=== PATIENT | female | born 1960 | race American Indian/Alaskan Native ===

== ENCOUNTER 2016-05-20 11:55 | Inpatient (IN) | payer MEDICAID ==
--- NOTE | 2016-05-20 12:26 | Emergency Department Report ---
ED Shortness of Breath HPI - General Chief Complaint: Dyspnea/Respdistress Stated Complaint: MALCOM Time Seen by Provider: 05/20/16 12:00 Source: patient, RN notes reviewed, old records reviewed Mode of arrival: Stretcher Limitations: Physical Limitation - History of Present Illness Initial Comments: 55-year-old female presents to the emergency department via [facility] complaining of shortness of breath. Patient reports symptoms began this morning around 5 AM. She reports dry cough. She denies fever, chills, chest pain, nausea, or vomiting. EMS reports jail staff stated the patient had a room air saturation in the low 60s. Patient was placed on nasal cannula at 8 L by jail staff. On EMS arrival, the patient had a oxygen saturation of approximately 93%. Patient was administered 5 mg of albuterol en route to emergency department. At this point, the patient reports feeling a little better. There are no other complaints. MD Complaint: shortness of breath, cough -: Sudden, This morning Time: 05:00 Pain Scale: 0 Consistency: constant Improves With: oxygen, bronchodilators Known History Of: COPD, congestive heart failure, diabetes Associated Symptoms: denies other symptoms Treatments Prior to Arrival: oxygen, bronchodilator - Related Data Home Oxygen Therapy: Yes Home Oxygen Amount: other (2-4 liters with CPAP at night) Home Medications Medication Instructions Recorded Confirmed Last Taken Atorvastatin [Lipitor] 40 mg PO QHS 09/23/13 05/20/16 05/20/16 Ferrous Sulfate [Ferrous Sulfate 325 mg PO QAM 09/23/13 05/20/16 05/20/16 Oral Liq 220 Mg/5 Ml] Fluticasone/Salmeterol [Advair 1 puff IH BID 09/23/13 05/20/16 05/19/16 Diskus 250-50 mcg] Insulin Aspart [NovoLOG 100 0 units SUB-Q ACHS 09/23/13 05/20/16 05/20/16 UNITS/ML VIAL] Ipratropium/Albuterol Sulfate 1 ampul IH Q6HRT 09/23/13 05/20/16 1 Day Ago [Duoneb 0.5 mg-3 mg/3 ml Soln] Magnesium Oxide 400 mg PO DAILY 09/23/13 05/20/16 05/20/16 Selenium Sulfide 180 ml TP DAILY 1005/20/16 05/20/16 Arformoterol Nebu [Brovana Nebu] 15 mcg INHALATION Q12HR PRN 04/13/16 05/20/16 1 Day Ago Hydroxyzine HCl 25 mg PO Q8H 04/13/16 05/20/16 05/20/16 Omeprazole Magnesium [PriLOSEC Otc] 20 mg PO DAILY 04/13/16 05/20/16 05/20/16 diphenhydrAMINE [Benadryl CAP] 25 mg PO Q8HR PRN 04/13/16 05/20/16 1 Day Ago Potassium Chloride 20 meq PO BID 05/20/16 05/20/16 05/20/16 Warfarin [Coumadin] 10 mg PO DAILY@1700 05/20/16 05/20/16 05/19/16 hydrALAZINE [Apresoline TAB] 100 mg PO TID 05/20/16 05/20/16 05/20/16 Previous Rx's Medication Instructions Recorded Last Taken Type Levothyroxine [Synthroid] 50 mcg PO DAILY@0600 #30 tablet 03/23/16 05/20/16 Rx Bumetanide [Bumex] 2 mg PO BID #60 tablet 04/21/16 05/20/16 Rx Metoprolol [Lopressor TAB] 100 mg PO BID #60 tablet 04/21/16 05/20/16 Rx oxyCODONE /ACETAMINOPHEN [Percocet 2 tab PO Q6H PRN #10 tablet 04/21/16 1 Day Ago Rx 5/325 mg] Acetaminophen [Acetaminophen TAB] 650 mg PO Q6HR PRN #30 05/05/16 1 Day Ago Rx amLODIPine [Norvasc] 10 mg PO DAILY #30 tab 05/05/16 05/20/16 Rx Allergies Allergy/AdvReac Type Severity Reaction Status Date / Time No Known Allergies Allergy Verified 10/02/13 09:59 ED Review of Systems ROS: Stated complaint: MALCOM Other details as noted in HPI Comment: All other systems reviewed and negative Respiratory: cough, shortness of breath ED Past Medical Hx - Past Medical History Previous Medical History?: Yes Hx Hypertension: Yes Hx Heart Attack/AMI: No Hx Congestive Heart Failure: Yes Hx Diabetes: Yes (Type II) Hx Deep Vein Thrombosis: No Hx Pulmonary Embolism: No Hx GERD: Yes Hx Liver Disease: No Hx Renal Disease: No Hx Arthritis: Yes Hx Kidney Stones: No Hx Psychiatric Treatment: Yes (anxiety) Hx Asthma: Yes Hx COPD: Yes Hx Tuberculosis: No Hx HIV: No Additional medical history: morbid obesity. atrial fibrillation. hypothyroidism. Edema. Obstructive Sleep Apnea with BiPAP used at night. chronic pain. chronic kidney disease. hyperlipidemia. anemia - Surgical History Past Surgical History?: No Hx Coronary Stent: No Hx Open Heart Surgery: No Hx Pacemaker: No Hx Internal Defibrillator: No Hx Cholecystectomy: No Hx Appendectomy: No Hx Breast Surgery: No - Family History Family history: no significant - Social History Smoking Status: Unknown if ever smoked Substance Use Type: None - Medications Home Medications: Home Medications Medication Instructions Recorded Confirmed Last Taken Type Atorvastatin [Lipitor] 40 mg PO QHS 09/23/13 05/20/16 05/20/16 History Ferrous Sulfate [Ferrous Sulfate 325 mg PO QAM 09/23/13 05/20/16 05/20/16 History Oral Liq 220 Mg/5 Ml] Fluticasone/Salmeterol [Advair 1 puff IH BID 09/23/13 05/20/16 05/19/16 History Diskus 250-50 mcg] Insulin Aspart [NovoLOG 100 0 units SUB-Q ACHS 09/23/13 05/20/16 05/20/16 History UNITS/ML VIAL] Ipratropium/Albuterol Sulfate 1 ampul IH Q6HRT 09/23/13 05/20/16 1 Day Ago History [Duoneb 0.5 mg-3 mg/3 ml Soln] Magnesium Oxide 400 mg PO DAILY 09/23/13 05/20/16 05/20/16 History Selenium Sulfide 180 ml TP DAILY 03/16/16 05/20/16 05/20/16 History Levothyroxine [Synthroid] 50 mcg PO DAILY@0600 #30 tablet 03/23/16 05/20/1606/05 Rx Arformoterol Nebu [Brovana Nebu] 15 mcg INHALATION Q12HR PRN 04/13/16 05/20/16 1 Day Ago History Hydroxyzine HCl 25 mg PO Q8H 04/13/16 05/20/16 05/20/16 History Omeprazole Magnesium [PriLOSEC Otc] 20 mg PO DAILY 04/13/16 05/20/1605/20/17 History diphenhydrAMINE [Benadryl CAP] 25 mg PO Q8HR PRN 04/13/16 05/20/16 1 Day Ago History Bumetanide [Bumex] 2 mg PO BID #60 tablet 04/21/16 05/20/16 05/20/16 Rx Metoprolol [Lopressor TAB] 100 mg PO BID #60 tablet 04/21/16 05/20/16 05/20/16 Rx oxyCODONE /ACETAMINOPHEN [Percocet 2 tab PO Q6H PRN #10 tablet 04/21/16 1 Day Ago Rx 5/325 mg] Acetaminophen [Acetaminophen TAB] 650 mg PO Q6HR PRN #30 05/05/16 05/20/16 1 Day Ago Rx amLODIPine [Norvasc] 10 mg PO DAILY #30 tab 05/05/16 05/20/16 05/20/16 Rx Potassium Chloride 20 meq PO BID 05/20/16 05/20/16 05/20/16 History Warfarin [Coumadin] 10 mg PO DAILY@1700 05/20/16 05/20/16 05/19/16 History hydrALAZINE [Apresoline TAB] 100 mg PO TID 05/20/16 05/20/16 05/20/16 History ED Physical Exam - General Limitations: Physical Limitation General appearance: alert, in distress (mild respiratory distress), obese - Head Head exam: Present: atraumatic, normocephalic - Eye Eye exam: Present: normal appearance, PERRL. Absent: EOMI - ENT ENT exam: Present: normal exam, normal orophraynx, mucous membranes moist - Neck Neck exam: Present: normal inspection, full ROM. Absent: tenderness - Respiratory Respiratory exam: Present: respiratory distress (mild tachypnea), wheezes ( faint end expiratory wheezes noted bilaterally) - Cardiovascular Cardiovascular Exam: Present: regular rate, normal rhythm, normal heart sounds - GI/Abdominal GI/Abdominal exam: Present: soft, normal bowel sounds. Absent: distended, tenderness - Extremities Exam Extremities exam: Present: normal inspection, full ROM. Absent: tenderness - Back Exam Back exam: Present: normal inspection, full ROM. Absent: tenderness - Neurological Exam Neurological exam: Present: alert, oriented X3. Absent: motor sensory deficit - Skin Skin exam: Present: warm, dry, intact ED Course Vital Signs 05/20/16 05/20/16 11:55 12:46 Temperature 98.2 F Pulse Rate 94 H 78 Respiratory 28 H 20 Rate Blood Pressure 140/76 O2 Sat by Pulse 99 92 Oximetry ED Medical Decision Making - Lab Data Result diagrams: 05/20/16 12:08 05/20/16 12:08 - EKG Data -: EKG Interpreted by Me EKG shows normal: sinus rhythm, axis, intervals, QRS complexes, ST-T waves Rate: normal - EKG Data When compared to previous EKG there are: no significant change Interpretation: normal EKG, unchanged when compared t (05/01/2016) - Radiology Data Radiology results: report reviewed, image reviewed Chest x-ray shows worsening pulmonary edema compared to previous exam on . - Medical Decision Making Lab and imaging results reviewed and discussed with the patient and daughter. Patient is currently on nasal cannula at 4 L/m with oxygen saturation fluctuated between 90% and 92%. Giving an IV dose of Lasix. I have spoken with the hospitalist, who will admit. - Differential Diagnosis COPD exacerbation, pneumonia, CHF Critical care attestation.: If time is entered above; I have spent that time in minutes in the direct care of this critically ill patient, excluding procedure time. ED Disposition Clinical Impression: Acute on chronic congestive heart failure Qualifiers: Congestive heart failure type: combined Qualified Code(s): I50.43 - Acute on chronic combined systolic (congestive) and diastolic (congestive) heart failure Disposition: OP ADMITTED IP TO THIS HOSP Is pt being admited?: Yes Condition: Stable Time of Disposition: 14:05
[2016-05-20 12:47] LABS: Albumin 3.5 g/dL (3.9-5); BUN/Creatinine Ratio 8.7; Bilirubin,Total 0.7 mg/dL (0.1-1.2); Calcium 8.6 mg/dL (8.4-10.2); Chloride 102.3 mmol/L (98-107); Magnesium 2.1 mg/dL (1.7-2.3); Total Protein 6.9 g/dL (6.3-8.2)
[2016-05-20 13:02] LABS: Basophils % (Auto) 0.4 % (0.0-1.8); Eosinophils % (Auto) 4.5 % (0.0-4.3); Hematocrit 29.6 % (30.3-42.9); Hemoglobin 9.1 gm/dl (10.1-14.3); Mean Corpuscular HGB Conc 31 % (30-34); Mean Corpuscular Hemoglobin 27 pg (28-32); Mean Corpuscular Volume 89 fl (79-97); Platelet Count 167 K/mm3 (140-440); Red Blood Count 3.32 M/mm3 (3.65-5.03); Red Cell Distribution Width 18.2 % (13.2-15.2); White Blood Count 7.3 K/mm3 (4.5-11.0)
--- NOTE | 2016-05-20 13:22 | XRay Report ---
AP CHEST :05/20/16 11:55:00 CLINICAL: Dyspnea. COMPARISON:05/01/16 FINDINGS: Stable cardiomegaly and central vascular congestion. Stable mild fluid in the right minor fissure. Bilateral hazy lung prakash with no pulmonary consolidation. No tubes or lines. IMPRESSION: Congestive heart failure with mild pulmonary edema and slight worsening since the last exam.
[2016-05-20] MEDS ORDERED: LASIX IV ONE (14:00)
[2016-05-20] MEDS ORDERED: LASIX ONE (16:04)
[2016-05-20] MEDS ORDERED: TYLENOL PO PRN ×2 (17:40→19:15)
[2016-05-20] MEDS ORDERED: DULCOLAX PR PRN (17:40)
[2016-05-20] MEDS ORDERED: MILK OF MAGNESIA PO PRN (17:40)
[2016-05-20] MEDS ORDERED: ZOFRAN IV PRN (17:40)
[2016-05-20] MEDS ORDERED: K-DUR PO ONE (18:06)
[2016-05-20] MEDS ORDERED: DUONEB 0.5 MG-3 MG/3 ML SOLN IH PRN (18:19)
[2016-05-20] MEDS ORDERED: PROVENTIL IH PRN (18:23)
[2016-05-20] MEDS ORDERED: DUONEB 0.5 MG-3 MG/3 ML SOLN IH SCH ×2 (18:24→20:00)
[2016-05-20] MEDS: PULMICORT IH SCH ×2 (18:31→21:08)
[2016-05-20] MEDS ORDERED: MAGNESIUM OXIDE 400 MG PO SCH (19:15)
[2016-05-20] MEDS ORDERED: BENADRYL PO PRN (19:15)
[2016-05-20] MEDS ORDERED: PERCOCET 5/325 PO PRN (19:15)
[2016-05-20] MEDS ORDERED: SELENIUM SULFIDE TP SCH (19:15)
--- NOTE | 2016-05-20 19:15 | Event Note ---
Date: 05/20/16 Acute resp failure Hypoventilation-Pickwickian syndrome CHF exacerbation Morbid obesity IDDM HTN GERD Anticoagulation
[2016-05-20] MEDS ORDERED: SELSUN TP PRN (19:35)
[2016-05-20] MEDS: LASIX IV SCH (20:43)
[2016-05-20] MEDS: LEVAQUIN 750MG/150ML 150 ML IV SCH (20:43)
[2016-05-20] MEDS: ATARAX PO SCH (20:44)
[2016-05-20] MEDS: APRESOLINE PO SCH (20:44)
[2016-05-20] MEDS: NORVASC PO SCH (20:45)
[2016-05-20] MEDS: DUONEB 0.5 MG-3 MG/3 ML SOLN IH SCH (21:08)
[2016-05-20 21:45] LABS: INR 8.53 (0.87-1.13)
[2016-05-20] MEDS ORDERED: NON-FORMULARY (Fluticasone/Salmeterol [Advair Diskus 250-50 Mcg] 1 PUFF) IH SCH (22:00)
[2016-05-20] MEDS ORDERED: K-DUR PO SCH (22:00)
[2016-05-20] MEDS ORDERED: NON-FORMULARY (Potassium Chloride [Potassium Chloride] 20 MEQ) PO SCH (22:00)
[2016-05-20] MEDS: LOPRESSOR PO SCH (22:10)
[2016-05-20] MEDS: ZOCOR PO SCH (22:10)
[2016-05-20] MEDS: BUMEX PO SCH (22:13)
[2016-05-20 23:07] LABS: ISTAT Base Excess 5; ISTAT DEVICE 0; ISTAT HCO3 30.9; ISTAT PCO2 55.6 (35-45); ISTAT PH 7.353 (7.35-7.45); ISTAT PO2 21 (80-105); ISTAT SO2 30; ISTAT TCO2 33
[2016-05-21] MEDS: DUONEB 0.5 MG-3 MG/3 ML SOLN IH SCH ×4 (02:17→20:29)
--- NOTE | 2016-05-21 02:59 | History and Physical Report ---
CHIEF COMPLAINT: Increasing shortness of breath for a couple of days, more so since morning 5:00 a.m. HISTORY OF PRESENT ILLNESS: A 55-year-old female, morbidly obese and bedridden, and [facility] patient sent in for increasing shortness of breath for the last 2 days, more so since 5 a.m. She reports slight cough. Denies fevers or chills. The patient has room air oxygenation around in the low 60s in the fpc. The patient was put on nasal cannula oxygen has improved to 93%. The patient was also administered albuterol in route. Dry cough. No cough productive of sputum. PAST MEDICAL HISTORY: Significant for hyperlipidemia, asthma/COPD, insulin-dependent diabetes, gastroesophageal reflux disease, anticoagulation. CURRENT MEDICATIONS: Lipitor 40 mg p.o. daily, ferrous sulfate 325 mg p.o. daily, Advair 1 puff b.i.d., NovoLog 8 units at bedtime, albuterol/ipratropium 1 ampule q. 8 hours p.r.n., selenium sulfide 180 mL once a day, Brovana nebulizer 50 mcg q. 12h., hydroxyzine 25 mg p.o. q. 8, Prilosec 20 mg p.o. daily, potassium 20 mEq p.o. b.i.d., Coumadin 10 mg p.o. daily, hydralazine 100 mg p.o. q. 8. She was on levothyroxine 50 mcg daily. PAST SURGICAL HISTORY: Significant for none. FAMILY HISTORY: Significant for hypertension. SOCIAL HISTORY: Does not smoke. REVIEW OF SYSTEMS: Middle-aged female, morbidly obese, weighing around 450 pounds, slight respiratory distress and cough presenting of mucoid sputum. Otherwise, review of systems is essentially negative. PHYSICAL EXAMINATION: GENERAL: Middle-aged female. VITAL SIGNS: Blood pressure is 132/79, temperature is 97.7, pulse is 81, respirations are 22. HEENT: Unremarkable. Pupils are equal and reactive. LUNGS AND CHEST: Hyperactive with increased work of breathing. Cough and rhonchi present. CARDIOVASCULAR: S1, S2 heard. No gallop, no murmur, no rub. Apical impulse in left fifth intercostal space in midclavicular line. ABDOMEN: Soft and benign. No hepatosplenomegaly. No guarding, no rigidity. Hernial orifices are normal. EXTREMITIES: Good pedal pulses. No pedal edema. CENTRAL NERVOUS SYSTEM: Alert and oriented x4, nonfocal exam. LABORATORY DATA: White count is 7300, H and H is 9.1 and 29.6, platelet count is 167,000. INR is 8.53. ABG is significant for pH of 7.353, pCO2 of 55, and a pO2 of 21. Sats are FiO2. Electrolytes are significant for bicarbonate of 31, BUN and creatinine of 27 and 3.1, glucose of 101. DIAGNOSTIC DATA: Chest x-ray shows congestive heart failure, mild pulmonary edema slight worsening than the last exam. ASSESSMENT AND PLAN: 1. Acute respiratory failure with hypoxia and hypercapnia. Continue DuoNeb, IV Solu-Medrol, and IV Levaquin. 2. Congestive heart failure. Check echocardiogram and BNP. 3. Hypothyroidism. Continue Synthroid 50 mcg daily. 4. Chronic obstructive pulmonary disease exacerbation. Continue DuoNeb, levofloxacin, and Solu-Medrol. 5. Hypertension. Continue antihypertensives. 6. Insulin-dependent diabetes. Continue insulin coverage. 7. Anticoagulation. Protime is supratherapeutic. We will hold the Coumadin and resume when the protime level comes to 2. 8. Deep vein thrombosis prophylaxis, no necessity for DVT prophylaxis, the patient's Coumadin level is high. INR is in 8. Prognosis is fair. JOB# [id number] LOREN/NTS
[2016-05-21] MEDS: ATARAX PO SCH ×3 (03:59→20:48)
[2016-05-21] MEDS: SYNTHROID PO SCH (05:18)
[2016-05-21 06:18] LABS: Basophils % (Auto) 0.1 % (0.0-1.8); Eosinophils % (Auto) 0.2 % (0.0-4.3); Hematocrit 29.4 % (30.3-42.9); Hemoglobin 9.1 gm/dl (10.1-14.3); Mean Corpuscular HGB Conc 31 % (30-34); Mean Corpuscular Hemoglobin 27 pg (28-32); Mean Corpuscular Volume 88 fl (79-97); Platelet Count 143 K/mm3 (140-440); Red Blood Count 3.33 M/mm3 (3.65-5.03); Red Cell Distribution Width 17.8 % (13.2-15.2); White Blood Count 5.1 K/mm3 (4.5-11.0)
[2016-05-21 06:46] LABS: Albumin 3.1 g/dL (3.9-5); Albumin/Globulin Ratio 0.8 %; BUN/Creatinine Ratio 10.58; Bilirubin,Total 0.6 mg/dL (0.1-1.2); Calcium 8.7 mg/dL (8.4-10.2); Chloride 103.2 mmol/L (98-107); Potassium 5.8 mmol/L (3.6-5.0); Total Protein 6.9 g/dL (6.3-8.2)
[2016-05-21 07:01] LABS: INR 8.81 (0.87-1.13)
[2016-05-21] MEDS: PULMICORT IH SCH ×2 (08:21→20:29)
--- NOTE | 2016-05-21 08:23 | Consultation ---
History of Present Illness - Reason for Consult Consult date: 05/21/16 acute renal failure, chronic renal failure, hyperkalemia - History of Present Illness Patient is a 55 yo AAF with pmh significant for Morbid Obesity, hypertension, CKD stage 4, CHF, A.fib and Severe Pulmonary HTN who [place] bound [place] was brought into the emergency department via EMS with complains of shortness of breath. Patient is a poor historian. She developed symptoms yesterday morning around 5 AM. History is also positive for dry cough. Per detention staff the patient had a room air saturation in the low 60s. Patient was placed on nasal cannula at 8 L by detention staff. On EMS arrival, the patient had a oxygen saturation of approximately 93%. Her symptoms are better overall. She denies any fever, chills, chest pain, N, V, D, skin rash, dizziness, syncope , dysuria, hematuria, kidney stone or NSAID intake. Her baseline creatinine is around 3 and she is not followed by any [facility]. Her potassium level is high this morning. Past History Past Medical History: atrial fib, diabetes, GERD, heart failure, hypertension Social history: single. denies: smoking, alcohol abuse, IV drug use Medications and Allergies Allergies Allergy/AdvReac Type Severity Reaction Status Date / Time No Known Allergies Allergy Verified 10/02/13 09:59 Home Medications Medication Instructions Recorded Confirmed Last Taken Type Atorvastatin [Lipitor] 40 mg PO QHS 09/23/13 05/20/16 05/20/16 History Ferrous Sulfate [Ferrous Sulfate 325 mg PO QAM 09/23/13 05/20/16 05/20/16 History Oral Liq 220 Mg/5 Ml] Fluticasone/Salmeterol [Advair 1 puff IH BID 09/23/13 05/20/16 05/19/16 History Diskus 250-50 mcg] Insulin Aspart [NovoLOG 100 0 units SUB-Q ACHS 09/23/13 05/20/16 05/20/16 History UNITS/ML VIAL] Ipratropium/Albuterol Sulfate 1 ampul IH Q6HRT 09/23/13 05/20/16 1 Day Ago History [Duoneb 0.5 mg-3 mg/3 ml Soln] Magnesium Oxide 400 mg PO DAILY 09/23/13 05/20/16 05/20/16 History Selenium Sulfide 180 ml TP DAILY 03/16/16 05/20/16 05/20/16 History Levothyroxine [Synthroid] 50 mcg PO DAILY@0600 #30 tablet 03/23/16 05/20/1606/05 Rx Arformoterol Nebu [Brovana Nebu] 15 mcg INHALATION Q12HR PRN 04/13/16 05/20/16 1 Day Ago History Hydroxyzine HCl 25 mg PO Q8H 04/13/16 05/20/16 05/20/16 History Omeprazole Magnesium [PriLOSEC Otc] 20 mg PO DAILY 04/13/16 05/20/16 05/20/16 History diphenhydrAMINE [Benadryl CAP] 25 mg PO Q8HR PRN 04/13/16 05/20/16 1 Day Ago History Bumetanide [Bumex] 2 mg PO BID #60 tablet 04/21/16 05/20/16 05/20/16 Rx Metoprolol [Lopressor TAB] 100 mg PO BID #60 tablet 04/21/16 05/20/16 05/20/16 Rx oxyCODONE /ACETAMINOPHEN [Percocet 2 tab PO Q6H PRN #10 tablet 04/21/16 1 Day Ago Rx 5/325 mg] Acetaminophen [Acetaminophen TAB] 650 mg PO Q6HR PRN #30 05/05/16 05/20/16 1 Day Ago Rx amLODIPine [Norvasc] 10 mg PO DAILY #30 tab 05/05/16 05/20/16 05/20/16 Rx Potassium Chloride 20 meq PO BID 05/20/16 05/20/16 05/20/16 History Warfarin [Coumadin] 10 mg PO DAILY@1700 05/20/16 05/20/16 05/19/16 History hydrALAZINE [Apresoline TAB] 100 mg PO TID 05/20/16 05/20/16 05/20/16 History Active Meds: Active Medications Acetaminophen (Tylenol) 650 mg PO Q4H PRN PRN Reason: Pain MILD(1-3)/Fever >100.5/HO Acetaminophen (Tylenol) 650 mg PO Q6HR PRN PRN Reason: Pain Albuterol (Proventil) 2.5 mg IH Q4HRT PRN PRN Reason: Shortness Of Breath Albuterol/Ipratropium (Duoneb 0.5 Mg-3 Mg/3 Ml Soln) 1 ampul IH Q6HRT [facility] Last Admin: 05/21/16 08:21 Dose: 1 ampul Amlodipine Besylate (Norvasc) 10 mg PO DAILY [facility] Last Admin: 05/20/16 20:45 Dose: 10 mg Atorvastatin Calcium (Lipitor) 40 mg PO QHS [facility] Last Admin: 05/20/16 22:10 Dose: 40 mg Bisacodyl (Dulcolax) 10 mg LA QDAY PRN PRN Reason: Constipation unrelieved by MOM Budesonide (Pulmicort) 0.5 mg IH Q12HRT [facility] Last Admin: 05/21/16 08:21 Dose: 0.5 mg Bumetanide (Bumex) 2 mg PO BID [facility] Last Admin: 05/20/16 22:13 Dose: 2 mg Diphenhydramine HCl (Benadryl) 25 mg PO Q8HR PRN PRN Reason: Itching Ferrous Sulfate (Feosol) 325 mg PO QAM [facility] Furosemide (Lasix) 40 mg IV QDAY [facility] Last Admin: 05/20/16 20:43 Dose: 40 mg Hydralazine HCl (Apresoline) 100 mg PO TID [facility] Last Admin: 05/20/16 20:44 Dose: 100 mg Hydroxyzine HCl (Atarax) 25 mg PO Q8H [facility] Last Admin: 05/21/16 03:59 Dose: 25 mg Levofloxacin/Dextrose (Levaquin 750mg/150ml) 150 mls @ 100 mls/hr IV Q24HR [facility] PRN Reason: Protocol Last Admin: 05/20/16 20:43 Dose: 100 mls/hr Levothyroxine Sodium (Synthroid) 50 mcg PO DAILY@0600 [facility] Last Admin: 05/21/16 05:18 Dose: 50 mcg Magnesium Hydroxide (Milk Of Magnesia) 30 ml PO Q4H PRN PRN Reason: Constipation Magnesium Oxide (Mag-Ox) 400 mg PO QDAY [facility] Methylprednisolone Sodium Succinate (Solu-Medrol) 60 mg IV Q8HR [facility] Last Admin: 05/21/16 05:18 Dose: 60 mg Metoprolol Tartrate (Lopressor) 100 mg PO BID [facility] Last Admin: 05/20/16 22:10 Dose: 100 mg Ondansetron HCl (Zofran) 4 mg IV Q8H PRN PRN Reason: N/V unrelieved by Reglan Oxycodone/Acetaminophen (Percocet 5/325) 1 tab PO Q6H PRN PRN Reason: Pain, Moderate (4-6) Oxycodone/Acetaminophen (Percocet 5/325) 2 tab PO Q6H PRN PRN Reason: Pain, Moderate (4-6) Pantoprazole Sodium (Protonix) 20 mg PO QDAY [facility] Selenium Sulfide (Selsun) 1 applic TP QDAY PRN PRN Reason: Seborrhea Simvastatin (Zocor) 20 mg PO QHS [facility] Last Admin: 05/20/16 22:10 Dose: 20 mg Warfarin Sodium (Coumadin) 10 mg PO DAILY@1700 [facility] PRN Reason: Protocol Review of Systems Constitutional: fatigue, no weight loss, no fever, no chills Ears, nose, mouth and throat: no sinus pressure, no sinus pain, no epistaxis Breasts: deferred Cardiovascular: edema, shortness of breath, no chest pain, no syncope, no lightheadedness Respiratory: cough, shortness of breath, no hemoptysis Gastrointestinal: no abdominal pain, no nausea, no vomiting, no diarrhea, no melena Genitourinary Female: no kidney stones Rectal: no bleeding Musculoskeletal: no neck stiffness, no neck pain Integumentary: no rash, no jaundice Neurological: no paralysis, no seizures, no syncope Hematologic/Lymphatic: lymphedema Allergic/Immunologic: no urticaria Exam - Vital Signs Vital signs: Vital Signs Temp Pulse Resp BP Pulse Ox 98.2 F 94 H 28 H 140/76 99 05/20/16 11:55 05/20/16 11:55 05/20/16 11:55 05/20/16 11:55 05/20/16 11:55 - General Appearance General appearance: well-developed, well-nourished, obese, other (no distress) EENT: PERRL, mucous membranes moist, hearing intact, vision intact Neck: Present: neck supple Respiratory: Clear to Ascultation Heart: regular, S1S2, no murmurs Gastrointestinal: Present: normoactive bowel sounds, obese. Absent: tenderness , distended, guarding Integumentary: warm and dry Neurologic: no focal deficit, no asterixis, CN 3-12 intact Musculoskeletal: Present: other (bilateral LE edema noted) Psychiatric: mood/affect appropriate, cooperative Results - Lab Results 05/21/16 05:24 05/21/16 05:24 Most recent lab results Calcium 8.7 mg/dL (8.4-10.2) 05/21/16 05:24 Magnesium 2.1 mg/dL (1.7-2.3) 05/20/16 12:08 Assessment and Plan - Patient Problems (1) Acute hyperkalemia Current Visit: Yes Status: Acute Plan to address problem: Hyperkalemia in the setting of CKD stage 4. Kayexalate ordered. K supplements were stopped. Monitor potassium level. (2) LOPEZ (acute kidney injury) Current Visit: No Status: Acute Plan to address problem: Mild Acute kidney Injury. Monitor renal function. (3) CKD (chronic kidney disease) stage 4, GFR 15-29 ml/min Current Visit: Yes Status: Acute Plan to address problem: CKD likely secondary to Diabetic Nephropathy. (4) HTN (hypertension) Current Visit: No Status: Chronic Plan to address problem: BP well controlled. (5) Anemia due to chronic kidney disease Current Visit: Yes Status: Acute Plan to address problem: Will check Iron studies.
[2016-05-21] MEDS ORDERED: NON-FORMULARY (Omeprazole Magnesium [Prilosec Otc] 20 MG) PO SCH (10:00)
[2016-05-21] MEDS ORDERED: FERROUS SULFATE 325 MG PO SCH (10:00)
--- NOTE | 2016-05-21 11:36 | Consultation ---
History of Present Illness Consult date: 05/21/16 Requesting physician: KARMEN MEHTA Consult reason: congestive heart failure History of present illness: This is a 55-year-old female who has morbid obesity obstructive sleep apnea with severe pulmonary hypertension who has history of also congestive heart failure hypertension proximal atrial fibrillation renal insufficiency who is bedbound patient is transferred via wheelchair patient's been correction for last several weeks was in the hospital 05/05/2016 for shortness of breath. Patient was brought back because of worsening shortness of breath but on exam here patient states or shortness breath but the same which shortness breath with movement minimal exertion patient is able lie down flat has some trace edema patient's BNP is relatively stable. Patient denies any chest pain syncope palpitations Past History Past Medical History: atrial fib (proximal), anemia, COPD (NURIS), heart failure, hypertension, hyperlipidemia Past Surgical History: No surgical history Social history: other (lives in a correction). denies: smoking Family history: diabetes, hypertension Medications and Allergies Allergies Allergy/AdvReac Type Severity Reaction Status Date / Time No Known Allergies Allergy Verified 10/02/13 09:59 Home Medications Medication Instructions Recorded Confirmed Last Taken Type Atorvastatin [Lipitor] 40 mg PO QHS 09/23/13 05/20/16 05/20/16 History Ferrous Sulfate [Ferrous Sulfate 325 mg PO QAM 09/23/13 05/20/16 05/20/16 History Oral Liq 220 Mg/5 Ml] Fluticasone/Salmeterol [Advair 1 puff IH BID 09/23/13 05/20/16 05/19/16 History Diskus 250-50 mcg] Insulin Aspart [NovoLOG 100 0 units SUB-Q ACHS 09/23/13 05/20/16 05/20/16 History UNITS/ML VIAL] Ipratropium/Albuterol Sulfate 1 ampul IH Q6HRT 09/23/13 05/20/16 1 Day Ago History [Duoneb 0.5 mg-3 mg/3 ml Soln] Magnesium Oxide 400 mg PO DAILY 09/23/13 05/20/16 05/20/16 History Selenium Sulfide 180 ml TP DAILY 03/16/16 05/20/16 05/20/16 History Levothyroxine [Synthroid] 50 mcg PO DAILY@0600 #30 tablet 11/09/0205/20/1606/05 Rx Arformoterol Nebu [Brovana Nebu] 15 mcg INHALATION Q12HR PRN 04/13/16 05/20/16 1 Day Ago History Hydroxyzine HCl 25 mg PO Q8H 04/13/16 05/20/16 05/20/16 History Omeprazole Magnesium [PriLOSEC Otc] 20 mg PO DAILY 04/13/16 05/20/16 05/20/16 History diphenhydrAMINE [Benadryl CAP] 25 mg PO Q8HR PRN 04/13/16 05/20/16 1 Day Ago History Bumetanide [Bumex] 2 mg PO BID #60 tablet 04/21/16 05/20/16 05/20/16 Rx Metoprolol [Lopressor TAB] 100 mg PO BID #60 tablet 04/21/16 05/20/16 05/20/16 Rx oxyCODONE /ACETAMINOPHEN [Percocet 2 tab PO Q6H PRN #10 tablet 04/21/16 1 Day Ago Rx 5/325 mg] Acetaminophen [Acetaminophen TAB] 650 mg PO Q6HR PRN #30 05/05/16 05/20/16 1 Day Ago Rx amLODIPine [Norvasc] 10 mg PO DAILY #30 tab 05/05/16 05/20/16 05/20/16 Rx Potassium Chloride 20 meq PO BID 05/20/16 05/20/16 05/20/16 History Warfarin [Coumadin] 10 mg PO DAILY@1700 05/20/16 05/20/16 05/19/16 History hydrALAZINE [Apresoline TAB] 100 mg PO TID 05/20/16 05/20/16 05/20/16 History Active Meds: Active Medications Acetaminophen (Tylenol) 650 mg PO Q4H PRN PRN Reason: Pain MILD(1-3)/Fever >100.5/HO Acetaminophen (Tylenol) 650 mg PO Q6HR PRN PRN Reason: Pain Albuterol (Proventil) 2.5 mg IH Q4HRT PRN PRN Reason: Shortness Of Breath Albuterol/Ipratropium (Duoneb 0.5 Mg-3 Mg/3 Ml Soln) 1 ampul IH Q6HRT PRATIK Last Admin: 05/21/16 08:21 Dose: 1 ampul Amlodipine Besylate (Norvasc) 10 mg PO DAILY [facility] Last Admin: 05/20/16 20:45 Dose: 10 mg Atorvastatin Calcium (Lipitor) 40 mg PO QHS [facility] Last Admin: 05/20/16 22:10 Dose: 40 mg Bisacodyl (Dulcolax) 10 mg TX QDAY PRN PRN Reason: Constipation unrelieved by MOM Budesonide (Pulmicort) 0.5 mg IH Q12HRT [facility] Last Admin: 05/21/16 08:21 Dose: 0.5 mg Bumetanide (Bumex) 2 mg PO BID [facility] Last Admin: 05/20/16 22:13 Dose: 2 mg Diphenhydramine HCl (Benadryl) 25 mg PO Q8HR PRN PRN Reason: Itching Ferrous Sulfate (Feosol) 325 mg PO QAM [facility] Furosemide (Lasix) 40 mg IV QDAY [facility] Last Admin: 05/20/16 20:43 Dose: 40 mg Hydralazine HCl (Apresoline) 100 mg PO TID [facility] Last Admin: 05/20/16 20:44 Dose: 100 mg Hydroxyzine HCl (Atarax) 25 mg PO Q8H [facility] Last Admin: 05/21/16 03:59 Dose: 25 mg Levofloxacin/Dextrose (Levaquin 750mg/150ml) 150 mls @ 100 mls/hr IV Q24HR [facility] PRN Reason: Protocol Last Admin: 05/20/16 20:43 Dose: 100 mls/hr Levothyroxine Sodium (Synthroid) 50 mcg PO DAILY@0600 [facility] Last Admin: 05/21/16 05:18 Dose: 50 mcg Magnesium Hydroxide (Milk Of Magnesia) 30 ml PO Q4H PRN PRN Reason: Constipation Magnesium Oxide (Mag-Ox) 400 mg PO QDAY [facility] Methylprednisolone Sodium Succinate (Solu-Medrol) 60 mg IV Q8HR [facility] Last Admin: 05/21/16 05:18 Dose: 60 mg Metoprolol Tartrate (Lopressor) 100 mg PO BID [facility] Last Admin: 05/20/16 22:10 Dose: 100 mg Ondansetron HCl (Zofran) 4 mg IV Q8H PRN PRN Reason: N/V unrelieved by Reglan Oxycodone/Acetaminophen (Percocet 5/325) 1 tab PO Q6H PRN PRN Reason: Pain, Moderate (4-6) Pantoprazole Sodium (Protonix) 20 mg PO QDAY [facility] Selenium Sulfide (Selsun) 1 applic TP QDAY PRN PRN Reason: Seborrhea Simvastatin (Zocor) 20 mg PO QHS [facility] Last Admin: 05/20/16 22:10 Dose: 20 mg Sodium Polystyrene Sulfonate (Kayexalate) 30 gm PO Q6HR [facility] Stop: 05/21/16 12:01 Review of Systems All systems: negative (hpi) Physical Examination Vital Signs Temp Pulse Resp BP Pulse Ox 98.2 F 94 H 28 H 140/76 99 05/20/16 11:55 05/20/16 11:55 05/20/16 11:55 05/20/16 11:55 05/20/16 11:55 General appearance: no acute distress, well-nourished, obese HEENT: Positive: PERRL, Mucus Membranes Moist Neck: Positive: neck supple, trachea midline Cardiac: Positive: Reg Rate and Rhythm, S1/S2. Negative: Audible Murmur Lungs: Positive: clear to auscultation, Normal Breath Sounds Neuro: Positive: Grossly Intact Abdomen: Positive: Soft, Active Bowel Sounds. Negative: Tender, Distended Female genitourinary: deferred Skin: Positive: Clear Incision: Cardiac Cath Site Musculoskeletal: No Pain, Normal Range of Motion Extremities: Present: normal, edema (trace) Results 05/21/16 05:24 05/21/16 05:24 Cardiac Enzymes 05/20/16 05/20/16 05/20/16 Range/Units 18:00 20:43 20:55 WBC (4.5-11.0) K/mm3 RBC (3.65-5.03) M/mm3 Hgb (10.1-14.3) gm/dl Hct (30.3-42.9) % MCV (79-97) fl MCH (28-32) pg MCHC (30-34) % RDW (13.2-15.2) % Plt Count (140-440) K/mm3 Lymph % (Auto) (13.4-35.0) % [place] % (Auto) (0.0-7.3) % Eos % (Auto) (0.0-4.3) % Baso % (Auto) (0.0-1.8) % Lymph # (1.2-5.4) K/mm3 [place] # (0.0-0.8) K/mm3 Eos # (0.0-0.4) K/mm3 Baso # (0.0-0.1) K/mm3 Seg Neutrophils % (40.0-70.0) % Seg Neutrophils # (1.8-7.7) K/mm3 PT 71.8 H (12.2-14.9) Sec. INR 8.53 H* (0.87-1.13) POC ABG pH 7.353 (7.35-7.45) POC ABG pCO2 55.6 H (35-45) POC ABG pO2 21 L (80-105) POC ABG HCO3 30.9 POC ABG Total CO2 33 POC ABG O2 Sat 30 POC ABG Base Excess 5 FiO2 21 % Sodium (137-145) mmol/L Potassium (3.6-5.0) mmol/L Chloride (98-107) mmol/L Carbon Dioxide (22-30) mmol/L Anion Gap mmol/L BUN (7-17) mg/dL Creatinine (0.7-1.2) mg/dL Estimated GFR ml/min BUN/Creatinine Ratio % Glucose (65-100) mg/dL Hemoglobin A1c 5.1 (4-6) % Calcium (8.4-10.2) mg/dL Total Bilirubin (0.1-1.2) mg/dL AST (5-40) units/L ALT (7-56) units/L Alkaline Phosphatase (35-129) units/L Total Protein (6.3-8.2) g/dL Albumin (3.9-5) g/dL Albumin/Globulin Ratio % 05/21/16 05/21/16 05/21/16 Range/Units 05:24 05:24 05:24 WBC 5.1 (4.5-11.0) K/mm3 RBC 3.33 L (3.65-5.03) M/mm3 Hgb 9.1 L (10.1-14.3) gm/dl Hct 29.4 L (30.3-42.9) % MCV 88 (79-97) fl MCH 27 L (28-32) pg MCHC 31 (30-34) % RDW 17.8 H (13.2-15.2) % Plt Count 143 (140-440) K/mm3 Lymph % (Auto) 8.8 L (13.4-35.0) % [place] % (Auto) 1.0 (0.0-7.3) % Eos % (Auto) 0.2 (0.0-4.3) % Baso % (Auto) 0.1 (0.0-1.8) % Lymph # 0.4 L (1.2-5.4) K/mm3 [place] # 0.0 (0.0-0.8) K/mm3 Eos # 0.0 (0.0-0.4) K/mm3 Baso # 0.0 (0.0-0.1) K/mm3 Seg Neutrophils % 89.9 H (40.0-70.0) % Seg Neutrophils # 4.5 (1.8-7.7) K/mm3 PT 69.6 H (12.2-14.9) Sec. INR 8.81 H* (0.87-1.13) POC ABG pH (7.35-7.45) POC ABG pCO2 (35-45) POC ABG pO2 (80-105) POC ABG HCO3 POC ABG Total CO2 POC ABG O2 Sat POC ABG Base Excess FiO2 % Sodium 143 (137-145) mmol/L Potassium 5.8 H (3.6-5.0) mmol/L Chloride 103.2 (98-107) mmol/L Carbon Dioxide 28 (22-30) mmol/L Anion Gap 18 mmol/L BUN 36 H (7-17) mg/dL Creatinine 3.4 H (0.7-1.2) mg/dL Estimated GFR 17 ml/min BUN/Creatinine Ratio 10.58 % Glucose 119 H (65-100) mg/dL Hemoglobin A1c (4-6) % Calcium 8.7 (8.4-10.2) mg/dL Total Bilirubin 0.6 (0.1-1.2) mg/dL AST 13 (5-40) units/L ALT 8 (7-56) units/L Alkaline Phosphatase 99 (35-129) units/L Total Protein 6.9 (6.3-8.2) g/dL Albumin 3.1 L (3.9-5) g/dL Albumin/Globulin Ratio 0.8 % Coagulation 05/20/16 05/21/16 Range/Units 20:55 05:24 PT 71.8 H 69.6 H (12.2-14.9) Sec. INR 8.53 H* 8.81 H* (0.87-1.13) CBC 05/21/16 Range/Units 05:24 WBC 5.1 (4.5-11.0) K/mm3 RBC 3.33 L (3.65-5.03) M/mm3 Hgb 9.1 L (10.1-14.3) gm/dl Hct 29.4 L (30.3-42.9) % Plt Count 143 (140-440) K/mm3 Lymph # 0.4 L (1.2-5.4) K/mm3 [place] # 0.0 (0.0-0.8) K/mm3 Eos # 0.0 (0.0-0.4) K/mm3 Baso # 0.0 (0.0-0.1) K/mm3 Comprehensive Metabolic Panel 05/21/16 Range/Units 05:24 Sodium 143 (137-145) mmol/L Potassium 5.8 H (3.6-5.0) mmol/L Chloride 103.2 (98-107) mmol/L Carbon Dioxide 28 (22-30) mmol/L BUN 36 H (7-17) mg/dL Creatinine 3.4 H (0.7-1.2) mg/dL Glucose 119 H (65-100) mg/dL Calcium 8.7 (8.4-10.2) mg/dL AST 13 (5-40) units/L ALT 8 (7-56) units/L Alkaline Phosphatase 99 (35-129) units/L Total Protein 6.9 (6.3-8.2) g/dL Albumin 3.1 L (3.9-5) g/dL - Imaging and Cardiology Echo: report reviewed (03/2016 normal LV function no aortic regurgitation or mitral regurgitation moderate tricuspid regurgitation RVSP of 50-55 mmHg) EKG interpretations - Telemetry EKG Rhythm: Sinus Rhythm (normal sinus rhythm nonspecific is ST-T's) Assessment and Plan Acute on chronic diastolic heart failure Non-STEMI type II Hypertension Acute on chronic renal sufficiency Anemia Elevated Coumadin level Proximal atrial fibrillation Morbid obesity Sleep apnea Recommend continuing BP control with hydralazine and calcium channel blockers and beta blockers and continue diarrhetic's as per renal and hold Coumadin in view of elevated INR no overt signs of bleeding at this time
[2016-05-21] MEDS: KAYEXALATE PO SCH (13:39)
[2016-05-21] MEDS: BUMEX PO SCH ×2 (13:41→21:08)
[2016-05-21] MEDS: LOPRESSOR PO SCH ×2 (13:41→21:07)
[2016-05-21] MEDS: LASIX IV SCH (13:41)
[2016-05-21] MEDS: APRESOLINE PO SCH ×3 (13:42→20:48)
[2016-05-21] MEDS: PROTONIX PO SCH (13:42)
[2016-05-21] MEDS: FEOSOL PO SCH (13:42)
[2016-05-21] MEDS: NORVASC PO SCH (13:43)
[2016-05-21] MEDS: MAG-OX PO SCH (13:43)
[2016-05-21] MEDS: LEVAQUIN 750MG/150ML 150 ML IV SCH (14:01)
[2016-05-21] MEDS: PERCOCET 5/325 PO PRN ×2 (14:02→21:07)
[2016-05-21] MEDS ORDERED: VITAMIN K *ORAL LIQUID PO ONE (15:55)
[2016-05-21] MEDS ORDERED: COUMADIN PO SCH (17:00)
--- NOTE | 2016-05-21 17:27 | Progress Note ---
Assessment and Plan Assessment and plan: Acute resp failure due to COPD exac and CHF exacerbation. Suoplemental Oxygen. Cardiology following. Acute on diastolic CHF. Lasix iv, Beta blockers Acute on CKD. Nephrology following COPD exacerbation. Cont solumedrol, Duoneb Coagulopathy due to Coumadin. INR 8.8. Discussed with Dr. Easton. Will gve Vit K 5mg po x 1 dose. Diabetes mellitus type 2 Hypothyroidism Morbid obesity. Full code status Hospitalist Physical - Physical exam Narrative exam: Gen: Not in acute distress,morbid obesity HEENT: Normocephalic, atraumatic Neck :supple, no JVD Lungs: Clear to auscultation, no wheeze Heart S1 and S2 regular, no murmurs no gallop Abdomen:soft, nontender, nondistended, normal bowel sounds Ext: No edema, no clubbing or cyanosis Neuro: Awake alert oriented x 3, No focal signs - Constitutional Vitals: Temp Pulse Resp BP Pulse Ox 98.2 F 73 22 133/64 96 05/21/16 16:49 05/21/16 17:20 05/21/16 16:49 05/21/16 16:49 05/21/16 16:49 General appearance: Present: no acute distress Results - Labs CBC & Chem 7: 05/22/16 06:14 05/22/16 06:14 Labs: Laboratory Last Values WBC 5.1 K/mm3 (4.5-11.0) 05/21/16 05:24 RBC 3.33 M/mm3 (3.65-5.03) L 05/21/16 05:24 Hgb 9.1 gm/dl (10.1-14.3) L 05/21/16 05:24 Hct 29.4 % (30.3-42.9) L 05/21/16 05:24 MCV 88 fl (79-97) 05/21/16 05:24 MCH 27 pg (28-32) L 05/21/16 05:24 MCHC 31 % (30-34) 05/21/16 05:24 RDW 17.8 % (13.2-15.2) H 05/21/16 05:24 Plt Count 143 K/mm3 (140-440) 05/21/16 05:24 Lymph % (Auto) 8.8 % (13.4-35.0) L 05/21/16 05:24 [place] % (Auto) 1.0 % (0.0-7.3) 05/21/16 05:24 Eos % (Auto) 0.2 % (0.0-4.3) 05/21/16 05:24 Baso % (Auto) 0.1 % (0.0-1.8) 05/21/16 05:24 Lymph # 0.4 K/mm3 (1.2-5.4) L 05/21/16 05:24 [place] # 0.0 K/mm3 (0.0-0.8) 05/21/16 05:24 Eos # 0.0 K/mm3 (0.0-0.4) 05/21/16 05:24 Baso # 0.0 K/mm3 (0.0-0.1) 05/21/16 05:24 Seg Neutrophils % 89.9 % (40.0-70.0) H 05/21/16 05:24 Seg Neutrophils # 4.5 K/mm3 (1.8-7.7) 05/21/16 05:24 PT 69.6 Sec. (12.2-14.9) H 05/21/16 05:24 INR 8.81 (0.87-1.13) H* 05/21/16 05:24 POC ABG pH 7.353 (7.35-7.45) 05/20/16 20:43 POC ABG pCO2 55.6 (35-45) H 05/20/16 20:43 POC ABG pO2 21 (80-105) L 05/20/16 20:43 POC ABG HCO3 30.9 05/20/16 20:43 POC ABG Total CO2 33 05/20/16 20:43 POC ABG O2 Sat 30 05/20/16 20:43 POC ABG Base Excess 5 05/20/16 20:43 FiO2 21 % 05/20/16 20:43 Sodium 143 mmol/L (137-145) 05/21/16 05:24 Potassium 5.8 mmol/L (3.6-5.0) H 05/21/16 05:24 Chloride 103.2 mmol/L (98-107) 05/21/16 05:24 Carbon Dioxide 28 mmol/L (22-30) 05/21/16 05:24 Anion Gap 18 mmol/L 05/21/16 05:24 BUN 36 mg/dL (7-17) H 05/21/16 05:24 Creatinine 3.4 mg/dL (0.7-1.2) H 05/21/16 05:24 Estimated GFR 17 ml/min 05/21/16 05:24 BUN/Creatinine Ratio 10.58 % 05/21/16 05:24 Glucose 119 mg/dL (65-100) H 05/21/16 05:24 POC Glucose 101 (70-105) 05/20/16 12:40 Hemoglobin A1c 5.1 % (4-6) 05/20/16 18:00 Calcium 8.7 mg/dL (8.4-10.2) 05/21/16 05:24 Magnesium 2.1 mg/dL (1.7-2.3) 05/20/16 12:08 Total Bilirubin 0.6 mg/dL (0.1-1.2) 05/21/16 05:24 AST 13 units/L (5-40) 05/21/16 05:24 ALT 8 units/L (7-56) 05/21/16 05:24 Alkaline Phosphatase 99 units/L (35-129) 05/21/16 05:24 Troponin T 0.024 ng/mL (0.00-0.029) 05/20/16 12:08 NT-Pro-B Natriuret Pep 1330 pg/mL (0-900) H 05/20/16 12:08 Total Protein 6.9 g/dL (6.3-8.2) 05/21/16 05:24 Albumin 3.1 g/dL (3.9-5) L 05/21/16 05:24 Albumin/Globulin Ratio 0.8 % 05/21/16 05:24
[2016-05-21] MEDS: ZOCOR PO SCH (21:07)
--- NOTE | 2016-05-21 23:23 | Admit Criteria Form ---
Admission Criteria Documentation: HEART FAILURE: COMMON COMPLICATIONS Clinical Indications for Inpatient Care (Place 'X' for any and all applicable criteria): Ongoing inpatient care may be indicated for heart failure with ANY ONE of the following (1)(2)(3)(4)(5): [ ]I. Ongoing need for care for primary condition requiring frequent therapy adjustments because of changes in cardiac function (eg, drug dosage changes for drugs that are renally metabolized) [ ]II. New-onset heart failure [ ]III. Heart failure with decreased urine output not responsive to attempts to optimize volume status [ ]IV. Acute cardiac ischemia causing or associated with failure [X ]V. Complications of heart failure, including ANY ONE of the following: [ ]a) Pericardial effusion [ ]b) Symptomatic pleural effusion [ ]c) O2 saturation <90% or PO2 < 60 mm Hg (8.0 kPa) on room air or require baseline supplemental O2 [ ]d) Tachypnea [X ]e) Dyspnea [ ]f) Syncope [ ]g) Change in mental status [ ]h) Acute renal insufficiency that is severe (reduction of more than 50% in estimated glomerular filtration rate from baseline) or progressive reduction of more than 25% in estimated glomerular filtration rate from baseline, with creatinine continuing to rise) [ ]i) Hemodynamic instability [ ]j) Anasarca [ ]k) Clinically significant metabolic abnormalities due to heart failure (eg, new-onset metabolic acidosis) Extended stay beyond goal length of stay for primary condition may be needed until ALL of the following are present(1)(3): [ ]a) Stable and effective diuretic regimen established (or patient on stable dialysis regimen if in chronic renal failure) [ ]b) Breathing comfortably at rest [ ]c) Saturation of arterial oxygen greater than 90% or at acceptable baseline [ ]d) Pulmonary edema absent or improved [ ]e) Hemodynamic stability [ ]f) Volume status acceptable on oral medication [ ]g) Peripheral or sacral edema absent or improved [ ]h) Renal function stable and manageable at a lower level of care [ ]i) Complications (eg, pleural effusion) resolved or manageable at a lower level of care [ ]j) Patient or caregiver has received written discharge instructions or educational material addressing activity level, diet, discharge medications, follow-up appointment, weight monitoring, and what to do if symptoms worsen The original [employer] content created by [employer] has been revised. The portions of the content which have been revised are identified through the use of italic text or in bold, and [facility] has neither reviewed nor approved the modified material.All other unmodified content is copyright [facility]. Please see references footnoted in the original [facility] edition 2016 Admission Criteria Met: Yes
[2016-05-22] MEDS: DUONEB 0.5 MG-3 MG/3 ML SOLN IH SCH ×4 (01:02→19:39)
[2016-05-22] MEDS: ATARAX PO SCH ×2 (05:04→11:50)
[2016-05-22] MEDS: SYNTHROID PO SCH (05:05)
[2016-05-22 06:47] LABS: Hematocrit 29.7 % (30.3-42.9); Hemoglobin 9.3 gm/dl (10.1-14.3); Mean Corpuscular HGB Conc 31 % (30-34); Mean Corpuscular Hemoglobin 28 pg (28-32); Mean Corpuscular Volume 88 fl (79-97); Platelet Count 172 K/mm3 (140-440); Red Blood Count 3.36 M/mm3 (3.65-5.03); White Blood Count 6.7 K/mm3 (4.5-11.0)
[2016-05-22 06:59] LABS: INR 4.02 (0.87-1.13)
[2016-05-22 07:06] LABS: BUN/Creatinine Ratio 14.68; Calcium 8.8 mg/dL (8.4-10.2); Chloride 100.7 mmol/L (98-107); Potassium 4.9 mmol/L (3.6-5.0)
[2016-05-22 07:51] LABS: Anisocytosis 1+; Basophils % (Manual) 0 % (0.0-1.8); Blastocytes % (Manual) 0 %; Diff Status Complete; Eosinophils % (Manual) 0 % (0.0-4.3); Helmet Cells Few; Hypochromasia 1+; Microcytosis 1+; Ovalocytes Few; Poikilocytosis 1+; Polychromasia 1+; Stomatocytes Rare; Tear Drop Cells Few; Total Cells Counted Percent 0
[2016-05-22] MEDS: PULMICORT IH SCH ×2 (07:58→19:39)
--- NOTE | 2016-05-22 08:35 | Progress Note ---
Assessment and Plan - Patient Problems (1) Acute hyperkalemia Current Visit: Yes Status: Acute Plan to address problem: Today K is 4.8. Low potassium diet. (2) LOPEZ (acute kidney injury) Current Visit: No Status: Acute Plan to address problem: Renal function is close to her baseline. (3) CKD (chronic kidney disease) stage 4, GFR 15-29 ml/min Current Visit: Yes Status: Acute Plan to address problem: Renal function is fairly stable. (4) HTN (hypertension) Current Visit: Yes Status: Chronic Plan to address problem: BP well controlled. (5) Anemia due to chronic kidney disease Current Visit: Yes Status: Acute Plan to address problem: Epogen as needed. (6) Hyperparathyroidism, secondary renal Current Visit: Yes Status: Acute Plan to address problem: Start on Calcitriol. Subjective Date of service: 05/22/16 Interval history: Patient is feeling better. Objective - Vital Signs Vital signs: Vital Signs - 12hr 05/21/16 05/21/16 05/22/16 20:39 20:51 01:03 Temperature 97.5 F L Pulse Rate Pulse Rate [ 78 67 Anterior Bilateral Throughout] Pulse Rate [ 77 Left Radial] Respiratory 22 Rate Respiratory 20 22 Rate [Anterior Bilateral Throughout] Blood Pressure 139/67 [Left Arm] O2 Sat by Pulse 97 Oximetry 05/22/16 05/22/16 05/22/16 01:11 01:16 01:25 Temperature 97.5 F L Pulse Rate Pulse Rate [ 66 65 Anterior Bilateral Throughout] Pulse Rate [ 70 Left Radial] Respiratory 24 Rate Respiratory 21 21 Rate [Anterior Bilateral Throughout] Blood Pressure 129/71 [Left Arm] O2 Sat by Pulse 95 Oximetry 05/22/16 05/22/16 05/22/16 04:40 05:00 07:55 Temperature 97.8 F Pulse Rate 71 Pulse Rate [ 75 Anterior Bilateral Throughout] Pulse Rate [ 66 Left Radial] Respiratory 24 Rate Respiratory 20 Rate [Anterior Bilateral Throughout] Blood Pressure 141/79 [Left Arm] O2 Sat by Pulse 93 90 Oximetry 05/22/16 05/22/16 08:16 08:19 Temperature 97.8 F Pulse Rate Pulse Rate [ 80 Anterior Bilateral Throughout] Pulse Rate [ 72 Left Radial] Respiratory 20 Rate Respiratory 20 Rate [Anterior Bilateral Throughout] Blood Pressure 138/80 [Left Arm] O2 Sat by Pulse 94 Oximetry - General Appearance General appearance: well-developed, well-nourished, obese, other (no distress) EENT: PERRL, mucous membranes moist, hearing intact, vision intact Neck: supple Respiratory: Present: Clear to Ascultation Cardiology: regular, S1S2, no murmurs Gastrointestinal: normoactive bowel sounds, no tenderness, no distended, no masses, obese Integumentary: no rash, warm and dry Neurologic: CN 3-12 intact, other (able to move all 4 extremities) Musculoskeletal: other (bilateral LE edema noted) Psychiatric: mood/affect appropriate, cooperative - Lab 05/22/16 06:14 05/22/16 06:14 Most recent lab results Calcium 8.8 mg/dL (8.4-10.2) 05/22/16 06:14 Magnesium 2.1 mg/dL (1.7-2.3) 05/20/16 12:08
--- NOTE | 2016-05-22 08:52 | Echocardiography Report ---
Transthoracic Echocardiogram Indication: CHF BP: 128/73 Conclusions *Global left ventricular systolic function is normal. *The estimated ejection fraction is 55-60%. *Mild concentric left ventricular hypertrophy is observed. *Abnormal left ventricular diastolic filling is observed, consistent with impaired relaxation. *The right ventricle is mildly dilated. *The right ventricular global systolic function is normal. *There is trace of aortic regurgitation. *There is mild mitral regurgitation. *There is mild to moderate tricuspid regurgitation. *The right ventricular systolic pressure is calculated at 76 mmHg. *There is evidence of severe pulmonary hypertension. *There is no evidence of pulmonic regurgitation. *Definity was used to optimize study. Findings Left Ventricle: The left ventricular chamber size is normal. Mild concentric left ventricular hypertrophy is observed. Global left ventricular wall motion and contractility are within normal limits. Global left ventricular systolic function is normal. The estimated ejection fraction is 55-60%. Abnormal left ventricular diastolic filling is observed, consistent with impaired relaxation. Left Atrium: The left atrium is mild to moderately dilated. Right Ventricle: The right ventricle is mildly dilated. The right ventricular global systolic function is normal. Right Atrium: The right atrium is moderately dilated. The interatrial septum appears normal. Aortic Valve: The aortic valve leaflets are mildly thickened. Mild aortic leaflet calcification is visualized. There is trace of aortic regurgitation. There is no evidence of aortic stenosis. The mean gradient of the aortic valve is 13 mmHg. Mitral Valve: The mitral valve leaflets are mildly thickened. There is mild mitral regurgitation. There is no evidence of mitral stenosis. Tricuspid Valve: The tricuspid valve leaflets are normal. There is mild to moderate tricuspid regurgitation. The right ventricular systolic pressure is calculated at 76 mmHg. There is evidence of severe pulmonary hypertension. There is no tricuspid stenosis. Pulmonic Valve: The pulmonic valve appears normal. There is no evidence of pulmonic regurgitation. There is no pulmonic stenosis. Pericardium: There is no pericardial effusion. Aorta: There is no dilatation of the ascending aorta. Venous: The inferior vena cava is dilated. There is no change in the dimension of the inferior vena cava with respiration consistent with markedly increased right atrial pressure. Contrast: Definity was used to optimize study. Intravenous agitated saline contrast was used to assess intracardiac shunting. Measurements Chambers MM Name Value Normal Range Ao root diameter (MM) 3.1 cm (2 - 3.7) LA dimension (AP) MM 4.2 cm (1.9 - 4) LA:Ao ratio (MM) 1.35 ratio - AV cusp separation (MM) 1.5 cm (1.5 - 2.6) Chambers 2D Name Value Normal Range IVSd (2D) 1.35 cm (0.6 - 1.1) LVPWd (2D) 1.31 cm (0.6 - 1.1) IVS:LVPW ratio (2D) 1.03 ratio - LVIDd (2D) 4.51 cm (3.7 - 5.6) LVIDs (2D) 3.49 cm (2 - 3.8) LV FS (Teichholz) (2D) 22.6 % - LV FS (cube) (2D) 22.6 % - EF Teichholz (2D) 45.6 % - LA dimension (AP) 2D 4.2 cm (1.9 - 4) Volumes/Mass Name Value Normal Range LA ESV SP 4CH (MOD) 124 ml - LA ESV SP 2CH (MOD) 158 ml - LA ESV BP (MOD) 141 ml - LA ESV BP (MOD) index 55.3 ml/m2 - Diastolic/Systolic Function Name Value Normal Range MV E-wave Vmax 0.88 m/sec - MV deceleration time 215 msec - MV A-wave Vmax 1.16 m/sec - MV E:A ratio 0.8 ratio - LV septal e' Vmax 0.08 m/sec - LV lateral e' Vmax 0.08 m/sec - LV E:e' septal ratio 11.5 ratio - LV E:e' lateral ratio 11.3 ratio - Aortic Valve Name Value Normal Range AV VTI 45.1 cm - AV mean gradient 13 mmHg - LVOT diameter 2.2 cm - LVOT VTI 31.4 cm - LVOT mean gradient 7 mmHg - SV LVOT 119 ml - RUTH (continuity VTI) 2.65 cm2 - Mitral Valve Name Value Normal Range MV PHT 52 msec - MR Vmax 5.24 m/sec - MVA (PHT) 4.23 cm2 - Tricuspid Valve Name Value Normal Range TR Vmax 3.89 m/sec - TR peak gradient 61 mmHg - RAP 15 mmHg - RVSP 76 mmHg - Pulmonic Valve/Qp:Qs Name Value Normal Range PV Vmax 1.3 m/sec - PV peak gradient 7 mmHg - PV acceleration time 120 msec -
--- NOTE | 2016-05-22 11:44 | Progress Note ---
Addendum entered and electronically signed by JOSE PEREA MD 05/22/16 12:10: I have seen and examined the patient and agree with the documentation below. Original Note: Assessment and Plan Will d/c IV lasix. Repeat CXR in am. - Patient Problems (1) Acute on chronic diastolic heart failure Current Visit: Yes Status: Acute (2) Moderate to severe pulmonary hypertension Current Visit: Yes Status: Acute (3) Paroxysmal atrial fibrillation Current Visit: Yes Status: Chronic (4) Acute kidney injury superimposed on chronic kidney disease Current Visit: Yes Status: Acute (5) Supratherapeutic international normalized ratio (INR) Current Visit: Yes Status: Acute (6) HTN (hypertension) Current Visit: Yes Status: Chronic (7) NURIS (obstructive sleep apnea) Current Visit: No Status: Chronic (8) Anemia Current Visit: No Status: Chronic (9) Morbid obesity Current Visit: No Status: Chronic Qualifiers: Obesity type: unspecified obesity type Qualified Code(s): E66.01 - Morbid ( severe) obesity due to excess calories Subjective Date of service: 05/22/16 Principal diagnosis: acute on chronic diastolic heart failure Interval history: The patient is resting in bed. She is less short of breath today. Sinus rhythm on the monitor. Objective Last Vital Signs Temp 97.8 F 05/22/16 08:19 Pulse 72 05/22/16 08:19 Resp 20 05/22/16 08:19 BP 138/80 05/22/16 08:19 Pulse Ox 94 05/22/16 08:19 - Physical Examination General: No Apparent Distress HEENT: Positive: PERRL, Mucus Membranes Moist Neck: Positive: neck supple Cardiac: Positive: Reg Rate and Rhythm, S1/S2 Lungs: Positive: clear to auscultation Neuro: Positive: Grossly Intact Abdomen: Positive: Soft, Active Bowel Sounds. Negative: Tender, Distended Skin: Positive: Clear Incision: Cardiac Cath Site Musculoskeletal: No Pain, Normal Range of Motion Extremities: Present: normal, +2 Edema (bilateral lower legs) - Labs and Meds Coagulation 05/22/16 Range/Units 06:14 PT 39.5 H (12.2-14.9) Sec. INR 4.02 H (0.87-1.13) CBC 05/22/16 Range/Units 06:14 WBC 6.7 (4.5-11.0) K/mm3 RBC 3.36 L (3.65-5.03) M/mm3 Hgb 9.3 L (10.1-14.3) gm/dl Hct 29.7 L (30.3-42.9) % Plt Count 172 (140-440) K/mm3 Comprehensive Metabolic Panel 05/22/16 Range/Units 06:14 Carbon Dioxide 28 (22-30) mmol/L BUN 47 H (7-17) mg/dL Creatinine 3.2 H (0.7-1.2) mg/dL Glucose 137 H (65-100) mg/dL Calcium 8.8 (8.4-10.2) mg/dL - Imaging and Cardiology Echo: report reviewed (03/2016 normal LV function no aortic regurgitation or mitral regurgitation moderate tricuspid regurgitation RVSP of 50-55 mmHg) - Telemetry EKG Rhythm: Sinus Rhythm
[2016-05-22] MEDS: PROTONIX PO SCH (11:47)
[2016-05-22] MEDS: LOPRESSOR PO SCH (11:47)
[2016-05-22] MEDS: MAG-OX PO SCH (11:47)
[2016-05-22] MEDS: FEOSOL PO SCH (11:47)
[2016-05-22] MEDS: APRESOLINE PO SCH ×2 (11:47→16:45)
[2016-05-22] MEDS: BUMEX PO SCH (11:48)
[2016-05-22] MEDS: LASIX IV SCH (11:48)
[2016-05-22] MEDS: NORVASC PO SCH (11:48)
[2016-05-22] MEDS: PERCOCET 5/325 PO PRN (11:50)
[2016-05-22] MEDS: KAYEXALATE PO SCH (13:18)
--- NOTE | 2016-05-22 16:49 | Discharge Summary ---
Providers - Providers Date of Admission: 05/20/16 14:06 Date of discharge: 05/22/16 Attending physician: PRECIOUS AYALA 05/20/16 17:40 Consult to Physician [CONS] Routine Consulting Provider: FRANCO CLIFTON Reason For Exam: CHF Place consult to:: Dr. Clifton Notified:: Aviva CONTRERAS Phone number called:: Was contact made?: Yes If yes, spoke with:: [facility] Time called:: 18:02 05/20/16 17:46 Consult to Physician [CONS] Routine Consulting Provider: DAVID PLUNKETT Reason For Exam: CKD Place consult to:: Dr. Plunkett Notified:: Aviva CONTRERAS Phone number called:: Was contact made?: Yes If yes, spoke with:: Dr. Plunkett Time called:: 18:07 Primary care physician: KIRSTEN ERVIN Hospitalization Condition: Fair Disposition: DISCHARGED TO HOME OR SELFCARE - Discharge Diagnoses (1) Acute kidney injury superimposed on chronic kidney disease Status: Acute (2) Supratherapeutic international normalized ratio (INR) Status: Acute (3) HTN (hypertension) Status: Chronic (4) Paroxysmal atrial fibrillation Status: Chronic (5) LOPEZ (acute kidney injury) Status: Acute (6) Sleep apnea in adult Status: Acute (7) Morbid obesity with BMI of 60.0-69.9, adult Status: Acute (8) Acute renal failure superimposed on stage 4 chronic kidney disease Status: Acute Core Measure Documentation - Palliative Care Palliative Care/ Comfort Measures: Not Applicable - Core Measures Any of the following diagnoses?: heart failure - Heart Failure Discharge Requirements YUDI/ARB for LVSD if EF <40%: Not Applicable Beta fidel at discharge: Yes Exam - Constitutional Vitals: Temp Pulse Resp BP Pulse Ox 97.6 F 74 20 138/69 93 05/22/16 12:48 05/22/16 14:22 05/22/16 14:22 05/22/16 12:48 05/22/16 14:13 Plan Activity: advance as tolerated Diet: low fat, low cholesterol, low salt Additional Instructions: 1.Follow up with Physician at [facility] in 3-5 days. 2.Follow up with [employer], Dr. Plunkett in 1 week. 3.Follow up with Cardiology in 1-2 weeks. 4.Check INR daily and resume Coumadin at lower dose when INR<3 Follow up with: KIRSTEN ERVIN MD [Primary Care Provider] - 3-5 Days Forms: Warfarin Discharge Instruction Prescriptions: Famotidine [Pepcid] 20 mg PO BID #60 tablet Prednisone [predniSONE 5 mg (6-Day Pack, 21 Tabs)] 5 mg PO .TAPER #1 tab.ds.pk
[2016-05-22 21:14] LABS: ISTAT Base Excess 6; ISTAT HCO3 31.8; ISTAT PCO2 59.5 (35-45); ISTAT PH 7.336 (7.35-7.45); ISTAT PO2 64 (80-105); ISTAT SO2 90; ISTAT TCO2 34
[2016-05-22 21:22] VITALS: BP 135/69
--- NOTE | 2016-05-22 22:47 | Progress Note ---
Assessment and Plan - Patient Problems (1) Acute kidney injury superimposed on chronic kidney disease Current Visit: Yes Status: Acute (2) Supratherapeutic international normalized ratio (INR) Current Visit: Yes Status: Acute (3) HTN (hypertension) Current Visit: Yes Status: Chronic (4) Paroxysmal atrial fibrillation Current Visit: Yes Status: Chronic (5) LOPEZ (acute kidney injury) Current Visit: No Status: Acute (6) Sleep apnea in adult Current Visit: Yes Status: Acute (7) Morbid obesity with BMI of 60.0-69.9, adult Current Visit: Yes Status: Acute (8) Acute renal failure superimposed on stage 4 chronic kidney disease Current Visit: Yes Status: Acute Hospitalist Physical - Constitutional Vitals: Temp Pulse Resp BP Pulse Ox 97.3 F L 77 22 135/69 90 05/22/16 21:21 05/22/16 21:21 05/22/16 21:21 05/22/16 21:21 05/22/16 21:21 General appearance: Present: no acute distress, well-nourished, obese Results - Labs CBC & Chem 7: 05/22/16 06:14 05/22/16 06:14 Labs: Laboratory Last Values WBC 6.7 K/mm3 (4.5-11.0) 05/22/16 06:14 RBC 3.36 M/mm3 (3.65-5.03) L 05/22/16 06:14 Hgb 9.3 gm/dl (10.1-14.3) L 05/22/16 06:14 Hct 29.7 % (30.3-42.9) L 05/22/16 06:14 MCV 88 fl (79-97) 05/22/16 06:14 MCH 28 pg (28-32) 05/22/16 06:14 MCHC 31 % (30-34) 05/22/16 06:14 RDW 18.0 % (13.2-15.2) H 05/22/16 06:14 Plt Count 172 K/mm3 (140-440) 05/22/16 06:14 Lymph % (Auto) 8.8 % (13.4-35.0) L 05/21/16 05:24 [place] % (Auto) 1.0 % (0.0-7.3) 05/21/16 05:24 Eos % (Auto) 0.2 % (0.0-4.3) 05/21/16 05:24 Baso % (Auto) 0.1 % (0.0-1.8) 05/21/16 05:24 Lymph # 0.4 K/mm3 (1.2-5.4) L 05/21/16 05:24 [place] # 0.0 K/mm3 (0.0-0.8) 05/21/16 05:24 Eos # 0.0 K/mm3 (0.0-0.4) 05/21/16 05:24 Baso # 0.0 K/mm3 (0.0-0.1) 05/21/16 05:24 Add Manual Diff Complete 05/22/16 06:14 Total Counted 100 05/22/16 06:14 Seg Neutrophils % Mincemeat Maker 05/22/16 06:14 Seg Neuts % (Manual) 92.0 % (40.0-70.0) H 05/22/16 06:14 Band Neutrophils % 4.0 % 05/22/16 06:14 Lymphocytes % (Manual) 4.0 % (13.4-35.0) L 05/22/16 06:14 Reactive Lymphs % (Man) 0 % 05/22/16 06:14 Monocytes % (Manual) 0 % (0.0-7.3) 05/22/16 06:14 Eosinophils % (Manual) 0 % (0.0-4.3) 05/22/16 06:14 Basophils % (Manual) 0 % (0.0-1.8) 05/22/16 06:14 Metamyelocytes % 0 % 05/22/16 06:14 Myelocytes % 0 % 05/22/16 06:14 Promyelocytes % 0 % 05/22/16 06:14 Blast Cells % 0 % 05/22/16 06:14 Nucleated RBC % 2.0 % (0.0-0.9) H 05/22/16 06:14 Seg Neutrophils # 4.5 K/mm3 (1.8-7.7) 05/21/16 05:24 Seg Neutrophils # Man 6.2 K/mm3 (1.8-7.7) 05/22/16 06:14 Band Neutrophils # 0.3 K/mm3 05/22/16 06:14 Lymphocytes # (Manual) 0.3 K/mm3 (1.2-5.4) L 05/22/16 06:14 Abs React Lymphs (Man) 0.0 K/mm3 05/22/16 06:14 Monocytes # (Manual) 0.0 K/mm3 (0.0-0.8) 05/22/16 06:14 Eosinophils # (Manual) 0.0 K/mm3 (0.0-0.4) 05/22/16 06:14 Basophils # (Manual) 0.0 K/mm3 (0.0-0.1) 05/22/16 06:14 Metamyelocytes # 0.0 K/mm3 05/22/16 06:14 Myelocytes # 0.0 K/mm3 05/22/16 06:14 Promyelocytes # 0.0 K/mm3 05/22/16 06:14 Blast Cells # 0.0 K/mm3 05/22/16 06:14 WBC Morphology Not Reportable 05/22/16 06:14 Hypersegmented Neuts Not Reportable 05/22/16 06:14 Hyposegmented Neuts Not Reportable 05/22/16 06:14 Hypogranular Neuts Not Reportable 05/22/16 06:14 Smudge Cells Not Reportable 05/22/16 06:14 Toxic Granulation Not Reportable 05/22/16 06:14 Toxic Vacuolation Not Reportable 05/22/16 06:14 Dohle Bodies Not Reportable 05/22/16 06:14 Pelger-Huet Anomaly Not Reportable 05/22/16 06:14 Hugh Rods Not Reportable 05/22/16 06:14 Platelet Estimate Appears normal 05/22/16 06:14 Clumped Platelets Not Reportable 05/22/16 06:14 Plt Clumps, EDTA Not Reportable 05/22/16 06:14 Large Platelets Not Reportable 05/22/16 06:14 Giant Platelets Not Reportable 05/22/16 06:14 Platelet Satelliting Not Reportable 05/22/16 06:14 Plt Morphology Comment Not Reportable 05/22/16 06:14 RBC Morphology Not Reportable 05/22/16 06:14 Dimorphic RBCs Not Reportable 05/22/16 06:14 Polychromasia 1+ 05/22/16 06:14 Hypochromasia 1+ 05/22/16 06:14 Poikilocytosis 1+ 05/22/16 06:14 Anisocytosis 1+ 05/22/16 06:14 Microcytosis 1+ 05/22/16 06:14 Macrocytosis Not Reportable 05/22/16 06:14 Spherocytes Not Reportable 05/22/16 06:14 Pappenheimer Bodies Not Reportable 05/22/16 06:14 Sickle Cells Not Reportable 05/22/16 06:14 Target Cells Not Reportable 05/22/16 06:14 Tear Drop Cells Few 05/22/16 06:14 Ovalocytes Few 05/22/16 06:14 Stomatocytes Rare 05/22/16 06:14 Helmet Cells Few 05/22/16 06:14 [place] Bodies Not Reportable 05/22/16 06:14 [place] Rings Not Reportable 05/22/16 06:14 [place] Cells Not Reportable 05/22/16 06:14 Bite Cells Not Reportable 05/22/16 06:14 Crenated Cell Not Reportable 05/22/16 06:14 Elliptocytes Not Reportable 05/22/16 06:14 Acanthocytes (Spur) Not Reportable 05/22/16 06:14 Rouleaux Not Reportable 05/22/16 06:14 Hemoglobin C Crystals Not Reportable 05/22/16 06:14 Schistocytes Not Reportable 05/22/16 06:14 Malaria parasites Not Reportable 05/22/16 06:14 [place] Bodies Not Reportable 05/22/16 06:14 Hem Pathologist Commnt No 05/22/16 06:14 PT 39.5 Sec. (12.2-14.9) H 05/22/16 06:14 INR 4.02 (0.87-1.13) H 05/22/16 06:14 POC ABG pH 7.336 (7.35-7.45) L 05/22/16 21:07 POC ABG pCO2 59.5 (35-45) H 05/22/16 21:07 POC ABG pO2 64 (80-105) L 05/22/16 21:07 POC ABG HCO3 31.8 05/22/16 21:07 POC ABG Total CO2 34 05/22/16 21:07 POC ABG O2 Sat 90 05/22/16 21:07 POC ABG Base Excess 6 05/22/16 21:07 FiO2 4 % 05/22/16 21:07 Sodium 143 mmol/L (137-145) 05/21/16 05:24 Potassium 5.8 mmol/L (3.6-5.0) H 05/21/16 05:24 Chloride 103.2 mmol/L (98-107) 05/21/16 05:24 Carbon Dioxide 28 mmol/L (22-30) 05/22/16 06:14 Anion Gap 18 mmol/L 05/21/16 05:24 BUN 47 mg/dL (7-17) H 05/22/16 06:14 Creatinine 3.2 mg/dL (0.7-1.2) H 05/22/16 06:14 Estimated GFR 18 ml/min 05/22/16 06:14 BUN/Creatinine Ratio 14.68 % 05/22/16 06:14 Glucose 137 mg/dL (65-100) H 05/22/16 06:14 POC Glucose 101 (70-105) 05/20/16 12:40 Hemoglobin A1c 5.1 % (4-6) 05/20/16 18:00 Calcium 8.8 mg/dL (8.4-10.2) 05/22/16 06:14 Magnesium 2.1 mg/dL (1.7-2.3) 05/20/16 12:08 Iron 66 ug/dL (37-170) 05/22/16 06:14 TIBC 192 mcg/dL (250-450) L 05/22/16 06:14 Ferritin 170.7 ng/mL (13.0-400.0) 05/22/16 06:14 Total Bilirubin 0.6 mg/dL (0.1-1.2) 05/21/16 05:24 AST 13 units/L (5-40) 05/21/16 05:24 ALT 8 units/L (7-56) 05/21/16 05:24 Alkaline Phosphatase 99 units/L (35-129) 05/21/16 05:24 Troponin T 0.024 ng/mL (0.00-0.029) 05/20/16 12:08 NT-Pro-B Natriuret Pep 1330 pg/mL (0-900) H 05/20/16 12:08 Total Protein 6.9 g/dL (6.3-8.2) 05/21/16 05:24 Albumin 3.1 g/dL (3.9-5) L 05/21/16 05:24 Albumin/Globulin Ratio 0.8 % 05/21/16 05:24 PTH Intact 489.7 pg/mL (15-65) H 05/22/16 06:14
[2016-05-23] MEDS ORDERED: ROCALTROL PO SCH (10:00)
[2016-05-24 18:30] LABS: Albumin 3.1 g/dL (3.8-4.8); Gamma Globulin 1.1 g/dL (0.8-1.7)
== END 2016-05-22 22:00 | disposition home or self-care (01) | DRG 291 ==
LOC: ED 11:55 → 4A 14:06
PROVIDERS: ADMIT Internal Medicine; ATTEND Internal Medicine
PROC: 4A033R1 Measurement of Arterial Saturation, Peripheral, Percutaneous Approach (ICD-10-PCS; principal; 2016-05-20)
PROC: 5A09457 Assistance with Respiratory Ventilation, 24-96 Consecutive Hours, Continuous Positive Airway Pressure (ICD-10-PCS; principal; 2016-05-20)
DX: I13.0 Hypertensive heart and chronic kidney disease with heart failure and stage 1 through stage 4 chronic kidney disease, or unspecified chronic kidney disease (principal); I50.33 Acute on chronic diastolic (congestive) heart failure; J96.01 Acute respiratory failure with hypoxia; J96.02 Acute respiratory failure with hypercapnia; J44.1 Chronic obstructive pulmonary disease with (acute) exacerbation; E03.9 Hypothyroidism, unspecified; E11.22 Type 2 diabetes mellitus with diabetic chronic kidney disease; N17.9 Acute kidney failure, unspecified; K21.9 Gastro-esophageal reflux disease without esophagitis; M19.90 Unspecified osteoarthritis, unspecified site; F41.9 Anxiety disorder, unspecified; J45.909 Unspecified asthma, uncomplicated; G89.29 Other chronic pain; E66.2 Morbid (severe) obesity with alveolar hypoventilation; N18.4 Chronic kidney disease, stage 4 (severe); I27.2 Other secondary pulmonary hypertension; D63.1 Anemia in chronic kidney disease; I48.0 Paroxysmal atrial fibrillation; D68.32 Hemorrhagic disorder due to extrinsic circulating anticoagulants; T45.515A Adverse effect of anticoagulants, initial encounter; N25.81 Secondary hyperparathyroidism of renal origin; I07.1 Rheumatic tricuspid insufficiency; Z79.4 Long term (current) use of insulin; Z79.899 Other long term (current) drug therapy; Z79.01 Long term (current) use of anticoagulants; Z68.44 Body mass index [BMI] 60.0-69.9, adult; Z74.01 Bed confinement status; Z82.49 Family history of ischemic heart disease and other diseases of the circulatory system; Z83.3 Family history of diabetes mellitus
CPT/HCPCS: 36415; 36600; 71010; 80048; 80053; 82728; 82803; 82962; 83036; 83550; 83735; 83880; 83970; 84165; 84484; 85007; 85025; 85610; 93005; 93010; 93306; 94640; 94660; 94760; 96374; 96375; A9270-GY; J1940; J1956; J2930; J3430

== ENCOUNTER 2016-07-13 06:41 | Day surgery (SDC) | payer MEDICAID ==
[~2016-07-13 06:41] MED LIST: ANCEF/STERILE WATER 2 GM/20 ML 2 GM/20 ML SYRINGE IV NR; NACL 0.9% 1000 ML 1,000 ML IV SCH
[2016-07-13] MEDS ORDERED: NACL 0.9% 500 ML 500 ML IV SCH (07:00)
[2016-07-13 07:26] LABS: INR 2.42 (0.87-1.13)
[2016-07-13 07:27] LABS: Partial Thromboplastin Time 45.8 Sec. (24.2-36.6)
[2016-07-13 07:36] LABS: Calcium 9.6 mg/dL (8.4-10.2); Chloride 83.6 mmol/L (98-107); Potassium 3.1 mmol/L (3.6-5.0)
[2016-07-13 07:44] LABS: BUN/Creatinine Ratio 12.54
[2016-07-13] MEDS ORDERED: ANCEF/STERILE WATER 2 GM/20 ML 2 GM/20 ML SYRINGE IV ONE (08:11)
[2016-07-13] MEDS ORDERED: TRIPLE ANTIBIOTIC TP ONE (08:11)
[2016-07-13] MEDS ORDERED: HEPARIN/NS 5000 UNIT/500ML(CATH LAB) 500 ML IR ONE (08:12)
[2016-07-13] MEDS ORDERED: VERSED ONE (08:12)
[2016-07-13] MEDS ORDERED: NACL 0.9% 250ML 250 ML ONE (08:14)
[2016-07-13] MEDS: SUBLIMAZE ONE ×2 (08:33→08:44)
[2016-07-13] MEDS: XYLOCAINE 1%/ EPI 1:100,000 INFILTRATI ONE ×2 (08:34→08:40)
[2016-07-13] MEDS: HEPARIN 10,000 UNITS/10 ML ONE ×3 (08:41→08:46)
--- NOTE | 2016-07-13 08:55 | Short Stay Summary ---
Short Stay Documentation Date of service: 07/13/16 - History Principal diagnosis: ESRD H&P: obtained from office Past Medical History: dialysis, ESRD Past Surgical History: Other (prior tunneled HD catheters) Social history: no significant social history - Allergies and Medications Current Medications: Allergies No Known Allergies Allergy (Verified 10/02/13 09:59) Home Medications Medication Instructions Recorded Confirmed Last Taken Type Atorvastatin [Lipitor] 40 mg PO QHS 09/23/13 07/13/16 07/12/16 History Ferrous Sulfate [Ferrous Sulfate 325 mg PO QAM 09/23/13 07/13/16 07/12/16 History Oral Liq 220 Mg/5 Ml] Fluticasone/Salmeterol [Advair 1 puff IH BID 09/23/13 07/13/16 07/12/16 History Diskus 250-50 mcg] Insulin Aspart [NovoLOG 100 0 units SUB-Q ACHS PRN 09/23/13 07/13/16 1 Week Ago History UNITS/ML VIAL] Ipratropium/Albuterol Sulfate 1 ampul IH Q6HRT PRN 09/23/13 07/13/16 2 Days Ago History [Duoneb 0.5 mg-3 mg/3 ml Soln] Magnesium Oxide 400 mg PO DAILY 09/23/13 07/13/16 07/12/16 History Levothyroxine [Synthroid] 50 mcg PO DAILY@0600 #30 tablet 03/23/16 07/13/16 Rx Arformoterol Nebu [Brovana Nebu] 15 mcg INHALATION Q12HR PRN 04/13/16 07/13/16 2 Days Ago History Hydroxyzine HCl 25 mg PO Q8H 04/13/16 07/13/16 07/12/16 History Omeprazole Magnesium [PriLOSEC Otc] 20 mg PO DAILY 04/13/16 07/13/16 07/12/16 History diphenhydrAMINE [Benadryl CAP] 25 mg PO Q8HR PRN 04/13/16 07/13/16 07/12/16 History Bumetanide [Bumex] 2 mg PO BID #60 tablet 04/21/16 07/13/16 07/12/16 Rx Metoprolol [Lopressor TAB] 100 mg PO BID #60 tablet 1207/13/16 07/13/16 05:00 Rx oxyCODONE /ACETAMINOPHEN [Percocet 2 tab PO Q6H PRN #10 tablet 04/21/1607/13/16 05:00 Rx 5/325 mg] amLODIPine [Norvasc] 10 mg PO DAILY #30 tab 05/05/16 07/13/16 07/13/16 05:00 Rx hydrALAZINE [Apresoline TAB] 100 mg PO TID 05/20/16 07/13/16 07/13/16 05:00 History Famotidine [Pepcid] 20 mg PO BID #60 tablet 05/22/16 07/13/16 07/12/16 Rx Prednisone [predniSONE 5 mg (6-Day 5 mg PO .TAPER #1 tab.ds.pk 05/22/1607/12/16 Rx Pack, 21 Tabs)] Active Medications Cefazolin Sodium (Ancef/Sterile Water 2 Gm/20 Ml) 2 gm in 20 mls @ 80 mls/hr IV PREOP NR PRN Reason: Protocol Stop: 07/13/16 23:59 Last Admin: 07/13/16 08:30 Dose: 20 mls Sodium Chloride (Nacl 0.9% 500 Ml) 500 mls @ 50 mls/hr IV DIRECT PRATIK - Physical exam General appearance: no acute distress, obese Integumentary: no rash HEENT: Atraumatic Lungs: Normal air movement Breasts: deferred Heart: Regular rate Gastrointestinal: normal Female Genitourinary: deferred Rectal Exam: deferred Extremities: no ischemia Neurological: Normal speech - Brief post op/procedure progress note Date of procedure: 07/13/16 Pre-op diagnosis: ESRD Post-op diagnosis: same Procedure: left IJV permcath placement Anesthesia: local Surgeon: BLAYNE MENDEZ Estimated blood loss: none Pathology: none Condition: stable - Disposition Condition at discharge: Good Disposition: DISCHARGED TO HOME OR SELFCARE Short Stay Discharge Plan Activity: advance as tolerated Weight Bearing Status: Weight Bear as Tolerated Diet: regular Wound: keep clean and dry, per your surgeon's advice Additional Instructions: F/U with Nephroligist as indicated Follow up with: PRIMARY CARE, [Primary Care Provider] - 7 Days
--- NOTE | 2016-07-13 08:58 | Operative Report ---
Operative Report Operative Report: EXAM: ULTRASOUND AND FLUOROSCOPIC GUIDED PLACEMENT OF TUNNELED HEMODIALYSIS CATHETER CLINICAL INDICATION: END-STAGE RENAL DISEASE REQUIRING DIALYSIS ACCESS DATE: 07/13/2016 PROCEDURE: Following an expiration of the risks, benefits and alternatives; written informed consent was obtained. The patient was brought to the angiographic suite and placed in supine position on the examination table. Initial ultrasound evaluation of her neck demonstrated a stenosed right internal jugular vein. Her left internal jugular vein is widely patent. The patient's left neck and chest wall were prepped and draped in the usual sterile fashion. 1% lidocaine was used for anesthesia. Under ultrasound guidance, the left internal jugular vein was cannulated with a 7 cm 18-gauge needle. A 0.035 guidewire was advanced centrally under fluoroscopy. With the aid of a 4 Vincentian vertebral catheter, the guidewire was advanced into the IVC to document intravenous positioning. An appropriate catheter exit site was chosen along the lateral left chest wall. 1% lidocaine was used for anesthesia at the catheter exit site and along the tunnel tract. A Bard 27 cm tunneled hemodialysis catheter was then tunneled antegrade from the catheter exit site to the venotomy site. Following serial dilation over the guidewire under fluoroscopy, a 16 Vincentian peel -away sheath was placed over the guidewire under fluoroscopy and advanced centrally. The guidewire and trocar were removed. The hemodialysis catheter was placed through the peel-away sheath and the peel-away sheath removed. The tip of the catheter was positioned in the proximal right atrium. Both ports flushed and aspirated easily and were then locked with appropriate volumes of heparin. The venotomy was closed using 4-0 Vicryl suture and Dermabond. Dermabond was also applied to the catheter exit site. Sterile dressings were then applied. The patient tolerated the procedure well. There were no immediate post procedure complications. Conscious sedation was performed under the guidance of radiologic nursing. Continuous cardiopulmonary monitoring was utilized. IMPRESSION: 1) Ultrasound and fluoroscopic guided placement of tunneled hemodialysis catheter via the left internal jugular vein.
[2016-07-13 10:10] VITALS: BP 109/52
--- NOTE | 2016-07-16 07:30 | Vascular Lab Report ---
Upper extremity vein mapping Reason for exam: Preoperative evaluation for hemodialysis access Comments: On the right, the cephalic vein is usable from antecubital fossa to shoulder. The basilic vein is not usable from wrist to shoulder due to small size. The brachial and radial arteries are patent. The radial artery is of normal caliber. On the left, the cephalic vein is usable from antecubital fossa to shoulder. In the forearm it is marginal.. The basilic vein is not usable from wrist to shoulder. The brachial and radial arteries are patent. The radial artery is of normal caliber. Impression: Both cephalic veins are suitable for use as AV access sites. Both basilic veins are not suitable for use as AV access sites. No arterial issues were identified.
--- NOTE | 2016-07-16 07:34 | Vascular Lab Report ---
MISCELLANEOUS VESSEL IDENTIFICATION: COMMENTS ON THE SCAN: The left internal jugular vein was identified and under real-time ultrasound guidance was cannulated. IMPRESSION: Successful ultrasound guided vein cannulation.
== END 2016-07-13 11:50 | disposition home or self-care (01) ==
LOC: OPU 06:41 → EDSTATUS 08:30 → OPU 11:50
PROVIDERS: ATTEND Radiology Diagnostic Radiology
DX: I13.2 Hypertensive heart and chronic kidney disease with heart failure and with stage 5 chronic kidney disease, or end stage renal disease (principal); N18.6 End stage renal disease; I50.9 Heart failure, unspecified; J45.909 Unspecified asthma, uncomplicated; E78.5 Hyperlipidemia, unspecified; E03.9 Hypothyroidism, unspecified; D63.1 Anemia in chronic kidney disease; K21.9 Gastro-esophageal reflux disease without esophagitis; F41.9 Anxiety disorder, unspecified; Z99.2 Dependence on renal dialysis; Z90.710 Acquired absence of both cervix and uterus; Z79.4 Long term (current) use of insulin; Z79.899 Other long term (current) drug therapy
CPT/HCPCS: 36415; 36558; 76937; 77001; 80048; 85610; 85730; C1750; C1751; J0690; J1644; J2250; J3010; J7050; A6250

== ENCOUNTER 2016-08-07 08:26 | Day surgery (SDC) | payer MEDICAID ==
[~2016-08-07 08:26] MED LIST changes: -ANCEF/STERILE WATER 2 GM/20 ML 2 GM/20 ML SYRINGE IV NR
[2016-08-07] MEDS ORDERED: ANCEF/STERILE WATER 2 GM/20 ML 2 GM/20 ML SYRINGE IV NR (09:00)
--- NOTE | 2016-08-07 09:17 | Anesthesia Consultation ---
Anesthesia Consult and Med Hx Date of service: 08/07/16 (Scheduled for Creation of AV fistula w/ Dr. Millard) - Airway Anesthetic Teeth Evaluation: Chipped ROM Head & Neck: Adequate Mental/Hyoid Distance: Adequate Mallampati Class: Class III Intubation Access Assessment: Possibly Difficult - Pulmonary Exam CTA: Yes - Cardiac Exam Cardiac Exam: RRR - Pre-Operative Health Status ASA Pre-Surgery Classification: ASA4 Proposed Anesthetic Plan: General - Pre-Anesthesia Comment Pre-Anesthesia Comments: no previous anesthesia complications. NPO since midnight. See additional hx below. - Pulmonary Hx Smoking: No Hx Asthma: Yes Hx Respiratory Symptoms: Yes (Chronic respiratory failure 2/2 COPD, Obesity hypoventilation syndrome, NURIS) SOB: No (Wears home O2 2L- no new SOB) COPD: Yes Home Oxygen Therapy: Yes Hx Pneumonia: No Hx Sleep Apnea: Yes - Cardiovascular System Hx Hypertension: Yes Hx Coronary Artery Disease: No Hx Heart Attack/AMI: No Hx Cardia Arrhythmia: Yes (pA. Fib - on Coumadin, last dose 4 days ago) Hx Peripheral Vascular Disease: No - Central Nervous System Hx Seizures: No CVA: No - Endocrine Hx Renal Disease: Yes Hx End Stage Renal Disease: Yes Hx Insulin Dependent Diabetes: Yes Hx Hypothyroidism: Yes - Hematic Hx Anemia: Yes Hx Sickle Cell Disease: No - Other Systems Hx Cancer: No Hx Obesity: Yes (Morbid obesity class III- BMI 66) - Additional Comments Anesthesia Medical History Comments: Cardiac: Pt with history of Diastolic CHF , parox A. Fib/A. Flutter (on coumadin) and HTN. No known CAD/NM. Last dose of Coumadin 4 days ago. Last EKG 07/17/16 revealed SR with prolonged QT. TTE 05/20/16 revealed EF 55-60% and severe pulmonary HTN. She denies chest pain and no signs of overt heart failure. No Coreg x 2 days secondary to low BP. Pulmonary : Chronic Respiratory failure secondary to NURIS, Pulm HTN, COPD and obesity hypoventilation syndrome. Pt has h/o trach in past. On 2L home O2 via [place].
[2016-08-07] MEDS ORDERED: SUBLIMAZE ONE ×2 (09:50→10:53)
[2016-08-07] MEDS ORDERED: XYLOCAINE MPF 2% ONE (09:50)
[2016-08-07] MEDS ORDERED: DIPRIVAN 10 MG/ML IV ONE ×5 (09:50→11:14)
[2016-08-07] MEDS ORDERED: NACL 0.9% 500 ML ONE (10:00)
[2016-08-07] MEDS ORDERED: PEPCID PO NR (10:00)
[2016-08-07] MEDS ORDERED: VERSED IV NR (10:00)
[2016-08-07] MEDS ORDERED: VERSED ONE (10:36)
[2016-08-07] MEDS ORDERED: NACL 0.9% IR ONE (11:00)
[2016-08-07] MEDS ORDERED: MARCAINE 0.5% INFILTRATI ONE (11:00)
[2016-08-07] MEDS ORDERED: XYLOCAINE 1%/ EPI 1:100,000 INFILTRATI ONE ×2 (11:01)
[2016-08-07] MEDS ORDERED: HEPARIN 10,000 UNITS/10 ML 2,000 UNIT in NACL 0.9% 500 ML 500 ML IR ONE (11:01)
[2016-08-07] MEDS ORDERED: BREVIBLOC IV ONE (11:01)
[2016-08-07] MEDS ORDERED: DILAUDID IV PRN (11:47)
--- NOTE | 2016-08-07 11:47 | Anesthesia Day of Surgery ---
Anesthesia Day of Surgery - Day of Surgery Patient Examined: Yes Patient H&P Reviewed: Yes Patient is NPO: Yes
--- NOTE | 2016-08-07 11:57 | Short Stay Summary ---
Short Stay Documentation Date of service: 08/07/16 Narrative H&P: See H&P - History H&P: obtained from office - Allergies and Medications Current Medications: Allergies No Known Allergies Allergy (Verified 10/02/13 09:59) Home Medications Medication Instructions Recorded Confirmed Last Taken Type Atorvastatin [Lipitor] 40 mg PO QHS 09/23/13 08/07/16 08/06/16 21:00 History Fluticasone/Salmeterol [Advair 1 puff IH BID 09/23/13 08/07/16 08/06/16 21:00 History Diskus 250-50 mcg] Magnesium Oxide 400 mg PO DAILY 09/23/13 08/07/16 08/06/16 09:00 History Levothyroxine [Synthroid] 50 mcg PO DAILY@0600 #30 tablet 03/23/16 08/07/16 09:00 Rx Arformoterol Nebu [Brovana Nebu] 15 mcg INHALATION Q12HR PRN 04/13/16 08/07/16 08/06/16 09:00 History Hydroxyzine HCl 25 mg PO Q8H 04/13/16 08/07/16 08/06/16 21:00 History Omeprazole Magnesium [PriLOSEC Otc] 20 mg PO DAILY 04/13/16 08/07/16 08/06/16 09 :00 History diphenhydrAMINE [Benadryl CAP] 25 mg PO Q8HR PRN 04/13/16 08/07/16 07/12/16 History Bumetanide [Bumex] 2 mg PO BID #60 tablet 04/21/16 08/07/16 08/06/16 21:00 Rx Metoprolol [Lopressor TAB] 100 mg PO BID #60 tablet 04/21/16 08/07/16 08/05/16 21:00 Rx oxyCODONE /ACETAMINOPHEN [Percocet 2 tab PO Q6H PRN #10 tablet 04/21/1607/13/16 05:00 Rx 5/325 mg] Ferrous Sulfate [Feosol 325 MG tab] 325 mg PO QDAY 07/18/16 08/07/16 08/06/16 09 :00 History Insulin Lispro [HumaLOG VIAL] 0 units SQ AC 07/18/16 08/07/16 08/06/16 21:00 History Budesonide [Pulmicort Respules] 0.5 mg IH Q12HRT nebu 07/20/16 08/07/16 21:00 Rx Active Medications Famotidine (Pepcid) 20 mg PO PREOP NR Stop: 08/07/16 23:59 Last Admin: 08/07/16 09:10 Dose: 20 mg Hydromorphone HCl (Dilaudid) 0.5 mg IV Q10MIN PRN PRN Reason: Pain , Severe (7-10) Stop: 08/07/16 23:59 Sodium Chloride (Nacl 0.9% 1000 Ml) 1,000 mls @ 42 mls/hr IV DIRECT PRATIK Last Admin: 08/07/16 10:16 Dose: 42 mls/hr Cefazolin Sodium (Ancef/Sterile Water 2 Gm/20 Ml) 2 gm in 20 mls @ 80 mls/hr IV PREOP NR PRN Reason: Protocol Stop: 08/07/16 23:52 Midazolam HCl (Versed) 1 mg IV PREOP NR Stop: 08/07/16 23:59 - Brief post op/procedure progress note Date of procedure: 08/07/16 Pre-op diagnosis: End-Stage Renal Disease Post-op diagnosis: same Procedure: Creation of Left Brachiocephalic Arteriovenous Fistula Anesthesia: MAC, local Surgeon: KIRSTEN CHAVES Estimated blood loss: minimal Pathology: none Condition: stable - Disposition Condition at discharge: Good Disposition: DISCHARGED TO HOME OR SELFCARE Short Stay Discharge Plan Activity: other (no heavy lifting with left arm) Wound: open to air, keep clean and dry, other (okay to wash the wound with soap and water but do not soak in water) Follow up with: KIRSTEN CHAVES MD [Staff Physician] - 14 Days Prescriptions: HYDROcodone/APAP 7.5-325 [[place] 7.5/325] 1 each PO Q6HR PRN #60 tablet PRN Reason: Pain
--- NOTE | 2016-08-07 12:00 | Operative Report ---
Operative Report Operative Report: Date of procedure: 08/07/2016 Pre-operative diagnosis: End-Stage Renal Disease Post-operative diagnosis: End-Stage Renal Disease Procedure(s): Creation of Left Brachial Artery to Cephalic Vein Arteriovenous Fistula Surgeon: Janes Millard MD Proposal Manager Writer: None Anesthesia: Local/MAC EBL: Normal Counts: Correct Complications: None Condition: Stable Findings: Successful creation of left brachiocephalic arteriovenous fistula with excellent thrill and palpable radial pulse at the completion of the case. Specimen: None Indications: The patient is a 55-year-old female with a history of end-stage renal disease currently on hemodialysis through a permacath. She is in need of long-term access and vein mapping demonstrated she was an adequate patient for creation of an AV fistula. She was given the risks, benefits, and alternative procedures and consented to procedure. Description of Procedure: The patient was brought to the operating room and laid in supine position after general endotracheal anesthesia was administered the patient was prepped and draped in normal sterile fashion. After anesthetizing the skin a transverse incision was created just below the antecubital crease. Dissection was carried down to the the cephalic vein using sharp dissection. The vein was dissected out both proximally and distally and suture ligated and divided distally. I then ran a 3 Carolyn proximally in the vein, to ensure patency of the vein. Then flushed the vein with heparinized saline and flow was controlled with a bulldog clamp. I then dissected out the brachial artery through this incision circumferentially both proximal and distal and controlled the artery with vessel loops. I then placed the vessel loops on tension controlling the flow through the artery and created an arteriotomy using an 11 blade and Kiser scissors. I created an end to side anastomosis between the cephalic vein and brachial artery using a 6-0 Prolene in running fashion. Prior to completing the anastomosis I flushed the artery both proximally and distally and then advanced a 3 Carolyn proximally to break the spasm in the artery. I then completed the anastomosis and removed all vessel loops allowing flow into the fistula which had an excellent thrill. I achieved hemostasis with a combination of direct pressure and electrocautery. Once hemostasis was achieved I anesthetized the wound with Marcaine. I then closed the wound in 2 layers and 3-0 Vicryl in a running fashion to close the deep dermal layer and 4- 0 Monocryl in a running fashion in the subcuticular layer. I dressed the wound with Surgicel. The patient tolerated the procedure well, all sponge needle and instrument counts were correct. The patient was taken to recovery in stable condition.
[2016-08-07 14:58] VITALS: BP 142/72
--- NOTE | 2016-08-08 01:17 | Admit Criteria Form ---
Admission Criteria Documentation: AMBULATORY SURGERY EXCEPTION CRITERIA Ambulatory Surgery Exception Criteria ( Place 'X' for any and all applicable criteria): Surgery or procedure performed on ambulatory basis may require inpatient stay for[A] ANY ONE of the following(1)(2)(3)(4)(5)(6)(7)(8)(9): [X] I. A preoperative situation, condition, or finding that warrants inpatient stay as indicated by ANY ONE of the following: [] a) Inpatient care needed because of severity of a disease or condition rather than the surgery (eg, severe cardiac or respiratory disease, severe infection) (15) (16 ) (17) (18) [] b) Emergent procedure (eg, angioplasty for acute ischemia)(19) [] c) Complex surgical approach or situation as indicated by ANY ONE of the following(3): [] i) Open approach needed instead of usual endoscopic, transcatheter, or other less invasive procedure [] ii) Difficult approach because of previous operation [] iii) Airway monitoring required after open neck procedures(20)(21) [] iv) Large mass requiring unusually extensive dissection [] v) Additional complicating feature requiring inpatient care (eg, drain management)(22(23): [X] d) Major surgery in a pt with high anesthetic risk as indicated by ANY ONE of the following (2)(3)(5)(7)(8): [X] i) ASA risk class III or higher (severe systemic disease impairing function) [D] [] ii) Advanced age (eg, older than 85 years)(14)(24) [] iii) Symptomatic heart failure(25) [] iv) Symptomatic asthma or COPD(8)(21) [] v) Morbid obesity with hemodynamic or respiratory problems(20)( 21)(26)(27) [] vi) Obstructive sleep apnea(20)(21) [] vii) Former premature infants who are younger than 60 weeks [] viii) High risk for severe postoperative abnormalities (eg, severe postoperative hypocalcemia after parathyroidectomy for severe hyperparathyroidism)(27)( 28) [] ix) Unstable angina(25) [] e) Drug-related risk requiring inpatient stay as indicated by ANY ONE of the following(5)(10)(14)(32)(33) [] i) Procedure requires discontinuing drugs or other therapy (eg , antiarrhythmic medication, antiseizure medication), which necessitates inpatient observation or treatment.(18)(31) [] ii) Major surgery and high risk drug use as indicated by ANY ONE of the following: [] 1) Active abuse of cocaine or similar drug [] 2) Monoamine oxidase inhibitor use [] 3) Other drug identified as posing risk [] f) Inadequate outpatient care situation as indicated by ANY ONE of the following(5)(10)(14)(32)(33) [] i) Patient lives remote from medical facility and procedure has urgent complication potential, and temporary nearby residence cannot be arranged [] ii) Patient will have postprocedure incapacitation and inadequate assistance at home, or alternative level of care cannot be arranged. [] iii) Patient will have long general anesthesia or procedure side effect resolution time, and competent person to stay with patient on first postoperative night at home or alternative level of care cannot be arranged. []iv) Other inadequate outpatient situation that cannot be handled by other means [] II. A perioperative event, condition, or finding that warrants inpatient stay as indicated by ANY ONE of the following (1)(2)(3): [] a) Inadequate physiologic recovery: cardiovascular, respiratory, or hemodynamic status not normal or near preoperative baseline(18) [] b) Hemodynamic instability [] c) Patient not alert with near normal or baseline mental status [] d) Temperature not normal or as expected and not appropriate for outpatient treatment of condition [] e) Ambulatory or appropriate activity level status not yet achieved post procedure [E](34)(35)(36) [] f) Operative site not appropriate (eg, unexpected or excessive drainage or bleeding) [] g) Postoperative effects not resolved or adequately managed (eg, significant pain or vomiting not appropriate for outpatient or next level of care)(10)(12) [] h) Complicating features requiring inpatient care as indicated by ANY ONE of the following(37): [] i) Severe complications of procedure (eg, bowel injury, airway compromise, vascular injury,severe hemorrhage) [] ii) Extensive (eg, dissection far beyond usual scope of procedure ) or prolonged (eg, 120 minutes beyond usual) surgery needed requiring inpatient postoperative care [] iii) Conversion to an open or complex procedure that requires inpatient care (eg, open vs laparoscopic cholecystectomy, abdominal vs vaginal hysterectomy)(38) [] iv) Comorbid condition or test result identified during or post procedure that requires inpatient care (7) [] v) Malignant hyperthermia(30) [] vi) Other complicating feature requiring inpatient care(22)(23) Inpatient stay may be needed until ALL of the following are present (1)(2)(3)(4) (5)(6)(10)(14)(33)(40): []a) Physiologic recovery: cardiovascular, respiratory, and hemodynamic status normal or near preoperative baseline []b) Hemodynamic stability []c) Patient alert, with near normal or baseline mental status []d) Temperature appropriate: patient afebrile or temperature appropriate for outpt treatment of condition []e) Activity level appropriate: ambulatory or appropriate activity level post procedure []f) Operative site appropriate as indicated by ALL of the following: []i) Site dry or with expected drainage []ii) Any blood noted is as expected for procedure. []g) Postoperative effects resolved or managed as indicated by ALL of the following: []i) Pain management appropriate for outpatient (or next level of) care(10) []ii) Minimal nausea and vomiting: if present, successfully treated with oral medication(12) []iii) Headache, dizziness, or drowsiness (if present) are mild. []h) Voiding status acceptable as indicated by ANY ONE of the following: []i) Voiding spontaneously []ii) No voiding but instructions given for follow-up in 6 to 8 hours []iii) Urinary catheter in place, and instructions given for follow-up []i) Complicating features requiring inpatient care manageable at a lower level of care(37) []j) Comorbid conditions manageable at a lower level of care(37) The original [employer] content created by [employer] has been revised. The portions of the content which have been revised are identified through the use of italic text or in bold, and [facility] [employer] has neither reviewed nor approved the modified material. All other unmodified content is copyright [employer]. Please see references footnoted in the original [employer] edition 2016 Admission Criteria Met: Yes
== END 2016-08-07 14:55 | disposition home or self-care (01) ==
LOC: OR 08:26
PROVIDERS: ATTEND Surgery Vascular Surgery
DX: E11.22 Type 2 diabetes mellitus with diabetic chronic kidney disease (principal); I13.2 Hypertensive heart and chronic kidney disease with heart failure and with stage 5 chronic kidney disease, or end stage renal disease; N18.6 End stage renal disease; I50.9 Heart failure, unspecified; J45.909 Unspecified asthma, uncomplicated; E78.5 Hyperlipidemia, unspecified; E03.9 Hypothyroidism, unspecified; K21.9 Gastro-esophageal reflux disease without esophagitis; F41.9 Anxiety disorder, unspecified; G47.33 Obstructive sleep apnea (adult) (pediatric); J44.9 Chronic obstructive pulmonary disease, unspecified; D63.1 Anemia in chronic kidney disease; I48.91 Unspecified atrial fibrillation; E66.01 Morbid (severe) obesity due to excess calories; Z68.44 Body mass index [BMI] 60.0-69.9, adult; Z99.2 Dependence on renal dialysis; Z90.710 Acquired absence of both cervix and uterus; Z83.3 Family history of diabetes mellitus; Z79.899 Other long term (current) drug therapy; Z79.01 Long term (current) use of anticoagulants
CPT/HCPCS: 36415; 36818; 82962; 84132; J0690; J1170; J1644; J2250; J2704; J3010; J7030; J7040

== ENCOUNTER 2016-09-26 12:11 | Inpatient (IN) | payer MEDICAID ==
--- NOTE | 2016-09-26 15:35 | Cat Scan Report ---
Brain CT without contrast. History: Altered mental status. Findings: There is no evidence of acute hemorrhage or infarct. The posterior fossa is normal. Chronic lacunar infarcts are seen in the basal ganglia bilaterally. There are symmetrical periventricular hypodensities consistent with chronic microangiopathic ischemic changes. There are no masses or extra-axial collections. The calvarium is intact. Impression: No acute findings. Multiple areas of chronic ischemic change are described.
[2016-09-26 16:17] LABS: Basophils % (Auto) 0.3 % (0.0-1.8); Eosinophils % (Auto) 4.5 % (0.0-4.3); Hematocrit 30.4 % (30.3-42.9); Hemoglobin 9.8 gm/dl (10.1-14.3); Mean Corpuscular HGB Conc 32 % (30-34); Mean Corpuscular Hemoglobin 30 pg (28-32); Mean Corpuscular Volume 92 fl (79-97); Platelet Count 185 K/mm3 (140-440); Red Blood Count 3.32 M/mm3 (3.65-5.03); Red Cell Distribution Width 18.4 % (13.2-15.2); White Blood Count 4.8 K/mm3 (4.5-11.0)
[2016-09-26 16:24] LABS: Albumin 3.7 g/dL (3.9-5); Albumin/Globulin Ratio 1.4 %; BUN/Creatinine Ratio 2.78; Bilirubin,Total 0.5 mg/dL (0.1-1.2); Chloride 100.1 mmol/L (98-107); Magnesium 2.2 mg/dL (1.7-2.3); Potassium 5.4 mmol/L (3.6-5.0); Total Protein 6.4 g/dL (6.3-8.2)
--- NOTE | 2016-09-26 16:41 | Emergency Department Report ---
HPI - General Chief Complaint: Altered Mental Status Time Seen by Provider: 09/26/16 16:22 - HPI HPI: Room 3 The patient is a 55-year-old male presenting with a chief complaint of altered mental status. Patient is a resident at [facility] and was reportedly sent to the hospital for episodes of altered mental status. Per the daughter the patient slow to respond and sometimes cannot find her words. During my interview the patient appears slow to respond. When asked where she was sent from the patient eventually acknowledges she was [facility] Patient gets the current year correct 2016. Patient gets her name correctly. When asked to identify where she is currently the patient is unable to answer. When asked why she was sent to the emergency department the patient states "she said... I was ummmm......" but never completes her statement. Patient denies complaints of any type specifically denying pain, nausea vomiting or shortness of breath. Location: Mental State Duration: [see above] Quality: Altered, slow to respond Severity: Moderate Modifying factors: Unknown Context: [see above] Mode of transportation: [not driving] ED Past Medical Hx - Past Medical History Previous Medical History?: Yes Hx Hypertension: Yes Hx Congestive Heart Failure: Yes Hx Diabetes: Yes (type II) Hx GERD: Yes Hx Renal Disease: Yes Hx Arthritis: Yes Hx Psychiatric Treatment: Yes (anxiety) Hx Asthma: Yes Hx COPD: Yes Additional medical history: morbid obesity. atrial fibrillation. hypothyroidism. Edema. Obstructive Sleep Apnea with BiPAP used at night. chronic pain. chronic kidney disease. hyperlipidemia. anemia - Surgical History Past Surgical History?: Yes Additional Surgical History: graft to left arm, peg tube when intubated, partial hysterectomy, C-sections - Family History Family history: no significant - Social History Smoking Status: Never Smoker Substance Use Type: None - Medications Home Medications: Home Medications Medication Instructions Recorded Confirmed Last Taken Type Atorvastatin [Lipitor] 40 mg PO QHS 09/23/13 08/07/16 08/06/16 21:00 History Fluticasone/Salmeterol [Advair 1 puff IH BID 09/23/13 08/07/16 08/06/16 21:00 History Diskus 250-50 mcg] Magnesium Oxide 400 mg PO DAILY 09/23/13 08/07/16 08/06/16 09:00 History Levothyroxine [Synthroid] 50 mcg PO DAILY@0600 #30 tablet 03/23/16 08/07/16 09:00 Rx Arformoterol Nebu [Brovana Nebu] 15 mcg INHALATION Q12HR PRN 04/13/16 08/07/16 08/06/16 09:00 History Hydroxyzine HCl 25 mg PO Q8H 04/13/16 08/07/16 08/06/16 21:00 History Omeprazole Magnesium [PriLOSEC Otc] 20 mg PO DAILY 04/13/16 08/07/16 08/06/16 09 :00 History diphenhydrAMINE [Benadryl CAP] 25 mg PO Q8HR PRN 04/13/16 08/07/16 07/12/16 History Bumetanide [Bumex 1 mg tab] 2 mg PO BID #60 tablet 04/21/16 08/07/16 08/06/16 21 :00 Rx Metoprolol [Lopressor TAB] 100 mg PO BID #60 tablet 04/21/16 08/07/16 08/05/16 21:00 Rx oxyCODONE /ACETAMINOPHEN [Percocet 2 tab PO Q6H PRN #10 tablet 04/21/1607/13/16 05:00 Rx 5/325 mg] Ferrous Sulfate [Feosol 325 MG tab] 325 mg PO QDAY 07/18/16 08/07/16 08/06/16 09 :00 History Insulin Lispro [HumaLOG VIAL] 0 units SQ AC 07/18/16 08/07/16 08/06/16 21:00 History Budesonide [Pulmicort Respules] 0.5 mg IH Q12HRT nebu 07/20/16 08/07/16 21:00 Rx HYDROcodone/APAP 7.5-325 [Eolia 1 each PO Q6HR PRN #60 tablet 08/07/16 Unknown Rx 7.5/325] ED Review of Systems ROS: Stated complaint: AMS Other details as noted in HPI Comment: All other systems reviewed and negative Constitutional: denies: chills, fever Eyes: denies: eye pain, eye discharge, vision change ENT: denies: ear pain, throat pain Respiratory: denies: cough, shortness of breath, wheezing Cardiovascular: denies: chest pain, palpitations Endocrine: no symptoms reported Gastrointestinal: denies: abdominal pain, nausea, diarrhea Genitourinary: denies: urgency, dysuria, discharge Musculoskeletal: denies: back pain, joint swelling, arthralgia Skin: denies: rash, lesions Neurological: confusion. denies: headache Psychiatric: denies: anxiety, depression Hematological/Lymphatic: denies: easy bleeding, easy bruising Physical Exam - Physical Exam Vital Signs: Vital Signs 09/26/16 09/26/16 09/26/16 14:02 14:11 14:17 Temperature 98 F Pulse Rate 65 66 Respiratory 12 16 Rate Blood Pressure 105/48 105/48 O2 Sat by Pulse 98 100 99 Oximetry 09/26/16 09/26/16 09/26/16 14:21 14:31 14:41 Temperature Pulse Rate 65 69 69 Respiratory 12 13 15 Rate Blood Pressure 92/47 108/45 108/45 O2 Sat by Pulse 100 100 91 Oximetry 09/26/16 09/26/16 15:01 15:06 Temperature Pulse Rate 69 Respiratory 18 Rate Blood Pressure O2 Sat by Pulse 99 Oximetry Physical Exam: GENERAL: The patient is well-developed well-nourished female lying on stretcher sleeping not appearing to be in acute distress. Awake and verbal stimuli HEENT: Normocephalic. Atraumatic. Extraocular motions are intact. Patient has moist mucous membranes. NECK: Supple. Trachea midline CHEST/LUNGS: Clear to auscultation. There is no respiratory distress noted. HEART/CARDIOVASCULAR: Regular. There is no tachycardia. There is no gallop rub or murmur. ABDOMEN: Abdomen is soft, nontender. Patient has normal bowel sounds. There is no abdominal distention. SKIN: There is no rash. There is no diaphoresis. NEURO: The patient is awake, and oriented 2 (name and year). The patient is cooperative. Cranial nerves II through XII grossly intact. Unable to assess for pronator drift in the left upper extremity is a patient states she has had difficulty moving this arm since she's had a previous surgery. The patient has normal speech. Patient able to move bilateral feet equally MUSCULOSKELETAL: There is no evidence of acute injury. ED Course Vital Signs 09/26/16 09/26/16 09/26/16 14:02 14:11 14:17 Temperature 98 F Pulse Rate 65 66 Respiratory 12 16 Rate Blood Pressure 105/48 105/48 O2 Sat by Pulse 98 100 99 Oximetry 09/26/16 09/26/16 09/26/16 14:21 14:31 14:41 Temperature Pulse Rate 65 69 69 Respiratory 12 13 15 Rate Blood Pressure 92/47 108/45 108/45 O2 Sat by Pulse 100 100 91 Oximetry 09/26/16 09/26/16 15:01 15:06 Temperature Pulse Rate 69 Respiratory 18 Rate Blood Pressure O2 Sat by Pulse 99 Oximetry - Consultations Consultation #1: 09/26/16 16:51 Nephrology paged 09/26/16 17:[address] Cedeno ED Medical Decision Making - Lab Data Result diagrams: 09/26/16 15:40 09/26/16 15:40 Laboratory Tests 09/26/16 09/26/16 09/26/16 15:40 15:40 15:40 WBC 4.8 RBC 3.32 L Hgb 9.8 L Hct 30.4 MCV 92 MCH 30 MCHC 32 RDW 18.4 H Plt Count 185 Lymph % (Auto) 24.2 Towner % (Auto) 9.6 H Eos % (Auto) 4.5 H Baso % (Auto) 0.3 Lymph # 1.2 Towner # 0.5 Eos # 0.2 Baso # 0.0 Seg Neutrophils % 61.4 Seg Neutrophils # 2.9 Sodium 142 Potassium 5.4 H Chloride 100.1 Carbon Dioxide 30 Anion Gap 17 BUN 27 H Creatinine 9.7 H Estimated GFR 5 BUN/Creatinine Ratio 2.78 Glucose 91 Lactic Acid 1.20 Calcium 9.0 Magnesium 2.20 Total Bilirubin 0.50 AST 15 ALT 8 Alkaline Phosphatase 97 Total Protein 6.4 Albumin 3.7 L Albumin/Globulin Ratio 1.4 TSH Salicylates Acetaminophen Plasma/Serum Alcohol 09/26/16 09/26/16 09/26/16 15:40 15:40 15:40 WBC RBC Hgb Hct MCV MCH MCHC RDW Plt Count Lymph % (Auto) Towner % (Auto) Eos % (Auto) Baso % (Auto) Lymph # Towner # Eos # Baso # Seg Neutrophils % Seg Neutrophils # Sodium Potassium Chloride Carbon Dioxide Anion Gap BUN Creatinine Estimated GFR BUN/Creatinine Ratio Glucose Lactic Acid Calcium Magnesium Total Bilirubin AST ALT Alkaline Phosphatase Total Protein Albumin Albumin/Globulin Ratio TSH 0.754 Salicylates < 0.3 L Acetaminophen < 15.0 Plasma/Serum Alcohol 09/26/16 15:40 WBC RBC Hgb Hct MCV MCH MCHC RDW Plt Count Lymph % (Auto) Towner % (Auto) Eos % (Auto) Baso % (Auto) Lymph # Towner # Eos # Baso # Seg Neutrophils % Seg Neutrophils # Sodium Potassium Chloride Carbon Dioxide Anion Gap BUN Creatinine Estimated GFR BUN/Creatinine Ratio Glucose Lactic Acid Calcium Magnesium Total Bilirubin AST ALT Alkaline Phosphatase Total Protein Albumin Albumin/Globulin Ratio TSH Salicylates Acetaminophen Plasma/Serum Alcohol < 0.01 - EKG Data -: EKG Interpreted by Me EKG shows normal: sinus rhythm Rate: normal - EKG Data When compared to previous EKG there are: previous EKG unavailable Interpretation: other (no ischemic changes seen) - Radiology Data Radiology results: report reviewed (CT head), image reviewed (CT head) CT head (read by radiologist)-no acute findings - Differential Diagnosis ICH, uremia, hyperkalemia Critical care attestation.: If time is entered above; I have spent that time in minutes in the direct care of this critically ill patient, excluding procedure time. ED Disposition Clinical Impression: End stage renal disease on dialysis, Acute hyperkalemia, Altered mental status Disposition: OP ADMITTED IP TO THIS HOSP Is pt being admited?: Yes Does the pt Need Aspirin: Yes Condition: Fair Referrals: PRIMARY CARE, [Primary Care Provider] - 3-5 Days Time of Disposition: 16:48 (hospitalist notified)
[2016-09-26] MEDS ORDERED: ASPIRIN PO ONE (16:49)
--- NOTE | 2016-09-26 17:04 | Admit Criteria Form ---
Admission Criteria Documentation: MENTAL STATUS CHANGE Clinical Indications for Inpatient Care (Place 'X' for any and all applicable criteria): Ongoing inpatient care may be needed for 1 or more of the following(1)(2)(3)(5)( 6): [X ]I. Suspected serious etiology (eg, medical disorder, PAPER BAG MACHINE OPERATOR event) of altered mental status [ ]II. Danger to self or others not manageable at lower level of care [ ]III. Grave disability (eg, inability to perform self care necessary at lower level of care) [ ]IV. Agitation or inappropriate behavior interfering with care for primary condition (eg, attempting to discontinue lines or drains prematurely, unable to cooperate with respiratory care) [ ]V. Delirium [A] [D][E] as described by 1 or more of the following(26): [ ]a) Delirium due to alcohol or sedative [F] withdrawal [ ]b) Delirium of uncertain etiology that has not responded to appropriate empiric treatment [ ]c) Delirium that prevents performance of a life-sustaining function (eg, feeding or hydrating oneself) [ ]. General contraindications and/or Inappropriate clinical situations for Observational Care in patients with Mental Status Change, when ANY ONE of the following is required: [ ]a) Prediction of prolongation of LOS based on ANY ONE of the following may be considered as a contraindication for observational care 2, 3, 4, 5, 6, 7, 8, 9, 10, 11 [ ]i) Age > 65 yrs. [ ]ii) Patient arriving by ambulance [ ]iii) Patient with high acuity [ ]iv) Patient requiring vital sign monitoring [ ]v) Patient on IV medication [ ]b) Systolic blood pressures greater than or equal to 180mmHg 3, 12 [ ]c) Patient with altered mental status including delirium and other alteration of consciousness, (3) [ ]d) Patient whose discharge disposition will be to a retirement home or rehabilitation home should not be managed in Emergency Department Observation Unit. CMS rule requires 3 days hospital stay before such placement.3,13 [ ]e) Patient with failure to thrive due to broad array of etiologies 3,16,17 [ ]f) Inability to ambulate 3,14 Extended stay beyond goal length of stay for the primary condition may be needed until ALL of the following are present(3)(5): [ ]a) Underlying medical etiology of mental status change is absent, or has been established and adequately treated [ ]b) Danger to self or others is absent or manageable at lower level of care. [ ]c) Behavior crisis management, including physical or chemical restraints, is not required or available at lower level of car [ ]d) Substance or alcohol withdrawal is absent or manageable at lower level of care. [ ]e) Behavioral symptoms (eg, agitation, somnolence, inappropriate behavior) are absent, or are manageable at lower level of care. The original [facility] [employer] content created by [facility] [employer] has been revised. The portions of the content which have been revised are identified through the use of italic text or in bold, and [facility] has neither reviewed nor approved the modified material. All other unmodified content is copyright [facility] [employer]. Please see references footnoted in the original [facility] edition 2016 Admission Criteria Met: Yes
[2016-09-27] MEDS ORDERED: DULCOLAX PR PRN (03:00)
[2016-09-27] MEDS ORDERED: MILK OF MAGNESIA PO PRN (03:00)
[2016-09-27] MEDS ORDERED: DILAUDID IV PRN (03:00)
[2016-09-27] MEDS ORDERED: TYLENOL PO PRN (03:00)
[2016-09-27] MEDS ORDERED: ZOFRAN IV PRN (03:00)
[2016-09-27] MEDS ORDERED: PERCOCET 5/325 PO PRN (03:00)
[2016-09-27] MEDS ORDERED: BENADRYL PO PRN (03:01)
[2016-09-27] MEDS: LOPRESSOR PO SCH ×3 (04:46→22:51)
--- NOTE | 2016-09-27 04:50 | History and Physical Report ---
CHIEF COMPLAINT: Altered mental status. HISTORY OF PRESENT ILLNESS: A 55-year-old female sent from snf for altered sensorium. As per the daughter, the patient is slow to respond. In the ER, the patient was more alert than she was in the snf, answering questions to some extent. No fever, no chills. No nausea, no vomiting. No exacerbating factors. No relieving factors. PAST MEDICAL HISTORY: Significant for hypertension, congestive heart failure, type 2 diabetes, gastroesophageal reflux disease, end-stage renal disease, anxiety, COPD, asthma, morbid obesity, atrial fibrillation, hypothyroidism, obstructive sleep apnea with BiPAP at night, chronic pain, hyperlipidemia, anemia. PAST SURGICAL HISTORY: AV graft to left arm, PEG tube and when she was intubated. Partial hysterectomy, C-sections. FAMILY HISTORY: Hypertension. SOCIAL HISTORY: Does not smoke. She lives in snf. CURRENT MEDICATIONS: On the chart: Atorvastatin 40 mg p.o. daily, Advair 250/50 one puff b.i.d., magnesium oxide 400 mg daily, levothyroxine 50 mcg p.o. daily, Brovana nebulizer 50 mcg q. 12 hours, hydroxyzine 25 mg q. 8 p.r.n., Benadryl 25 q. 8 hours p.r.n., Bumex 2 mg tablets twice a day, Percocet 5/325 two tablets q. 6 hours p.r.n., ferrous sulfate 325 mg p.o. daily, insulin coverage, hydrocodone 7.5/325. REVIEW OF SYSTEMS: Significant for altered mental status. No fever, no chills. All systems reviewed. PHYSICAL EXAMINATION: GENERAL: Middle-aged female, cooperative during examination. VITAL SIGNS: Temperature 98, pulse is 65, respirations 12, blood pressure 105/48. HEENT: Unremarkable. Pupils equal and reactive. NECK: Supple, no lymphadenopathy, no thyromegaly. LUNGS: Clear to auscultation and percussion. Good air entry. CARDIOVASCULAR: S1, S2 heard. No gallop, no murmur, no rub. Apical impulse in left fifth intercostal space and midclavicular line. ABDOMEN: Soft and benign. No hepatosplenomegaly. No guarding, no rigidity. Hernial orifices are normal. EXTREMITIES: Good pedal pulses. No pedal edema. CENTRAL NERVOUS SYSTEM: Confused. Occasionally alert and oriented. LABORATORY DATA: Significant for hemoglobin of 9.8, hematocrit of 30.4, potassium of 5.4, sodium of 142, BUN and creatinine of 27 and 9.6. Salicylates are negative. LFTs are negative. EKG shows normal sinus rhythm, no ischemic changes. CT of the head, no acute findings. ASSESSMENT AND PLAN: 1. Encephalopathy secondary to uremia. The patient missed dialysis for a few days. Resume dialysis and continue dialysis more often than necessary. 2. Acute hyperkalemia with potassium 5.4. Potassium can be corrected with dialysis and low potassium diet. 3. Chronic obstructive pulmonary disease. Continue inhalers as needed and Brovana. 4. Insulin-dependent diabetes. Continue insulin coverage. 5. Hyperlipidemia. Continue atorvastatin 40 mg daily. 6. Congestive heart failure. Continue Bumex. 7. Deep venous thrombosis prophylaxis, heparin 5000 q. 12 hours. JOB# [id number] LOREN/ALEK DALEY
[2016-09-27] MEDS: HEPARIN SUB-Q SCH ×2 (05:32→18:00)
[2016-09-27] MEDS: SYNTHROID PO SCH (05:33)
[2016-09-27] MEDS: NOVOLOG SUB-Q SCH ×4 (07:30→22:52)
[2016-09-27] MEDS: PULMICORT IH SCH ×2 (08:44→19:59)
--- NOTE | 2016-09-27 09:36 | Consultation ---
History of Present Illness - Reason for Consult Consult date: 09/27/16 end stage renal disease - History of Present Illness patient with h/o ESRD on HD, she was not able to tell me when was her last treatment, she was sent to the ED yesterday for altered mental status, when seen this AM she was awake oriented only to self, not able to answer my questions. history obtained from chart. renal consult requested for ESRD and HD management Past History Past Medical History: diabetes, dialysis, ESRD, hypertension Medications and Allergies Allergies Allergy/AdvReac Type Severity Reaction Status Date / Time No Known Allergies Allergy Verified 10/02/13 09:59 Home Medications Medication Instructions Recorded Confirmed Last Taken Type Atorvastatin [Lipitor] 40 mg PO QHS 09/23/13 08/07/16 08/06/16 21:00 History Fluticasone/Salmeterol [Advair 1 puff IH BID 09/23/13 08/07/16 08/06/16 21:00 History Diskus 250-50 mcg] Magnesium Oxide 400 mg PO DAILY 09/23/13 08/07/16 08/06/16 09:00 History Levothyroxine [Synthroid] 50 mcg PO DAILY@0600 #30 tablet 03/23/16 08/07/16 09:00 Rx Arformoterol Nebu [Brovana Nebu] 15 mcg INHALATION Q12HR PRN 04/13/16 08/07/16 08/06/16 09:00 History Hydroxyzine HCl 25 mg PO Q8H 04/13/16 08/07/16 08/06/16 21:00 History Omeprazole Magnesium [PriLOSEC Otc] 20 mg PO DAILY 04/13/16 08/07/16 08/06/16 09 :00 History diphenhydrAMINE [Benadryl CAP] 25 mg PO Q8HR PRN 04/13/16 08/07/16 07/12/16 History Bumetanide [Bumex 1 mg tab] 2 mg PO BID #60 tablet 04/21/16 08/07/16 08/06/16 21 :00 Rx Metoprolol [Lopressor TAB] 100 mg PO BID #60 tablet 04/21/16 08/07/16 08/05/16 21:00 Rx oxyCODONE /ACETAMINOPHEN [Percocet 2 tab PO Q6H PRN #10 tablet 04/21/1607/13/16 05:00 Rx 5/325 mg] Ferrous Sulfate [Feosol 325 MG tab] 325 mg PO QDAY 07/18/16 08/07/16 08/06/16 09 :00 History Insulin Lispro [HumaLOG VIAL] 0 units SQ AC 07/18/16 08/07/16 08/06/16 21:00 History Budesonide [Pulmicort Respules] 0.5 mg IH Q12HRT nebu 07/20/16 08/07/16 21:00 Rx HYDROcodone/APAP 7.5-325 [[place] 1 each PO Q6HR PRN #60 tablet 08/07/16 Unknown Rx 7.5/325] Active Meds: Active Medications Acetaminophen (Tylenol) 650 mg PO Q4H PRN PRN Reason: Pain MILD(1-3)/Fever >100.5/HO Atorvastatin Calcium (Lipitor) 40 mg PO QHS [facility] Bisacodyl (Dulcolax) 10 mg [place] QDAY PRN PRN Reason: Constipation unrelieved by MOM Budesonide (Pulmicort) 0.5 mg IH Q12HRT [facility] Last Admin: 09/27/16 08:44 Dose: 0.5 mg Bumetanide (Bumex) 2 mg PO BID [facility] Diphenhydramine HCl (Benadryl) 25 mg PO Q8H PRN PRN Reason: Itching Ferrous Sulfate (Feosol) 325 mg PO QDAY [facility] Heparin Sodium (Porcine) (Heparin) 5,000 unit SUB-Q Q12H [facility] Last Admin: 09/27/16 05:32 Dose: 5,000 unit Hydromorphone HCl (Dilaudid) 0.5 mg IV Q3H PRN PRN Reason: Pain , Severe (7-10) Insulin Aspart (Novolog) 0 units SUB-Q ACHS [facility] PRN Reason: Protocol Last Admin: 09/27/16 07:30 Dose: Not Given Levothyroxine Sodium (Synthroid) 50 mcg PO DAILY@0600 [facility] Last Admin: 09/27/16 05:33 Dose: 50 mcg Magnesium Hydroxide (Milk Of Magnesia) 30 ml PO Q4H PRN PRN Reason: Constipation Magnesium Oxide (Mag-Ox) 400 mg PO DAILY [facility] Metoprolol Tartrate (Lopressor) 100 mg PO BID [facility] Last Admin: 09/27/16 04:46 Dose: Not Given Ondansetron HCl (Zofran) 4 mg IV Q8H PRN PRN Reason: N/V unrelieved by Reglan Oxycodone/Acetaminophen (Percocet 5/325) 1 tab PO Q6H PRN PRN Reason: Pain, Moderate (4-6) Pantoprazole Sodium (Protonix) 20 mg PO DAILY [facility] Review of Systems All systems: negative (confusion, weakness) Exam - Vital Signs Vital signs: Vital Signs Pulse Ox 98 09/26/16 14:02 - General Appearance General appearance: well-nourished, obese EENT: ATNC, PERRL, mucous membranes moist Neck: Present: neck supple Respiratory: Clear to Ascultation, Normal Exam Heart: regular, S1S2 Gastrointestinal: Present: normoactive bowel sounds, obese. Absent: absent bowel sounds, tenderness, distended Integumentary: no rash, warm and dry Neurologic: asterixis, other (oriented only to self) Musculoskeletal: Present: other (no edema in BLE) Psychiatric: cooperative Results - Lab Results 09/26/16 15:40 09/26/16 15:40 Most recent lab results Calcium 9.0 mg/dL (8.4-10.2) 09/26/16 15:40 Magnesium 2.20 mg/dL (1.7-2.3) 09/26/16 15:40 Assessment and Plan - Patient Problems (1) Metabolic encephalopathy Current Visit: Yes Status: Acute Plan to address problem: CT head negative for acute intracranial change will dialyze daily for the next 3 days to r/o uremic encephalopathy blood and urine cultures ordered (2) End-stage renal disease on hemodialysis Current Visit: Yes Status: Acute Plan to address problem: HD today for clearance and volume removal will assess dialysis needs daily renally dose meds strict I&O daily weight renal diet (3) Anemia in chronic kidney disease Current Visit: Yes Status: Acute Plan to address problem: iron studies in AM Epogen with HD as needed (4) Hypertensive chronic kidney disease with stage 5 chronic kidney disease or end stage renal disease Current Visit: Yes Status: Acute Plan to address problem: hold BP meds for now, low BP (5) Type 2 diabetes mellitus with stage 5 chronic kidney disease Current Visit: No Status: Acute Plan to address problem: insulin regimen per primary team
[2016-09-27 10:08] LABS: Calcium 9.4 mg/dL (8.4-10.2); Chloride 97.1 mmol/L (98-107)
[2016-09-27 10:29] LABS: Potassium 6.2 mmol/L (3.6-5.0)
[2016-09-27] MEDS: FEOSOL PO SCH (10:36)
[2016-09-27] MEDS: BUMEX PO SCH ×2 (10:37→22:49)
[2016-09-27] MEDS ORDERED: D50W (25GM) IV STA (10:37)
[2016-09-27] MEDS: PROTONIX PO SCH (10:37)
[2016-09-27] MEDS: MAG-OX PO SCH (10:37)
[2016-09-27] MEDS ORDERED: CALCIUM GLUCONATE 1,000 MG in NACL 0.9% 100 ML IV STA (10:37)
[2016-09-27] MEDS ORDERED: KIONEX PO ONE (10:39)
--- NOTE | 2016-09-27 10:42 | Progress Note ---
Assessment and Plan Assessment and plan: Toxic metabolic encephalopathy secondary to uremia from ESRD End stage renal disease on hemodialysis. She missed dialysisyesterday. For hemodialysis today. Hyperkalemia. Ordered Insulin 50% dextrose, Kayexalate and calcium gluconate iv. For dialysis today Chronic diastolic CHF Paroxysmal Atrial Fibrillation Full code status Discussed with family at bedside. History Interval history: Presented with altered mental status No chest pain Hospitalist Physical - Physical exam Narrative exam: Gen appearance: Not in acute distress,morbidly obese HEENT: Normocephalic, atraumatic Lungs : Clear to auscultation bilaterally,no crackles or wheeze Heart :S1-S2 regular, no murmurs, rubs or gallop Abdomen: soft, non- tender, non-distended,normal bowel sounds Extremities:no edema no clubbing or cyanosis, Neuro: Awake alert oriented 3, no focal neurologic signs Psych: Normal mood - Constitutional Vitals: Temp Pulse Resp BP Pulse Ox 97.6 F 73 22 136/76 98 09/27/16 07:30 09/27/16 07:30 09/27/16 08:46 09/27/16 07:30 09/27/16 07:30 Results - Labs CBC & Chem 7: 09/28/16 05:36 09/28/16 05:36 Labs: Laboratory Last Values WBC 4.8 K/mm3 (4.5-11.0) 09/26/16 15:40 RBC 3.32 M/mm3 (3.65-5.03) L 09/26/16 15:40 Hgb 9.8 gm/dl (10.1-14.3) L 09/26/16 15:40 Hct 30.4 % (30.3-42.9) 09/26/16 15:40 MCV 92 fl (79-97) 09/26/16 15:40 MCH 30 pg (28-32) 09/26/16 15:40 MCHC 32 % (30-34) 09/26/16 15:40 RDW 18.4 % (13.2-15.2) H 09/26/16 15:40 Plt Count 185 K/mm3 (140-440) 09/26/16 15:40 Lymph % (Auto) 24.2 % (13.4-35.0) 09/26/16 15:40 [place] % (Auto) 9.6 % (0.0-7.3) H 09/26/16 15:40 Eos % (Auto) 4.5 % (0.0-4.3) H 09/26/16 15:40 Baso % (Auto) 0.3 % (0.0-1.8) 09/26/16 15:40 Lymph # 1.2 K/mm3 (1.2-5.4) 09/26/16 15:40 [place] # 0.5 K/mm3 (0.0-0.8) 09/26/16 15:40 Eos # 0.2 K/mm3 (0.0-0.4) 09/26/16 15:40 Baso # 0.0 K/mm3 (0.0-0.1) 09/26/16 15:40 Seg Neutrophils % 61.4 % (40.0-70.0) 09/26/16 15:40 Seg Neutrophils # 2.9 K/mm3 (1.8-7.7) 09/26/16 15:40 Sodium 140 mmol/L (137-145) 09/27/16 08:44 Potassium 6.2 mmol/L (3.6-5.0) H* 09/27/16 08:44 Chloride 97.1 mmol/L (98-107) L 09/27/16 08:44 Carbon Dioxide 26 mmol/L (22-30) 09/27/16 08:44 Anion Gap 23 mmol/L 09/27/16 08:44 BUN 33 mg/dL (7-17) H 09/27/16 08:44 Creatinine 11.0 mg/dL (0.7-1.2) H 09/27/16 08:44 Estimated GFR 4 ml/min 09/27/16 08:44 BUN/Creatinine Ratio 3.00 % 09/27/16 08:44 Glucose 93 mg/dL (65-100) 09/27/16 08:44 POC Glucose 86 (70-105) 09/27/16 06:53 Hemoglobin A1c 4.7 % (4-6) 09/27/16 07:08 Lactic Acid 1.00 mmol/L (0.7-2.0) 09/26/16 21:53 Calcium 9.4 mg/dL (8.4-10.2) 09/27/16 08:44 Magnesium 2.20 mg/dL (1.7-2.3) 09/26/16 15:40 Total Bilirubin 0.50 mg/dL (0.1-1.2) 09/26/16 15:40 AST 15 units/L (5-40) 09/26/16 15:40 ALT 8 units/L (7-56) 09/26/16 15:40 Alkaline Phosphatase 97 units/L (35-129) 09/26/16 15:40 Total Protein 6.4 g/dL (6.3-8.2) 09/26/16 15:40 Albumin 3.7 g/dL (3.9-5) L 09/26/16 15:40 Albumin/Globulin Ratio 1.4 % 09/26/16 15:40 TSH 0.754 mlU/mL (0.270-4.200) 09/26/16 15:40 Salicylates < 0.3 mg/dL (2.8-20.0) L 09/26/16 15:40 Acetaminophen < 15.0 ug/mL (10.0-30.0) 09/26/16 15:40 Plasma/Serum Alcohol < 0.01 gm% (0-0.07) 09/26/16 15:40
[2016-09-27] MEDS ORDERED: HEPARIN IV PRN (16:07)
[2016-09-27] MEDS ORDERED: NACL 0.9 (PRIMING MACHINE ONLY DIALYSIS) MC ONE (16:42)
[2016-09-28 06:32] LABS: Basophils % (Auto) 0.6 % (0.0-1.8); Hematocrit 30.2 % (30.3-42.9); Hemoglobin 9.6 gm/dl (10.1-14.3); Mean Corpuscular HGB Conc 32 % (30-34); Mean Corpuscular Hemoglobin 29 pg (28-32); Mean Corpuscular Volume 92 fl (79-97); Platelet Count 176 K/mm3 (140-440); Red Blood Count 3.28 M/mm3 (3.65-5.03); Red Cell Distribution Width 18.5 % (13.2-15.2); White Blood Count 4.5 K/mm3 (4.5-11.0)
[2016-09-28] MEDS: SYNTHROID PO SCH (06:34)
[2016-09-28] MEDS: HEPARIN SUB-Q SCH (06:35)
[2016-09-28 07:30] LABS: BUN/Creatinine Ratio 2.22; Calcium 9.3 mg/dL (8.4-10.2); Chloride 101.4 mmol/L (98-107); Phosphorous 4.1 mg/dL (2.5-4.5)
[2016-09-28] MEDS: NOVOLOG SUB-Q SCH ×2 (07:30→11:30)
[2016-09-28] MEDS: PULMICORT IH SCH (07:33)
[2016-09-28 07:39] LABS: Albumin 3.7 g/dL (3.9-5); Albumin/Globulin Ratio 1.4 %; BUN/Creatinine Ratio 2.39; Bilirubin,Total 0.6 mg/dL (0.1-1.2); Calcium 9.3 mg/dL (8.4-10.2); Chloride 101.2 mmol/L (98-107); Total Protein 6.3 g/dL (6.3-8.2)
[2016-09-28] MEDS: FEOSOL PO SCH (10:00)
[2016-09-28] MEDS: LOPRESSOR PO SCH (10:00)
[2016-09-28] MEDS: PROTONIX PO SCH (10:00)
[2016-09-28] MEDS: MAG-OX PO SCH (10:00)
[2016-09-28] MEDS: BUMEX PO SCH (10:00)
--- NOTE | 2016-09-28 10:22 | Discharge Summary ---
Providers - Providers Date of Admission: 09/26/16 16:55 Date of discharge: 09/28/16 Attending physician: PRECIOUS AYALA 09/26/16 17:06 Consult to Physician [CONS] Urgent Consulting Provider: ANALI GAUTHIER Reason For Exam: end-stage renal disease Place consult to:: phone Notified:: y Primary care physician: ONUR MORALES MD Hospitalization Condition: Good Disposition: DC/[place] SNF [facility] - Discharge Diagnoses (1) Toxic metabolic encephalopathy Status: Acute (2) Acute hyperkalemia Status: Acute (3) End stage renal disease on dialysis Status: Chronic Exam - Constitutional Vitals: Temp Pulse Resp BP Pulse Ox 98.8 F 69 22 106/70 95 09/28/16 08:00 09/28/16 08:00 09/28/16 08:37 09/28/16 08:00 09/28/16 08:00 Plan Activity: advance as tolerated Diet: low fat, low cholesterol, low salt, renal Additional Instructions: 1.To be seen at Physician at SNF in 3-5 days. 2.Routine hemodialysis as scheduled. 3.Continue previous meds at SNF. Could not verify current meds. Follow up with: ONUR MORALES MD [Primary Care Provider] - 3-5 Days
[2016-09-28] MEDS ORDERED: NACL 0.9 (PRIMING MACHINE ONLY DIALYSIS) MC ONE (10:52)
--- NOTE | 2016-09-28 13:30 | Progress Note ---
Assessment and Plan - Patient Problems (1) Metabolic encephalopathy Current Visit: Yes Status: Acute Plan to address problem: resolved with HD (2) End-stage renal disease on hemodialysis Current Visit: Yes Status: Acute Plan to address problem: HD today for clearance and volume removal renally dose meds strict I&O daily weight renal diet (3) Anemia in chronic kidney disease Current Visit: Yes Status: Acute Plan to address problem: Epogen with HD as needed (4) Hypertensive chronic kidney disease with stage 5 chronic kidney disease or end stage renal disease Current Visit: Yes Status: Acute Plan to address problem: stable (5) Type 2 diabetes mellitus with stage 5 chronic kidney disease Current Visit: No Status: Acute Plan to address problem: insulin regimen per primary team Subjective Date of service: 09/28/16 Principal diagnosis: ESRD Interval history: improved mental status post HD, currently alert and oriented, tolerated dialysis well Objective - Vital Signs Vital signs: Vital Signs - 12hr 09/28/16 09/28/16 09/28/16 04:01 07:33 07:43 Temperature 97.5 F L Pulse Rate Pulse Rate [ 75 73 Anterior Bilateral Throughout] Pulse Rate [ 78 Right] Respiratory 18 Rate Respiratory 18 20 Rate [Anterior Bilateral Throughout] Blood Pressure Blood Pressure 91/55 [Right Arm] O2 Sat by Pulse 100 99 Oximetry O2 Sat by Pulse Oximetry [ Anterior Bilateral Throughout] 09/28/16 09/28/16 09/28/16 08:00 08:37 08:40 Temperature 98.8 F 98.2 F Pulse Rate 100 H Pulse Rate [ Anterior Bilateral Throughout] Pulse Rate [ 69 Right] Respiratory 22 22 20 Rate Respiratory Rate [Anterior Bilateral Throughout] Blood Pressure 135/58 Blood Pressure 106/70 [Right Arm] O2 Sat by Pulse 95 Oximetry O2 Sat by Pulse 100 Oximetry [ Anterior Bilateral Throughout] 09/28/16 09/28/16 09/28/16 08:55 09:00 09:15 Temperature Pulse Rate 69 72 72 Pulse Rate [ Anterior Bilateral Throughout] Pulse Rate [ Right] Respiratory Rate Respiratory Rate [Anterior Bilateral Throughout] Blood Pressure 104/57 107/64 105/62 Blood Pressure [Right Arm] O2 Sat by Pulse Oximetry O2 Sat by Pulse Oximetry [ Anterior Bilateral Throughout] 09/28/16 09/28/16 09/28/16 09:30 09:45 10:00 Temperature Pulse Rate 74 75 76 Pulse Rate [ Anterior Bilateral Throughout] Pulse Rate [ Right] Respiratory Rate Respiratory Rate [Anterior Bilateral Throughout] Blood Pressure 111/63 111/57 100/56 Blood Pressure [Right Arm] O2 Sat by Pulse Oximetry O2 Sat by Pulse Oximetry [ Anterior Bilateral Throughout] 09/28/16 09/28/16 09/28/16 10:15 10:30 10:45 Temperature Pulse Rate 74 75 77 Pulse Rate [ Anterior Bilateral Throughout] Pulse Rate [ Right] Respiratory Rate Respiratory Rate [Anterior Bilateral Throughout] Blood Pressure 112/57 102/56 114/64 Blood Pressure [Right Arm] O2 Sat by Pulse Oximetry O2 Sat by Pulse Oximetry [ Anterior Bilateral Throughout] 09/28/16 09/28/16 09/28/16 11:00 11:15 11:30 Temperature Pulse Rate 76 84 80 Pulse Rate [ Anterior Bilateral Throughout] Pulse Rate [ Right] Respiratory Rate Respiratory Rate [Anterior Bilateral Throughout] Blood Pressure 105/59 122/65 107/42 Blood Pressure [Right Arm] O2 Sat by Pulse Oximetry O2 Sat by Pulse Oximetry [ Anterior Bilateral Throughout] 09/28/16 11:45 Temperature Pulse Rate 84 Pulse Rate [ Anterior Bilateral Throughout] Pulse Rate [ Right] Respiratory Rate Respiratory Rate [Anterior Bilateral Throughout] Blood Pressure 107/58 Blood Pressure [Right Arm] O2 Sat by Pulse Oximetry O2 Sat by Pulse Oximetry [ Anterior Bilateral Throughout] - General Appearance General appearance: well-developed, well-nourished, appears stated age EENT: ATNC, PERRL, mucous membranes moist Neck: no JVD, no carotid bruit Respiratory: Present: Clear to Ascultation. Absent: Rales, Ronchi Cardiology: regular, S1S2 Gastrointestinal: normoactive bowel sounds, no tenderness, no distended, no masses, obese Integumentary: no rash, warm and dry Neurologic: no focal deficit, no asterixis, alert and oriented x3 Musculoskeletal: other (no edema in BLE) Psychiatric: mood/affect appropriate, cooperative - Lab 09/28/16 05:36 09/28/16 05:36 Most recent lab results Calcium 9.3 mg/dL (8.4-10.2) 09/28/16 05:36 Phosphorus 4.10 mg/dL (2.5-4.5) 09/28/16 05:36 Magnesium 2.20 mg/dL (1.7-2.3) 09/26/16 15:40
[2016-09-28 16:10] VITALS: BP 105/56
== END 2016-09-28 16:00 | DRG 91 ==
LOC: ED 12:11 → 3A 16:55
PROVIDERS: ADMIT Internal Medicine; ATTEND Internal Medicine
PROC: 5A1D60Z (ICD-10-PCS; principal; 2016-09-28)
DX: G92 Toxic encephalopathy (principal); N18.6 End stage renal disease; Z91.15 Patient's noncompliance with renal dialysis; E87.5 Hyperkalemia; E11.22 Type 2 diabetes mellitus with diabetic chronic kidney disease; I13.2 Hypertensive heart and chronic kidney disease with heart failure and with stage 5 chronic kidney disease, or end stage renal disease; I50.32 Chronic diastolic (congestive) heart failure; K21.9 Gastro-esophageal reflux disease without esophagitis; J44.9 Chronic obstructive pulmonary disease, unspecified; E66.01 Morbid (severe) obesity due to excess calories; Z68.41 Body mass index [BMI] 40.0-44.9, adult; I48.91 Unspecified atrial fibrillation; E03.9 Hypothyroidism, unspecified; E78.5 Hyperlipidemia, unspecified; Z79.4 Long term (current) use of insulin; I48.0 Paroxysmal atrial fibrillation; Z99.2 Dependence on renal dialysis
CPT/HCPCS: 36415; 70450; 80048; 80053; 80320; 82140; 82728; 82962; 83036; 83550; 83735; 84100; 84443; 85025; 87040; 93005; 93010; 94640; 94660; 94760; A9270-GY; G0480; J0610; J1170; J1644; J1815; J7030

== ENCOUNTER 2016-12-04 08:28 | Day surgery (SDC) | payer MEDICAID ==
[~2016-12-04 08:28] MED LIST changes: +ANCEF/STERILE WATER 2 GM/20 ML 2 GM/20 ML SYRINGE IV NR
[2016-12-04] MEDS ORDERED: NACL 0.9% 500 ML 0 ML ONE (08:46)
[2016-12-04] MEDS ORDERED: HEPARIN 10,000 UNITS/10 ML ONE (08:46)
[2016-12-04] MEDS ORDERED: NACL P/F VIAL (10 ML) 0 ML ONE (08:46)
[2016-12-04] MEDS ORDERED: RIFADIN ONE (08:46)
[2016-12-04] MEDS ORDERED: MARCAINE 0.5% 30 ML INFILTRATI ONE (08:46)
[2016-12-04] MEDS ORDERED: PROTAMINE SULFATE ONE (08:46)
--- NOTE | 2016-12-04 09:04 | Anesthesia Consultation ---
Anesthesia Consult and Med Hx Date of service: 12/04/16 - Airway Anesthetic Teeth Evaluation: Good, Chipped (top front tooth, denies losoe teeth) ROM Head & Neck: Adequate Mental/Hyoid Distance: Adequate Mallampati Class: Class II Intubation Access Assessment: Probably Good - Pulmonary Exam CTA: Yes - Cardiac Exam Cardiac Exam: RRR - Pre-Operative Health Status ASA Pre-Surgery Classification: ASA4 Proposed Anesthetic Plan: General, MAC - Pulmonary Hx Smoking: No Hx Respiratory Symptoms: Yes (Chronic respiratory failure 2/2 COPD, Obesity hypoventilation syndrome, NURIS) COPD: Yes Hx Pneumonia: No Hx Sleep Apnea: Yes - Cardiovascular System Hx Hypertension: Yes Hx Cardia Arrhythmia: Yes (pA. Garcia - on Coumadin, last dose 4 days ago) - Gastrointestinal Hx Gastroesophageal Reflux Disease: Yes - Endocrine Hx Renal Disease: Yes Hx End Stage Renal Disease: Yes Hx Insulin Dependent Diabetes: Yes ("only needs insulin sometimes per daughter") Hx Thyroid Disease: Yes Hx Hypothyroidism: Yes - Hematic Hx Anemia: Yes - Other Systems Hx Cancer: No Hx Obesity: Yes (BMI 62.9) - Additional Comments Anesthesia Medical History Comments: Underwent creation of AV fistula 07/2016 with no complications. Under Local/MAC
[2016-12-04] MEDS ORDERED: PEPCID IV NR (09:05)
[2016-12-04] MEDS ORDERED: SUBLIMAZE ONE (09:08)
[2016-12-04] MEDS ORDERED: VERSED ONE (09:09)
--- NOTE | 2016-12-04 09:13 | Anesthesia Day of Surgery ---
Anesthesia Day of Surgery - Day of Surgery Patient Examined: Yes Patient H&P Reviewed: Yes Patient is NPO: Yes Beta Blockers: Yes (took last night, within 24 hours)
[2016-12-04] MEDS ORDERED: PROVENTIL IH NR (09:15)
[2016-12-04 09:35] LABS: Basophils % (Auto) 0.5 % (0.0-1.8); Hematocrit 28.3 % (30.3-42.9); Hemoglobin 9.2 gm/dl (10.1-14.3); Mean Corpuscular HGB Conc 33 % (30-34); Mean Corpuscular Hemoglobin 30 pg (28-32); Mean Corpuscular Volume 91 fl (79-97); Platelet Count 180 K/mm3 (140-440); Red Cell Distribution Width 17.7 % (13.2-15.2); White Blood Count 4.3 K/mm3 (4.5-11.0)
[2016-12-04 09:59] LABS: BUN/Creatinine Ratio 3.37; Calcium 8.8 mg/dL (8.4-10.2); Chloride 94.4 mmol/L (98-107); Potassium 4.6 mmol/L (3.6-5.0)
[2016-12-04] MEDS ORDERED: SODIUM BICARBONATE ONE (10:25)
[2016-12-04] MEDS ORDERED: XYLOCAINE 1%/ EPI 1:100,000 INFILTRATI ONE ×2 (10:25→11:21)
[2016-12-04] MEDS ORDERED: DIPRIVAN 10 MG/ML IV ONE ×5 (10:59→11:44)
[2016-12-04] MEDS ORDERED: NACL 0.9% IR ONE (11:20)
[2016-12-04] MEDS ORDERED: GELFOAM TP ONE (11:21)
[2016-12-04] MEDS ORDERED: SODIUM BICARBONATE IV ONE (11:21)
[2016-12-04] MEDS ORDERED: MARCAINE 0.5% INFILTRATI ONE ×2 (11:21)
[2016-12-04] MEDS ORDERED: HEPARIN 10,000 UNITS/10 ML 4,000 UNIT in NACL 0.9% 1000 ML 1,000 ML IR ONE (11:22)
[2016-12-04] MEDS ORDERED: THROMBIN SPRAYKIT (BOVINE) TP ONE (11:22)
--- NOTE | 2016-12-04 12:05 | Short Stay Summary ---
Short Stay Documentation Date of service: 12/04/16 Narrative H&P: See H&P - History H&P: obtained from office - Allergies and Medications Current Medications: Allergies No Known Allergies Allergy (Verified 10/02/13 09:59) Home Medications Medication Instructions Recorded Confirmed Last Taken Type Atorvastatin [Lipitor] 40 mg PO QHS 09/23/13 11/29/16 08/06/16 21:00 History Fluticasone/Salmeterol [Advair 2 puff IH BID 09/23/13 11/29/16 08/06/16 21:00 History Diskus 250-50 mcg] Magnesium Oxide 400 mg PO DAILY 09/23/13 11/29/16 08/06/16 09:00 History Levothyroxine [Synthroid] 50 mcg PO DAILY@0600 #30 tablet 03/23/16 12/04/16 Rx Arformoterol Nebu [Brovana Nebu] 15 mcg INHALATION Q12HR 04/13/16 11/29/1608/06 09:00 History Hydroxyzine HCl 25 mg PO Q8H 04/13/16 11/29/16 08/06/16 21:00 History Omeprazole Magnesium [PriLOSEC Otc] 20 mg PO DAILY 04/13/16 11/29/16 08/06/16 09 :00 History diphenhydrAMINE [Benadryl CAP] 25 mg PO Q8HR PRN 04/13/16 11/29/16 07/12/16 History Bumetanide [Bumex 1 mg tab] 2 mg PO BID #60 tablet 04/21/16 11/29/16 08/06/16 21 :00 Rx Metoprolol [Lopressor TAB] 100 mg PO BID #60 tablet 04/21/16 12/04/16 12/04/16 Rx oxyCODONE /ACETAMINOPHEN [Percocet 2 tab PO Q6H PRN #10 tablet 04/21/1607/13/16 05:00 Rx 5/325 mg] Ferrous Sulfate [Feosol 325 MG tab] 325 mg PO QDAY 07/18/16 11/29/16 08/06/16 09 :00 History Insulin Lispro [HumaLOG VIAL] 0 units SQ AC 07/18/16 11/29/16 08/06/16 21:00 History Budesonide [Pulmicort Respules] 0.5 mg IH Q12HRT nebu 07/20/16 11/29/16 21:00 Rx HYDROcodone/APAP 7.5-325 [[place] 1 each PO Q6HR PRN #60 tablet 08/07/16 11/29/16 Unknown Rx 7.5/325] Cinacalcet [Sensipar] 30 mg PO QDAY 11/29/16 11/29/16 Unknown History Vit B Cplx #11/FA/C/Biot/Zn Ox 1 each PO QDAY 11/29/16 11/29/16 Unknown History [Dialyvite with Zinc Tablet] Active Medications Albuterol (Proventil) 2.5 mg IH PREOP NR Stop: 12/04/16 23:00 Last Admin: 12/04/16 09:52 Dose: 2.5 mg Famotidine (Pepcid) 20 mg IV PREOP NR Stop: 12/04/16 23:00 Last Admin: 12/04/16 09:52 Dose: 20 mg Cefazolin Sodium (Ancef/Sterile Water 2 Gm/20 Ml) 2 gm in 20 mls @ 80 mls/hr IV PREOP NR PRN Reason: Protocol Stop: 12/04/16 23:59 Sodium Chloride (Nacl 0.9% 1000 Ml) 1,000 mls @ 42 mls/hr IV DIRECT PRATIK Last Admin: 12/04/16 09:25 Dose: 42 mls/hr - Brief post op/procedure progress note Date of procedure: 12/04/16 Pre-op diagnosis: Complications of Dialysis Access Post-op diagnosis: same Procedure: Revision with Elevation of Left Brachiocephalic Arteriovenous Fistula Anesthesia: MAC, local Surgeon: KIRSTEN CHAVES Estimated blood loss: 50-100ml Pathology: none Condition: stable - Disposition Condition at discharge: Good Disposition: DC/[place]-03 SNF [facility] Short Stay Discharge Plan Activity: other (No heavy lifting with left arm) Wound: open to air, keep clean and dry, other (okay to wash the wound with soap and water but do not soak in water) Follow up with: KIRSTEN CHAVES MD [Staff Physician] - 14 Days Prescriptions: HYDROcodone/APAP 7.5-325 [[place] 7.5-325 mg TAB] 1 each PO Q6HR PRN #60 tablet PRN Reason: Pain
--- NOTE | 2016-12-04 12:11 | Operative Report ---
Operative Report Operative Report: Date of Procedure: 12/04/2016 Pre-operative Diagnosis: Complications of Dialysis Access Post-operative Diagnosis: Same Procedure(s): 1. Revision with Elevation of Left Brachiocephalic Arteriovenous Fistula Surgeon: Jnaes Millard M.D. Mcat Instructor: Rg Anesthesia: Local/MAC EBL: Minimal Counts: Correct Complications: None Condition: Stable Findings: Successful revision with elevation of left brachiocephalic fistula with excellent thrill at the completion of the case. Specimen: None Indication: The patient is a 56-year-old female with a history of end-stage renal disease currently on hemodialysis through a [facility]. She had creation of a left brachiocephalic arteriovenous fistula however this is too deep to access so it requires revision with elevation. She was given the risk, benefits, and alternative procedures and consented to procedure. Description of Procedure: The patient was brought to the operating room and laid in supine position. After she was sedated her skin was anesthetized with lidocaine and a longitudinal incision was created centered over the fistula in the upper arm. Sharp dissection was used to dissect down to the fistula and diagnostic data fistula circumferentially. All side branches were suture ligated and divided. Once all the branches had been divided a subcutaneous pocket was created on the lateral aspect of the incision ensuring that it was shallow enough that the fistula could be easily identified however not so solid to damage the dermis. After this was created the fistula was placed in the pocket and secured in place with 3-0 Vicryl. Hemostasis within the wound was then achieved with a combination of thrombin-soaked Gelfoam. Once hemostasis was achieved the wound was anesthetized with Marcaine and the wound was closed in 2 layers using a 3-0 Vicryl in running fashion in the deep dermal layer and a 4-0 Monocryl in running fashion in the subcuticular layer. The wound was then dressed with Dermabond. The patient tolerated the procedure well. All sponge, needle, and instrument counts were correct. The patient was taken to the recovery area in stable condition.
[2016-12-04] MEDS ORDERED: DILAUDID ONE (12:39)
[2016-12-04] MEDS ORDERED: DILAUDID IV PRN (12:44)
[2016-12-04] MEDS ORDERED: HEPARIN 10,000 UNITS/10 ML IV ONE (13:54)
[2016-12-04] MEDS ORDERED: HEPARIN IV ONE (14:11)
[2016-12-04] MEDS ORDERED: NORCO 7.5/325 PO ONE (14:21)
--- NOTE | 2016-12-04 15:31 | Post Anesthesia Evaluation ---
- Post Anesthesia Evaluation Patient Participated: Yes Airway Patent: Yes Stable Respiratory Function: Yes Nausea/Vomiting: No Temp > 96.8F: Yes Pain Manageable: Yes Adequeate Hydration: Yes Anesthesia Complications: No Block Receding Appropriately: Not Applicable Patient on Ventilator: No
[2016-12-04 15:48] VITALS: BP 96/56
== END 2016-12-04 08:29 | disposition home or self-care (01) ==
LOC: OR 08:28
PROVIDERS: ATTEND Surgery Vascular Surgery
DX: T82.898A Other specified complication of vascular prosthetic devices, implants and grafts, initial encounter (principal); E11.22 Type 2 diabetes mellitus with diabetic chronic kidney disease; I13.2 Hypertensive heart and chronic kidney disease with heart failure and with stage 5 chronic kidney disease, or end stage renal disease; I50.9 Heart failure, unspecified; N18.6 End stage renal disease; E83.42 Hypomagnesemia; E03.9 Hypothyroidism, unspecified; E78.5 Hyperlipidemia, unspecified; J44.9 Chronic obstructive pulmonary disease, unspecified; G47.33 Obstructive sleep apnea (adult) (pediatric); K21.9 Gastro-esophageal reflux disease without esophagitis; D63.1 Anemia in chronic kidney disease; F41.9 Anxiety disorder, unspecified; I48.91 Unspecified atrial fibrillation; E66.9 Obesity, unspecified; Z68.44 Body mass index [BMI] 60.0-69.9, adult; Z99.2 Dependence on renal dialysis; Z79.01 Long term (current) use of anticoagulants; Z79.4 Long term (current) use of insulin; Z90.710 Acquired absence of both cervix and uterus; Z98.890 Other specified postprocedural states; Z79.899 Other long term (current) drug therapy; Z83.3 Family history of diabetes mellitus; Y83.2 Surgical operation with anastomosis, bypass or graft as the cause of abnormal reaction of the patient, or of later complication, without mention of misadventure at the time of the procedure
CPT/HCPCS: 36415; 36832; 80048; 82962; 85025; A4649; J0690; J1170; J1644; J2250; J2704; J3010; J7030; J2720; J3490; J7040

== ENCOUNTER 2017-05-14 14:56 | Inpatient (IN) | payer MEDICAID ==
[2017-05-14] MEDS ORDERED: NACL 0.9% 1000 ML 1,000 ML IV ONE (16:12)
[2017-05-14 16:48] LABS: Basophils % (Auto) 0.4 % (0.0-1.8); Eosinophils # (Auto) 0.2 K/mm3 (0.0-0.4); Eosinophils % (Auto) 3.6 % (0.0-4.3); Hematocrit 35.6 % (30.3-42.9); Hemoglobin 11.4 gm/dl (10.1-14.3); Lymphocytes # (Auto) 1.4 K/mm3 (1.2-5.4); Mean Corpuscular HGB Conc 32 % (30-34); Mean Corpuscular Hemoglobin 31 pg (28-32); Mean Corpuscular Volume 97 fl (79-97); Monocytes # (Auto) 0.5 K/mm3 (0.0-0.8); Monocytes % (Auto) 7.8 % (0.0-7.3); Platelet Count 185 K/mm3 (140-440); Red Blood Count 3.66 M/mm3 (3.65-5.03); Red Cell Distribution Width 18.1 % (13.2-15.2)
[2017-05-14 16:58] LABS: Calcium 8.6 mg/dL (8.4-10.2)
--- NOTE | 2017-05-14 18:47 | Emergency Department Report ---
ED General Adult HPI - General Chief complaint: Extremity Injury, Lower Stated complaint: GENERAL WEAKNESS Time Seen by Provider: 05/14/17 16:06 Source: EMS Mode of arrival: Stretcher Limitations: No Limitations - History of Present Illness Initial comments: Symptom [facility] for chronic left leg swelling and pain patient says it hurts to move on arrival blood pressure is noted to be 78 over palp patient here for evaluation of left leg pain I was interested in [facility]entiary for further information patient was not able to give a complete history apparently there was a possible x-ray obtained at the [facility]itentiary that may show something wrong on the left lower extremity at the hip or knee she is here with persistent knee pain she is a hemodialysis patient had dialysis Saturday chronic leg pain on the left with history of swelling with history of possible abnormal x-ray. She did rpresent blood pressure this did respond to fluids -: days(s), week(s) Location: left, lower extremity Severity scale (0 -10): 3 Quality: burning Consistency: intermittent Associated Symptoms: denies: fever/chills, loss of appetite, malaise, nausea/ vomiting, rash, seizure, shortness of breath, syncope, weakness - Related Data Home Medications Medication Instructions Recorded Confirmed Last Taken Atorvastatin [Lipitor] 40 mg PO QHS 09/23/13 11/29/16 08/06/16 21:00 Fluticasone/Salmeterol [Advair 2 puff IH BID 09/23/13 11/29/16 08/06/16 21:00 Diskus 250-50 mcg] Magnesium Oxide 400 mg PO DAILY 09/23/13 11/29/16 08/06/16 09:00 Arformoterol Nebu [Brovana Nebu] 15 mcg INHALATION Q12HR 04/13/16 11/29/1608/06 09:00 Hydroxyzine HCl 25 mg PO Q8H 04/13/16 11/29/16 08/06/16 21:00 Omeprazole Magnesium [PriLOSEC Otc] 20 mg PO DAILY 04/13/16 11/29/16 08/06/16 09 :00 diphenhydrAMINE [Benadryl CAP] 25 mg PO Q8HR PRN 04/13/16 11/29/16 07/12/16 Ferrous Sulfate [Feosol 325 MG tab] 325 mg PO QDAY 07/18/16 11/29/16 08/06/16 09 :00 Insulin Lispro [HumaLOG VIAL] 0 units SQ AC 07/18/16 11/29/16 08/06/16 21:00 B Complex 11/Folic/C/Biot/Zinc 1 each PO QDAY 11/29/16 11/29/16 Unknown [Dialyvite with Zinc Tablet] Cinacalcet [Sensipar] 30 mg PO QDAY 11/29/16 11/29/16 Unknown Previous Rx's Medication Instructions Recorded Last Taken Type Levothyroxine [Synthroid] 50 mcg PO DAILY@0600 #30 tablet 03/23/16 12/04/16 Rx Bumetanide [Bumex 1 mg tab] 2 mg PO BID #60 tablet 04/21/16 08/06/16 21:00 Rx Metoprolol [Lopressor TAB] 100 mg PO BID #60 tablet 04/21/16 12/04/16 Rx oxyCODONE /ACETAMINOPHEN [Percocet 2 tab PO Q6H PRN #10 tablet 04/21/16 05:00 Rx 5/325 mg] Budesonide [Pulmicort Respules] 0.5 mg IH Q12HRT nebu 07/20/16 08/06/16 21:00 Rx HYDROcodone/APAP 7.5-325 [[place] 1 each PO Q6HR PRN #60 tablet 12/04/16 Unknown Rx 7.5-325 mg TAB] Allergies Allergy/AdvReac Type Severity Reaction Status Date / Time No Known Allergies Allergy Verified 10/02/13 09:59 ED Review of Systems ROS: Stated complaint: GENERAL WEAKNESS Other details as noted in HPI Comment: All other systems reviewed and negative Eyes: denies: eye discharge, vision change ENT: denies: dental pain, hearing loss, epistaxis Respiratory: denies: cough, orthopnea, shortness of breath, SOB with exertion, SOB at rest, stridor, wheezing Cardiovascular: denies: chest pain, palpitations, dyspnea on exertion, orthopnea , edema, syncope, paroxysmal nocturnal dyspnea Endocrine: denies: excessive sweating Musculoskeletal: arthralgia, myalgia, other (chronic edema) Neurological: denies: headache, weakness, confusion, vertigo Hematological/Lymphatic: denies: easy bruising ED Past Medical Hx - Past Medical History Previous Medical History?: Yes Hx Hypertension: Yes Hx Congestive Heart Failure: Yes Hx Diabetes: Yes (type II) Hx GERD: Yes Hx Renal Disease: Yes Hx Arthritis: Yes Hx Psychiatric Treatment: Yes (anxiety) Hx Asthma: Yes Hx COPD: Yes Additional medical history: morbid obesity. atrial fibrillation. hypothyroidism. Edema. Obstructive Sleep Apnea with BiPAP used at night. chronic pain. chronic kidney disease. hyperlipidemia. anemia - Surgical History Past Surgical History?: Yes Additional Surgical History: graft to left arm, peg tube when intubated, partial hysterectomy, C-sections - Social History Smoking Status: Never Smoker - Medications Home Medications: Home Medications Medication Instructions Recorded Confirmed Last Taken Type Atorvastatin [Lipitor] 40 mg PO QHS 09/23/13 11/29/16 08/06/16 21:00 History Fluticasone/Salmeterol [Advair 2 puff IH BID 09/23/13 11/29/16 08/06/16 21:00 History Diskus 250-50 mcg] Magnesium Oxide 400 mg PO DAILY 09/23/13 11/29/16 08/06/16 09:00 History Levothyroxine [Synthroid] 50 mcg PO DAILY@0600 #30 tablet 03/23/16 12/04/16 Rx Arformoterol Nebu [Brovana Nebu] 15 mcg INHALATION Q12HR 04/13/16 11/29/1608/06 09:00 History Hydroxyzine HCl 25 mg PO Q8H 04/13/16 11/29/16 08/06/16 21:00 History Omeprazole Magnesium [PriLOSEC Otc] 20 mg PO DAILY 04/13/16 11/29/16 08/06/16 09 :00 History diphenhydrAMINE [Benadryl CAP] 25 mg PO Q8HR PRN 04/13/16 11/29/16 07/12/16 History Bumetanide [Bumex 1 mg tab] 2 mg PO BID #60 tablet 04/21/16 11/29/16 08/06/16 21 :00 Rx Metoprolol [Lopressor TAB] 100 mg PO BID #60 tablet 04/21/16 12/04/16 12/04/16 Rx oxyCODONE /ACETAMINOPHEN [Percocet 2 tab PO Q6H PRN #10 tablet 04/21/1607/13/16 05:00 Rx 5/325 mg] Ferrous Sulfate [Feosol 325 MG tab] 325 mg PO QDAY 07/18/16 11/29/16 08/06/16 09 :00 History Insulin Lispro [HumaLOG VIAL] 0 units SQ AC 07/18/16 11/29/16 08/06/16 21:00 History Budesonide [Pulmicort Respules] 0.5 mg IH Q12HRT nebu 07/20/16 11/29/16 21:00 Rx B Complex 11/Folic/C/Biot/Zinc 1 each PO QDAY 11/29/16 11/29/16 Unknown History [Dialyvite with Zinc Tablet] Cinacalcet [Sensipar] 30 mg PO QDAY 11/29/16 11/29/16 Unknown History HYDROcodone/APAP 7.5-325 [[place] 1 each PO Q6HR PRN #60 tablet 12/04/16 Unknown Rx 7.5-325 mg TAB] ED Physical Exam - General Limitations: No Limitations General appearance: alert, in no apparent distress - Head Head exam: Present: atraumatic, normocephalic - Eye Eye exam: Present: normal appearance, PERRL, EOMI - ENT ENT exam: Present: normal exam, normal orophraynx - Neck Neck exam: Present: normal inspection, full ROM. Absent: tenderness, meningismus - Respiratory Respiratory exam: Present: normal lung sounds bilaterally. Absent: respiratory distress, wheezes, rales, rhonchi, stridor, chest wall tenderness, accessory muscle use, decreased breath sounds, prolonged expiratory - Cardiovascular Cardiovascular Exam: Present: regular rate, normal rhythm, normal heart sounds - GI/Abdominal GI/Abdominal exam: Present: soft. Absent: distended, tenderness, guarding, rebound, mass - Extremities Exam Extremities exam: Present: pedal edema, other (tenderness bilateral lower extremity no cellulitis chronic peripheral neuropathy). Absent: joint swelling - Back Exam Back exam: Present: normal inspection. Absent: CVA tenderness (L) - Neurological Exam Neurological exam: Present: alert, oriented X3, CN II-XII intact. Absent: motor sensory deficit - Skin Skin exam: Absent: cyanosis, erythema, urticaria, vesicles, petechiae, ecchymosis ED Course Vital Signs 05/14/17 05/14/17 05/14/17 16:32 16:38 18:20 Temperature 98.0 F Pulse Rate 58 L 60 Respiratory 16 18 18 Rate Blood Pressure 78/38 102/61 [Left] O2 Sat by Pulse 100 100 100 Oximetry 05/14/17 05/14/17 19:45 19:46 Temperature 98.8 F Pulse Rate 64 61 Respiratory Rate Blood Pressure 69/40 78/42 [Left] O2 Sat by Pulse Oximetry - Reevaluation(s) Reevaluation #1: 05/14/17 19:18 This is given. Repeat blood pressure improved systolic greater than 100 patient was given 1 Percocet at her request for pain she has probably of chronic peripheral neuropathy with pain to bilateral legs. No evidence of cellulitis. d-dimer was elevated patient will get a Lovenox shot and consents to same and informed of risk including bleeding,, she will need to return for u/ s doppler x-ray studies are obtained she denies chest pain shortness of breath or lip complaints ED Medical Decision Making - Lab Data Result diagrams: 05/14/17 16:22 05/14/17 16:22 - Radiology Data Radiology results: report reviewed - Medical Decision Making Patient presented to the ED without any paperwork from the [facility] I was able to discuss with the [facility] problem list does include diabetes end- stage renal disease she currently is on Lipitor Synthroid omeprazole beta fidel metoprolol she does get renal medicines as well she is on dialysis hemodialysis Saturday D completed hemodialysis Saturday. Mild to 70 systolic and a liter on my shift that did improve with fluids the blood pressure was now returned to 100 systolic over she became hypotensive again to 68 at this point, did discuss the case with Dr. Montano going to admit the patient for hypotension. Her d-dimer was elevated have ordered ultrasounds of the morning. She will did have a Lovenox shot ordered. Her degenerative change of the knee and the hip however CTs ordered to further delineate this hypotension to rule out possible complication and advised were given patient will be admitted for further evaluation of hypotension and lower extremity pain. Is a end-stage renal disease patient with labile blood pressure Critical care attestation.: If time is entered above; I have spent that time in minutes in the direct care of this critically ill patient, excluding procedure time. ED Disposition Clinical Impression: Chronic kidney disease (CKD), Leg pain, bilateral, Pain in left leg Disposition: OP ADMIT IP TO THIS HOSP Is pt being admited?: Yes Condition: Stable Referrals: PRECIOUS ARAIZA MD [Primary Care Provider] - 3-5 Days Time of Disposition: 20:02
--- NOTE | 2017-05-14 19:01 | XRay Report ---
FINAL REPORT EXAM: XR CHEST 1V AP HISTORY: poss infection TECHNIQUE: AP chest x-ray Comparison: 04/14/2016 FINDINGS: Normal heart size. Mildly prominent pulmonary interstitium markings with incompletely penetrated lung bases. Calcified granuloma right upper lobe. Calcified right hilar lymph nodes. Advanced degenerative glenohumeral joint space change on the left. Apparently disrupted bilateral acromioclavicular spaces with resorption of the distal left clavicle incompletely characterized. IMPRESSION: Hypoventilatory changes with incompletely penetrated lung bases. Recommend two view chest follow-up. No definite acute infiltrate. Mild prominence of the pulmonary vasculature. Old calcific granulomatous disease. Apparent erosive changes of the left shoulder girdle with glenohumeral degenerative disease, erosion of the glenoid and probable resorption of the distal left clavicle incompletely assessed. The right AC joint is also widened. If clinically indicated recommend further workup.
[2017-05-14] MEDS ORDERED: PERCOCET 5/325 PO ONE (19:05)
[2017-05-14] MEDS ORDERED: LOVENOX SUB-Q ONE (19:38)
[2017-05-14] MEDS ORDERED: ceFAZolin 2 GM in NACL 0.9% 100 ML IV ONE (19:52)
[2017-05-14] MEDS ORDERED: NACL 0.9% 500 ML 500 ML IV ONE (20:11)
[2017-05-14] MEDS ORDERED: ceFAZolin 2 GM in NACL 0.9% 20 ML IV ONE (21:00)
--- NOTE | 2017-05-14 21:04 | XRay Report ---
FINAL REPORT EXAM: XR FEMUR 2+V LT HISTORY: left femur pain TECHNIQUE: Left femur five views PRIORS: None. FINDINGS: There is degenerative change noted at the knee with marked joint space narrowing. No acute fracture is identified. No dislocation seen. No additional acute bony abnormality identified IMPRESSION: DJD at the knee No additional abnormality identified
--- NOTE | 2017-05-14 21:08 | XRay Report ---
FINAL REPORT EXAM: XR KNEE 1-2V LT HISTORY: left knee pain TECHNIQUE: Left knee three views PRIORS: None. FINDINGS: There is advanced joint space narrowing primarily at the medial tibiofemoral joint space. There is been bony remottling with medial subluxation and hypertrophic bony changes along with areas cortical lucency and irregularity. There narrowing at the patellofemoral joint space. No evidence for joint effusion. No acute fracture identified. IMPRESSION: Advanced degenerative changes at the knee joint. 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
[2017-05-14] MEDS ORDERED: NACL 0.9% 1000 ML 2,000 ML IV ONE (21:48)
[2017-05-14] MEDS ORDERED: NACL 0.9% 1000 ML 2,000 ML ONE (21:59)
--- NOTE | 2017-05-14 22:42 | Cat Scan Report ---
FINAL REPORT EXAM: CT LOWER EXTREMITY LT WO CON HISTORY: pain TECHNIQUE: Axial noncontrast CT images of the left lower extremity were performed. Multiplanar reformats are performed on the acquisition scanner. Total exam DLP 702.33 mGy-cm Comparison: Plain film earlier same day FINDINGS: There are advanced tricompartmental degenerative changes with subluxation at the knee joint. There is medial femoral condylar erosion and sclerosis. There is significant soft tissue density about medial joint margin. Trabecular disruption cannot be excluded. There is ill-defined sclerosis of the lateral tibial trabecula. Tibial articular surface is slanted. The arteries are calcified. IMPRESSION: Advanced erosive appearing arthritis of the knee suggestive of Charcot joint/arthropathy. Soft tissue density with erosive change medially and increased density of the medial and lateral tibial trabecula. Underlying trabecular impaction/incomplete fracture cannot be excluded. Recommend MRI for further characterization.
[2017-05-14] MEDS ORDERED: D50W (25GM) Syringe IV PRN (22:48)
--- NOTE | 2017-05-14 22:49 | Cat Scan Report ---
FINAL REPORT EXAM: CT ABDOMEN PELVIS WO CON HISTORY: pain TECHNIQUE: Axial noncontrast CT images were performed from the lung bases to the pubic symphysis. Multiplanar reformats are performed on the acquisition scanner. Total exam DLP 1689.44 mGy-cm Comparison: 07/17/2016 FINDINGS: The patient is morbidly obese which limits the sensitivity of the exam. There is mild cardiomegaly. Unremarkable unenhanced liver, spleen, pancreas, distended gallbladder, bilateral adrenal glands. Both kidneys are very small. There is a right lower pole nonobstructive 5 millimeter stone unchanged from previous. There is streak artifact through the left kidney lower pole with a possible cortical stone not seen previously measuring approximately 3 millimeters. Aorta is atherosclerotic, non aneurysmal. There is a suprapubic hernia containing fat unchanged from previous. The uterus is not identified. This structure that previously was thought to represent the uterus is not definitely present. There air in the vaginal cuff. There is mild fecal retention. There is mild thickening of the right broad ligament. There is no compression fracture. There is lower lumbar degenerative disc disease. IMPRESSION: 5 millimeter right lower pole nonobstructive renal stone unchanged. Streak artifact left posterior renal cortex may represent 3 millimeter nonobstructive cortical calcification. No hydronephrosis. Both kidneys are small measuring about 7 centimeters. Morbidly obese patient. Surgically absent uterus. Air in the vaginal cuff. Stable supraumbilical hernia contains fat. Apparent old left inferior pubic ramus fracture or buckle. No bowel obstruction. Lower lumbar significant facet arthritis.
--- NOTE | 2017-05-14 22:54 | History and Physical Report ---
History of Present Illness Date of admission: 05/14/17 20:03 Chief complaint: Left knee pain History of present illness: Polly is a 56-year-old woman who is morbidly obese, wheelchair dependence. Lives in a fdc [place]. Her medical issues including ESRD, diastolic CHF, COPD on oxygen dependence. Paroxysmal atrial fibrillation. She claims that she has been having pain in her left knee for over a year, she states that it was giving her pain medications in the fdc. But if she complained that the pain medications are not working anymore and asked for more pain meds after with a dense sensitivity emergency room. She denies fevers, denies chills, denies dizziness, denies cough, denies sputum production, denies shortness of breath. She does state that she has multiple joint issues including both knees left shoulder. She is able to transfer with assistance from bed to her wheelchair. But she needs 2 person assist to make the transfer. Asked by her nurse, she has been hypotensive in the ER despite multiple boluses of normal saline. Patient has been asymptomatic with regards to this. Past History Past Medical History: atrial fib (diastolic paroxysmal), COPD (oxygen dependence ), diabetes (type II, insulin-dependent), dialysis, ESRD, heart failure ( diastolic), hypertension, hypothyroidism (on Synthroid), other (morbid obesity, debility,) Past Surgical History: hysterectomy, Other (AV graft, abdominal surgery for growth removal) Social history: other (lives in fdc). denies: smoking, alcohol abuse Family history: diabetes Medications and Allergies Allergies Allergy/AdvReac Type Severity Reaction Status Date / Time No Known Allergies Allergy Verified 10/02/13 09:59 Home Medications Medication Instructions Recorded Confirmed Last Taken Type Atorvastatin [Lipitor] 40 mg PO QHS 09/23/13 11/29/16 08/06/16 21:00 History Fluticasone/Salmeterol [Advair 2 puff IH BID 09/23/13 11/29/16 08/06/16 21:00 History Diskus 250-50 mcg] Magnesium Oxide 400 mg PO DAILY 09/23/13 11/29/16 08/06/16 09:00 History Levothyroxine [Synthroid] 50 mcg PO DAILY@0600 #30 tablet 03/23/16 12/04/16 Rx Arformoterol Nebu [Brovana Nebu] 15 mcg INHALATION Q12HR 04/13/16 11/29/1608/06 09:00 History Hydroxyzine HCl 25 mg PO Q8H 04/13/16 11/29/16 08/06/16 21:00 History Omeprazole Magnesium [PriLOSEC Otc] 20 mg PO DAILY 04/13/16 11/29/16 08/06/16 09 :00 History diphenhydrAMINE [Benadryl CAP] 25 mg PO Q8HR PRN 04/13/16 11/29/16 07/12/16 History Bumetanide [Bumex 1 mg tab] 2 mg PO BID #60 tablet 04/21/16 11/29/16 08/06/16 21 :00 Rx Metoprolol [Lopressor TAB] 100 mg PO BID #60 tablet 04/21/16 12/04/16 12/04/16 Rx oxyCODONE /ACETAMINOPHEN [Percocet 2 tab PO Q6H PRN #10 tablet 04/21/1607/13/16 05:00 Rx 5/325 mg] Ferrous Sulfate [Feosol 325 MG tab] 325 mg PO QDAY 07/18/16 11/29/16 08/06/16 09 :00 History Insulin Lispro [HumaLOG VIAL] 0 units SQ AC 07/18/16 11/29/16 08/06/16 21:00 History Budesonide [Pulmicort Respules] 0.5 mg IH Q12HRT nebu 07/20/16 11/29/16 21:00 Rx B Complex 11/Folic/C/Biot/Zinc 1 each PO QDAY 11/29/16 11/29/16 Unknown History [Dialyvite with Zinc Tablet] Cinacalcet [Sensipar] 30 mg PO QDAY 11/29/16 11/29/16 Unknown History HYDROcodone/APAP 7.5-325 [[place] 1 each PO Q6HR PRN #60 tablet 12/04/16 Unknown Rx 7.5-325 mg TAB] Active Meds: Active Medications Acetaminophen (Tylenol) 650 mg PO Q6H PRN PRN Reason: Pain, Mild (1-3) Arformoterol Tartrate (Brovana Nebu) 15 mcg IH Q12HR PRATIK Atorvastatin Calcium (Lipitor) 40 mg PO QHS PRATIK Budesonide (Pulmicort) 0.5 mg IH Q12HRT PRATIK Dextrose (D50w (25gm) Syringe) 50 ml IV PRN PRN PRN Reason: Hypoglycemia Ferrous Sulfate (Feosol) 325 mg PO QDAY PRATIK Heparin Sodium (Porcine) (Heparin) 5,000 unit SUB-Q Q8HR PRATIK Hydroxyzine HCl (Atarax) 25 mg PO Q8H PRATIK Norepinephrine (Levophed Drip 4 Mg/Ns 250 Ml) 4 mg in 250 mls @ 7.5 mls/hr IV TITR PRATIK; 2 MCG/MIN PRN Reason: Protocol Vancomycin HCl 2,000 mg/ (Sodium Chloride) 520 mls @ 250 mls/hr IV ONCE ONE Stop: 05/15/17 01:04 Piperacillin Sod/Tazobactam Sod (Zosyn/Ns 2.25 Gm/50ml) 2.25 gm in 50 mls @ 100 mls/hr IV Q8H PRATIK Insulin Aspart (Novolog) 0 units SUB-Q ACHS PRATIK PRN Reason: Protocol Levothyroxine Sodium (Synthroid) 50 mcg PO DAILY@0600 [facility] Miscellaneous Medication (B Complex 11/Folic/C/Biot/Zinc [Dialyvite With Zinc Tablet]) 1 each PO QDAY PRATIK Miscellaneous Medication (Omeprazole Magnesium [Prilosec Otc]) 20 mg PO DAILY PRATIK Vancomycin HCl (Vancomycin Pharmacy To Dose) 1 each IV PKCONSULT PRATIK PRN Reason: Protocol Review of Systems All systems: negative (14 point review of systems otherwise negative except as stated in HPI) Exam - Constitutional Vitals: Temp Pulse Resp BP Pulse Ox 98.8 F 61 18 83/33 100 05/14/17 19:45 05/14/17 19:46 05/14/17 18:20 05/14/17 21:30 05/14/17 21:30 General appearance: Present: no acute distress, well-nourished, other (morbidly obese) - EENT Eyes: Present: PERRL ENT: hearing intact, clear oral mucosa - Neck Neck: Present: supple, normal ROM - Respiratory Respiratory effort: normal Respiratory: bilateral: CTA - Cardiovascular Heart Sounds: Present: S1 & S2. Absent: rub, click - Extremities Extremities: pulses symmetrical, No edema, abnormal (left knee has chronic melanosis surrounding it, it is tender.Slightly warm.) Peripheral Pulses: within normal limits - Abdominal General gastrointestinal: Present: soft, non-tender, non-distended, normal bowel sounds Female genitourinary: Present: deferred - Rectal Rectal Exam: deferred - Integumentary Integumentary: Present: clear, warm, dry - Musculoskeletal Musculoskeletal: gait normal, strength equal bilaterally - Psychiatric Psychiatric: appropriate mood/affect, intact judgment & insight - Neurologic Neurologic: CNII-XII intact, moves all extremities Results - Labs CBC & Chem 7: 05/14/17 16:22 05/14/17 16:22 Labs: Laboratory Last Values WBC 6.8 K/mm3 (4.5-11.0) 05/14/17 16:22 RBC 3.66 M/mm3 (3.65-5.03) 05/14/17 16:22 Hgb 11.4 gm/dl (10.1-14.3) 05/14/17 16:22 Hct 35.6 % (30.3-42.9) 05/14/17 16:22 MCV 97 fl (79-97) 05/14/17 16:22 MCH 31 pg (28-32) 05/14/17 16:22 MCHC 32 % (30-34) 05/14/17 16:22 RDW 18.1 % (13.2-15.2) H 05/14/17 16:22 Plt Count 185 K/mm3 (140-440) 05/14/17 16:22 Lymph % (Auto) 21.0 % (13.4-35.0) 05/14/17 16:22 George % (Auto) 7.8 % (0.0-7.3) H 05/14/17 16:22 Eos % (Auto) 3.6 % (0.0-4.3) 05/14/17 16:22 Baso % (Auto) 0.4 % (0.0-1.8) 05/14/17 16:22 Lymph # 1.4 K/mm3 (1.2-5.4) 05/14/17 16:22 George # 0.5 K/mm3 (0.0-0.8) 05/14/17 16:22 Eos # 0.2 K/mm3 (0.0-0.4) 05/14/17 16:22 Baso # 0.0 K/mm3 (0.0-0.1) 05/14/17 16:22 Seg Neutrophils % 67.2 % (40.0-70.0) 05/14/17 16:22 Seg Neutrophils # 4.6 K/mm3 (1.8-7.7) 05/14/17 16:22 D-Dimer 447.72 ng/mlDDU (0-234) H 05/14/17 17:02 Sodium 138 mmol/L (137-145) 05/14/17 16:22 Potassium 4.3 mmol/L (3.6-5.0) 05/14/17 16:22 Chloride 90.7 mmol/L (98-107) L 05/14/17 16:22 Carbon Dioxide 27 mmol/L (22-30) 05/14/17 16:22 Anion Gap 25 mmol/L 05/14/17 16:22 BUN 38 mg/dL (7-17) H 05/14/17 16:22 Creatinine 11.8 mg/dL (0.7-1.2) H 05/14/17 16:22 Estimated GFR 4 ml/min 05/14/17 16:22 BUN/Creatinine Ratio 3 % 05/14/17 16:22 Glucose 123 mg/dL (65-100) H 05/14/17 16:22 Calcium 8.6 mg/dL (8.4-10.2) 05/14/17 16:22 Total Bilirubin 0.50 mg/dL (0.1-1.2) 05/14/17 16:22 AST 19 units/L (5-40) 05/14/17 16:22 ALT 15 units/L (7-56) 05/14/17 16:22 Alkaline Phosphatase 176 units/L (35-129) H 05/14/17 16:22 Total Protein 7.3 g/dL (6.3-8.2) 05/14/17 16:22 Albumin 4.0 g/dL (3.9-5) 05/14/17 16:22 Albumin/Globulin Ratio 1.2 % 05/14/17 16:22 - Imaging and Cardiology Chest x-ray: image reviewed (no infiltrates) Assessment and Plan Assessment and plan: 56-year-old woman with CHF, end-stage renal disease on hemodialysis who presents with worsening left knee pain and hypotension Hypotension ?septic shock another fluid bolus then start levophed check TFTs Left knee pain -differentials include septic arthritis vs DJD -Ortho consulted for possible tap SIRS continue broad spectrum abx fup Blood and urine cx, likely will need arthrocentesis of left knee ID consulted ESRD Nephrology consulted for HD Elevated D-Dimer -obtain CTA and Doppler LE to r/o VTE DM, type 2 SSI PAF with hypercoaguable state hold metoprolol, given hypotension Morbid obesity -will need weight loss program when improved COPD stable, NTD chronic hypoxic respiratory failure continue supplemental oxygen DVT ppx heparin sq The high probability of a clinically significant, sudden or life threatening deterioration of the [CV, Renal] system(s) required my full and direct attention , intervention and personal management. The aggregate critical care time was [33 ] minutes. This time is in addition to time spent performing reported procedures but includes the following: [] Data Review and interpretation [] Patient assessment and monitoring of vital signs [] Documentation [] Medication orders and management VTE prophylaxis?: Chemical Plan of care discussed with patient/family: Yes
[2017-05-14] MEDS ORDERED: ZOSYN/NS 4.5GM/100ML 4.5 GM/100 ML VIAL IV SCH (23:00)
[2017-05-14] MEDS ORDERED: VANCOMYCIN 2,000 MG in NACL 0.9% 500 ML 500 ML IV ONE (23:00)
[2017-05-14] MEDS ORDERED: VANCOMYCIN PHARMACY TO DOSE IV SCH (23:00)
[2017-05-14] MEDS ORDERED: LEVOPHED DRIP 4 MG/NS 250 ML 4 MG/250 ML BAG IV SCH (23:00)
[2017-05-15] MEDS: ATARAX PO SCH ×4 (01:09→22:16)
[2017-05-15] MEDS: ZOSYN/NS 2.25 GM/50ML 2.25 GM/50 ML BAG IV SCH ×2 (01:09→06:33)
--- NOTE | 2017-05-15 01:47 | Procedure Note ---
Date of procedure: 05/15/17 Pre-op diagnosis: hypotension Post-op diagnosis: same Procedure: Triple-lumen right groin central line was placed via ultrasound patient was sterilely draped and prepped timeout was performed. Local anesthetic was used triple-lumen was threaded using Seldlinger technique. Line sutured with 2-0 silk all lines are able to be flushed and draw blood. Patient tolerated procedure well. Anesthesia: local Surgeon: PRECIOUS ALSTON Estimated blood loss: minimal Pathology: none Condition: stable
[2017-05-15] MEDS ORDERED: DILAUDID IV PRN (02:04)
[2017-05-15] MEDS: HEPARIN SUB-Q SCH ×3 (06:14→22:16)
[2017-05-15] MEDS: SYNTHROID PO SCH (06:33)
[2017-05-15] MEDS ORDERED: NACL ONE (07:50)
--- NOTE | 2017-05-15 08:44 | Cat Scan Report ---
CTA CHEST: HISTORY: Hypoxia. COMPARISON: none. TECHNIQUE: Helical CT in 1.25mm intervals following IV contrast. Pulmonary embolus protocol. Sagittal and coronal reformatted images. Rotational MIP images. FINDINGS: Contrast bolus is satisfactory. No large, central pulmonary embolus is identified. Resolution of the distal, small pulmonary arteries is limited secondary to body habitus. Thyroid gland: Normal. Tracheobronchial tree: Normal. Esophagus: Normal. Heart: Borderline to mild cardiomegaly. Pericardium: Normal. Mediastinum: Within normal limits. Calcified right paratracheal lymph nodes are noted. Lung Buenrostro: Relatively clear. No parenchymal disease, infiltrate or mass. 5 mm calcified granuloma in the right upper lobe is noted. Pleural Spaces: Normal. Musculoskeletal: Mild thoracic spondylosis. No fracture or suspicious bony lesion identified. IMPRESSION: No evidence for pulmonary embolus. Borderline to mild cardiomegaly. Evidence of chronic granulomatous disease.
[2017-05-15] MEDS: NOVOLOG SUB-Q SCH ×3 (09:28→22:22)
[2017-05-15] MEDS ORDERED: NON-FORMULARY (B Complex 11/Folic/C/Biot/Zinc [Dialyvite With Zinc Tablet] 1 EACH) PO SCH (10:00)
[2017-05-15] MEDS ORDERED: NON-FORMULARY (Omeprazole Magnesium [Prilosec Otc] 20 MG) PO SCH (10:00)
--- NOTE | 2017-05-15 11:04 | Consultation ---
History of Present Illness Consult date: 05/15/17 Requesting physician: MANUEL GOEL History of present illness: Polly is a 56-year-old woman who is morbidly obese, wheelchair dependence. Lives in a custodial [place]. Her medical issues including ESRD, diastolic CHF, COPD on oxygen dependence. Paroxysmal atrial fibrillation. She claims that she has been having pain in her left knee for over a year, she states that it was giving her pain medications in the custodial. But if she complained that the pain medications are not working anymore and asked for more pain meds after with a dense sensitivity emergency room. She denies fevers, denies chills, denies dizziness, denies cough, denies sputum production, denies shortness of breath. She does state that she has multiple joint issues including both knees left shoulder. She is able to transfer with assistance from bed to her wheelchair. But she needs 2 person assist to make the transfer. Asked by her nurse, she has been hypotensive in the ER despite multiple boluses of normal saline. Patient has been asymptomatic with regards to this. She is being treated as sepsis and admission is planned for the ICU. I have been consulted for critical care management Past History Past Medical History: atrial fib (diastolic paroxysmal), COPD (oxygen dependence ), diabetes (type II, insulin-dependent), dialysis, ESRD, heart failure ( diastolic), hypertension, hypothyroidism (on Synthroid), other (morbid obesity, debility,) Past Surgical History: hysterectomy, Other (AV graft, abdominal surgery for growth removal) Social history: other (lives in custodial). denies: smoking, alcohol abuse Family history: diabetes Medications and Allergies Allergies Allergy/AdvReac Type Severity Reaction Status Date / Time No Known Allergies Allergy Verified 10/02/13 09:59 Home Medications Medication Instructions Recorded Confirmed Last Taken Type Atorvastatin [Lipitor] 40 mg PO QHS 09/23/13 05/15/17 08/06/16 21:00 History Fluticasone/Salmeterol [Advair 2 puff IH BID 09/23/13 05/15/17 08/06/16 21:00 History Diskus 250-50 mcg] Magnesium Oxide 400 mg PO DAILY 09/23/13 05/15/17 08/06/16 09:00 History Levothyroxine [Synthroid] 50 mcg PO DAILY@0600 #30 tablet 03/23/16 05/15/17 Rx Arformoterol Nebu [Brovana Nebu] 15 mcg INHALATION Q12HR 04/13/16 05/15/1708/06 09:00 History Hydroxyzine HCl 25 mg PO Q8H 04/13/16 05/15/17 08/06/16 21:00 History Omeprazole Magnesium [PriLOSEC Otc] 20 mg PO DAILY 04/13/16 05/15/17 08/06/16 09 :00 History Insulin Lispro [HumaLOG VIAL] See Protocol SQ AC 07/18/16 05/15/17 08/06/16 21: 00 History B Complex 11/Folic/C/Biot/Zinc 1 each PO QDAY 11/29/16 05/15/17 Unknown History [Dialyvite with Zinc Tablet] Cinacalcet [Sensipar] 30 mg PO HS 11/29/16 05/15/17 Unknown History Budesonide [Pulmicort] 0.25 mg IH Q12HR 05/15/17 05/15/17 Unknown History Bumetanide [Bumetanide 2 mg tab] 2 mg PO BID 05/15/17 05/15/17 Unknown History Metoprolol [Lopressor TAB] 75 mg PO BID PRN 05/15/17 05/15/17 Unknown History Sevelamer Carbonate [Renvela] 800 mg PO TID 05/15/17 05/15/17 Unknown History oxyCODONE /ACETAMINOPHEN [Percocet 2 tab PO TID 05/15/17 05/15/17 Unknown History 5/325] traMADol [Ultram] 50 mg PO QID PRN 05/15/17 05/15/17 Unknown History Active Meds: Active Medications Acetaminophen (Tylenol) 650 mg PO Q6H PRN PRN Reason: Pain, Mild (1-3) Arformoterol Tartrate (Brovana Nebu) 15 mcg IH Q12HRT [facility] Atorvastatin Calcium (Lipitor) 40 mg PO QHS [facility] Budesonide (Pulmicort) 0.5 mg IH Q12HRT [facility] Dextrose (D50w (25gm) Syringe) 50 ml IV PRN PRN PRN Reason: Hypoglycemia Ferrous Sulfate (Feosol) 325 mg PO QDAY [facility] Heparin Sodium (Porcine) (Heparin) 5,000 unit SUB-Q Q8HR [facility] Last Admin: 05/15/17 06:14 Dose: 5,000 unit Hydromorphone HCl (Dilaudid) 0.5 mg IV Q4H PRN PRN Reason: Severe Pain Last Admin: 05/15/17 02:52 Dose: 0.5 mg Hydroxyzine HCl (Atarax) 25 mg PO Q8HR [facility] Last Admin: 05/15/17 06:33 Dose: 25 mg Norepinephrine (Levophed Drip 4 Mg/Ns 250 Ml) 4 mg in 250 mls @ 7.5 mls/hr IV TITR [facility]; 2 MCG/MIN PRN Reason: Protocol Piperacillin Sod/Tazobactam Sod (Zosyn/Ns 2.25 Gm/50ml) 2.25 gm in 50 mls @ 100 mls/hr IV Q8H [facility] Last Admin: 05/15/17 06:33 Dose: 100 mls/hr Insulin Aspart (Novolog) 0 units SUB-Q ACHS [facility] PRN Reason: Protocol Last Admin: 05/15/17 09:28 Dose: Not Given Levothyroxine Sodium (Synthroid) 50 mcg PO DAILY@0600 [facility] Last Admin: 05/15/17 06:33 Dose: 50 mcg Multivit/Ca Carb/B Cmplx/FA/Prenat (Renal Caps) 1 cap PO QDAY [facility] Pantoprazole Sodium (Protonix) 20 mg PO QDAY [facility] Vancomycin HCl (Vancomycin Pharmacy To Dose) 1 each IV PKCONSULT [facility] PRN Reason: Protocol Physical Examination Vital signs: Vital Signs Pulse Ox 96 05/14/17 15:53 General appearance: no acute distress, other (morbidly obese, awake, alert, oriented x3, ) Eyes: non-icteric ENT: oropharynx moist Neck: supple, no lymphadenopathy, no JVD Effort: normal Ascultation: Bilateral: clear, diminished breath sounds Cardiovascular: regular rate and rhythm, other (S1,S2, no murmurs, gallops or rubs) Integumentary: normal Extremities: no cyanosis, no edema, pulses normal, no ischemia or petechiae normal mental status, non-focal exam mood appropriate, affect normal Results - Laboratory Findings CBC and BMP: 05/14/17 16:22 05/14/17 16:22 PT/INR, D-dimer D-Dimer 447.72 ng/mlDDU (0-234) H 05/14/17 17:02 Abnormal lab findings: Abnormal Labs 05/14/17 05/14/17 05/14/17 16:22 16:22 17:02 RDW 18.1 H Ma[place]ick % (Auto) 7.8 H D-Dimer 447.72 H Chloride 90.7 L BUN 38 H Creatinine 11.8 H Glucose 123 H POC Glucose Alkaline Phosphatase 176 H 05/15/17 06:30 RDW Maverick % (Auto) D-Dimer Chloride BUN Creatinine Glucose POC Glucose 112 H Alkaline Phosphatase - Diagnostic Findings Chest x-ray: image reviewed (hypoventilatory low lung volumes) Assessment and Plan 56-year-old woman with CHF, end-stage renal disease on hemodialysis who presents with worsening left knee pain and hypotension DIAGNOSIS Sepsis-Hypotension/SIRS Chronic hypoxic respiratory failure on home oxygen h/o COPD Morbid obesity Obstructive sleep apnea on PAP at home Elevated D-Dimer ESRD PAF with hypercoaguable state RECOMMENDATIONS/DISCUSSIONS -Unclear etiology of hypotension, responded to volume resuscitation. Did not require any vasopressor support. Patient was asymptomatic during the episode. Will continue empiric antibiotics. Sepsis bundle per protocol Await ortho plans re joint aspiration Follow up all cultures VTE prophylaxis Continue supplemental oxygen BIPAP qhs and prn Continue bronchodilators Analgesia, avoid use of narcotics Supportive HD Follow up results of CTA and lower extremity dopplers- low probability that this is PE Thank you for consult. Will admit telemetry Continue to monitor hemodynamics closely The high probability of a clinically significant, sudden or life threatening deterioration of the [CV, Renal] system(s) required my full and direct attention , intervention and personal management. The aggregate critical care time was [65 ] minutes. This time is in addition to time spent performing reported procedures but includes the following: [X] Data Review and interpretation [X] Patient assessment and monitoring of vital signs [X] Documentation [X] Medication orders and management
[2017-05-15] MEDS: BROVANA NEBU IH SCH ×2 (12:34→21:13)
[2017-05-15] MEDS: PULMICORT IH SCH ×2 (12:34→21:13)
[2017-05-15] MEDS: Renal Caps PO SCH (13:04)
[2017-05-15] MEDS: PROTONIX PO SCH (13:04)
[2017-05-15] MEDS: FEOSOL PO SCH (13:04)
--- NOTE | 2017-05-15 13:23 | Consultation ---
History of Present Illness - Reason for Consult Consult date: 05/15/17 end stage renal disease - History of Present Illness Ms Matias is a 56 y/o old lady with a PMH of ESRD on HD MWF via LUE AVF, Morbid obesity, CHF, COPD, Afib who has been admitted to the [facility] with suspected Sepsis as well as left knee pain. Pt was also found to be hypotensive in the ER and has received IVFs in the ER. Her BP is better now. She denies any fever, chills, SHOB, CP, Nausea, vomiting, belly pain, diarrhea. She says her last HD was on saturday. ROS: As in HPI otherwise 12 point review of systems -ve Past History Past Medical History: atrial fib (diastolic paroxysmal), COPD (oxygen dependence ), diabetes (type II, insulin-dependent), dialysis, ESRD, heart failure ( diastolic), hypertension, hypothyroidism (on Synthroid), other (morbid obesity, debility,) Past Surgical History: hysterectomy, Other (AV graft, abdominal surgery for growth removal) Social history: other (lives in [facility]). denies: smoking, alcohol abuse Family history: diabetes Medications and Allergies Allergies Allergy/AdvReac Type Severity Reaction Status Date / Time No Known Allergies Allergy Verified 10/02/13 09:59 Home Medications Medication Instructions Recorded Confirmed Last Taken Type Atorvastatin [Lipitor] 40 mg PO QHS 09/23/13 05/15/17 08/06/16 21:00 History Fluticasone/Salmeterol [Advair 2 puff IH BID 09/23/13 05/15/17 08/06/16 21:00 History Diskus 250-50 mcg] Magnesium Oxide 400 mg PO DAILY 09/23/13 05/15/17 08/06/16 09:00 History Levothyroxine [Synthroid] 50 mcg PO DAILY@0600 #30 tablet 03/23/16 05/15/17 Rx Arformoterol Nebu [Brovana Nebu] 15 mcg INHALATION Q12HR 04/13/16 05/15/1708/06 09:00 History Hydroxyzine HCl 25 mg PO Q8H 04/13/16 05/15/17 08/06/16 21:00 History Omeprazole Magnesium [PriLOSEC Otc] 20 mg PO DAILY 04/13/16 05/15/17 08/06/16 09 :00 History Insulin Lispro [HumaLOG VIAL] See Protocol SQ AC 07/18/16 05/15/17 08/06/16 21: 00 History B Complex 11/Folic/C/Biot/Zinc 1 each PO QDAY 11/29/16 05/15/17 Unknown History [Dialyvite with Zinc Tablet] Cinacalcet [Sensipar] 30 mg PO HS 11/29/16 05/15/17 Unknown History Budesonide [Pulmicort] 0.25 mg IH Q12HR 05/15/17 05/15/17 Unknown History Bumetanide [Bumetanide 2 mg tab] 2 mg PO BID 05/15/17 05/15/17 Unknown History Metoprolol [Lopressor TAB] 75 mg PO BID PRN 05/15/17 05/15/17 Unknown History Sevelamer Carbonate [Renvela] 800 mg PO TID 05/15/17 05/15/17 Unknown History oxyCODONE /ACETAMINOPHEN [Percocet 2 tab PO TID 05/15/17 05/15/17 Unknown History 5/325] traMADol [Ultram] 50 mg PO QID PRN 05/15/17 05/15/17 Unknown History Active Meds: Active Medications Acetaminophen (Tylenol) 650 mg PO Q6H PRN PRN Reason: Pain, Mild (1-3) Arformoterol Tartrate (Brovana Nebu) 15 mcg IH Q12HRT [facility] Last Admin: 05/15/17 12:34 Dose: 15 mcg Atorvastatin Calcium (Lipitor) 40 mg PO QHS [facility] Budesonide (Pulmicort) 0.5 mg IH Q12HRT [facility] Last Admin: 05/15/17 12:34 Dose: 0.5 mg Dextrose (D50w (25gm) Syringe) 50 ml IV PRN PRN PRN Reason: Hypoglycemia Ferrous Sulfate (Feosol) 325 mg PO QDAY [facility] Last Admin: 05/15/17 13:04 Dose: 325 mg Heparin Sodium (Porcine) (Heparin) 5,000 unit SUB-Q Q8HR [facility] Last Admin: 05/15/17 06:14 Dose: 5,000 unit Hydromorphone HCl (Dilaudid) 0.5 mg IV Q4H PRN PRN Reason: Severe Pain Last Admin: 12/27/17 02:52 Dose: 0.5 mg Hydroxyzine HCl (Atarax) 25 mg PO Q8HR [facility] Last Admin: 05/15/17 06:33 Dose: 25 mg Norepinephrine (Levophed Drip 4 Mg/Ns 250 Ml) 4 mg in 250 mls @ 7.5 mls/hr IV TITR [facility]; 2 MCG/MIN PRN Reason: Protocol Piperacillin Sod/Tazobactam Sod (Zosyn/Ns 2.25 Gm/50ml) 2.25 gm in 50 mls @ 100 mls/hr IV Q8H [facility] Last Admin: 05/15/17 06:33 Dose: 100 mls/hr Insulin Aspart (Novolog) 0 units SUB-Q ACHS [facility] PRN Reason: Protocol Last Admin: 05/15/17 11:41 Dose: Not Given Levothyroxine Sodium (Synthroid) 50 mcg PO DAILY@0600 [facility] Last Admin: 05/15/17 06:33 Dose: 50 mcg Multivit/Ca Carb/B Cmplx/FA/Prenat (Renal Caps) 1 cap PO QDAY [facility] Last Admin: 05/15/17 13:04 Dose: 1 cap Pantoprazole Sodium (Protonix) 20 mg PO QDAY [facility] Last Admin: 05/15/17 13:04 Dose: 20 mg Vancomycin HCl (Vancomycin Pharmacy To Dose) 1 each IV PKCONSULT [facility] PRN Reason: Protocol Exam - Vital Signs Vital signs: Vital Signs Pulse Ox 96 05/14/17 15:53 - Physical Exam Narrative exam: GE: AAOX2, Mobridly obese HEENT: PERRLA Neck: No JVD CVS: RRR Chest: Dec BS due to body habitus Abd: Soft/NT, obese, BS+ Ext: 1+ BLE edema, LUE AVF with good thrill Neuro: AAOX2 Results - Lab Results 05/14/17 16:22 05/14/17 16:22 Most recent lab results Calcium 8.6 mg/dL (8.4-10.2) 05/14/17 16:22 Assessment and Plan ESRD on hemodialysis: -Via LUE AVF MWF outpatient. -Plan for HD today. HD MWF while inpatient -BP better now, no more IVFs as CXR somewhat congested. UF with HD. -Check BMP/Mg/Phos daily -Renally dose all meds Sepsis due to unknown cause: Hypotension: BP better now, no more IVFs as CXR somewhat congested. If BP remains low, then will need levophed as she is at risk of getting volume overloaded with IVFs -Start midodrine for hypotension. -Follow Cx, UA ordered. -On empiric ABx -Per primary Left Knee Pain: -Ortho consulted. Per them Anemia of chronic disease due to ESRD: -Hg stable, monitor for now Diabetes mellitus type 2 on insulin: -On ISS -Per primary Chronic atrial fibrillation: -MTP on hold due to low BP -Per primary COPD: -On nebs -Per primary Morbid Obesity: -Counselled to loose wt -Likely has underlying NURIS and should get CPAP at night Plan d/w ER bedside RN. With this note, I want to thank Dr Dan for allowing me to participate in the care of Ms Borja, I will continue to follow her closely with you, thank you for the consult. Johnny Franco MD Nephrology, Hypertension, Dialysis, Transplantation Phone no: [phone]
[2017-05-15] MEDS ORDERED: NACL 0.9% 100 ML IV PRN (13:30)
--- NOTE | 2017-05-15 13:54 | XRay Report ---
AP chest x-ray treated The heart and pulmonary vessels appear normal. The lungs are clear. No pleural fluid is seen. Impression: No acute findings.
[2017-05-15] MEDS ORDERED: PROAMATINE PO ONE (14:00)
--- NOTE | 2017-05-15 17:23 | Progress Note ---
Assessment and Plan 56-year-old woman with CHF, end-stage renal disease on hemodialysis who presents with worsening left knee pain and hypotension Hypotension ?septic shock Patient off of Levophed Left knee pain differentials include septic arthritis vs DJD Ortho consulted for possible tap X-ray Consistent with DJD SIRS continue broad spectrum abx fup Blood and urine cx, likely will need arthrocentesis of left knee ID consulted ESRD Nephrology consulted for HD Commenced hemodialysis Elevated D-Dimer - CTA showed no PE. F/u with Doppler LE to r/o VTE DM, type 2 SSI PAF with hypercoaguable state hold metoprolol, given hypotension Morbid obesity -will need weight loss program when improved COPD stable, On Pulmacort and Brovana chronic hypoxic respiratory failure continue supplemental oxygen Bronchiodilators. DVT ppx heparin sq Subjective Date of service: 05/15/17 Principal diagnosis: sepsis Interval history: Patient seen and examined. Reviewed Laboratory data. No new complaints Objective - Constitutional Vitals: Vital Signs - 12hr 05/15/17 05/15/17 05/15/17 05:30 05:45 06:00 Pulse Rate 65 74 66 Respiratory 13 16 14 Rate Blood Pressure 104/46 117/58 107/53 O2 Sat by Pulse 100 100 100 Oximetry 05/15/17 05/15/17 05/15/17 06:15 06:30 07:00 Pulse Rate 68 66 67 Respiratory 13 19 14 Rate Blood Pressure 106/52 92/47 102/48 O2 Sat by Pulse 100 100 100 Oximetry 05/15/17 05/15/17 05/15/17 07:30 08:00 08:30 Pulse Rate 64 66 77 Respiratory 13 19 21 Rate Blood Pressure 98/42 92/36 92/36 O2 Sat by Pulse 100 100 99 Oximetry 05/15/17 05/15/17 05/15/17 09:00 09:54 10:00 Pulse Rate 76 72 72 Respiratory 17 17 16 Rate Blood Pressure 92/36 92/36 92/36 O2 Sat by Pulse 100 100 100 Oximetry 05/15/17 05/15/17 05/15/17 10:30 11:00 11:30 Pulse Rate 72 70 75 Respiratory 15 14 15 Rate Blood Pressure 92/36 92/36 85/34 O2 Sat by Pulse 100 100 100 Oximetry 05/15/17 05/15/17 05/15/17 12:00 12:30 13:00 Pulse Rate 75 70 79 Respiratory 15 14 21 Rate Blood Pressure 106/48 100/40 100/40 O2 Sat by Pulse 99 100 98 Oximetry 05/15/17 05/15/17 05/15/17 13:30 14:00 14:30 Pulse Rate 73 77 81 Respiratory 19 13 19 Rate Blood Pressure 100/40 95/33 97/44 O2 Sat by Pulse 99 99 Oximetry 05/15/17 15:00 Pulse Rate 73 Respiratory 17 Rate Blood Pressure 97/51 O2 Sat by Pulse Oximetry General appearance: Present: no acute distress, well-nourished - EENT Eyes: PERRL, EOM intact - Neck Neck: supple, normal ROM - Respiratory Respiratory effort: normal Respiratory: bilateral: diminished - Cardiovascular Rhythm: regular Heart Sounds: Present: S1 & S2. Absent: gallop, rub Extremities: pulses intact, No edema, normal color, Full ROM - Gastrointestinal General gastrointestinal: Present: soft, non-tender, non-distended, normal bowel sounds - Genitourinary Female genitourinary: normal - Integumentary Integumentary: clear, warm, dry - Musculoskeletal Musculoskeletal: 1, strength equal bilaterally - Neurologic Neurologic: moves all extremities - Psychiatric Psychiatric: memory intact, appropriate mood/affect, intact judgment & insight - Labs CBC & Chem 7: 05/14/17 16:22 05/14/17 16:22 Labs: Abnormal lab results 05/14/17 05/15/17 05/15/17 Range/Units 17:02 06:30 12:27 D-Dimer 447.72 H (0-234) ng/mlDDU POC ABG pH 7.332 L (7.35-7.45) POC ABG pCO2 45.1 H (35-45) POC ABG pO2 137 H (80-105) POC Glucose 112 H (70-105)
--- NOTE | 2017-05-15 20:34 | Consultation ---
History of Present Illness - Reason for Consult Consult date: 05/15/17 septic shock Requesting physician: MANUEL GOEL - History of Present Illness 56-year-old female with history of ESRD on HD, CHF, COPD on oxygen dependence, Paroxysmal atrial fibrillation admitted on due to worsening left knee pain for a week. She does have chronic knee pain for several months. Denies trauma or injury to the knee. Pain became excrutieting and did not response to her regualr pain pills. she lives in a detention. She denies fevers, chills, SOB , cough, urinary symptoms. In the ED, temp 98, HR 58, R 16, BP 73/39. Her BP did not improve after multiple IVF boluses. WBC 6.8. Creat 11.8. CXR hypoventilated lungs. Erosive changes in left shoulder girdle with glenohumeral degenerative changes. CTA showed no PE + chronic granulomatous changes. CT leg showed advancd erosive arthritis of the knee with Charcot changes. Soft tissue density with erosive changes medially and increased density medial and lateral tibial trabecula. CT abd 5 mm right non obstructive renal stone. Micro: Blood cx neg Abx: zosyn vanco Past History Past Medical History: atrial fib (diastolic paroxysmal), COPD (oxygen dependence ), diabetes (type II, insulin-dependent), dialysis, ESRD, heart failure ( diastolic), hypertension, hypothyroidism (on Synthroid), other (morbid obesity, debility,) Past Surgical History: hysterectomy, Other (AV graft, abdominal surgery for growth removal) Social history: other (lives in detention). denies: smoking, alcohol abuse Family history: diabetes Medications and Allergies Allergies Allergy/AdvReac Type Severity Reaction Status Date / Time No Known Allergies Allergy Verified 10/02/13 09:59 Home Medications Medication Instructions Recorded Confirmed Last Taken Type Atorvastatin [Lipitor] 40 mg PO QHS 09/23/13 05/15/17 08/06/16 21:00 History Fluticasone/Salmeterol [Advair 2 puff IH BID 09/23/13 05/15/17 08/06/16 21:00 History Diskus 250-50 mcg] Magnesium Oxide 400 mg PO DAILY 09/23/13 05/15/17 08/06/16 09:00 History Levothyroxine [Synthroid] 50 mcg PO DAILY@0600 #30 tablet 03/23/16 05/15/17 Rx Arformoterol Nebu [Brovana Nebu] 15 mcg INHALATION Q12HR 04/13/16 05/15/1708/06 09:00 History Hydroxyzine HCl 25 mg PO Q8H 04/13/16 05/15/17 08/06/16 21:00 History Omeprazole Magnesium [PriLOSEC Otc] 20 mg PO DAILY 04/13/16 05/15/17 08/06/16 09 :00 History Insulin Lispro [HumaLOG VIAL] See Protocol SQ AC 07/18/16 05/15/17 08/06/16 21: 00 History B Complex 11/Folic/C/Biot/Zinc 1 each PO QDAY 11/29/16 05/15/17 Unknown History [Dialyvite with Zinc Tablet] Cinacalcet [Sensipar] 30 mg PO HS 11/29/16 05/15/17 Unknown History Budesonide [Pulmicort] 0.25 mg IH Q12HR 05/15/17 05/15/17 Unknown History Bumetanide [Bumetanide 2 mg tab] 2 mg PO BID 05/15/17 05/15/17 Unknown History Metoprolol [Lopressor TAB] 75 mg PO BID PRN 05/15/17 05/15/17 Unknown History Sevelamer Carbonate [Renvela] 800 mg PO TID 05/15/17 05/15/17 Unknown History oxyCODONE /ACETAMINOPHEN [Percocet 2 tab PO TID 05/15/17 05/15/17 Unknown History 5/325] traMADol [Ultram] 50 mg PO QID PRN 05/15/17 05/15/17 Unknown History Active Meds: Active Medications Acetaminophen (Tylenol) 650 mg PO Q6H PRN PRN Reason: Pain, Mild (1-3) Arformoterol Tartrate (Brovana Nebu) 15 mcg IH Q12HRT [facility] Last Admin: 05/15/17 12:34 Dose: 15 mcg Atorvastatin Calcium (Lipitor) 40 mg PO QHS PRATIK Budesonide (Pulmicort) 0.5 mg IH Q12HRT [facility] Last Admin: 05/15/17 12:34 Dose: 0.5 mg Dextrose (D50w (25gm) Syringe) 50 ml IV PRN PRN PRN Reason: Hypoglycemia Ferrous Sulfate (Feosol) 325 mg PO QDAY [facility] Last Admin: 05/15/17 13:04 Dose: 325 mg Heparin Sodium (Porcine) (Heparin) 5,000 unit SUB-Q Q8HR [facility] Last Admin: 05/15/17 15:46 Dose: Not Given Hydromorphone HCl (Dilaudid) 0.5 mg IV Q4H PRN PRN Reason: Severe Pain Last Admin: 05/15/17 02:52 Dose: 0.5 mg Hydroxyzine HCl (Atarax) 25 mg PO Q8HR [facility] Last Admin: 05/15/17 15:45 Dose: Not Given Norepinephrine (Levophed Drip 4 Mg/Ns 250 Ml) 4 mg in 250 mls @ 7.5 mls/hr IV TITR PRATIK; 2 MCG/MIN PRN Reason: Protocol Piperacillin Sod/Tazobactam Sod (Zosyn/Ns 2.25 Gm/50ml) 2.25 gm in 50 mls @ 100 mls/hr IV Q8H [facility] Last Admin: 05/15/17 06:33 Dose: 100 mls/hr Sodium Chloride (Nacl 0.9%) 100 mls @ 999 mls/hr IV LINDA PRN PRN Reason: Hypotension Insulin Aspart (Novolog) 0 units SUB-Q ACHS PRATIK PRN Reason: Protocol Last Admin: 05/15/17 11:41 Dose: Not Given Levothyroxine Sodium (Synthroid) 50 mcg PO DAILY@0600 [facility] Last Admin: 05/15/17 06:33 Dose: 50 mcg Multivit/Ca Carb/B Cmplx/FA/Prenat (Renal Caps) 1 cap PO QDAY [facility] Last Admin: 05/15/17 13:04 Dose: 1 cap Pantoprazole Sodium (Protonix) 20 mg PO QDAY [facility] Last Admin: 05/15/17 13:04 Dose: 20 mg Vancomycin HCl (Vancomycin Pharmacy To Dose) 1 each IV PKCONSULT [facility] PRN Reason: Protocol Review of Systems All systems: negative (as per HPI rest neg) Physical Examination - Physical Exam Narrative exam: Alert in NAD morbidl obese ABDI clear OP Lungs CTA tanya CV RRR Abd soft NT obese Ext left knee edema, heat and tenderness, right knee edema Skin no rash Alert and oriented - Constitutional Vitals: Vital Signs Temp Pulse Resp BP Pulse Ox 98.4 F 76 20 97/42 100 05/15/17 19:33 05/15/17 19:33 05/15/17 19:33 05/15/17 19:33 05/15/17 19:33 Temperature -Last 24 Hours Temperature 98.4 F Temperature 97.2 F Temperature 98.2 F Results - Labs CBC & Chem 7: 05/14/17 16:22 05/14/17 16:22 Labs: Abnormal lab results 05/15/17 05/15/17 Range/Units 06:30 12:27 POC ABG pH 7.332 L (7.35-7.45) POC ABG pCO2 45.1 H (35-45) POC ABG pO2 137 H (80-105) POC Glucose 112 H (70-105) Assessment and Plan Shock: uncleaar etiology ? septic vs nonseptic ? BP cuff inaccurate Left knee edema ? r/o septic arthritis Multiple joint DJD Morbid obesity ESRD on HD Plan: Ortho eval Arthrocentesis check CRP Continue vancomycin and zosyn for now Thanks for consultation Carine Livingston
[2017-05-15] MEDS ORDERED: NON-FORMULARY (Bumetanide [Bumetanide 2 Mg Tab] 2 MG) PO SCH (22:00)
[2017-05-15] MEDS: BUMEX PO SCH (22:04)
[2017-05-16] MEDS: ZOSYN/NS 2.25 GM/50ML 2.25 GM/50 ML BAG IV SCH ×5 (00:54→23:22)
[2017-05-16] MEDS: TYLENOL PO PRN ×3 (00:55→23:37)
[2017-05-16] MEDS: PROVENTIL IH SCH ×4 (02:40→21:11)
[2017-05-16] MEDS: ATARAX PO SCH ×3 (05:45→23:22)
[2017-05-16] MEDS: HEPARIN SUB-Q SCH ×3 (05:46→23:22)
[2017-05-16] MEDS: SYNTHROID PO SCH (05:46)
[2017-05-16 05:54] LABS: Basophils % (Auto) 0.5 % (0.0-1.8); Eosinophils # (Auto) 0.2 K/mm3 (0.0-0.4); Eosinophils % (Auto) 5.2 % (0.0-4.3); Hematocrit 29.9 % (30.3-42.9); Hemoglobin 9.6 gm/dl (10.1-14.3); Lymphocytes # (Auto) 0.7 K/mm3 (1.2-5.4); Lymphocytes % (Auto) 20.8 % (13.4-35.0); Mean Corpuscular HGB Conc 32 % (30-34); Mean Corpuscular Hemoglobin 31 pg (28-32); Mean Corpuscular Volume 97 fl (79-97); Monocytes # (Auto) 0.4 K/mm3 (0.0-0.8); Platelet Count 157 K/mm3 (140-440); Red Blood Count 3.08 M/mm3 (3.65-5.03); Red Cell Distribution Width 18.2 % (13.2-15.2)
[2017-05-16 06:25] LABS: Albumin 3.4 g/dL (3.9-5); Calcium 8.5 mg/dL (8.4-10.2)
[2017-05-16] MEDS ORDERED: NON-FORMULARY (Sevelamer Carbonate [Renvela] 800 MG) PO SCH (08:00)
[2017-05-16] MEDS: RENVELA PO SCH ×3 (08:36→17:35)
[2017-05-16] MEDS: NOVOLOG SUB-Q SCH ×4 (08:39→23:23)
[2017-05-16] MEDS: PULMICORT IH SCH ×2 (08:50→21:11)
[2017-05-16] MEDS: BROVANA NEBU IH SCH ×2 (08:51→21:16)
[2017-05-16] MEDS: FEOSOL PO SCH (09:04)
[2017-05-16] MEDS: BUMEX PO SCH ×2 (09:05→23:21)
[2017-05-16] MEDS: PROTONIX PO SCH (09:05)
[2017-05-16] MEDS: MAG-OX PO SCH (09:05)
[2017-05-16] MEDS: Renal Caps PO SCH (09:05)
--- NOTE | 2017-05-16 09:47 | Progress Note ---
Assessment and Plan ESRD on hemodialysis: -Via E AVF MWF outpatient. - no indication for HD today, will assess daily -Check BMP/Mg/Phos daily -Renally dose all meds Sepsis due to unknown cause: Hypotension: -improved -Follow Cx, UA ordered. -On empiric ABx -Per primary Left Knee Pain: -Ortho consulted. Per them Anemia of chronic disease due to ESRD: -Epogen with HD Diabetes mellitus type 2 on insulin: -On ISS -Per primary Chronic atrial fibrillation: -MTP on hold due to low BP -Per primary COPD: -On nebs -Per primary Subjective Date of service: 05/16/17 Principal diagnosis: sepsis Interval history: tolerated HD yesterday, feels weak Objective - Vital Signs Vital signs: Vital Signs - 12hr 05/15/17 05/15/17 05/16/17 22:00 23:25 00:01 Temperature 98.2 F Pulse Rate 87 77 Pulse Rate [ Anterior Bilateral Throughout] Respiratory 20 18 Rate Respiratory Rate [Anterior Bilateral Throughout] Respiratory 18 Rate [Left Knee ] Blood Pressure 98/54 O2 Sat by Pulse 100 99 Oximetry 05/16/17 05/16/17 05/16/17 00:03 00:55 01:55 Temperature Pulse Rate Pulse Rate [ Anterior Bilateral Throughout] Respiratory 18 18 18 Rate Respiratory Rate [Anterior Bilateral Throughout] Respiratory Rate [Left Knee ] Blood Pressure O2 Sat by Pulse Oximetry 05/16/17 05/16/17 05/16/17 04:20 07:54 08:08 Temperature 97.8 F 98.8 F Pulse Rate 68 74 Pulse Rate [ Anterior Bilateral Throughout] Respiratory 20 20 14 Rate Respiratory Rate [Anterior Bilateral Throughout] Respiratory Rate [Left Knee ] Blood Pressure 105/38 108/49 O2 Sat by Pulse 99 100 Oximetry 05/16/17 05/16/17 05/16/17 08:51 08:54 09:22 Temperature Pulse Rate Pulse Rate [ 75 91 H Anterior Bilateral Throughout] Respiratory Rate Respiratory 18 18 Rate [Anterior Bilateral Throughout] Respiratory Rate [Left Knee ] Blood Pressure O2 Sat by Pulse 99 Oximetry - General Appearance General appearance: well-developed, well-nourished EENT: ATNC, PERRL, mucous membranes moist Neck: no JVD, no carotid bruit Respiratory: Present: Decreased Breath Sounds Cardiology: regular, S1S2 Gastrointestinal: normoactive bowel sounds, no tenderness, no distended, obese Integumentary: no rash, warm and dry Neurologic: no focal deficit, no asterixis, alert and oriented x3 Musculoskeletal: other (trace pitting edema in BLE) Psychiatric: mood/affect appropriate, cooperative - Lab 05/16/17 05:05 05/16/17 05:05 Most recent lab results Calcium 8.5 mg/dL (8.4-10.2) 05/16/17 05:05
[2017-05-16] MEDS ORDERED: MAGNESIUM OXIDE 400 MG PO SCH (10:00)
--- NOTE | 2017-05-16 10:16 | Progress Note ---
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, neurpathic joint -dw Dr Castro of Radiology, there is no joint effusion to tap, septic joint is very unlikely SIRS continue broad spectrum abx fup Blood and urine cx, septic joint unlikely ID input appreciated ESRD Nephrology consulted for HD Elevated D-Dimer -CTA and Doppler LE were both neg for VTE DM, type 2 SSI PAF with hypercoaguable state rate is controlled, Metoprolol was dc due to hypotention Morbid obesity -will need weight loss program when improved COPD stable, NTD chronic hypoxic respiratory failure continue supplemental oxygen DVT ppx heparin sq The high probability of a clinically significant, sudden or life threatening deterioration of the [CV, Renal] system(s) required my full and direct attention , intervention and personal management. The aggregate critical care time was [33 ] minutes. This time is in addition to time spent performing reported procedures but includes the following: [] Data Review and interpretation [] Patient assessment and monitoring of vital signs [] Documentation [] Medication orders and management History Interval history: no chest pain, no sob, no focal weakness -c/o 9/10 dull Left knee pain, which is slightly improved since her arrival Hospitalist Physical - Physical exam Narrative exam: General appearance: Present: no acute distress, well-nourished, other (morbidly obese) - EENT Eyes: Present: PERRL ENT: hearing intact, clear oral mucosa - Neck Neck: Present: supple, normal ROM - Respiratory Respiratory effort: normal Respiratory: bilateral: CTA - Cardiovascular Heart Sounds: Present: S1 & S2. Absent: rub, click - Extremities Extremities: pulses symmetrical, No edema, abnormal (left knee has chronic melanosis surrounding it, it is tender.Slightly warm.) Peripheral Pulses: within normal limits - Abdominal General gastrointestinal: Present: soft, non-tender, non-distended, normal bowel sounds Female genitourinary: Present: deferred - Rectal Rectal Exam: deferred - Integumentary Integumentary: Present: clear, warm, dry - Musculoskeletal Musculoskeletal: gait normal, strength equal bilaterally - Psychiatric Psychiatric: appropriate mood/affect, intact judgment & insight - Neurologic Neurologic: CNII-XII intact, moves all extremities - Constitutional Vitals: Temp Pulse Resp BP Pulse Ox 98.8 F 91 H 18 108/49 99 05/16/17 07:54 05/16/17 09:22 05/16/17 09:22 05/16/17 07:54 05/16/17 08:54 General appearance: Present: no acute distress, well-nourished - EENT Eyes: Present: PERRL, EOM intact Results - Labs CBC & Chem 7: 05/16/17 05:05 05/16/17 05:05 Labs: Laboratory Last Values WBC 3.3 K/mm3 (4.5-11.0) L 05/16/17 05:05 RBC 3.08 M/mm3 (3.65-5.03) L 05/16/17 05:05 Hgb 9.6 gm/dl (10.1-14.3) L 05/16/17 05:05 Hct 29.9 % (30.3-42.9) L 05/16/17 05:05 MCV 97 fl (79-97) 05/16/17 05:05 MCH 31 pg (28-32) 05/16/17 05:05 MCHC 32 % (30-34) 05/16/17 05:05 RDW 18.2 % (13.2-15.2) H 05/16/17 05:05 Plt Count 157 K/mm3 (140-440) 05/16/17 05:05 Lymph % (Auto) 20.8 % (13.4-35.0) 05/16/17 05:05 Lyman % (Auto) 13.0 % (0.0-7.3) H 05/16/17 05:05 Eos % (Auto) 5.2 % (0.0-4.3) H 05/16/17 05:05 Baso % (Auto) 0.5 % (0.0-1.8) 05/16/17 05:05 Lymph # 0.7 K/mm3 (1.2-5.4) L 05/16/17 05:05 Lyman # 0.4 K/mm3 (0.0-0.8) 05/16/17 05:05 Eos # 0.2 K/mm3 (0.0-0.4) 05/16/17 05:05 Baso # 0.0 K/mm3 (0.0-0.1) 05/16/17 05:05 Seg Neutrophils % 60.5 % (40.0-70.0) 05/16/17 05:05 Seg Neutrophils # 2.0 K/mm3 (1.8-7.7) 05/16/17 05:05 D-Dimer 447.72 ng/mlDDU (0-234) H 05/14/17 17:02 POC ABG pH 7.377 (7.35-7.45) 05/16/17 00:29 POC ABG pCO2 45.5 (35-45) H 05/16/17 00:29 POC ABG pO2 121 (80-105) H 05/16/17 00:29 POC ABG HCO3 26.7 05/16/17 00:29 POC ABG Total CO2 28 05/16/17 00:29 POC ABG O2 Sat 99 05/16/17 00:29 POC ABG Base Excess 2 05/16/17 00:29 FiO2 28 % 05/16/17 00:29 Sodium 143 mmol/L (137-145) 05/16/17 05:05 Potassium 4.2 mmol/L (3.6-5.0) 05/16/17 05:05 Chloride 99.7 mmol/L (98-107) 05/16/17 05:05 Carbon Dioxide 25 mmol/L (22-30) 05/16/17 05:05 Anion Gap 23 mmol/L 05/16/17 05:05 BUN 27 mg/dL (7-17) H 05/16/17 05:05 Creatinine 10.4 mg/dL (0.7-1.2) H 05/16/17 05:05 Estimated GFR 5 ml/min 05/16/17 05:05 BUN/Creatinine Ratio 3 % 05/16/17 05:05 Glucose 88 mg/dL (65-100) 05/16/17 05:05 POC Glucose 100 (70-105) 05/16/17 08:02 Calcium 8.5 mg/dL (8.4-10.2) 05/16/17 05:05 Total Bilirubin 0.60 mg/dL (0.1-1.2) 05/16/17 05:05 AST 14 units/L (5-40) 05/16/17 05:05 ALT 6 units/L (7-56) L 05/16/17 05:05 Alkaline Phosphatase 139 units/L (35-129) H 05/16/17 05:05 C-Reactive Protein 4.40 mg/dL (0.00-1.30) H 05/15/17 20:50 Total Protein 6.7 g/dL (6.3-8.2) 05/16/17 05:05 Albumin 3.4 g/dL (3.9-5) L 05/16/17 05:05 Albumin/Globulin Ratio 1.0 % 05/16/17 05:05 TSH 2.640 mlU/mL (0.270-4.200) 05/14/17 02:00 Free T4 1.24 ng/dL (0.76-1.46) 05/14/17 02:00 Thyroxine (T4) 6.7 ug/dL (4.0-12.0) 05/14/17 02:00
--- NOTE | 2017-05-16 10:53 | Progress Note ---
Assessment and Plan Assessment: 1) Shock: resolved; unclear etiology ? septic vs nonseptic ? BP cuff inaccurate measurements 2) Left knee edema ? r/o septic arthritis CRP=4.4 3) Multiple joint DJD 4) Morbid obesity 5) ESRD on HD Plan: -follow-up blood cultures -agree with ortho eval for diagnostic arthrocentesis -continue vanco to cover possible septic arthritis -stop zosyn I will be off until May 22, but available over the phone, please call me for questions. Thank you Dr Dan for your consultation, will follow up with you. Carine Cain MD Infectious Diseases Specialist [facility] ([facility]) M [phone] O [phone] Subjective Date of service: 05/16/17 Principal diagnosis: sepsis Interval history: Feels better, still left knee pain 10/27. No fever. No dizziness Micro: Blood cx neg Abx: zosyn 05/14 vanco 05/14 Objective - Exam Narrative Exam: General appearance: Alert in NAD, conversant obese Eyes: anicteric sclerae, moist conjunctivae; no lid-lag; PERRLA HENT: Atraumatic; oropharynx clear Neck: Trachea midline Lungs: CTA, with normal respiratory effort and no intercostal retractions CV: RRR, no murmurs Abdomen: Soft, non-tender; no masses or hepatosplenomegaly Extremities: + Ext left knee edema, heat and tenderness, right knee edema Skin: Normal temperature, turgor and texture; no rash, ulcers or subcutaneous nodules Psych: Appropriate affect, alert and oriented to person, place and time. Neuro: alert and oriented x 3. Moving all extermities Lines: No CVL / PICC - Constitutional Vitals: Vital Signs Temp Pulse Resp BP Pulse Ox 98.8 F 76 20 108/49 100 05/16/17 10:26 05/16/17 10:26 05/16/17 10:26 05/16/17 10:26 05/16/17 10:26 Temperature -Last 24 Hours Temperature 98.8 F Temperature 98.8 F Temperature 97.8 F Temperature 98.2 F Temperature 98.4 F Temperature 97.2 F Temperature 98.2 F - Labs CBC & Chem 7: 05/16/17 05:05 05/16/17 05:05 Labs: Abnormal lab results 05/15/17 05/15/17 05/15/17 Range/Units 12: 20:50 21:59 WBC (4.5-11.0) K/mm3 RBC (3.65-5.03) M/mm3 Hgb (10.1-14.3) gm/dl Hct (30.3-42.9) % RDW (13.2-15.2) % Barry % (Auto) (0.0-7.3) % Eos % (Auto) (0.0-4.3) % Lymph # (1.2-5.4) K/mm3 POC ABG pH 7.332 L (7.35-7.45) POC ABG pCO2 45.1 H (35-45) POC ABG pO2 137 H (80-105) BUN (7-17) mg/dL Creatinine (0.7-1.2) mg/dL POC Glucose 123 H (70-105) ALT (7-56) units/L Alkaline Phosphatase (35-129) units/L C-Reactive Protein 4.40 H (0.00-1.30) mg/dL Albumin (3.9-5) g/dL 05/16/17 05/16/17 05/16/17 Range/Units 00:29 05:05 05:05 WBC 3.3 L (4.5-11.0) K/mm3 RBC 3.08 L (3.65-5.03) M/mm3 Hgb 9.6 L (10.1-14.3) gm/dl Hct 29.9 L (30.3-42.9) % RDW 18.2 H (13.2-15.2) % Barry % (Auto) 13.0 H (0.0-7.3) % Eos % (Auto) 5.2 H (0.0-4.3) % Lymph # 0.7 L (1.2-5.4) K/mm3 POC ABG pH (7.35-7.45) POC ABG pCO2 45.5 H (35-45) POC ABG pO2 121 H (80-105) BUN 27 H (7-17) mg/dL Creatinine 10.4 H (0.7-1.2) mg/dL POC Glucose (70-105) ALT 6 L (7-56) units/L Alkaline Phosphatase 139 H (35-129) units/L C-Reactive Protein (0.00-1.30) mg/dL Albumin 3.4 L (3.9-5) g/dL
[2017-05-16] MEDS ORDERED: DILAUDID IV PRN (11:44)
--- NOTE | 2017-05-16 14:00 | Progress Note ---
Assessment and Plan Sepsis-Hypotension/SIRS Chronic hypoxic respiratory failure on home oxygen h/o COPD Morbid obesity Obstructive sleep apnea on PAP at home Elevated D-Dimer ESRD PAF with hypercoaguable state - continue empiric antibiotics. - Sepsis bundle per protocol - follow orthopedic recommendations - follow up all cultures - GI & VTE prophylaxis - supplemental oxygen to keep sats > 90% - continue BIPAP qhs and prn daytime - continue bronchodilators and pulmonary hygiene per RT - for analgesia, avoid use of narcotics as possible - continue supportive HD - CTA and Dopplers negative for VTE - will re-evaluate in am & prn Subjective Date of service: 05/16/17 Principal diagnosis: sepsis syndrome; Obesity; Hypotension Interval history: Patient is seen today for: sepsis syndrome; Obesity; Hypotension Seen and examined at bedside; 24hour events reviewed; nursing and respiratory care staff consulted; no adverse overnight events reported to me; resting peacefully in bed; feels better; denies acute chest pains or increased SOB; left knee pain is stable Objective Vital Signs - 12hr 05/16/17 05/16/17 05/16/17 04:20 07:54 08:08 Temperature 97.8 F 98.8 F Pulse Rate 68 74 Pulse Rate [ Anterior Bilateral Throughout] Respiratory 20 20 14 Rate Respiratory Rate [Anterior Bilateral Throughout] Blood Pressure 105/38 108/49 Blood Pressure [Left] O2 Sat by Pulse 99 100 Oximetry 05/16/17 05/16/17 05/16/17 08:51 08:54 09:22 Temperature Pulse Rate Pulse Rate [ 75 91 H Anterior Bilateral Throughout] Respiratory Rate Respiratory 18 18 Rate [Anterior Bilateral Throughout] Blood Pressure Blood Pressure [Left] O2 Sat by Pulse 99 Oximetry 05/16/17 05/16/17 10:00 10:26 Temperature 98.8 F Pulse Rate 67 76 Pulse Rate [ Anterior Bilateral Throughout] Respiratory 20 Rate Respiratory Rate [Anterior Bilateral Throughout] Blood Pressure Blood Pressure 108/49 [Left] O2 Sat by Pulse 100 Oximetry Constitutional: no acute distress, alert, other (morbidly obese, awake, alert, oriented x3, ) Eyes: non-icteric ENT: oropharynx moist, other (large neck circumference) Neck: supple, no lymphadenopathy, no JVD, other (no thyromegaly) Effort: normal Ascultation: Bilateral: clear, diminished breath sounds Percussion: Bilateral: not dull Cardiovascular: regular rate and rhythm, other (S1,S2, no murmurs, gallops or rubs) Gastrointestinal: normoactive bowel sounds, soft, non-tender, non-distended, other (No HSM) Integumentary: normal Extremities: no cyanosis, no edema, pulses normal, no ischemia or petechiae Neurologic: normal mental status, non-focal exam, pupils equal and round, motor strength normal and Psychiatric: mood appropriate, affect normal CBC and BMP: 05/16/17 05:05 05/16/17 05:05 ABG, PT/INR, D-dimer: ABG POC ABG pH 7.377 (7.35-7.45) 05/16/17 00:29 POC ABG pCO2 45.5 (35-45) H 05/16/17 00:29 POC ABG pO2 121 (80-105) H 05/16/17 00:29 POC ABG HCO3 26.7 05/16/17 00:29 POC ABG Total CO2 28 05/16/17 00:29 POC ABG O2 Sat 99 05/16/17 00:29 PT/INR, D-dimer D-Dimer 447.72 ng/mlDDU (0-234) H 05/14/17 17:02 Abnormal lab findings: Abnormal Labs 05/14/17 05/14/17 05/14/17 16:22 16:22 17:02 WBC RBC Hgb Hct RDW 18.1 H Louisa % (Auto) 7.8 H Eos % (Auto) Lymph # D-Dimer 447.72 H POC ABG pH POC ABG pCO2 POC ABG pO2 Chloride 90.7 L BUN 38 H Creatinine 11.8 H Glucose 123 H POC Glucose ALT Alkaline Phosphatase 176 H C-Reactive Protein Albumin 05/15/17 05/15/17 05/15/17 06:30 12:27 20:50 WBC RBC Hgb Hct RDW Louisa % (Auto) Eos % (Auto) Lymph # D-Dimer POC ABG pH 7.332 L POC ABG pCO2 45.1 H POC ABG pO2 137 H Chloride BUN Creatinine Glucose POC Glucose 112 H ALT Alkaline Phosphatase C-Reactive Protein 4.40 H Albumin 05/15/17 05/16/17 05/16/17 21:59 00:29 05:05 WBC 3.3 L RBC 3.08 L Hgb 9.6 L Hct 29.9 L RDW 18.2 H Louisa % (Auto) 13.0 H Eos % (Auto) 5.2 H Lymph # 0.7 L D-Dimer POC ABG pH POC ABG pCO2 45.5 H POC ABG pO2 121 H Chloride BUN Creatinine Glucose POC Glucose 123 H ALT Alkaline Phosphatase C-Reactive Protein Albumin 05/16/17 05:05 WBC RBC Hgb Hct RDW Louisa % (Auto) Eos % (Auto) Lymph # D-Dimer POC ABG pH POC ABG pCO2 POC ABG pO2 Chloride BUN 27 H Creatinine 10.4 H Glucose POC Glucose ALT 6 L Alkaline Phosphatase 139 H C-Reactive Protein Albumin 3.4 L Chest x-ray: image reviewed (no acute process; 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
--- NOTE | 2017-05-16 16:39 | Consultation ---
History of Present Illness - [facility] Consult date: 05/16/17 Consult reason: joint pain History of present illness: 56-year-old woman who is morbidly obese, wheelchair dependence, Lives in a detention [place]. Her medical issues including ESRD, diastolic CHF, COPD on oxygen dependence and Paroxysmal atrial fibrillation. She claims that she has been having pain in her left knee for over a year, she states that it was giving her pain medications in the detention. States she stopped walking about 2 yrs ago after major health episode at [facility].. Past History Past Medical History: atrial fib (diastolic paroxysmal), COPD (oxygen dependence ), diabetes (type II, insulin-dependent), dialysis, ESRD, heart failure ( diastolic), hypertension, hypothyroidism (on Synthroid), other (morbid obesity, debility,) Past Surgical History: hysterectomy, Other (AV graft, abdominal surgery for growth removal) Social history: other (lives in detention). denies: smoking, alcohol abuse Family history: diabetes Medications and Allergies Allergies Allergy/AdvReac Type Severity Reaction Status Date / Time No Known Allergies Allergy Verified 10/02/13 09:59 Home Medications Medication Instructions Recorded Confirmed Last Taken Type Atorvastatin [Lipitor] 40 mg PO QHS 09/23/13 05/15/17 08/06/16 21:00 History Fluticasone/Salmeterol [Advair 2 puff IH BID 09/23/13 05/15/17 08/06/16 21:00 History Diskus 250-50 mcg] Magnesium Oxide 400 mg PO DAILY 09/23/13 05/15/17 08/06/16 09:00 History Levothyroxine [Synthroid] 50 mcg PO DAILY@0600 #30 tablet 03/23/16 05/15/17 Rx Arformoterol Nebu [Brovana Nebu] 15 mcg INHALATION Q12HR 04/13/16 05/15/1708/06 09:00 History Hydroxyzine HCl 25 mg PO Q8H 04/13/16 05/15/17 08/06/16 21:00 History Omeprazole Magnesium [PriLOSEC Otc] 20 mg PO DAILY 04/13/16 05/15/17 08/06/16 09 :00 History Insulin Lispro [HumaLOG VIAL] See Protocol SQ AC 07/18/16 05/15/17 08/06/16 21: 00 History B Complex 11/Folic/C/Biot/Zinc 1 each PO QDAY 11/29/16 05/15/17 Unknown History [Dialyvite with Zinc Tablet] Cinacalcet [Sensipar] 30 mg PO HS 11/29/16 05/15/17 Unknown History Budesonide [Pulmicort] 0.25 mg IH Q12HR 05/15/17 05/15/17 Unknown History Bumetanide [Bumetanide 2 mg tab] 2 mg PO BID 05/15/17 05/15/17 Unknown History Metoprolol [Lopressor TAB] 75 mg PO BID PRN 05/15/17 05/15/17 Unknown History Sevelamer Carbonate [Renvela] 800 mg PO TID 05/15/17 05/15/17 Unknown History oxyCODONE /ACETAMINOPHEN [Percocet 2 tab PO TID 05/15/17 05/15/17 Unknown History 5/325] traMADol [Ultram] 50 mg PO QID PRN 05/15/17 05/15/17 Unknown History Active Meds: Active Medications Acetaminophen (Tylenol) 650 mg PO Q6H PRN PRN Reason: Pain, Mild (1-3) Last Admin: 05/16/17 08:08 Dose: 650 mg Acetaminophen/Hydrocodone Bitart (Christoval 10/325) 1 each PO Q6H PRN PRN Reason: Pain, Moderate (4-6) Albuterol (Proventil) 2.5 mg IH Q6HRT [facility] Last Admin: 05/16/17 14:19 Dose: 2.5 mg Arformoterol Tartrate (Brovana Nebu) 15 mcg IH Q12HRT [facility] Last Admin: 05/16/17 08:51 Dose: 15 mcg Atorvastatin Calcium (Lipitor) 40 mg PO QHS [facility] Last Admin: 05/15/17 22:16 Dose: 40 mg Budesonide (Pulmicort) 0.5 mg IH Q12HRT [facility] Last Admin: 05/16/17 08:50 Dose: 0.5 mg Bumetanide (Bumex) 2 mg PO BID [facility] Last Admin: 05/16/17 09:05 Dose: 2 mg Dextrose (D50w (25gm) Syringe) 50 ml IV PRN PRN PRN Reason: Hypoglycemia Epoetin Neil (Procrit) 10,000 unit IV LINDA PRN PRN Reason: hemodialysis Ferrous Sulfate (Feosol) 325 mg PO QDAY [facility] Last Admin: 05/16/17 09:04 Dose: 325 mg Heparin Sodium (Porcine) (Heparin) 5,000 unit SUB-Q Q8HR [facility] Last Admin: 05/16/17 13:04 Dose: 5,000 unit Hydromorphone HCl (Dilaudid) 1 mg IV Q4H PRN PRN Reason: Severe Pain Hydroxyzine HCl (Atarax) 25 mg PO Q8HR [facility] Last Admin: 05/16/17 13:04 Dose: 25 mg Norepinephrine (Levophed Drip 4 Mg/Ns 250 Ml) 4 mg in 250 mls @ 7.5 mls/hr IV TITR PRATIK; 2 MCG/MIN PRN Reason: Protocol Piperacillin Sod/Tazobactam Sod (Zosyn/Ns 2.25 Gm/50ml) 2.25 gm in 50 mls @ 100 mls/hr IV Q8H [facility] Last Admin: 05/16/17 15:30 Dose: 100 mls/hr Sodium Chloride (Nacl 0.9%) 100 mls @ 999 mls/hr IV LINDA PRN PRN Reason: Hypotension Insulin Aspart (Novolog) 0 units SUB-Q ACHS [facility] PRN Reason: Protocol Last Admin: 05/16/17 13:04 Dose: Not Given Levothyroxine Sodium (Synthroid) 50 mcg PO DAILY@0600 [facility] Last Admin: 05/16/17 05:46 Dose: 50 mcg Magnesium Oxide (Mag-Ox) 400 mg PO QDAY [facility] Last Admin: 05/16/17 09:05 Dose: 400 mg Multivit/Ca Carb/B Cmplx/FA/Prenat (Renal Caps) 1 cap PO QDAY [facility] Last Admin: 05/16/17 09:05 Dose: 1 cap Pantoprazole Sodium (Protonix) 20 mg PO QDAY [facility] Last Admin: 05/16/17 09:05 Dose: 20 mg Sevelamer Carbonate (Renvela) 800 mg PO TIDWM [facility] Last Admin: 05/16/17 12:59 Dose: 800 mg Vancomycin HCl (Vancomycin Pharmacy To Dose) 1 each IV PKCONSULT [facility] PRN Reason: Protocol Physical Examination - Physical exam Narrative exam: Alert and oriented x 3 significant orthopedic findings relates to the LE's the left knee held in flexed position, minimal effusion noted, no redness/erytheman noted, temp afebrile plain xrays left knee reviewed and show severe OA with complete collapse joint space and subluxation femur/tibia, no radiographic evidence of fluid w/n joint Assessment and Plan morbid obesity, severe OA knee, doubt if knee source of fever/sepsis recommend weight loss, bariatric consultation and maybe intra-articular injections once fever source found, this can be done on outpatient basis
[2017-05-17] MEDS: PROVENTIL IH SCH ×4 (02:48→20:48)
[2017-05-17] MEDS: HEPARIN SUB-Q SCH ×3 (06:03→22:55)
[2017-05-17] MEDS: ATARAX PO SCH ×3 (06:03→22:55)
[2017-05-17] MEDS: SYNTHROID PO SCH (06:03)
[2017-05-17] MEDS: NOVOLOG SUB-Q SCH ×4 (07:33→22:55)
[2017-05-17] MEDS: PULMICORT IH SCH ×2 (08:16→20:48)
[2017-05-17] MEDS: BROVANA NEBU IH SCH ×2 (08:16→20:48)
[2017-05-17] MEDS: ZOSYN/NS 2.25 GM/50ML 2.25 GM/50 ML BAG IV SCH ×2 (08:17→16:32)
[2017-05-17] MEDS: RENVELA PO SCH ×3 (08:17→16:52)
--- NOTE | 2017-05-17 08:47 | Progress Note ---
Assessment and Plan ESRD on hemodialysis: -Via LUE AVF MWF outpatient. - HD today for clearance and volume removal - will assess dialysis needs daily -Check BMP/Mg/Phos daily -Renally dose all meds Sepsis due to unknown cause: Hypotension: -improved -Follow Cx, NTD -On empiric ABx, per ID Left Knee Pain: -Ortho consulted. unlikely septic arthritis Anemia of chronic disease due to ESRD: -Epogen with HD Diabetes mellitus type 2 on insulin: -On ISS -Per primary Chronic atrial fibrillation: -MTP on hold due to low BP -Per primary COPD: -On nebs -Per primary Subjective Date of service: 05/17/17 Principal diagnosis: sepsis Interval history: no SOB, knee pain is better Objective - Vital Signs Vital signs: Vital Signs - 12hr 05/16/17 05/16/17 05/16/17 20:46 21:16 21:20 Temperature 99.9 F H Pulse Rate 84 Pulse Rate [ 83 Anterior Bilateral Throughout] Respiratory 18 Rate Respiratory 20 Rate [Anterior Bilateral Throughout] Blood Pressure 93/46 O2 Sat by Pulse 94 94 Oximetry 05/16/17 05/16/17 05/17/17 21:26 22:31 00:35 Temperature 98.5 F Pulse Rate 83 91 H Pulse Rate [ 85 Anterior Bilateral Throughout] Respiratory 22 22 Rate Respiratory 20 Rate [Anterior Bilateral Throughout] Blood Pressure 98/48 O2 Sat by Pulse 94 100 Oximetry 05/17/17 05/17/17 05/17/17 00:37 02:41 02:53 Temperature 98.5 F Pulse Rate Pulse Rate [ 86 81 Anterior Bilateral Throughout] Respiratory 22 Rate Respiratory 18 16 Rate [Anterior Bilateral Throughout] Blood Pressure O2 Sat by Pulse Oximetry 05/17/17 05/17/17 04:35 05:03 Temperature 98.0 F Pulse Rate 73 79 Pulse Rate [ Anterior Bilateral Throughout] Respiratory 24 Rate Respiratory Rate [Anterior Bilateral Throughout] Blood Pressure 124/67 O2 Sat by Pulse 100 Oximetry - General Appearance General appearance: well-developed, well-nourished, obese EENT: ATNC, PERRL, mucous membranes moist Neck: no JVD, no carotid bruit Respiratory: Present: Decreased Breath Sounds. Absent: Rales, Ronchi Cardiology: regular, S1S2 Gastrointestinal: normoactive bowel sounds, no tenderness, no distended, no guarding, obese Integumentary: no rash, warm and dry Neurologic: no focal deficit, no asterixis, alert and oriented x3 Musculoskeletal: other (trace pitting edema in BLE) Psychiatric: mood/affect appropriate, cooperative - Lab 05/16/17 05:05 05/16/17 05:05 Most recent lab results Calcium 8.5 mg/dL (8.4-10.2) 05/16/17 05:05
[2017-05-17] MEDS: TYLENOL PO PRN ×2 (09:02→16:52)
[2017-05-17] MEDS: BUMEX PO SCH ×2 (09:03→22:55)
[2017-05-17] MEDS: PROTONIX PO SCH (09:03)
[2017-05-17] MEDS: Renal Caps PO SCH (09:03)
[2017-05-17] MEDS: FEOSOL PO SCH (09:03)
[2017-05-17] MEDS: MAG-OX PO SCH (09:03)
[2017-05-17] MEDS ORDERED: NACL 0.9 (PRIMING MACHINE ONLY DIALYSIS) MC ONE (10:39)
[2017-05-17] MEDS ORDERED: NACL 0.9% 100 ML IV PRN ×2 (11:15→11:18)
[2017-05-17 12:33] LABS: Hepatitis A Antibody IgM Non-Reactive (NonReactive); Hepatitis B Core IgM Non-Reactive (NonReactive); Hepatitis B Surface Antigen Non-Reactive (Negative); Hepatitis C Virus Antibody Non-Reactive (NonReactive)
[2017-05-17] MEDS: PROCRIT IV PRN (14:40)
--- NOTE | 2017-05-17 17:21 | Progress Note ---
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, neurpathic joint -dw Dr Castro of Radiology, there is no joint effusion to tap, septic joint is very unlikely SIRS continue broad spectrum abx fup Blood and urine cx, septic joint unlikely ID input appreciated ESRD Nephrology consulted for HD Elevated D-Dimer -CTA and Doppler LE were both neg for VTE DM, type 2 SSI PAF with hypercoaguable state rate is controlled, Metoprolol was dc due to hypotention Morbid obesity -will need weight loss program when improved COPD stable, NTD chronic hypoxic respiratory failure continue supplemental oxygen DVT ppx heparin sq History Interval history: Patient was seen and evaluated this morning, Patient has pain in the left knee Hospitalist Physical - Physical exam Narrative exam: Not in cardiopulmonary distress. The patient is morbidly obese. Vital signs as documented. Head exam is unremarkable. No scleral icterus . Neck is without jugular venous distension, thyromegaly, or carotid bruits. Lungs are clear to auscultation. Cardiac exam reveals regular rate and Rhythm. First and second heart sounds normal. No murmurs, rubs or gallops. Abdominal exam reveals normal bowel sounds, no masses, no organomegaly and no aortic enlargement. Extremities mild left knee swelling. SENIOUR INSIGHT MANAGER: Alert and oriented 3. No focal weakness. - Constitutional Vitals: Temp Pulse Resp BP Pulse Ox 97.9 F 81 18 112/30 98 05/17/17 15:35 05/17/17 15:35 05/17/17 15:35 05/17/17 15:35 05/17/17 15:35 General appearance: Present: no acute distress, well-nourished Results - Labs CBC & Chem 7: 05/16/17 05:05 05/16/17 05:05 Labs: Laboratory Last Values WBC 3.3 K/mm3 (4.5-11.0) L 05/16/17 05:05 RBC 3.08 M/mm3 (3.65-5.03) L 05/16/17 05:05 Hgb 9.6 gm/dl (10.1-14.3) L 05/16/17 05:05 Hct 29.9 % (30.3-42.9) L 05/16/17 05:05 MCV 97 fl (79-97) 05/16/17 05:05 MCH 31 pg (28-32) 05/16/17 05:05 MCHC 32 % (30-34) 05/16/17 05:05 RDW 18.2 % (13.2-15.2) H 05/16/17 05:05 Plt Count 157 K/mm3 (140-440) 05/16/17 05:05 Lymph % (Auto) 20.8 % (13.4-35.0) 05/16/17 05:05 [place] % (Auto) 13.0 % (0.0-7.3) H 05/16/17 05:05 Eos % (Auto) 5.2 % (0.0-4.3) H 05/16/17 05:05 Baso % (Auto) 0.5 % (0.0-1.8) 05/16/17 05:05 Lymph # 0.7 K/mm3 (1.2-5.4) L 05/16/17 05:05 [place] # 0.4 K/mm3 (0.0-0.8) 05/16/17 05:05 Eos # 0.2 K/mm3 (0.0-0.4) 05/16/17 05:05 Baso # 0.0 K/mm3 (0.0-0.1) 05/16/17 05:05 Seg Neutrophils % 60.5 % (40.0-70.0) 05/16/17 05:05 Seg Neutrophils # 2.0 K/mm3 (1.8-7.7) 05/16/17 05:05 D-Dimer 447.72 ng/mlDDU (0-234) H 05/14/17 17:02 POC ABG pH 7.377 (7.35-7.45) 05/16/17 00:29 POC ABG pCO2 45.5 (35-45) H 05/16/17 00:29 POC ABG pO2 121 (80-105) H 05/16/17 00:29 POC ABG HCO3 26.7 05/16/17 00:29 POC ABG Total CO2 28 05/16/17 00:29 POC ABG O2 Sat 99 05/16/17 00:29 POC ABG Base Excess 2 05/16/17 00:29 FiO2 28 % 05/16/17 00:29 Sodium 143 mmol/L (137-145) 05/16/17 05:05 Potassium 4.2 mmol/L (3.6-5.0) 05/16/17 05:05 Chloride 99.7 mmol/L (98-107) 05/16/17 05:05 Carbon Dioxide 25 mmol/L (22-30) 05/16/17 05:05 Anion Gap 23 mmol/L 05/16/17 05:05 BUN 27 mg/dL (7-17) H 05/16/17 05:05 Creatinine 10.4 mg/dL (0.7-1.2) H 05/16/17 05:05 Estimated GFR 5 ml/min 05/16/17 05:05 BUN/Creatinine Ratio 3 % 05/16/17 05:05 Glucose 88 mg/dL (65-100) 05/16/17 05:05 POC Glucose 119 (70-105) H 05/17/17 15:37 Calcium 8.5 mg/dL (8.4-10.2) 05/16/17 05:05 Total Bilirubin 0.60 mg/dL (0.1-1.2) 05/16/17 05:05 AST 14 units/L (5-40) 05/16/17 05:05 ALT 6 units/L (7-56) L 05/16/17 05:05 Alkaline Phosphatase 139 units/L (35-129) H 05/16/17 05:05 C-Reactive Protein 4.40 mg/dL (0.00-1.30) H 05/15/17 20:50 Total Protein 6.7 g/dL (6.3-8.2) 05/16/17 05:05 Albumin 3.4 g/dL (3.9-5) L 05/16/17 05:05 Albumin/Globulin Ratio 1.0 % 05/16/17 05:05 TSH 2.640 mlU/mL (0.270-4.200) 05/14/17 02:00 Free T4 1.24 ng/dL (0.76-1.46) 05/14/17 02:00 Thyroxine (T4) 6.7 ug/dL (4.0-12.0) 05/14/17 02:00 Hepatitis A IgM Ab Non-reactive (NonReactive) 05/17/17 11:10 Hep Bs Antigen Non-reactive (Negative) 05/17/17 11:10 Hep B Core IgM Ab Non-reactive (NonReactive) 05/17/17 11:10 Hepatitis C Antibody Non-reactive (NonReactive) 05/17/17 11:10
--- NOTE | 2017-05-17 20:38 | Progress Note ---
Assessment and Plan Sepsis-Hypotension/SIRS Chronic hypoxic respiratory failure on home oxygen h/o COPD Morbid obesity Obstructive sleep apnea on PAP at home Elevated D-Dimer ESRD PAF with hypercoaguable state - continue empiric antibiotics. - Sepsis bundle per protocol - follow orthopedic recommendations - follow up all cultures - GI & VTE prophylaxis - supplemental oxygen to keep sats > 90% - continue BIPAP qhs and prn daytime - continue bronchodilators and pulmonary hygiene per RT - for analgesia, avoid use of narcotics as possible - continue supportive HD - CTA and Dopplers negative for VTE - will re-evaluate in am & prn Subjective Date of service: 05/17/17 Principal diagnosis: sepsis syndrome; Obesity; Hypotension Interval history: Patient is seen today for: sepsis syndrome; Obesity; Hypotension Seen and examined at bedside; 24hour events reviewed; nursing and respiratory care staff consulted; no adverse overnight events reported to me; resting peacefully in bed; no new issues; continues to feel better; denies acute chest pains or increased SOB; No N/V/F/C Objective Vital Signs - 12hr 05/17/17 05/17/17 05/17/17 10:00 10:44 10:48 Temperature 97.8 F 97.9 F Pulse Rate 72 81 80 Respiratory 18 20 Rate Blood Pressure 101/50 102/52 O2 Sat by Pulse 96 98 Oximetry 05/17/17 05/17/17 05/17/17 11:00 11:15 11:30 Temperature Pulse Rate 80 66 66 Respiratory Rate Blood Pressure 102/52 110/49 99/75 O2 Sat by Pulse Oximetry 05/17/17 05/17/17 05/17/17 11:45 12:00 12:15 Temperature Pulse Rate 72 69 75 Respiratory Rate Blood Pressure 94/49 106/55 106/56 O2 Sat by Pulse Oximetry 05/17/17 05/17/17 05/17/17 12:30 12:45 13:00 Temperature Pulse Rate 71 71 73 Respiratory Rate Blood Pressure 103/54 102/53 112/56 O2 Sat by Pulse Oximetry 05/17/17 05/17/17 05/17/17 13:15 13:30 13:45 Temperature Pulse Rate 71 71 74 Respiratory Rate Blood Pressure 100/50 104/54 103/55 O2 Sat by Pulse Oximetry 05/17/17 05/17/17 05/17/17 13:58 14:30 15:35 Temperature 98.7 F 97.9 F Pulse Rate 74 88 81 Respiratory 16 18 Rate Blood Pressure 99/41 92/53 112/30 O2 Sat by Pulse 98 Oximetry Constitutional: no acute distress, alert, other (morbidly obese, awake, alert, oriented x3, ) Eyes: non-icteric ENT: oropharynx moist, other (large neck circumference) Neck: supple, no lymphadenopathy, no JVD, other (no thyromegaly) Effort: normal Ascultation: Bilateral: clear, diminished breath sounds Percussion: Bilateral: not dull Cardiovascular: regular rate and rhythm, other (S1,S2, no murmurs, gallops or rubs) Gastrointestinal: normoactive bowel sounds, soft, non-tender, non-distended, other (No HSM) Integumentary: normal Extremities: no cyanosis, no edema, pulses normal, no ischemia or petechiae Neurologic: normal mental status, non-focal exam, pupils equal and round, motor strength normal and Psychiatric: mood appropriate, affect normal CBC and BMP: 05/19/17 06:55 05/19/17 06:55 ABG, PT/INR, D-dimer: ABG POC ABG pH 7.377 (7.35-7.45) 05/16/17 00:29 POC ABG pCO2 45.5 (35-45) H 05/16/17 00:29 POC ABG pO2 121 (80-105) H 05/16/17 00:29 POC ABG HCO3 26.7 05/16/17 00:29 POC ABG Total CO2 28 05/16/17 00:29 POC ABG O2 Sat 99 05/16/17 00:29 PT/INR, D-dimer D-Dimer 447.72 ng/mlDDU (0-234) H 05/14/17 17:02 Abnormal lab findings: Abnormal Labs 05/14/17 05/14/17 05/14/17 16:22 16:22 17:02 WBC RBC Hgb Hct RDW 18.1 H [place] % (Auto) 7.8 H Eos % (Auto) Lymph # D-Dimer 447.72 H POC ABG pH POC ABG pCO2 POC ABG pO2 Chloride 90.7 L BUN 38 H Creatinine 11.8 H Glucose 123 H POC Glucose ALT Alkaline Phosphatase 176 H C-Reactive Protein Albumin 05/15/17 05/15/17 05/15/17 06:30 12:27 20:50 WBC RBC Hgb Hct RDW [place] % (Auto) Eos % (Auto) Lymph # D-Dimer POC ABG pH 7.332 L POC ABG pCO2 45.1 H POC ABG pO2 137 H Chloride BUN Creatinine Glucose POC Glucose 112 H ALT Alkaline Phosphatase C-Reactive Protein 4.40 H Albumin 05/15/17 05/16/17 05/16/17 21:59 00:29 05:05 WBC 3.3 L RBC 3.08 L Hgb 9.6 L Hct 29.9 L RDW 18.2 H [place] % (Auto) 13.0 H Eos % (Auto) 5.2 H Lymph # 0.7 L D-Dimer POC ABG pH POC ABG pCO2 45.5 H POC ABG pO2 121 H Chloride BUN Creatinine Glucose POC Glucose 123 H ALT Alkaline Phosphatase C-Reactive Protein Albumin 05/16/17 05/16/17 05/17/17 05:05 21:49 07:28 WBC RBC Hgb Hct RDW [place] % (Auto) Eos % (Auto) Lymph # D-Dimer POC ABG pH POC ABG pCO2 POC ABG pO2 Chloride BUN 27 H Creatinine 10.4 H Glucose POC Glucose 126 H 114 H ALT 6 L Alkaline Phosphatase 139 H C-Reactive Protein Albumin 3.4 L 05/17/17 05/17/17 10:46 15:37 WBC RBC Hgb Hct RDW [place] % (Auto) Eos % (Auto) Lymph # D-Dimer POC ABG pH POC ABG pCO2 POC ABG pO2 Chloride BUN Creatinine Glucose POC Glucose 181 H 119 H ALT Alkaline Phosphatase C-Reactive Protein Albumin Allied health notes reviewed: nursing
[2017-05-17] MEDS ORDERED: PROAMATINE PO STA (21:44)
[2017-05-18] MEDS: PROVENTIL IH SCH ×4 (01:55→20:11)
[2017-05-18 06:37] LABS: Basophils % (Auto) 0.6 % (0.0-1.8); Eosinophils # (Auto) 0.2 K/mm3 (0.0-0.4); Eosinophils % (Auto) 6.3 % (0.0-4.3); Hematocrit 29.6 % (30.3-42.9); Hemoglobin 9.6 gm/dl (10.1-14.3); Lymphocytes # (Auto) 0.5 K/mm3 (1.2-5.4); Lymphocytes % (Auto) 17.4 % (13.4-35.0); Mean Corpuscular HGB Conc 32 % (30-34); Mean Corpuscular Hemoglobin 31 pg (28-32); Mean Corpuscular Volume 97 fl (79-97); Monocytes # (Auto) 0.4 K/mm3 (0.0-0.8); Platelet Count 159 K/mm3 (140-440); Red Blood Count 3.07 M/mm3 (3.65-5.03)
[2017-05-18] MEDS: SYNTHROID PO SCH (06:50)
[2017-05-18] MEDS: HEPARIN SUB-Q SCH ×3 (06:50→22:38)
[2017-05-18] MEDS: ATARAX PO SCH ×3 (06:50→22:38)
[2017-05-18 07:19] LABS: Calcium 8.9 mg/dL (8.4-10.2)
[2017-05-18] MEDS: BROVANA NEBU IH SCH ×2 (07:45→20:11)
[2017-05-18] MEDS: PULMICORT IH SCH ×2 (07:45→20:11)
[2017-05-18] MEDS: NOVOLOG SUB-Q SCH ×4 (09:21→22:40)
[2017-05-18] MEDS: PROTONIX PO SCH (09:23)
[2017-05-18] MEDS: BUMEX PO SCH ×2 (09:23→22:38)
[2017-05-18] MEDS: NORCO 10/325 PO PRN ×2 (09:23→18:07)
[2017-05-18] MEDS: MAG-OX PO SCH (09:23)
[2017-05-18] MEDS: Renal Caps PO SCH (09:23)
[2017-05-18] MEDS: FEOSOL PO SCH (09:24)
[2017-05-18] MEDS: RENVELA PO SCH ×3 (11:27→17:13)
[2017-05-18] MEDS ORDERED: VANCOMYCIN VIAL 500 MG in NACL 0.9% 100 ML IV ONE (12:00)
--- NOTE | 2017-05-18 13:51 | Progress Note ---
Assessment and Plan ESRD on hemodialysis: -Via LUE AVF MWF outpatient. -s/p HD yesterday, no HD today. HD MWF while inpatient but will eval daily. -Check BMP/Mg/Phos daily -Renally dose all meds Sepsis due to unknown cause: Hypotension: -BP better. Midodrine was dced. -Follow Cx, UA ordered. -On empiric ABx -Per primary and ID. Left Knee Pain: -Ortho consulted. Per them Anemia of chronic disease due to ESRD: -Hg stable, monitor for now Diabetes mellitus type 2 on insulin: -On ISS -Per primary Chronic atrial fibrillation: -Per primary COPD: -On nebs -Per primary Morbid Obesity: -Counselled to loose wt -Likely has underlying NURIS and should get CPAP at night Johnny Franco MD Nephrology, Hypertension, Dialysis, Transplantation Phone no: [phone] Subjective Date of service: 05/18/17 Principal diagnosis: sepsis syndrome; Obesity; Hypotension Interval history: Tolerated HD yesterday, denies CP/SHOB. Objective - Exam Narrative Exam: GE: AAOX3, Mobridly obese HEENT: PERRLA Neck: No JVD CVS: RRR Chest: Dec BS due to body habitus Abd: Soft/NT, obese, BS+ Ext: 1+ BLE edema, LUE AVF with good thrill Neuro: AAOX3 - Vital Signs Vital signs: Vital Signs - 12hr 05/18/17 05/18/17 05/18/17 05:07 07:45 07:55 Temperature 98.5 F Pulse Rate 82 Pulse Rate [ 75 77 Anterior Bilateral Throughout] Respiratory 20 Rate Respiratory 18 20 Rate [Anterior Bilateral Throughout] Blood Pressure 132/53 Blood Pressure [Left] O2 Sat by Pulse 97 98 Oximetry 05/18/17 05/18/17 05/18/17 08:39 10:00 12:02 Temperature 98.4 F 98.5 F Pulse Rate 81 76 61 Pulse Rate [ Anterior Bilateral Throughout] Respiratory 20 20 Rate Respiratory Rate [Anterior Bilateral Throughout] Blood Pressure Blood Pressure 133/66 104/58 [Left] O2 Sat by Pulse 95 95 Oximetry - Lab 05/18/17 06:10 05/18/17 06:10 Most recent lab results Calcium 8.9 mg/dL (8.4-10.2) 05/18/17 06:10 Phosphorus 3.40 mg/dL (2.5-4.5) 05/18/17 06:10
--- NOTE | 2017-05-18 18:38 | Progress Note ---
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, neurpathic joint -dw Dr Castro of Radiology, there is no joint effusion to tap, septic joint is very unlikely SIRS continue broad spectrum abx fup Blood and urine cx, septic joint unlikely ID input appreciated ESRD Nephrology consulted for HD Elevated D-Dimer -CTA and Doppler LE were both neg for VTE DM, type 2 SSI PAF with hypercoaguable state rate is controlled, Metoprolol was dc due to hypotention Morbid obesity -will need weight loss program when improved COPD stable, NTD chronic hypoxic respiratory failure continue supplemental oxygen DVT ppx heparin sq History Interval history: Patient was seen and evaluated this morning, Patient has pain in the left knee Hospitalist Physical - Physical exam Narrative exam: Not in cardiopulmonary distress. The patient is morbidly obese. Vital signs as documented. Head exam is unremarkable. No scleral icterus . Neck is without jugular venous distension, thyromegaly, or carotid bruits. Lungs are clear to auscultation. Cardiac exam reveals regular rate and Rhythm. First and second heart sounds normal. No murmurs, rubs or gallops. Abdominal exam reveals normal bowel sounds, no masses, no organomegaly and no aortic enlargement. Extremities mild left knee swelling. EXPANDER: Alert and oriented 3. No focal weakness. - Constitutional Vitals: Temp Pulse Resp BP Pulse Ox 98.7 F 77 20 124/76 97 05/18/17 17:17 05/18/17 17:17 05/18/17 17:17 05/18/17 17:17 05/18/17 17:17 General appearance: Present: no acute distress, well-nourished Results - Labs CBC & Chem 7: 05/18/17 06:10 05/18/17 06:10 Labs: Laboratory Last Values WBC 3.1 K/mm3 (4.5-11.0) L 05/18/17 06:10 RBC 3.07 M/mm3 (3.65-5.03) L 05/18/17 06:10 Hgb 9.6 gm/dl (10.1-14.3) L 05/18/17 06:10 Hct 29.6 % (30.3-42.9) L 05/18/17 06:10 MCV 97 fl (79-97) 05/18/17 06:10 MCH 31 pg (28-32) 05/18/17 06:10 MCHC 32 % (30-34) 05/18/17 06:10 RDW 19.0 % (13.2-15.2) H 05/18/17 06:10 Plt Count 159 K/mm3 (140-440) 05/18/17 06:10 Lymph % (Auto) 17.4 % (13.4-35.0) 05/18/17 06:10 [place] % (Auto) 13.0 % (0.0-7.3) H 05/18/17 06:10 Eos % (Auto) 6.3 % (0.0-4.3) H 05/18/17 06:10 Baso % (Auto) 0.6 % (0.0-1.8) 05/18/17 06:10 Lymph # 0.5 K/mm3 (1.2-5.4) L 05/18/17 06:10 [place] # 0.4 K/mm3 (0.0-0.8) 05/18/17 06:10 Eos # 0.2 K/mm3 (0.0-0.4) 05/18/17 06:10 Baso # 0.0 K/mm3 (0.0-0.1) 05/18/17 06:10 Seg Neutrophils % 62.7 % (40.0-70.0) 05/18/17 06:10 Seg Neutrophils # 1.9 K/mm3 (1.8-7.7) 05/18/17 06:10 D-Dimer 447.72 ng/mlDDU (0-234) H 05/14/17 17:02 POC ABG pH 7.377 (7.35-7.45) 05/16/17 00:29 POC ABG pCO2 45.5 (35-45) H 05/16/17 00:29 POC ABG pO2 121 (80-105) H 05/16/17 00:29 POC ABG HCO3 26.7 05/16/17 00:29 POC ABG Total CO2 28 05/16/17 00:29 POC ABG O2 Sat 99 05/16/17 00:29 POC ABG Base Excess 2 05/16/17 00:29 FiO2 28 % 05/16/17 00:29 Sodium 143 mmol/L (137-145) 05/18/17 06:10 Potassium 4.3 mmol/L (3.6-5.0) 05/18/17 06:10 Chloride 99.8 mmol/L (98-107) 05/18/17 06:10 Carbon Dioxide 25 mmol/L (22-30) 05/18/17 06:10 Anion Gap 23 mmol/L 05/18/17 06:10 BUN 22 mg/dL (7-17) H 05/18/17 06:10 Creatinine 9.2 mg/dL (0.7-1.2) H 05/18/17 06:10 Estimated GFR 5 ml/min 05/18/17 06:10 BUN/Creatinine Ratio 2 % 05/18/17 06:10 Glucose 103 mg/dL (65-100) H 05/18/17 06:10 POC Glucose 137 (70-105) H 05/17/17 22:22 Calcium 8.9 mg/dL (8.4-10.2) 05/18/17 06:10 Phosphorus 3.40 mg/dL (2.5-4.5) 05/18/17 06:10 Total Bilirubin 0.60 mg/dL (0.1-1.2) 05/16/17 05:05 AST 14 units/L (5-40) 05/16/17 05:05 ALT 6 units/L (7-56) L 05/16/17 05:05 Alkaline Phosphatase 139 units/L (35-129) H 05/16/17 05:05 C-Reactive Protein 4.40 mg/dL (0.00-1.30) H 05/15/17 20:50 Total Protein 6.7 g/dL (6.3-8.2) 05/16/17 05:05 Albumin 3.4 g/dL (3.9-5) L 05/16/17 05:05 Albumin/Globulin Ratio 1.0 % 05/16/17 05:05 TSH 2.640 mlU/mL (0.270-4.200) 05/14/17 02:00 Free T4 1.24 ng/dL (0.76-1.46) 05/14/17 02:00 Thyroxine (T4) 6.7 ug/dL (4.0-12.0) 05/14/17 02:00 Random Vancomycin 13.4 ug/mL (0-40.0) 05/18/17 06:10 Hepatitis A IgM Ab Non-reactive (NonReactive) 05/17/17 11:10 Hep Bs Antigen Non-reactive (Negative) 05/17/17 11:10 Hep B Core IgM Ab Non-reactive (NonReactive) 05/17/17 11:10 Hepatitis C Antibody Non-reactive (NonReactive) 05/17/17 11:10
--- NOTE | 2017-05-18 20:04 | Progress Note ---
Assessment and Plan Patent resting on room air. Not using her O2. O2 saturation 93%. Recommend to keep O2 2 litres via nasal canula.No complaint of chest pain or shortness of breath or cough. - Patient Problems (1) Bronchospasm Current Visit: No Status: Acute Plan to address problem: No complaint of wheezing or cough at this time. Brovanna/Budesonide aerosol treatments q 12 hours. Albuterol inhaler 2 puffs po qid prn for shortness of breath. (2) Chronic kidney disease (CKD) Current Visit: Yes Status: Chronic Plan to address problem: Management as per nephrology. (3) Acute on chronic congestive heart failure Current Visit: No Status: Acute Plan to address problem: Management as per cardiology. (4) Acute respiratory failure Current Visit: No Status: Acute Plan to address problem: O2 2 litres via nasal canula. Brovanna/Budesonide aerosol treatments q 12 hours. Albuterol inhaler 2 puffs po qid prn for shortness of breath. Continue S/C Heparin. Continue Protonix. (5) Atrial fibrillation and flutter Current Visit: No Status: Acute Plan to address problem: Management as per cardiology. (6) Morbid obesity with BMI of 60.0-69.9, adult Current Visit: No Status: Acute Plan to address problem: Weight reduction diet' Exercise (7) NURIS (obstructive sleep apnea) Current Visit: No Status: Chronic Plan to address problem: Continue CPAP as she is using at home. Subjective Principal diagnosis: sepsis syndrome; Obesity; Hypotension Interval history: Patent resting on room air. Not using her O2. O2 saturation 93%. Recommend to keep O2 2 litres via nasal canula.No complaint of chest pain or shortness of breath or cough. Objective Vital Signs - 12hr 05/18/17 05/18/17 05/18/17 08:39 10:00 12:02 Temperature 98.4 F 98.5 F Pulse Rate 81 76 61 Respiratory 20 20 Rate Blood Pressure 133/66 104/58 [Left] O2 Sat by Pulse 95 95 Oximetry 05/18/17 17:17 Temperature 98.7 F Pulse Rate 77 Respiratory 20 Rate Blood Pressure 124/76 [Left] O2 Sat by Pulse 97 Oximetry Constitutional: no acute distress, alert, other (morbidly obese, awake, alert, oriented x3, ) Eyes: non-icteric ENT: oropharynx moist, other (large neck circumference) Neck: supple, no lymphadenopathy, no JVD, other (no thyromegaly) Effort: normal Ascultation: Bilateral: diminished breath sounds Percussion: Bilateral: not dull Cardiovascular: regular rate and rhythm, other (S1,S2, no murmurs, gallops or rubs) Gastrointestinal: normoactive bowel sounds, soft, non-tender, non-distended, other (No HSM) Integumentary: normal Extremities: no cyanosis, no edema, pulses normal, no ischemia or petechiae Neurologic: normal mental status, non-focal exam, pupils equal and round, motor strength normal and Psychiatric: mood appropriate, affect normal CBC and BMP: 05/18/17 06:10 05/18/17 06:10 ABG, PT/INR, D-dimer: ABG POC ABG pH 7.377 (7.35-7.45) 05/16/17 00:29 POC ABG pCO2 45.5 (35-45) H 05/16/17 00:29 POC ABG pO2 121 (80-105) H 05/16/17 00:29 POC ABG HCO3 26.7 05/16/17 00:29 POC ABG Total CO2 28 05/16/17 00:29 POC ABG O2 Sat 99 05/16/17 00:29 PT/INR, D-dimer D-Dimer 447.72 ng/mlDDU (0-234) H 05/14/17 17:02 Abnormal lab findings: Abnormal Labs 05/14/17 05/14/17 05/14/17 16:22 16:22 17:02 WBC RBC Hgb Hct RDW 18.1 H [place] % (Auto) 7.8 H Eos % (Auto) Lymph # D-Dimer 447.72 H POC ABG pH POC ABG pCO2 POC ABG pO2 Chloride 90.7 L BUN 38 H Creatinine 11.8 H Glucose 123 H POC Glucose ALT Alkaline Phosphatase 176 H C-Reactive Protein Albumin 05/15/17 05/15/17 05/15/17 06:30 12:27 20:50 WBC RBC Hgb Hct RDW [place] % (Auto) Eos % (Auto) Lymph # D-Dimer POC ABG pH 7.332 L POC ABG pCO2 45.1 H POC ABG pO2 137 H Chloride BUN Creatinine Glucose POC Glucose 112 H ALT Alkaline Phosphatase C-Reactive Protein 4.40 H Albumin 05/15/17 05/16/17 05/16/17 21:59 00:29 05:05 WBC 3.3 L RBC 3.08 L Hgb 9.6 L Hct 29.9 L RDW 18.2 H [place] % (Auto) 13.0 H Eos % (Auto) 5.2 H Lymph # 0.7 L D-Dimer POC ABG pH POC ABG pCO2 45.5 H POC ABG pO2 121 H Chloride BUN Creatinine Glucose POC Glucose 123 H ALT Alkaline Phosphatase C-Reactive Protein Albumin 05/16/17 05/16/17 05/17/17 05:05 21:49 07:28 WBC RBC Hgb Hct RDW [place] % (Auto) Eos % (Auto) Lymph # D-Dimer POC ABG pH POC ABG pCO2 POC ABG pO2 Chloride BUN 27 H Creatinine 10.4 H Glucose POC Glucose 126 H 114 H ALT 6 L Alkaline Phosphatase 139 H C-Reactive Protein Albumin 3.4 L 05/17/17 05/17/17 05/17/17 10:46 15:37 22:22 WBC RBC Hgb Hct RDW [place] % (Auto) Eos % (Auto) Lymph # D-Dimer POC ABG pH POC ABG pCO2 POC ABG pO2 Chloride BUN Creatinine Glucose POC Glucose 181 H 119 H 137 H ALT Alkaline Phosphatase C-Reactive Protein Albumin 05/18/17 05/18/17 06:10 06:10 WBC 3.1 L RBC 3.07 L Hgb 9.6 L Hct 29.6 L RDW 19.0 H [place] % (Auto) 13.0 H Eos % (Auto) 6.3 H Lymph # 0.5 L D-Dimer POC ABG pH POC ABG pCO2 POC ABG pO2 Chloride BUN 22 H Creatinine 9.2 H Glucose 103 H POC Glucose ALT Alkaline Phosphatase C-Reactive Protein Albumin Chest x-ray: report reviewed (No acute findings.), image reviewed Allied health notes reviewed: nursing
[2017-05-19] MEDS: PROVENTIL IH SCH ×4 (01:22→20:23)
[2017-05-19] MEDS: HEPARIN SUB-Q SCH ×3 (06:30→23:01)
[2017-05-19] MEDS: SYNTHROID PO SCH (06:31)
[2017-05-19] MEDS: ATARAX PO SCH ×3 (06:31→23:02)
[2017-05-19] MEDS: NORCO 10/325 PO PRN ×3 (07:27→21:07)
[2017-05-19 07:37] LABS: Basophils % (Auto) 0.5 % (0.0-1.8); Eosinophils # (Auto) 0.2 K/mm3 (0.0-0.4); Eosinophils % (Auto) 6.2 % (0.0-4.3); Hematocrit 29.3 % (30.3-42.9); Hemoglobin 9.3 gm/dl (10.1-14.3); Lymphocytes # (Auto) 0.8 K/mm3 (1.2-5.4); Lymphocytes % (Auto) 22.1 % (13.4-35.0); Mean Corpuscular HGB Conc 32 % (30-34); Mean Corpuscular Hemoglobin 31 pg (28-32); Mean Corpuscular Volume 97 fl (79-97); Monocytes # (Auto) 0.4 K/mm3 (0.0-0.8); Monocytes % (Auto) 11.5 % (0.0-7.3); Platelet Count 164 K/mm3 (140-440); Red Blood Count 3.01 M/mm3 (3.65-5.03); Red Cell Distribution Width 19.1 % (13.2-15.2)
[2017-05-19] MEDS: NOVOLOG SUB-Q SCH ×4 (08:42→22:00)
[2017-05-19] MEDS: FEOSOL PO SCH (10:49)
[2017-05-19] MEDS: BUMEX PO SCH ×2 (10:49→23:02)
[2017-05-19] MEDS: RENVELA PO SCH ×3 (10:49→18:54)
[2017-05-19] MEDS: PROTONIX PO SCH (10:49)
[2017-05-19] MEDS: MAG-OX PO SCH (10:49)
[2017-05-19] MEDS: Renal Caps PO SCH (10:50)
[2017-05-19] MEDS: BROVANA NEBU IH SCH ×2 (10:51→20:22)
[2017-05-19] MEDS: PULMICORT IH SCH ×2 (10:52→20:23)
--- NOTE | 2017-05-19 13:57 | Progress Note ---
Assessment and Plan ESRD on hemodialysis: -Via LUE AVF MWF outpatient. -s/p HD Saturday, no HD today. HD tomorrow. HD MWF while inpatient but will eval daily. -Check BMP/Mg/Phos daily -Renally dose all meds Sepsis due to unknown cause: Hypotension: -BP better. Midodrine was dced. -Follow Cx, UA ordered. -On empiric ABx -Per primary and ID. Left Knee Pain: -Ortho consulted. Per them Anemia of chronic disease due to ESRD: -Hg stable, monitor for now Diabetes mellitus type 2 on insulin: -On ISS -Per primary Chronic atrial fibrillation: -Per primary COPD: -On nebs -Per primary and Pulm. Morbid Obesity: Obstructive Sleep Apnea: -Counselled to loose wt -CPAP per primary Johnny Franco MD Nephrology, Hypertension, Dialysis, Transplantation Phone no: [phone] Subjective Date of service: 05/19/17 Principal diagnosis: sepsis syndrome; Obesity; Hypotension Interval history: s/p HD saturday. denies CP/SHOB. Objective - Exam Narrative Exam: GE: AAOX3, Mobridly obese HEENT: PERRLA Neck: No JVD CVS: RRR Chest: Dec BS due to body habitus Abd: Soft/NT, obese, BS+ Ext: 1+ BLE edema, LUE AVF with good thrill Neuro: AAOX3 - Vital Signs Vital signs: Vital Signs - 12hr 05/19/17 05/19/17 05/19/17 04:35 08:16 09:02 Temperature 98.2 F 98.5 F Pulse Rate 79 71 67 Respiratory 20 20 Rate Blood Pressure 139/75 124/70 O2 Sat by Pulse 98 98 Oximetry 05/19/17 12:25 Temperature 98.2 F Pulse Rate 77 Respiratory 18 Rate Blood Pressure 150/65 O2 Sat by Pulse 100 Oximetry - Lab 05/19/17 06:55 05/19/17 06:55 Most recent lab results Calcium 9.0 mg/dL (8.4-10.2) 05/19/17 06:55 Phosphorus 4.30 mg/dL (2.5-4.5) D 05/19/17 06:55
--- NOTE | 2017-05-19 15:59 | Progress Note ---
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, neurpathic joint -dw Dr Castro of Radiology, there is no joint effusion to tap, septic joint is very unlikely SIRS continue broad spectrum abx fup Blood and urine cx, septic joint unlikely ID input appreciated ESRD Nephrology consulted for HD Elevated D-Dimer -CTA and Doppler LE were both neg for VTE DM, type 2 SSI PAF with hypercoaguable state rate is controlled, Metoprolol was dc due to hypotention Morbid obesity -will need weight loss program when improved COPD stable, NTD chronic hypoxic respiratory failure continue supplemental oxygen DVT ppx heparin sq Disposition - Possible discharge tomorrow back to SNF. History Interval history: Patient was seen and evaluated this morning, Patient has pain in the left knee Hospitalist Physical - Physical exam Narrative exam: Not in cardiopulmonary distress. The patient is morbidly obese. Vital signs as documented. Head exam is unremarkable. No scleral icterus . Neck is without jugular venous distension, thyromegaly, or carotid bruits. Lungs are clear to auscultation. Cardiac exam reveals regular rate and Rhythm. First and second heart sounds normal. No murmurs, rubs or gallops. Abdominal exam reveals normal bowel sounds, no masses, no organomegaly and no aortic enlargement. Extremities mild left knee swelling. 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 No focal weakness. - Constitutional Vitals: Temp Pulse Resp BP Pulse Ox 98.2 F 77 18 150/65 100 05/19/17 12:25 05/19/17 12:25 05/19/17 12:25 05/19/17 12:25 05/19/17 12:25 General appearance: Present: no acute distress, well-nourished Results - Labs CBC & Chem 7: 05/19/17 06:55 05/19/17 06:55 Labs: Laboratory Last Values WBC 3.5 K/mm3 (4.5-11.0) L 05/19/17 06:55 RBC 3.01 M/mm3 (3.65-5.03) L 05/19/17 06:55 Hgb 9.3 gm/dl (10.1-14.3) L 05/19/17 06:55 Hct 29.3 % (30.3-42.9) L 05/19/17 06:55 MCV 97 fl (79-97) 05/19/17 06:55 MCH 31 pg (28-32) 05/19/17 06:55 MCHC 32 % (30-34) 05/19/17 06:55 RDW 19.1 % (13.2-15.2) H 05/19/17 06:55 Plt Count 164 K/mm3 (140-440) 05/19/17 06:55 Lymph % (Auto) 22.1 % (13.4-35.0) 05/19/17 06:55 [place] % (Auto) 11.5 % (0.0-7.3) H 05/19/17 06:55 Eos % (Auto) 6.2 % (0.0-4.3) H 05/19/17 06:55 Baso % (Auto) 0.5 % (0.0-1.8) 05/19/17 06:55 Lymph # 0.8 K/mm3 (1.2-5.4) L 05/19/17 06:55 [place] # 0.4 K/mm3 (0.0-0.8) 05/19/17 06:55 Eos # 0.2 K/mm3 (0.0-0.4) 05/19/17 06:55 Baso # 0.0 K/mm3 (0.0-0.1) 05/19/17 06:55 Seg Neutrophils % 59.7 % (40.0-70.0) 05/19/17 06:55 Seg Neutrophils # 2.1 K/mm3 (1.8-7.7) 05/19/17 06:55 D-Dimer 447.72 ng/mlDDU (0-234) H 05/14/17 17:02 POC ABG pH 7.377 (7.35-7.45) 05/16/17 00:29 POC ABG pCO2 45.5 (35-45) H 05/16/17 00:29 POC ABG pO2 121 (80-105) H 05/16/17 00:29 POC ABG HCO3 26.7 05/16/17 00:29 POC ABG Total CO2 28 05/16/17 00:29 POC ABG O2 Sat 99 05/16/17 00:29 POC ABG Base Excess 2 05/16/17 00:29 FiO2 28 % 05/16/17 00:29 Sodium 143 mmol/L (137-145) 05/19/17 06:55 Potassium 4.4 mmol/L (3.6-5.0) 05/19/17 06:55 Chloride 100.5 mmol/L (98-107) 05/19/17 06:55 Carbon Dioxide 27 mmol/L (22-30) 05/19/17 06:55 Anion Gap 20 mmol/L 05/19/17 06:55 BUN 27 mg/dL (7-17) H 05/19/17 06:55 Creatinine 12.0 mg/dL (0.7-1.2) H 05/19/17 06:55 Estimated GFR 4 ml/min 05/19/17 06:55 BUN/Creatinine Ratio 2 % 05/19/17 06:55 Glucose 94 mg/dL (65-100) 05/19/17 06:55 POC Glucose 77 (70-105) 05/19/17 12:29 Calcium 9.0 mg/dL (8.4-10.2) 05/19/17 06:55 Phosphorus 4.30 mg/dL (2.5-4.5) D 05/19/17 06:55 Total Bilirubin 0.60 mg/dL (0.1-1.2) 05/16/17 05:05 AST 14 units/L (5-40) 05/16/17 05:05 ALT 6 units/L (7-56) L 05/16/17 05:05 Alkaline Phosphatase 139 units/L (35-129) H 05/16/17 05:05 C-Reactive Protein 4.40 mg/dL (0.00-1.30) H 05/15/17 20:50 Total Protein 6.7 g/dL (6.3-8.2) 05/16/17 05:05 Albumin 3.4 g/dL (3.9-5) L 05/16/17 05:05 Albumin/Globulin Ratio 1.0 % 05/16/17 05:05 TSH 2.640 mlU/mL (0.270-4.200) 05/14/17 02:00 Free T4 1.24 ng/dL (0.76-1.46) 05/14/17 02:00 Thyroxine (T4) 6.7 ug/dL (4.0-12.0) 05/14/17 02:00 Random Vancomycin 13.4 ug/mL (0-40.0) 05/18/17 06:10 Hepatitis A IgM Ab Non-reactive (NonReactive) 05/17/17 11:10 Hep Bs Antigen Non-reactive (Negative) 05/17/17 11:10 Hep B Core IgM Ab Non-reactive (NonReactive) 05/17/17 11:10 Hepatitis C Antibody Non-reactive (NonReactive) 05/17/17 11:10
--- NOTE | 2017-05-19 21:22 | Progress Note ---
Assessment and Plan Patent resting on room air. Not using her O2. O2 saturation 97%. Recommend to keep O2 2 litres via nasal canula.No complaint of chest pain or shortness of breath or cough.Says using CPAP at night. - Patient Problems (1) Bronchospasm Current Visit: No Status: Acute Plan to address problem: No complaint of wheezing or cough at this time. Brovanna/Budesonide aerosol treatments q 12 hours. Albuterol inhaler 2 puffs po qid prn for shortness of breath. (2) Chronic kidney disease (CKD) Current Visit: Yes Status: Chronic Plan to address problem: Management as per nephrology. (3) Acute on chronic congestive heart failure Current Visit: No Status: Acute Plan to address problem: Management as per cardiology. (4) Acute respiratory failure Current Visit: No Status: Acute Plan to address problem: O2 2 litres via nasal canula. Brovanna/Budesonide aerosol treatments q 12 hours. Albuterol inhaler 2 puffs po qid prn for shortness of breath. Continue S/C Heparin. Continue Protonix. (5) Atrial fibrillation and flutter Current Visit: No Status: Acute Plan to address problem: Management as per cardiology. (6) Morbid obesity with BMI of 60.0-69.9, adult Current Visit: No Status: Acute Plan to address problem: Weight reduction diet' Exercise (7) NURIS (obstructive sleep apnea) Current Visit: No Status: Chronic Plan to address problem: Continue CPAP as she is using at home. Subjective Date of service: 05/19/17 Principal diagnosis: sepsis syndrome; Obesity; Hypotension Interval history: Patent resting on room air. Not using her O2. O2 saturation 97%. Recommend to keep O2 2 litres via nasal canula.No complaint of chest pain or shortness of breath or cough.Says using CPAP at night. Objective Vital Signs - 12hr 05/19/17 05/19/17 05/19/17 12:25 16:45 20:19 Temperature 98.2 F 98.0 F 98.6 F Pulse Rate 77 70 78 Respiratory 18 18 20 Rate Blood Pressure 150/65 126/64 125/74 O2 Sat by Pulse 100 97 97 Oximetry 05/19/17 21:07 Temperature Pulse Rate Respiratory 22 Rate Blood Pressure O2 Sat by Pulse Oximetry Constitutional: no acute distress, alert, other (morbidly obese, awake, alert, oriented x3, ) Eyes: non-icteric ENT: oropharynx moist, other (large neck circumference) Neck: supple, no lymphadenopathy, no JVD, other (no thyromegaly) Effort: normal Ascultation: Bilateral: diminished breath sounds Percussion: Bilateral: not dull Cardiovascular: regular rate and rhythm, other (S1,S2, no murmurs, gallops or rubs) Gastrointestinal: normoactive bowel sounds, soft, non-tender, non-distended, other (No HSM) Integumentary: normal Extremities: no cyanosis, no edema, pulses normal, no ischemia or petechiae Neurologic: normal mental status, non-focal exam, pupils equal and round, motor strength normal and Psychiatric: mood appropriate, affect normal CBC and BMP: 05/20/17 06:06 05/20/17 06:06 ABG, PT/INR, D-dimer: ABG POC ABG pH 7.377 (7.35-7.45) 05/16/17 00:29 POC ABG pCO2 45.5 (35-45) H 05/16/17 00:29 POC ABG pO2 121 (80-105) H 05/16/17 00:29 POC ABG HCO3 26.7 05/16/17 00:29 POC ABG Total CO2 28 05/16/17 00:29 POC ABG O2 Sat 99 05/16/17 00:29 PT/INR, D-dimer D-Dimer 447.72 ng/mlDDU (0-234) H 05/14/17 17:02 Abnormal lab findings: Abnormal Labs 05/14/17 05/14/17 05/14/17 16:22 16:22 17:02 WBC RBC Hgb Hct RDW 18.1 H [place] % (Auto) 7.8 H Eos % (Auto) Lymph # D-Dimer 447.72 H POC ABG pH POC ABG pCO2 POC ABG pO2 Chloride 90.7 L BUN 38 H Creatinine 11.8 H Glucose 123 H POC Glucose ALT Alkaline Phosphatase 176 H C-Reactive Protein Albumin 05/15/17 05/15/17 05/15/17 06:30 12: 20:50 WBC RBC Hgb Hct RDW [place] % (Auto) Eos % (Auto) Lymph # D-Dimer POC ABG pH 7.332 L POC ABG pCO2 45.1 H POC ABG pO2 137 H Chloride BUN Creatinine Glucose POC Glucose 112 H ALT Alkaline Phosphatase C-Reactive Protein 4.40 H Albumin 05/15/17 05/16/17 05/16/17 21:59 00:29 05:05 WBC 3.3 L RBC 3.08 L Hgb 9.6 L Hct 29.9 L RDW 18.2 H [place] % (Auto) 13.0 H Eos % (Auto) 5.2 H Lymph # 0.7 L D-Dimer POC ABG pH POC ABG pCO2 45.5 H POC ABG pO2 121 H Chloride BUN Creatinine Glucose POC Glucose 123 H ALT Alkaline Phosphatase C-Reactive Protein Albumin 05/16/17 05/16/17 05/17/17 05:05 21:49 07:28 WBC RBC Hgb Hct RDW [place] % (Auto) Eos % (Auto) Lymph # D-Dimer POC ABG pH POC ABG pCO2 POC ABG pO2 Chloride BUN 27 H Creatinine 10.4 H Glucose POC Glucose 126 H 114 H ALT 6 L Alkaline Phosphatase 139 H C-Reactive Protein Albumin 3.4 L 05/17/17 05/17/17 05/17/17 10:46 15:37 22:22 WBC RBC Hgb Hct RDW [place] % (Auto) Eos % (Auto) Lymph # D-Dimer POC ABG pH POC ABG pCO2 POC ABG pO2 Chloride BUN Creatinine Glucose POC Glucose 181 H 119 H 137 H ALT Alkaline Phosphatase C-Reactive Protein Albumin 05/18/17 05/18/17 05/18/17 06:10 06:10 07:57 WBC 3.1 L RBC 3.07 L Hgb 9.6 L Hct 29.6 L RDW 19.0 H [place] % (Auto) 13.0 H Eos % (Auto) 6.3 H Lymph # 0.5 L D-Dimer POC ABG pH POC ABG pCO2 POC ABG pO2 Chloride BUN 22 H Creatinine 9.2 H Glucose 103 H POC Glucose 114 H ALT Alkaline Phosphatase C-Reactive Protein Albumin 05/18/17 05/18/17 05/19/17 11:20 21:41 06:55 WBC 3.5 L RBC 3.01 L Hgb 9.3 L Hct 29.3 L RDW 19.1 H [place] % (Auto) 11.5 H Eos % (Auto) 6.2 H Lymph # 0.8 L D-Dimer POC ABG pH POC ABG pCO2 POC ABG pO2 Chloride BUN Creatinine Glucose POC Glucose 123 H 153 H ALT Alkaline Phosphatase C-Reactive Protein Albumin 05/19/17 06:55 WBC RBC Hgb Hct RDW [place] % (Auto) Eos % (Auto) Lymph # D-Dimer POC ABG pH POC ABG pCO2 POC ABG pO2 Chloride BUN 27 H Creatinine 12.0 H Glucose POC Glucose ALT Alkaline Phosphatase C-Reactive Protein Albumin Allied health notes reviewed: nursing
[2017-05-20] MEDS: PROVENTIL IH SCH ×2 (01:58→07:22)
[2017-05-20] MEDS: SYNTHROID PO SCH (06:32)
[2017-05-20] MEDS: ATARAX PO SCH (06:32)
[2017-05-20] MEDS: HEPARIN SUB-Q SCH (06:34)
[2017-05-20 06:52] LABS: Basophils % (Auto) 0.4 % (0.0-1.8); Eosinophils # (Auto) 0.2 K/mm3 (0.0-0.4); Eosinophils % (Auto) 5.6 % (0.0-4.3); Hematocrit 29.2 % (30.3-42.9); Hemoglobin 9.5 gm/dl (10.1-14.3); Mean Corpuscular HGB Conc 32 % (30-34); Mean Corpuscular Hemoglobin 32 pg (28-32); Mean Corpuscular Volume 97 fl (79-97); Monocytes # (Auto) 0.4 K/mm3 (0.0-0.8); Monocytes % (Auto) 9.5 % (0.0-7.3); Platelet Count 177 K/mm3 (140-440); Red Blood Count 3.01 M/mm3 (3.65-5.03); Red Cell Distribution Width 18.6 % (13.2-15.2)
[2017-05-20] MEDS: PULMICORT IH SCH (07:22)
[2017-05-20] MEDS: BROVANA NEBU IH SCH (07:22)
[2017-05-20] MEDS: NOVOLOG SUB-Q SCH ×2 (08:52→11:34)
--- NOTE | 2017-05-20 10:48 | Discharge Summary ---
Providers - Providers Date of Admission: 05/14/17 20:03 Attending physician: MINNA OLVERA MD 05/14/17 22:39 Consult to Physician [CONS] Routine Consulting Provider: DANIELLE ARRIAGA Reason For Exam: septic shock Place consult to:: Dr. Gutiérrez Notified:: Her cell phone Phone number called:: her number Was contact made?: Yes If yes, spoke with:: Dr. Gutiérrez Time called:: 23:01 Comment:: gave Dr. Gutiérrez the information 05/14/17 22:47 Consult to Physician [CONS] Routine Consulting Provider: KARISHMA VANEGAS Reason For Exam: septic shock Place consult to:: Dr. Livingston Notified:: Roberto RN Comment:: Dr. Livingston is aware of consult 05/14/17 22:49 Consult to Physician [CONS] Routine Consulting Provider: LASHAY TREJO Reason For Exam: esrd Place consult to:: DR STORM Notified:: Y Phone number called:: [phone] Was contact made?: Yes If yes, spoke with:: VENKAT Time called:: 11:58 Comment:: CONSULT CALLED TO ANSWERING SERVICE 05/14/17 22:53 Consult to Physician [CONS] Routine Consulting Provider: LONDON SHEA Reason For Exam: Left knee pain, ?septic joint Place consult to:: Dr. Shea Notified:: Roberto RN Phone number called:: Was contact made?: Yes If yes, spoke with:: [facility] Time called:: 08:31 Primary care physician: PRECIOUS ARAIZA Hospitalization Reason for admission: Left knee septic arthritis versus osteoarthritis, ESRD on HD Condition: Stable Pertinent studies: CT of left lower extremity Advance it erosive appearing arthritis of the knee suggestive of charcot joint/ arthropathy. Soft tissue density with erosive change madially and increased density of the medial and lateral trabecula. Underlying trabecular impaction/incomplete fracture not be excluded. X-rays showed osteoarthritis Bilateral Doppler ultrasound of the lower extremities negative for PE Procedures: Arthrocentesis Hospital course: Polly is a 56-year-old woman who is morbidly obese, wheelchair dependence. Lives in a senior care [place]. Her medical issues including ESRD, diastolic CHF, COPD on oxygen dependence. Paroxysmal atrial fibrillation. She claims that she has been having pain in her left knee for over a year, but recently the pain is getting worse and was not controlled by pain medications. Patient also complains swelling of swelling of the left knee. She denies fevers , denies chills, denies dizziness, denies cough, denies sputum production, denies shortness of breath. She does state that she has multiple joint issues including both knees left shoulder. She is able to transfer with assistance from bed to her wheelchair. But she needs 2 person assist to make the transfer. She has been hypotensive in the ER despite multiple boluses of normal saline. Patient has been asymptomatic with regards to this. Patient had spiking fever and there is a suspicion of septic arthritis and patient was treated with IV vancomycin and later changed to PO clindamycin at discharge. ID consult appreciated. Orthopedics was consulted and said has low suspicion for septic arthritis and everything looks due to severe osteoarthritis. He commented to steroid injection as outpatient. Nephrology was consulted and hemodialysis was continued. Patient was hemodynamically stable and discharged back to senior care. Patient is advised to have follow- up with orthopedics and bariatric surgeon for weight loss. Patient's medications were updated at the time of discharge. Disposition: DC- TO HOME OR SELFCARE Time spent for discharge: 31 minutes - Discharge Diagnoses (1) ESRD (end stage renal disease) on dialysis Status: Acute (2) Leg pain, bilateral Status: Acute (3) Pain in left leg Status: Acute (4) Acute on chronic congestive heart failure Status: Acute (5) Respiratory failure with hypercapnia Status: Chronic (6) Shortness of breath Status: Acute (7) Sleep apnea in adult Status: Chronic (8) Type 2 diabetes mellitus with chronic kidney disease Status: Chronic (9) Morbid obesity due to excess calories Status: Chronic (10) NURIS (obstructive sleep apnea) Status: Chronic (11) Obstructive sleep apnea on CPAP Status: Chronic Core Measure Documentation - Palliative Care Palliative Care/ Comfort Measures: Not Applicable - Core Measures Any of the following diagnoses?: none Exam - Physical Exam Narrative exam: Not in cardiopulmonary distress. The patient is morbidly obese. Vital signs as documented. Head exam is unremarkable. No scleral icterus . Neck is without jugular venous distension, thyromegaly, or carotid bruits. Lungs are clear to auscultation. Cardiac exam reveals regular rate and Rhythm. First and second heart sounds normal. No murmurs, rubs or gallops. Abdominal exam reveals normal bowel sounds, no masses, no organomegaly and no aortic enlargement. Extremities mild left knee swelling. RN CARDIAC CATH: Alert and oriented 3. No focal weakness. - Constitutional Vitals: Temp Pulse Resp BP Pulse Ox 98.5 F 79 16 140/74 96 05/20/17 08:05 05/20/17 08:05 05/20/17 08:05 05/20/17 08:05 05/20/17 08:05 Plan Activity: advance as tolerated Weight Bearing Status: Weight Bear as Tolerated Diet: low fat, low cholesterol, low salt, diabetic Prescriptions: Clindamycin [Clindamycin CAP] 300 mg PO Q8H #42 cap Oxycodone HCl/Acetaminophen [Percocet 10/325 mg] 1 each PO Q6HR PRN #15 tablet PRN Reason: Pain Other Discharge Orders: VL venous duplex LE BILAT Location: Determined By Patient
[2017-05-20] MEDS ORDERED: NACL 0.9 (PRIMING MACHINE ONLY DIALYSIS) MC ONE (11:00)
[2017-05-20] MEDS: RENVELA PO SCH (11:33)
[2017-05-20] MEDS: PROCRIT IV PRN ×2 (11:48→12:56)
--- NOTE | 2017-05-20 13:51 | Progress Note ---
Assessment and Plan Patent resting on room air. O2 saturation 97%. No complaint of chest pain or shortness of breath or cough.Says using CPAP at night. Patient says may go home today. Can come to my office for pulmonary and sleep follow up. - Patient Problems (1) Bronchospasm Current Visit: No Status: Acute Plan to address problem: No complaint of wheezing or cough at this time. Brovanna/Budesonide aerosol treatments q 12 hours. Albuterol inhaler 2 puffs po qid prn for shortness of breath. (2) Chronic kidney disease (CKD) Current Visit: Yes Status: Chronic Plan to address problem: Management as per nephrology. (3) Acute on chronic congestive heart failure Current Visit: No Status: Acute Plan to address problem: Management as per cardiology. (4) Acute respiratory failure Current Visit: No Status: Acute Plan to address problem: O2 2 litres via nasal canula. Brovanna/Budesonide aerosol treatments q 12 hours. Albuterol inhaler 2 puffs po qid prn for shortness of breath. Continue S/C Heparin. Continue Protonix. (5) Atrial fibrillation and flutter Current Visit: No Status: Acute Plan to address problem: Management as per cardiology. (6) Morbid obesity with BMI of 60.0-69.9, adult Current Visit: No Status: Acute Plan to address problem: Weight reduction diet' Exercise (7) NURIS (obstructive sleep apnea) Current Visit: No Status: Chronic Plan to address problem: Continue CPAP as she is using at home. Subjective Date of service: 05/20/17 Principal diagnosis: sepsis syndrome; Obesity; Hypotension Interval history: Patent resting on room air. O2 saturation 97%. No complaint of chest pain or shortness of breath or cough.Says using CPAP at night. Patient says may go home today. Can come to my office for pulmonary and sleep follow up. Objective Vital Signs - 12hr 05/20/17 05/20/17 05/20/17 04:53 07:23 08:05 Temperature 97.6 F 98.5 F Pulse Rate 82 79 Respiratory 20 16 Rate Blood Pressure 123/73 140/74 O2 Sat by Pulse 100 97 96 Oximetry 05/20/17 05/20/17 05/20/17 09:57 10:00 10:08 Temperature 98.3 F Pulse Rate 75 85 70 Respiratory 18 Rate Blood Pressure 120/74 123/72 O2 Sat by Pulse Oximetry 05/20/17 05/20/17 05/20/17 10:15 10:30 10:45 Temperature Pulse Rate 71 72 76 Respiratory Rate Blood Pressure 124/73 94/49 106/56 O2 Sat by Pulse Oximetry 05/20/17 05/20/17 05/20/17 11:00 11:15 11:30 Temperature Pulse Rate 77 72 75 Respiratory Rate Blood Pressure 97/62 108/52 108/60 O2 Sat by Pulse Oximetry 05/20/17 05/20/17 05/20/17 11:45 12:00 12:15 Temperature Pulse Rate 73 86 81 Respiratory Rate Blood Pressure 106/60 116/71 104/63 O2 Sat by Pulse Oximetry 05/20/17 05/20/17 05/20/17 12:30 12:45 13:00 Temperature Pulse Rate 94 H 82 82 Respiratory Rate Blood Pressure 97/49 106/63 109/63 O2 Sat by Pulse Oximetry Constitutional: no acute distress, alert, other (morbidly obese, awake, alert, oriented x3, ) Eyes: non-icteric ENT: oropharynx moist, other (large neck circumference) Neck: supple, no lymphadenopathy, no JVD, other (no thyromegaly) Effort: normal Ascultation: Bilateral: diminished breath sounds Percussion: Bilateral: not dull Cardiovascular: regular rate and rhythm, other (S1,S2, no murmurs, gallops or rubs) Gastrointestinal: normoactive bowel sounds, soft, non-tender, non-distended, other (No HSM) Integumentary: normal Extremities: no cyanosis, no edema, pulses normal, no ischemia or petechiae Neurologic: normal mental status, non-focal exam, pupils equal and round, motor strength normal and Psychiatric: mood appropriate, affect normal CBC and BMP: 05/20/17 06:06 05/20/17 06:06 ABG, PT/INR, D-dimer: ABG POC ABG pH 7.377 (7.35-7.45) 05/16/17 00:29 POC ABG pCO2 45.5 (35-45) H 05/16/17 00:29 POC ABG pO2 121 (80-105) H 05/16/17 00:29 POC ABG HCO3 26.7 05/16/17 00:29 POC ABG Total CO2 28 05/16/17 00:29 POC ABG O2 Sat 99 05/16/17 00:29 PT/INR, D-dimer D-Dimer 447.72 ng/mlDDU (0-234) H 05/14/17 17:02 Abnormal lab findings: Abnormal Labs 05/14/17 05/14/17 05/14/17 16:22 16:22 17:02 WBC RBC Hgb Hct RDW 18.1 H [place] % (Auto) 7.8 H Eos % (Auto) Lymph # D-Dimer 447.72 H POC ABG pH POC ABG pCO2 POC ABG pO2 Chloride 90.7 L BUN 38 H Creatinine 11.8 H Glucose 123 H POC Glucose Phosphorus ALT Alkaline Phosphatase 176 H C-Reactive Protein Albumin 05/15/17 05/15/17 05/15/17 06:30 12:27 20:50 WBC RBC Hgb Hct RDW [place] % (Auto) Eos % (Auto) Lymph # D-Dimer POC ABG pH 7.332 L POC ABG pCO2 45.1 H POC ABG pO2 137 H Chloride BUN Creatinine Glucose POC Glucose 112 H Phosphorus ALT Alkaline Phosphatase C-Reactive Protein 4.40 H Albumin 05/15/17 05/16/17 05/16/17 21:59 00:29 05:05 WBC 3.3 L RBC 3.08 L Hgb 9.6 L Hct 29.9 L RDW 18.2 H [place] % (Auto) 13.0 H Eos % (Auto) 5.2 H Lymph # 0.7 L D-Dimer POC ABG pH POC ABG pCO2 45.5 H POC ABG pO2 121 H Chloride BUN Creatinine Glucose POC Glucose 123 H Phosphorus ALT Alkaline Phosphatase C-Reactive Protein Albumin 05/16/17 05/16/17 05/17/17 05:05 21:49 07:28 WBC RBC Hgb Hct RDW [place] % (Auto) Eos % (Auto) Lymph # D-Dimer POC ABG pH POC ABG pCO2 POC ABG pO2 Chloride BUN 27 H Creatinine 10.4 H Glucose POC Glucose 126 H 114 H Phosphorus ALT 6 L Alkaline Phosphatase 139 H C-Reactive Protein Albumin 3.4 L 05/17/17 05/17/17 05/17/17 10:46 15:37 22:22 WBC RBC Hgb Hct RDW [place] % (Auto) Eos % (Auto) Lymph # D-Dimer POC ABG pH POC ABG pCO2 POC ABG pO2 Chloride BUN Creatinine Glucose POC Glucose 181 H 119 H 137 H Phosphorus ALT Alkaline Phosphatase C-Reactive Protein Albumin 05/18/17 05/18/17 05/18/17 06:10 06:10 07:57 WBC 3.1 L RBC 3.07 L Hgb 9.6 L Hct 29.6 L RDW 19.0 H [place] % (Auto) 13.0 H Eos % (Auto) 6.3 H Lymph # 0.5 L D-Dimer POC ABG pH POC ABG pCO2 POC ABG pO2 Chloride BUN 22 H Creatinine 9.2 H Glucose 103 H POC Glucose 114 H Phosphorus ALT Alkaline Phosphatase C-Reactive Protein Albumin 05/18/17 05/18/17 05/19/17 11:20 21:41 06:55 WBC 3.5 L RBC 3.01 L Hgb 9.3 L Hct 29.3 L RDW 19.1 H [place] % (Auto) 11.5 H Eos % (Auto) 6.2 H Lymph # 0.8 L D-Dimer POC ABG pH POC ABG pCO2 POC ABG pO2 Chloride BUN Creatinine Glucose POC Glucose 123 H 153 H Phosphorus ALT Alkaline Phosphatase C-Reactive Protein Albumin 05/19/17 05/19/17 05/20/17 06:55 22:04 06:06 WBC 4.3 L RBC 3.01 L Hgb 9.5 L Hct 29.2 L RDW 18.6 H [place] % (Auto) 9.5 H Eos % (Auto) 5.6 H Lymph # 1.0 L D-Dimer POC ABG pH POC ABG pCO2 POC ABG pO2 Chloride BUN 27 H Creatinine 12.0 H Glucose POC Glucose 109 H Phosphorus ALT Alkaline Phosphatase C-Reactive Protein Albumin 05/20/17 06:06 WBC RBC Hgb Hct RDW [place] % (Auto) Eos % (Auto) Lymph # D-Dimer POC ABG pH POC ABG pCO2 POC ABG pO2 Chloride BUN 36 H Creatinine 14.3 H Glucose POC Glucose Phosphorus 5.00 H ALT Alkaline Phosphatase C-Reactive Protein Albumin Allied health notes reviewed: nursing
[2017-05-20 14:38] VITALS: BP 108/62
--- NOTE | 2017-05-20 15:12 | Progress Note ---
Assessment and Plan ESRD on hemodialysis: -Via LUE AVF MWF outpatient. -s/p HD today. HD MWF while inpatient but will eval daily. -Check BMP/Mg/Phos daily -Renally dose all meds Sepsis due to unknown cause: Hypotension: -BP better. Midodrine was dced. -Follow Cx, UA ordered. -On empiric ABx -Per primary and ID. Left Knee Pain: -Ortho consulted. Per them Anemia of chronic disease due to ESRD: -Hg stable, monitor for now Diabetes mellitus type 2 on insulin: -On ISS -Per primary Chronic atrial fibrillation: -Per primary COPD: -On nebs -Per primary and Pulm. Morbid Obesity: Obstructive Sleep Apnea: -Counselled to loose wt -CPAP per primary Johnny Franco MD Nephrology, Hypertension, Dialysis, Transplantation Phone no: [phone] Subjective Date of service: 05/20/17 Principal diagnosis: sepsis syndrome; Obesity; Hypotension Interval history: s/p HD today. denies CP/SHOB. Objective - Exam Narrative Exam: GE: AAOX3, Mobridly obese HEENT: PERRLA Neck: No JVD CVS: RRR Chest: Dec BS due to body habitus Abd: Soft/NT, obese, BS+ Ext: trace BLE edema, LUE AVF with good thrill Neuro: AAOX3 - Vital Signs Vital signs: Vital Signs - 12hr 05/20/17 05/20/17 05/20/17 04:53 07:23 08:05 Temperature 97.6 F 98.5 F Pulse Rate 82 79 Respiratory 20 16 Rate Blood Pressure 123/73 140/74 O2 Sat by Pulse 100 97 96 Oximetry 05/20/17 05/20/17 05/20/17 09:57 10:00 10:08 Temperature 98.3 F Pulse Rate 75 85 70 Respiratory 18 Rate Blood Pressure 120/74 123/72 O2 Sat by Pulse Oximetry 05/20/17 05/20/17 05/20/17 10:15 10:30 10:45 Temperature Pulse Rate 71 72 76 Respiratory Rate Blood Pressure 124/73 94/49 106/56 O2 Sat by Pulse Oximetry 05/20/17 05/20/17 05/20/17 11:00 11:15 11:30 Temperature Pulse Rate 77 72 75 Respiratory Rate Blood Pressure 97/62 108/52 108/60 O2 Sat by Pulse Oximetry 05/20/17 05/20/17 05/20/17 11:45 12:00 12:15 Temperature Pulse Rate 73 86 81 Respiratory Rate Blood Pressure 106/60 116/71 104/63 O2 Sat by Pulse Oximetry 05/20/17 05/20/17 05/20/17 12:30 12:45 13:00 Temperature Pulse Rate 94 H 82 82 Respiratory Rate Blood Pressure 97/49 106/63 109/63 O2 Sat by Pulse Oximetry 05/20/17 05/20/17 13:15 13:20 Temperature 97.8 F Pulse Rate 100 H 86 Respiratory 18 Rate Blood Pressure 90/48 108/62 O2 Sat by Pulse Oximetry - Lab 05/20/17 06:06 05/20/17 06:06 Most recent lab results Calcium 9.0 mg/dL (8.4-10.2) 05/20/17 06:06 Phosphorus 5.00 mg/dL (2.5-4.5) H 05/20/17 06:06
[2017-05-20] MEDS ORDERED: VANCOMYCIN/NS 1 GM/250 ML 1 GM/250 ML BAG IV SCH (16:00)
== END 2017-05-20 14:27 | disposition home or self-care (01) | DRG 871 ==
LOC: ED 14:56 → 4A 20:03 → CC1 22:38 → 4A 05-15 15:18
PROVIDERS: ADMIT Internal Medicine; ATTEND Internal Medicine
PROC: 4A033R1 Measurement of Arterial Saturation, Peripheral, Percutaneous Approach (ICD-10-PCS; 2017-05-14)
PROC: 02HV33Z Insertion of Infusion Device into Superior Vena Cava, Percutaneous Approach (ICD-10-PCS; principal; 2017-05-15)
PROC: B548ZZA Ultrasonography of Superior Vena Cava, Guidance (ICD-10-PCS; 2017-05-15)
PROC: 5A1D70Z Performance of Urinary Filtration, Intermittent, Less than 6 Hours Per Day (ICD-10-PCS; 2017-05-15)
PROC: 5A09557 Assistance with Respiratory Ventilation, Greater than 96 Consecutive Hours, Continuous Positive Airway Pressure (ICD-10-PCS; 2017-05-15)
PROC: 5A1D70Z Performance of Urinary Filtration, Intermittent, Less than 6 Hours Per Day (ICD-10-PCS; 2017-05-17)
PROC: 5A1D70Z Performance of Urinary Filtration, Intermittent, Less than 6 Hours Per Day (ICD-10-PCS; 2017-05-20)
DX: A41.9 Sepsis, unspecified organism (principal); N18.6 End stage renal disease; J96.02 Acute respiratory failure with hypercapnia; I50.33 Acute on chronic diastolic (congestive) heart failure; J96.21 Acute and chronic respiratory failure with hypoxia; I95.9 Hypotension, unspecified; M25.562 Pain in left knee; I48.0 Paroxysmal atrial fibrillation; D68.59 Other primary thrombophilia; E66.01 Morbid (severe) obesity due to excess calories; E11.22 Type 2 diabetes mellitus with diabetic chronic kidney disease; I13.0 Hypertensive heart and chronic kidney disease with heart failure and stage 1 through stage 4 chronic kidney disease, or unspecified chronic kidney disease; K21.9 Gastro-esophageal reflux disease without esophagitis; F41.9 Anxiety disorder, unspecified; J44.9 Chronic obstructive pulmonary disease, unspecified; E03.9 Hypothyroidism, unspecified; G47.33 Obstructive sleep apnea (adult) (pediatric); G89.29 Other chronic pain; D63.1 Anemia in chronic kidney disease; M17.10 Unilateral primary osteoarthritis, unspecified knee; J98.01 Acute bronchospasm; I48.92 Unspecified atrial flutter; Z79.899 Other long term (current) drug therapy; Z79.4 Long term (current) use of insulin; Z68.43 Body mass index [BMI] 50.0-59.9, adult; Z90.710 Acquired absence of both cervix and uterus; Z99.3 Dependence on wheelchair; Z99.81 Dependence on supplemental oxygen; Z83.3 Family history of diabetes mellitus
CPT/HCPCS: 36415; 36600; 71010; 71275; 74176; 80048; 80053; 80074; 80202; 82803; 82962; 84100; 84436; 84439; 84443; 85025; 85379; 86140; 87040; 93970; 94640; 94660; 94760; 96361; 96365; 96366; 96367; 96372; 96375; A9270-GY; J0690; J0885; J1170; J1644; J1650; J1815; J2543; J3370; J7030; J7040; Q9967

== ENCOUNTER 2019-07-06 15:51 | Emergency (ER) | payer MEDICAID ==
--- NOTE | 2019-07-06 17:15 | XRay Report ---
{null, XR shoulder 2+V LT INDICATION / CLINICAL INFORMATION: fall from wheelchair decreased rom with pain. COMPARISON: None available. FINDINGS: BONES/JOINT(S): No acute fracture or subluxation. 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 SOFT TISSUES: No significant abnormality. ADDITIONAL FINDINGS: None. Signer Name: Jhonny Sanders MD Signed: 07/06/2019 5:11 PM Workstation Name: [id number] }
--- NOTE | 2019-07-06 18:27 | Emergency Department Report ---
{null, ED Extremity Problem HPI - General Chief complaint: Extremity Injury, Upper Stated complaint: LT SHOULDER SORE Time Seen by Provider: 07/06/19 16:46 Source: EMS Mode of arrival: Stretcher Limitations: Physical Limitation - History of Present Illness Initial comments: Patient is a 58-year-old F [place] female who was returning home from dialysis. Patient was in a wheelchair and the transportation maintenance supervisor turned to wheelchair to [facility] when the patient fell from the wheelchair to the ground. Patient fell on her left side. Patient was having some pain at the left shoulder with some decreased range of motion. She denies hitting her head or loss consciousness. Pain is 8 out of 10 in severity. Is worse with movement and better with rest. Severity scale (0 -10): 7 - Related Data Home Medications Medication Instructions Recorded Confirmed Last Taken Atorvastatin [Lipitor] 40 mg PO QHS 09/23/13 03/22/18 02/24/18 40 mg Magnesium Oxide 400 mg PO DAILY 09/23/13 03/22/18 02/24/18 400 mg Bumetanide [Bumetanide 2 mg tab] 2 mg PO BID 05/15/17 03/22/18 02/24/18 2 mg Previous Rx's Medication Instructions Recorded Last Taken Type Levothyroxine [Synthroid] 50 mcg PO DAILY@0600 #30 tablet 03/23/16 02/24/18 Rx 50 mcg Oxycodone HCl/Acetaminophen 1 each PO Q6HR PRN #15 tablet 05/20/17 02/24/18 Rx [Percocet 10/325 mg] 1 Acetaminophen [Acetaminophen TAB] 650 mg PO Q4H PRN #30 tablet 03/26/18 Unknown Rx Acyclovir [Zovirax Tab] 500 mg PO Q24HR 6 Days #6 tab 03/26/18 Unknown Rx Arformoterol Nebu [Brovana Nebu] 15 mcg IH Q12HRT #30 ml 03/26/18 Unknown Rx Budesonide [Pulmicort Respules] 0.25 mg IH Q12HR #30 03/26/18 02/24/18 Rx 0.25mg Capsaicin 0.075% [Zostrix Hp 1 applic TP TID 7 Days tube 03/26/18 Unknown Rx 0.075%] Cinacalcet [Sensipar] 30 mg PO HS #30 03/26/18 02/24/18 Rx 30 mg Famotidine [Pepcid] 10 mg PO QPM #30 tablet 03/26/18 Unknown Rx Insulin Regular, Human [HumuLIN R] 1 dose SUB-Q ACHS PRN #100 units 03/26/18 Unknown Rx Metoprolol [Lopressor TAB] 25 mg PO BID PRN #60 03/26/18 02/24/18 Rx 25 mg Sevelamer Carbonate [Renvela] 800 mg PO TID #90 03/26/18 02/24/18 Rx 800 mg hydrOXYzine HCL [Hydroxyzine HCl] 25 mg PO Q8H #30 03/26/18 02/24/18 Rx 25 mg methylPREDNISolone [Medrol Dose 1 dose PO DAILY #1 pack 03/26/18 Unknown Rx Jamison] valACYclovir [Valtrex] 500 mg PO QPM #10 tablet 03/26/18 Unknown Rx Allergies Allergy/AdvReac Type Severity Reaction Status Date / Time No Known Allergies Allergy Verified 03/21/18 23:55 ED Review of Systems ROS: Stated complaint: LT SHOULDER SORE Other details as noted in HPI Comment: All other systems reviewed and negative ED Past Medical Hx - Past Medical History Previous Medical History?: Yes Hx Hypertension: Yes Hx Congestive Heart Failure: Yes Hx Diabetes: Yes (type II) Hx GERD: Yes Hx Renal Disease: Yes Hx Arthritis: Yes Hx Psychiatric Treatment: Yes (anxiety) Hx Asthma: Yes Hx COPD: Yes Additional medical history: morbid obesity. atrial fibrillation. hypothyroidism. Edema. Obstructive Sleep Apnea with BiPAP used at night. chronic pain. chronic kidney disease. hyperlipidemia. anemia - Surgical History Past Surgical History?: Yes Additional Surgical History: graft to left arm, peg tube when intubated, partial hysterectomy, C-sections - Social History Smoking Status: Never Smoker Substance Use Type: None - Medications Home Medications: Home Medications Medication Instructions Recorded Confirmed Last Taken Type Atorvastatin [Lipitor] 40 mg PO QHS 09/23/13 03/22/18 02/24/18 History 40 mg Magnesium Oxide 400 mg PO DAILY 09/23/13 03/22/18 02/24/18 History 400 mg Levothyroxine [Synthroid] 50 mcg PO DAILY@0600 #30 tablet 03/23/16 03/22/18 02/24/18 Rx 50 mcg Bumetanide [Bumetanide 2 mg tab] 2 mg PO BID 05/15/17 03/22/18 02/24/18 History 2 mg Oxycodone HCl/Acetaminophen 1 each PO Q6HR PRN #15 tablet 05/20/17 03/22/18 02/24/18 Rx [Percocet 10/325 mg] 1 Acetaminophen [Acetaminophen TAB] 650 mg PO Q4H PRN #30 tablet 03/26/18 Unknown Rx Acyclovir [Zovirax Tab] 500 mg PO Q24HR 6 Days #6 tab 03/26/18 Unknown Rx Arformoterol Nebu [Brovana Nebu] 15 mcg IH Q12HRT #30 ml 03/26/18 Unknown Rx Budesonide [Pulmicort Respules] 0.25 mg IH Q12HR #30 03/26/18 03/22/18 02/24/18 Rx 0.25mg Capsaicin 0.075% [Zostrix Hp 1 applic TP TID 7 Days tube 03/26/18 Unknown Rx 0.075%] Cinacalcet [Sensipar] 30 mg PO HS #30 03/26/18 03/22/18 02/24/18 Rx 30 mg Famotidine [Pepcid] 10 mg PO QPM #30 tablet 03/26/18 Unknown Rx Insulin Regular, Human [HumuLIN R] 1 dose SUB-Q ACHS PRN #100 units 03/26/18 Unknown Rx Metoprolol [Lopressor TAB] 25 mg PO BID PRN #60 03/26/18 03/22/18 02/24/18 Rx 25 mg Sevelamer Carbonate [Renvela] 800 mg PO TID #90 03/26/18 03/22/18 02/24/18 Rx 800 mg hydrOXYzine HCL [Hydroxyzine HCl] 25 mg PO Q8H #30 03/26/18 03/22/18 02/24/18 Rx 25 mg methylPREDNISolone [Medrol Dose 1 dose PO DAILY #1 pack 03/26/18 Unknown Rx [place]] valACYclovir [Valtrex] 500 mg PO QPM #10 tablet 03/26/18 Unknown Rx ED Physical Exam - General Limitations: Physical Limitation General appearance: alert, in no apparent distress - Head Head exam: Present: atraumatic, normocephalic - Eye Eye exam: Present: normal appearance - ENT ENT exam: Present: mucous membranes moist - Neck Neck exam: Present: normal inspection - Respiratory Respiratory exam: Present: normal lung sounds bilaterally. Absent: respiratory distress, wheezes, rales, rhonchi - Cardiovascular Cardiovascular Exam: Present: regular rate, normal rhythm. Absent: systolic murmur, diastolic murmur, rubs, gallop - GI/Abdominal GI/Abdominal exam: Present: soft, normal bowel sounds. Absent: distended, tenderness - Extremities Exam Extremities exam: Present: normal inspection - Expanded Upper Extremity Exam Left Shoulder Exam: Present: tenderness, tenderness over AC joint. Absent: full ROM, swelling, deformity - Back Exam Back exam: Present: normal inspection - Neurological Exam Neurological exam: Present: alert, oriented X3 - Psychiatric Psychiatric exam: Present: normal affect, normal mood - Skin Skin exam: Present: warm, dry, intact, normal color. Absent: rash ED Course Vital Signs 07/06/19 07/06/19 16:34 16:45 Pulse Rate 81 Respiratory 18 17 Rate Blood Pressure 103/47 Blood Pressure 119/68 [Left] O2 Sat by Pulse 92 97 Oximetry ED Medical Decision Making - Radiology Data Findings [facility] [address] [place] [address] XRay Report Signed Patient: BILL SAENZ MR#: [id number] [birth year] : 1960 Acct:[id number] Age/Sex: 58 / F ADM Date: 07/06/19 Loc: ED Attending Dr: Ordering Physician: CANDICE QUEZADA MD Date of Service: 07/06/19 Procedure(s): XR shoulder 2+V LT Accession Number(s): [id number] cc: CANDICE QUEZADA MD Fluoro Time In Minutes: XR shoulder 2+V LT INDICATION / CLINICAL INFORMATION: fall from wheelchair decreased rom with pain. COMPARISON: None available. FINDINGS: BONES/JOINT(S): No acute fracture or subluxation. Moderate DJD in the gleno humeral joint. SOFT TISSUES: No significant abnormality. ADDITIONAL FINDINGS: None. Signer Name: Jhonny Sanders MD Signed: 07/06/2019 5:11 PM Workstation Name: [id number] - Medical Decision Making Patient stated that she did not want any pain medication on arrival. Patient x- ray is within normal limits. Patient to be discharged home with information on shoulder exercises. Patient likely is injury to the rotator cuff. Critical care attestation.: If time is entered above; I have spent that time in minutes in the direct care of this critically ill patient, excluding procedure time. ED Disposition Clinical Impression: Shoulder injury Qualifiers: Encounter type: initial encounter Laterality: left Qualified Code(s): S49.92XA - Unspecified injury of left shoulder and upper arm, initial encounter Disposition: - TO HOME OR SELFCARE Is pt being admited?: No Does the pt Need Aspirin: No Condition: Stable Instructions: Shoulder Sprain (ED), RICE Therapy (ED) Time of Disposition: 18:27 }
[2019-07-06 22:50] VITALS: BP 122/67
== END 2019-07-06 22:52 | disposition home or self-care (01) ==
LOC: ED 15:51
DX: S49.92XA Unspecified injury of left shoulder and upper arm, initial encounter (principal); I11.0 Hypertensive heart disease with heart failure; I50.9 Heart failure, unspecified; E11.9 Type 2 diabetes mellitus without complications; F41.9 Anxiety disorder, unspecified; J44.9 Chronic obstructive pulmonary disease, unspecified; Z79.899 Other long term (current) drug therapy; W18.39XA Other fall on same level, initial encounter; Y93.89 Activity, other specified; Y92.89 Other specified places as the place of occurrence of the external cause; Y99.8 Other external cause status

== ENCOUNTER 2021-12-03 20:32 | Inpatient (IN) | payer MEDICAID ==
--- NOTE | 2021-12-03 21:50 | Emergency Department Report ---
ED Shortness of Breath HPI - General Time Seen by Provider: 12/03/21 21:42 - History of Present Illness Initial Comments: Patient is 61-year-old female brought in by EMS [facility] for shortness of breath. She has chronic kidney disease and is on dialysis Saturday and Saturday. States she only had partial dialysis on Saturday. EMS arrived to find patient in respiratory distress satting in the 80s on her home oxygen at 3 L/min. She was subsequently placed on nonrebreather at 15 L/min with increase of saturations to 98%. On arrival patient has no complaints. - Related Data Home Medications Medication Instructions Recorded Confirmed Last Taken Atorvastatin [Lipitor] 40 mg PO QHS 09/23/13 03/22/18 02/24/18 40 mg Magnesium Oxide 400 mg PO DAILY 09/23/13 03/22/18 02/24/18 400 mg Bumetanide [Bumetanide 2 mg tab] 2 mg PO BID 05/15/17 03/22/18 02/24/18 2 mg Previous Rx's Medication Instructions Recorded Last Taken Type Levothyroxine [Synthroid] 50 mcg PO DAILY@0600 #30 tablet 03/23/16 02/24/18 Rx 50 mcg Oxycodone HCl/Acetaminophen 1 each PO Q6HR PRN #15 tablet 05/20/17 02/24/18 Rx [Percocet 10/325 mg] 1 Acetaminophen [Acetaminophen TAB] 650 mg PO Q4H PRN #30 tablet 03/26/18 Unknown Rx Acyclovir [Zovirax Tab] 500 mg PO Q24HR 6 Days #6 tab 03/26/18 Unknown Rx Arformoterol Nebu [Brovana Nebu] 15 mcg IH Q12HRT #30 ml 03/26/18 Unknown Rx Budesonide [Pulmicort Respules] 0.25 mg IH Q12HR #30 03/26/18 02/24/18 Rx 0.25mg Capsaicin 0.075% [Zostrix Hp 1 applic TP TID 7 Days tube 03/26/18 Unknown Rx 0.075%] Cinacalcet [Sensipar] 30 mg PO HS #30 03/26/18 02/24/18 Rx 30 mg Famotidine [Pepcid] 10 mg PO QPM #30 tablet 03/26/18 Unknown Rx Insulin Regular, Human [HumuLIN R] 1 dose SUB-Q ACHS PRN #100 units 03/26/18 Unknown Rx Metoprolol [Lopressor TAB] 25 mg PO BID PRN #60 03/26/18 02/24/18 Rx 25 mg Sevelamer Carbonate [Renvela] 800 mg PO TID #90 03/26/18 02/24/18 Rx 800 mg hydrOXYzine HCL [Hydroxyzine HCl] 25 mg PO Q8H #30 03/26/18 02/24/18 Rx 25 mg methylPREDNISolone [Medrol Dose 1 dose PO DAILY #1 pack 03/26/18 Unknown Rx Jamison] valACYclovir [Valtrex] 500 mg PO QPM #10 tablet 03/26/18 Unknown Rx Allergies Allergy/AdvReac Type Severity Reaction Status Date / Time No Known Allergies Allergy Verified 03/21/18 23:55 ED Review of Systems ROS: Stated complaint: Other details as noted in HPI Constitutional: no symptoms reported Respiratory: shortness of breath. denies: cough Cardiovascular: denies: chest pain, palpitations Gastrointestinal: denies: abdominal pain, nausea, vomiting Musculoskeletal: denies: back pain, joint swelling, arthralgia Skin: denies: rash, lesions Neurological: denies: headache, weakness Psychiatric: denies: anxiety, depression ED Past Medical Hx - Past Medical History Hx Hypertension: Yes Hx Congestive Heart Failure: Yes Hx Diabetes: Yes (type II) Hx GERD: Yes Hx Renal Disease: Yes Hx Arthritis: Yes Hx Psychiatric Treatment: Yes (anxiety) Hx Asthma: Yes Hx COPD: Yes Additional medical history: morbid obesity. atrial fibrillation. hypothyroidism. Edema. Obstructive Sleep Apnea with BiPAP used at night. chronic pain. chronic kidney disease. hyperlipidemia. anemia - Surgical History Additional Surgical History: graft to left arm, peg tube when intubated, partial hysterectomy, C-sections - Social History Smoking Status: Never Smoker Substance Use Type: None - Medications Home Medications: Home Medications Medication Instructions Recorded Confirmed Last Taken Type Atorvastatin [Lipitor] 40 mg PO QHS 09/23/13 03/22/18 02/24/18 History 40 mg Magnesium Oxide 400 mg PO DAILY 09/23/13 03/22/18 02/24/18 History 400 mg Levothyroxine [Synthroid] 50 mcg PO DAILY@0600 #30 tablet 03/23/16 03/22/18 02/24/18 Rx 50 mcg Bumetanide [Bumetanide 2 mg tab] 2 mg PO BID 05/15/17 03/22/18 02/24/18 History 2 mg Oxycodone HCl/Acetaminophen 1 each PO Q6HR PRN #15 tablet 05/20/17 03/22/18 02/24/18 Rx [Percocet 10/325 mg] 1 Acetaminophen [Acetaminophen TAB] 650 mg PO Q4H PRN #30 tablet 03/26/18 Unknown Rx Acyclovir [Zovirax Tab] 500 mg PO Q24HR 6 Days #6 tab 03/26/18 Unknown Rx Arformoterol Nebu [Brovana Nebu] 15 mcg IH Q12HRT #30 ml 03/26/18 Unknown Rx Budesonide [Pulmicort Respules] 0.25 mg IH Q12HR #30 03/26/18 03/22/18 02/24/18 Rx 0.25mg Capsaicin 0.075% [Zostrix Hp 1 applic TP TID 7 Days tube 03/26/18 Unknown Rx 0.075%] Cinacalcet [Sensipar] 30 mg PO HS #30 03/26/18 03/22/18 02/24/18 Rx 30 mg Famotidine [Pepcid] 10 mg PO QPM #30 tablet 03/26/18 Unknown Rx Insulin Regular, Human [HumuLIN R] 1 dose SUB-Q ACHS PRN #100 units 03/26/18 Unknown Rx Metoprolol [Lopressor TAB] 25 mg PO BID PRN #60 03/26/18 03/22/18 02/24/18 Rx 25 mg Sevelamer Carbonate [Renvela] 800 mg PO TID #90 03/26/18 03/22/18 02/24/18 Rx 800 mg hydrOXYzine HCL [Hydroxyzine HCl] 25 mg PO Q8H #30 03/26/18 03/22/18 02/24/18 Rx 25 mg methylPREDNISolone [Medrol Dose 1 dose PO DAILY #1 pack 03/26/18 Unknown Rx Jamison] valACYclovir [Valtrex] 500 mg PO QPM #10 tablet 03/26/18 Unknown Rx ED Physical Exam - General General appearance: alert, in no apparent distress, obese - Head Head exam: Present: atraumatic, normocephalic - Neck Neck exam: Present: normal inspection - Respiratory Respiratory exam: Present: other (Bilateral crackles. Patient on nonr ebreather.). Absent: respiratory distress - Cardiovascular Cardiovascular Exam: Present: regular rate, normal rhythm, normal heart sounds - GI/Abdominal GI/Abdominal exam: Present: soft. Absent: distended, tenderness - Rectal Rectal exam: Present: deferred - Neurological Exam Neurological exam: Present: alert, oriented X3 - Psychiatric Psychiatric exam: Present: normal affect, normal mood - Skin Skin exam: Present: warm, dry, intact, normal color ED Course Vital Signs 12/03/21 12/03/21 12/03/21 22:26 22:31 22:33 Temperature 97.8 F Pulse Rate 98 H 96 H 96 H Respiratory 20 24 24 Rate Blood Pressure O2 Sat by Pulse 90 90 92 Oximetry 12/03/21 12/03/21 12/03/21 22:45 23:01 23:15 Temperature Pulse Rate 93 H 96 H 93 H Respiratory 15 24 23 Rate Blood Pressure 136/62 136/62 O2 Sat by Pulse 92 91 94 Oximetry 12/03/21 23:47 Temperature Pulse Rate Respiratory Rate Blood Pressure O2 Sat by Pulse 92 Oximetry ED Medical Decision Making - Lab Data Result diagrams: 12/03/21 22:34 12/03/21 22:34 - Medical Decision Making Chest x-ray reveals a small right pleural effusion without edema. Patient was eventually weaned from nonrebreather to 3 L nasal cannula with oxygen saturation in the low 90s. Labs reviewed. CBC grossly unremarkable. CMP reveals serum potassium 5.3, creatinine 11.2, BNP 5495. Suspect possibly early fluid overl oad. Will admit for monitoring and scheduled dialysis tomorrow. Critical care attestation.: If time is entered above; I have spent that time in minutes in the direct care of this critically ill patient, excluding procedure time. ED Disposition Clinical Impression: Hyperkalemia, Acute on chronic congestive heart failure Disposition: ADMITTED INPATIENT Is pt being admited?: Yes Condition: Stable Referrals: PRIMARY CARE, [Referring] - 3-5 Days
--- NOTE | 2021-12-03 22:37 | XRay Report ---
CHEST 1 VIEW 12/03/2021 10:19 PM INDICATION / CLINICAL INFORMATION: Dyspnea. COMPARISON: None available FINDINGS: SUPPORT DEVICES: None. HEART / MEDIASTINUM: There is prominence the cardiac silhouette. LUNGS / PLEURA: There is venous congestion. There is a right pleural effusion. There is right basilar airspace disease. There is a calcified granuloma in the right upper lung zone and there are calcifie d lymph nodes in the right hilum. No pneumothorax. ADDITIONAL FINDINGS: No significant additional findings. IMPRESSION: 1. There is a small right pleural effusion. There is right basilar airspace disease. 2. There is prominence the cardiac silhouette. Signer Name: Akhil Hernandez MD Signed: 12/03/2021 10:32 PM Workstation Name: [id number]
[2021-12-03 23:02] LABS: Hematocrit 34.3 % (30.3-42.9); Mean Corpuscular HGB Conc 32 % (30-34); Mean Corpuscular Volume 93 fl (79-97); Platelet Count 156 K/mm3 (140-440)
[2021-12-03 23:13] LABS: Albumin 3.9 g/dL (3.9-5); Calcium 9.9 mg/dL (8.4-10.2)
[2021-12-04] MEDS ORDERED: ACETAMINOPHEN 325 MG TAB PO PRN (00:55)
[2021-12-04] MEDS ORDERED: MORPHINE 2 MG/1 ML INJ IV PRN (00:55)
[2021-12-04] MEDS ORDERED: ONDANSETRON 4 MG/2 ML INJ IV PRN (00:55)
[2021-12-04] MEDS ORDERED: DEXTROSE 50% IN WATER (25GM) 50 ML SYRINGE IV PRN (00:55)
[2021-12-04] MEDS ORDERED: MORPHINE 4 MG/1 ML INJ IV PRN (00:55)
[2021-12-04] MEDS ORDERED: ALBUTEROL 2.5 MG/3 ML NEBU IH PRN (00:55)
[2021-12-04] MEDS ORDERED: METOPROLOL TARTRATE 25 MG TAB PO PRN (00:58)
--- NOTE | 2021-12-04 01:05 | History and Physical Report ---
History of Present Illness Date of examination: 12/04/21 Date of admission: 12/04/21 Chief complaint: Dyspnea Respiratory distress History of present illness: 61-year-old female with history of end-stage renal disease on dialysis, diabetes, CHF was brought to the emergency room because of shortness of breath. She has chronic kidney disease and is on dialysis Saturday and Saturday. Patient only had partial dialysis on Saturday. EMS arrived to find patient in respiratory distress satting in the 80s on her home oxygen at 3 L/min. She was subsequently placed on nonrebreather at 15 L/min with increase of saturations to 98%. On arrival patient has no complaints. In the emergency room patient is found to have BUN of 45 creatinine of 11.2, proBNP of 5495 and potassium 5.3 chest x-ray shows right pleural effusion Past History Past Medical History: arthritis, COPD, diabetes, ESRD, hypertension, renal failure, other (Anxietymorbid obesity. atrial fibrillation. hypothyroidism. Edema. Obstructive Sleep Apnea with BiPAP used at night. chronic pain. chronic kidney disease. hyperlipidemia. anemia) Past Surgical History: Other (graft to left arm, peg tube when intubated, partial hysterectomy, C-sections) Social history: no significant social history Family history: diabetes, hypertension Medications and Allergies Allergies Allergy/AdvReac Type Severity Reaction Status Date / Time No Known Allergies Allergy Verified 03/21/18 23:55 Home Medications Medication Instructions Recorded Confirmed Last Taken Type Atorvastatin [Lipitor] 40 mg PO QHS 09/23/13 03/22/18 02/24/18 History 40 mg Magnesium Oxide 400 mg PO DAILY 09/23/13 03/22/18 02/24/18 History 400 mg Levothyroxine [Synthroid] 50 mcg PO DAILY@0600 #30 tablet 03/23/16 03/22/18 02/24/18 Rx 50 mcg Bumetanide [Bumetanide 2 mg tab] 2 mg PO BID 05/15/17 03/22/18 02/24/18 History 2 mg Oxycodone HCl/Acetaminophen 1 each PO Q6HR PRN #15 tablet 05/20/17 03/22/18 02/24/18 Rx [Percocet 10/325 mg] 1 Acetaminophen [Acetaminophen TAB] 650 mg PO Q4H PRN #30 tablet 03/26/18 Unknown Rx Acyclovir [Zovirax Tab] 500 mg PO Q24HR 6 Days #6 tab 03/26/18 Unknown Rx Arformoterol Nebu [Brovana Nebu] 15 mcg IH Q12HRT #30 ml 03/26/18 Unknown Rx Budesonide [Pulmicort Respules] 0.25 mg IH Q12HR #30 03/26/18 03/22/18 02/24/18 Rx 0.25mg Capsaicin 0.075% [Zostrix Hp 1 applic TP TID 7 Days tube 03/26/18 Unknown Rx 0.075%] Cinacalcet [Sensipar] 30 mg PO HS #30 03/26/18 03/22/18 02/24/18 Rx 30 mg Famotidine [Pepcid] 10 mg PO QPM #30 tablet 03/26/18 Unknown Rx Insulin Regular, Human [HumuLIN R] 1 dose SUB-Q ACHS PRN #100 units 03/26/18 Unknown Rx Metoprolol [Lopressor TAB] 25 mg PO BID PRN #60 03/26/18 03/22/18 02/24/18 Rx 25 mg Sevelamer Carbonate [Renvela] 800 mg PO TID #90 03/26/18 03/22/18 02/24/18 Rx 800 mg hydrOXYzine HCL [Hydroxyzine HCl] 25 mg PO Q8H #30 03/26/18 03/22/18 02/24/18 Rx 25 mg methylPREDNISolone [Medrol Dose 1 dose PO DAILY #1 pack 03/26/18 Unknown Rx Jamison] valACYclovir [Valtrex] 500 mg PO QPM #10 tablet 03/26/18 Unknown Rx Review of Systems All systems: negative Cardiovascular: shortness of breath, dyspnea on exertion Respiratory: shortness of breath, dyspnea on exertion Exam - Constitutional Vitals: Temp Pulse Resp BP Pulse Ox 97.8 F 91 H 21 131/96 91 12/03/21 22:33 12/04/21 00:31 12/04/21 00:31 12/04/21 00:31 12/04/21 00:31 General appearance: Present: no acute distress, well-nourished - EENT Eyes: Present: PERRL ENT: hearing intact, clear oral mucosa - Neck Neck: Present: supple, normal ROM - Respiratory Respiratory effort: normal Respiratory: bilateral: diminished - Cardiovascular Heart Sounds: Present: S1 & S2. Absent: rub, click - Extremities Extremities: pulses symmetrical, No edema Peripheral Pulses: within normal limits - Abdominal General gastrointestinal: Present: soft, non-tender, non-distended, normal bowel sounds Female genitourinary: Present: normal - Integumentary Integumentary: Present: clear, warm, dry - Musculoskeletal Musculoskeletal: gait normal, strength equal bilaterally - Psychiatric Psychiatric: appropriate mood/affect, intact judgment & insight - Neurologic Neurologic: CNII-XII intact, moves all extremities Results - Labs CBC & Chem 7: 12/03/21 22:34 12/03/21 22:34 Labs: Laboratory Last Values WBC 5.9 K/mm3 (4.5-11.0) 12/03/21 22:34 RBC 3.70 M/mm3 (3.65-5.03) 12/03/21 22:34 Hgb 11.0 gm/dl (10.1-14.3) 12/03/21 22:34 Hct 34.3 % (30.3-42.9) 12/03/21 22:34 MCV 93 fl (79-97) 12/03/21 22:34 MCH 30 pg (28-32) 12/03/21 22:34 MCHC 32 % (30-34) 12/03/21 22:34 RDW 15.0 % (13.2-15.2) 12/03/21 22:34 Plt Count 156 K/mm3 (140-440) 12/03/21 22:34 Baso % (Auto) Gate Technician 12/03/21 22:34 Sodium 137 mmol/L (137-145) 12/03/21 22:34 Potassium 5.3 mmol/L (3.6-5.0) H 12/03/21 22:34 Chloride 94.9 mmol/L (98-107) L 12/03/21 22:34 Carbon Dioxide 29 mmol/L (22-30) 12/03/21 22:34 Anion Gap 18 mmol/L 12/03/21 22:34 BUN 45 mg/dL (7-17) H 12/03/21 22:34 Creatinine 11.2 mg/dL (0.6-1.2) H 12/03/21 22:34 Estimated GFR 4 ml/min 12/03/21 22:34 BUN/Creatinine Ratio 4 % 12/03/21 22:34 Glucose 99 mg/dL (65-100) 12/03/21 22:34 Calcium 9.9 mg/dL (8.4-10.2) 12/03/21 22:34 Total Bilirubin 0.50 mg/dL (0.1-1.2) 12/03/21 22:34 AST 23 units/L (5-40) 12/03/21 22:34 ALT 19 units/L (7-56) 12/03/21 22:34 Alkaline Phosphatase 237 units/L (35-129) H 12/03/21 22:34 NT-Pro-B Natriuret Pep 5495 pg/mL (0-900) H 12/03/21 22:34 Total Protein 7.1 g/dL (6.3-8.2) 12/03/21 22:34 Albumin 3.9 g/dL (3.9-5) 12/03/21 22:34 Albumin/Globulin Ratio 1.2 % 12/03/21 22:34 - Imaging and Cardiology Chest x-ray: report reviewed Assessment and Plan VTE prophylaxis?: Chemical Plan of care discussed with patient/family: Yes - Patient Problems (1) End stage renal disease on dialysis Current Visit: Yes Status: Acute Plan to address problem: Admit the patient to the medical telemetry. Oxygen per nasal cannula 3 L/min DuoNeb by nebulizer every 4 hours. Will consult nephrology for dialysis in the morning. Recheck BMP in the morning (2) CHF (congestive heart failure) Current Visit: No Status: Chronic Plan to address problem: Fluid restriction. Daily weight. Maintain input output. Oxygen by nasal catheter per minute. DuoNeb by nebulizer every 4 hours as needed. Will consult nephrology for dialysis in the morning (3) HTN (hypertension) Current Visit: No Status: Chronic Plan to address problem: Metoprolol 25 mg p.o. twice daily. We continue the home medication (4) Morbid obesity Current Visit: No Status: Chronic Plan to address problem: We will counseled the patient regarding weight reduction (5) Obstructive sleep apnea on CPAP Current Visit: No Status: Chronic Plan to address problem: Oxygen by nasal cannula 3 to permit. DuoNeb by nebulizer every 4 hours. Albut davin via nebulizer every 4 hours. We continue the CPAP (6) Paroxysmal atrial fibrillation Current Visit: No Status: Chronic Plan to address problem: Stable. We continue the home medication. Outpatient follow-up with cardiology (7) Type 2 diabetes mellitus with chronic kidney disease Current Visit: No Status: Chronic Plan to address problem: Accu-Chek before meals and at bedtime with Humalog low-dose coverage. Diabetic education. Recheck BMP in the morning (8) Hyperkalemia Current Visit: Yes Status: Acute Plan to address problem: Kayexalate 30 g p.o. x1 dose. We will hemodialyzed the patient in the morning. Nephrology consult (9) DVT prophylaxis Current Visit: No Status: Acute Plan to address problem: Heparin 5000 units subcu every 12 hours for DVT prophylaxis. Pepcid 20 mg p.o. twice daily for GI prophylaxis. Patient is a full code
[2021-12-04] MEDS ORDERED: SODIUM POLYSTYRENE 15 GM/60 ML ORAL LIQD PO ONE (01:08)
[2021-12-04] MEDS: IPRATROPIUM/ALBUTEROL SULFATE 3 ML AMPUL.NEB IH SCH ×4 (02:10→22:03)
[2021-12-04 03:58] LABS: Anisocytosis 1+; Basophils % (Manual) 0 % (0.0-1.8); Platelet Estimate Consistent w Auto; Total Cells Counted 100
[2021-12-04] MEDS: LEVOTHYROXINE 50 MCG TAB PO SCH (06:35)
[2021-12-04] MEDS: hydrOXYzine HCL 25 MG TAB PO SCH ×3 (06:35→22:36)
[2021-12-04] MEDS ORDERED: SODIUM CHLORIDE 0.9% 100 ML IV PRN (07:08)
[2021-12-04] MEDS ORDERED: CAPSAICIN 0.075% CREAM 60 GM TP SCH (08:00)
[2021-12-04] MEDS: BUDESONIDE 0.25 MG/2 ML NEBU IH SCH ×2 (08:25→22:04)
[2021-12-04] MEDS: ARFORMOTEROL 15 MCG/2 ML NEBU IH SCH ×2 (08:25→22:04)
[2021-12-04] MEDS: INSULIN LISPRO 100 UNIT/ML SUB-Q SCH ×4 (08:52→22:00)
--- NOTE | 2021-12-04 09:16 | Consultation ---
History of Present Illness - Reason for Consult Consult date: 12/04/21 end stage renal disease - History of Present Illness This is a 61 year old female who is well known to Dr. Cedeno. She has ESRD and is our hemodialysis patient at [facility] who presents to hospital for a chief complaint of having shortness of breath. CXR shows Pleural Effusion. Patient is on hemodialysis schedule of M,W,F and is due for hemodialysis today. Patient has history of ESRD, CHF, Obesity, Diabetes Mellitus and Hypotension. Past History Past Medical History: arthritis, COPD, diabetes, ESRD, hypertension, renal failure, other (Anxietymorbid obesity. atrial fibrillation. hypothyroidism. Edema. Obstructive Sleep Apnea with BiPAP used at night. chronic pain. chronic kidney disease. hyperlipidemia. anemia) Past Surgical History: Other (graft to left arm, peg tube when intubated, partial hysterectomy, C-sections) Social history: no significant social history Family history: diabetes, hypertension Medications and Allergies Allergies Allergy/AdvReac Type Severity Reaction Status Date / Time No Known Allergies Allergy Verified 03/21/18 23:55 Home Medications Medication Instructions Recorded Confirmed Last Taken Type Atorvastatin [Lipitor] 40 mg PO QHS 09/23/13 03/22/18 02/24/18 History 40 mg Magnesium Oxide 400 mg PO DAILY 09/23/13 03/22/18 02/24/18 History 400 mg Levothyroxine [Synthroid] 50 mcg PO DAILY@0600 #30 tablet 03/23/16 03/22/18 02/24/18 Rx 50 mcg Bumetanide [Bumetanide 2 mg tab] 2 mg PO BID 05/15/17 03/22/18 02/24/18 History 2 mg Oxycodone HCl/Acetaminophen 1 each PO Q6HR PRN #15 tablet 05/20/17 03/22/18 10/01/04 Rx [Percocet 10/325 mg] 1 Acetaminophen [Acetaminophen TAB] 650 mg PO Q4H PRN #30 tablet 03/26/18 Unknown Rx Acyclovir [Zovirax Tab] 500 mg PO Q24HR 6 Days #6 tab 03/26/18 Unknown Rx Arformoterol Nebu [Brovana Nebu] 15 mcg IH Q12HRT #30 ml 03/26/18 Unknown Rx Budesonide [Pulmicort Respules] 0.25 mg IH Q12HR #30 03/26/18 03/22/18 02/24/18 Rx 0.25mg Capsaicin 0.075% [Zostrix Hp 1 applic TP TID 7 Days tube 03/26/18 Unknown Rx 0.075%] Cinacalcet [Sensipar] 30 mg PO HS #30 03/26/18 03/22/18 02/24/18 Rx 30 mg Famotidine [Pepcid] 10 mg PO QPM #30 tablet 03/26/18 Unknown Rx Insulin Regular, Human [HumuLIN R] 1 dose SUB-Q ACHS PRN #100 units 03/26/18 Unknown Rx Metoprolol [Lopressor TAB] 25 mg PO BID PRN #60 03/26/18 03/22/18 02/24/18 Rx 25 mg Sevelamer Carbonate [Renvela] 800 mg PO TID #90 03/26/18 03/22/18 02/24/18 Rx 800 mg hydrOXYzine HCL [Hydroxyzine HCl] 25 mg PO Q8H #30 03/26/18 03/22/18 02/24/18 Rx 25 mg methylPREDNISolone [Medrol Dose 1 dose PO DAILY #1 pack 03/26/18 Unknown Rx Jamison] valACYclovir [Valtrex] 500 mg PO QPM #10 tablet 03/26/18 Unknown Rx Active Meds: Active Medications Acetaminophen (Acetaminophen 325 Mg Tab) 650 mg PO Q4H PRN PRN Reason: Pain MILD(1-3)/Fever >100.5/HO Albuterol (Albuterol 2.5 Mg/3 Ml Nebu) 2.5 mg IH Q3HRT PRN PRN Reason: Shortness Of Breath Albuterol/Ipratropium (Ipratropium/Albuterol Sulfate 3 Ml Ampul.Neb) 1 ampul IH Q6HRT [facility] Last Admin: 12/04/21 08:25 Dose: 1 ampul Arformoterol Tartrate (Arformoterol 15 Mcg/2 Ml Nebu) 15 mcg IH Q12HRT [facility] Last Admin: 12/04/21 08:25 Dose: 15 mcg Atorvastatin Calcium (Atorvastatin 40 Mg Tab) 40 mg PO QHS PRATIK Budesonide (Budesonide 0.25 Mg/2 Ml Nebu) 0.25 mg IH Q12HRT [facility] Last Admin: 12/04/21 08:25 Dose: Not Given Bumetanide (Bumetanide 1 Mg Tab) 2 mg PO BID [facility] Cinacalcet (Cinacalcet 30 Mg Tab) 30 mg PO HS [facility] Dextrose (Dextrose 50% In Water (25gm) 50 Ml Syringe) 50 ml IV Q30MIN PRN; Protocol PRN Reason: Hypoglycemia Famotidine (Famotidine 10 Mg Tab) 10 mg PO BID [facility] Heparin Sodium (Porcine) (Heparin 5,000 Unit/1 Ml Vial) 7,500 unit SUB-Q Q8HR [facility] Hydroxyzine HCl (Hydroxyzine Hcl 25 Mg Tab) 25 mg PO Q8HR [facility] Last Admin: 12/04/21 06:35 Dose: 25 mg Sodium Chloride (Nacl 0.9%) 100 mls @ 999 mls/hr IV LINDA PRN PRN Reason: Hypotension Insulin Human Lispro (Insulin Lispro 100 Unit/Ml) 0 unit SUB-Q ACHS [facility]; Protocol Last Admin: 12/04/21 08:52 Dose: Not Given Levothyroxine Sodium (Levothyroxine 50 Mcg Tab) 50 mcg PO DAILY@0600 [facility] Last Admin: 12/04/21 06:35 Dose: 50 mcg Metoprolol Tartrate (Metoprolol Tartrate 25 Mg Tab) 25 mg PO BID PRN PRN Reason: Hypertension Morphine Sulfate (Morphine 2 Mg/1 Ml Inj) 2 mg IV Q4H PRN PRN Reason: Pain, Moderate (4-6) Morphine Sulfate (Morphine 4 Mg/1 Ml Inj) 4 mg IV Q4H PRN PRN Reason: Pain , Severe (7-10) Ondansetron HCl (Ondansetron 4 Mg/2 Ml Inj) 4 mg IV Q8H PRN PRN Reason: Nausea And Vomiting Sevelamer Carbonate (Sevelamer Carbonate 800 Mg Tab) 800 mg PO TIDWM [facility] Sodium Chloride (Sodium Chloride 0.9% 10 Ml Flush Syringe) 10 ml IV BID [facility] Sodium Chloride (Sodium Chloride 0.9% 10 Ml Flush Syringe) 10 ml IV PRN PRN PRN Reason: LINE FLUSH Review of Systems Constitutional: fatigue, no weight loss, no weight gain, no fever, no chills, no sweats Ears, nose, mouth and throat: no ear pain, no ear discharge, no tinnitis, no decreased hearing, no nose pain, no nasal congestion Cardiovascular: shortness of breath, no orthopnea, no palpitations, no rapid/irregular heart beat, no edema, no syncope Respiratory: shortness of breath, no cough, no cough with sputum, no excessive sputum, no hemoptysis Gastrointestinal: no abdominal pain, no nausea, no vomiting, no diarrhea, no constipation, no hematemesis Genitourinary Female: no pelvic pain, no flank pain, no menorrhagia, no dysuria, no urinary frequency, no urgency Rectal: no pain, no incontinence, no bleeding, no itching, no hemorrhoids Musculoskeletal: no neck stiffness, no neck pain, no shooting arm pain, no arm numbness/tingling, no low back pain, no shooting leg pain Integumentary: no rash, no pruritis, no redness, no sores, no wounds, no jaundice Neurological: no paralysis, no weakness, no parathesias, no numbness, no tingling Psychiatric: no anxiety, no memory loss, no change in sleep habits, no sleep disturbances, no insomnia, no hypersomnia Endocrine: no cold intolerance, no heat intolerance, no polyphagia, no excessive thirst, no polydipsia Hematologic/Lymphatic: no easy bruising, no easy bleeding, no lymphadenopathy Exam - Vital Signs Vital signs: Vital Signs Pulse Resp Pulse Ox 98 H 20 90 12/03/21 22:26 12/03/21 22:26 12/03/21 22:26 - General Appearance General appearance: well-developed, appears stated age, obese EENT: ATNC, PERRL Neck: Present: neck supple, trachea midline Respiratory: Decreased Breath Sounds Heart: S1S2 Gastrointestinal: Present: normoactive bowel sounds Integumentary: warm and dry Neurologic: alert and oriented x3 Musculoskeletal: Present: other (no edema) Results - Lab Results 12/03/21 22:34 12/03/21 22:34 Most recent lab results Calcium 9.9 mg/dL (8.4-10.2) 12/03/21 22:34 Assessment and Plan Assessment: End Stage Renal Disease Right Pleural Effusion CHF Afib Diabetes Mellitus Obesity Hyperkalemia Hypotension Plan: Hemodialysis today for UF and clearance Placed on M,W, F dialysis schedule Fluid restriction of 1 liter per day Renally dose medications Obtain daily weights Monitor I/O's daily Assess dialysis needs daily Goes to [facility] outpatiently Plan of care reviewed by Dr. Cedeno
[2021-12-04] MEDS ORDERED: FAMOTIDINE 20 MG TAB PO SCH (10:00)
[2021-12-04] MEDS ORDERED: BUMETANIDE 2 MG PO SCH (10:00)
[2021-12-04] MEDS ORDERED: ACYCLOVIR 400 MG PO SCH (10:00)
[2021-12-04] MEDS ORDERED: HEPARIN 5,000 UNIT/1 ML VIAL SUB-Q SCH (10:00)
[2021-12-04] MEDS: FAMOTIDINE 10 MG TAB PO SCH ×2 (10:50→22:36)
[2021-12-04] MEDS: SEVELAMER CARBONATE 800 MG TAB PO SCH ×3 (10:50→16:57)
[2021-12-04] MEDS: BUMETANIDE 1 MG TAB PO SCH ×2 (10:50→22:36)
--- NOTE | 2021-12-04 11:19 | Event Note ---
Date: 12/04/21 The patient was evaluated this morning, and she was found to be hemodynamically stable. Neurology had been consulted upon admission for hemodialysis needs. The patient described that her hemodialysis access (right femoral) might be malfunctioning. Attempts will be made at performing hemodialysis, and if unsuccessful then vascular surgery will be consulted.
[2021-12-04] MEDS: traMADol 50 MG TAB PO PRN ×2 (12:22→22:36)
[2021-12-04] MEDS: HEPARIN 5,000 UNIT/1 ML VIAL SUB-Q SCH ×2 (14:29→22:37)
[2021-12-04 16:35] LABS: Hepatitis B Surface Antigen Non-Reactive (Negative); Hepatitis C Virus Antibody Non-Reactive (NonReactive)
[2021-12-04] MEDS ORDERED: valACYclovir 500 MG TAB PO SCH (18:00)
[2021-12-04] MEDS: CINACALCET 30 MG TAB PO SCH (22:36)
[2021-12-05] MEDS: IPRATROPIUM/ALBUTEROL SULFATE 3 ML AMPUL.NEB IH SCH ×4 (01:11→20:15)
[2021-12-05] MEDS: hydrOXYzine HCL 25 MG TAB PO SCH ×3 (06:45→21:42)
[2021-12-05 07:27] LABS: Albumin 3.5 g/dL (3.9-5); Calcium 9.7 mg/dL (8.4-10.2)
[2021-12-05] MEDS: ARFORMOTEROL 15 MCG/2 ML NEBU IH SCH ×2 (07:36→20:16)
[2021-12-05] MEDS: BUDESONIDE 0.25 MG/2 ML NEBU IH SCH (07:37)
[2021-12-05] MEDS: HEPARIN 5,000 UNIT/1 ML VIAL SUB-Q SCH ×3 (07:43→21:43)
[2021-12-05] MEDS: LEVOTHYROXINE 50 MCG TAB PO SCH (07:43)
[2021-12-05] MEDS: INSULIN LISPRO 100 UNIT/ML SUB-Q SCH ×4 (07:59→22:00)
--- NOTE | 2021-12-05 08:41 | Progress Note ---
Assessment and Plan End Stage Renal Disease Right Pleural Effusion CHF Afib Diabetes Mellitus Obesity Hyperkalemia Hypotension Plan: will give SPS 30 grams with IV insulin with D50W for elevated K will try cathflo and HD again today Vascular surgery consult was placed for malfunctioned access Fluid restriction of 1 liter per day Renally dose medications Obtain daily weights Monitor I/O's daily Assess dialysis needs daily Goes to [facility] outpatiently Subjective Date of service: 12/05/21 Principal diagnosis: ESRD Interval history: had difficultly finishing dialysis treatment yesterday due to malfunctioned access Objective - Vital Signs Vital signs: Vital Signs - 12hr 12/04/21 12/04/21 12/05/21 22:00 23:06 00:00 Pulse Rate 77 97 H Pulse Rate [ Bilateral Throughout] Respiratory 18 Rate Respiratory Rate [Bilateral Throughout] O2 Sat by Pulse 97 96 Oximetry 12/05/21 07:36 Pulse Rate Pulse Rate [ 90 Bilateral Throughout] Respiratory Rate Respiratory 18 Rate [Bilateral Throughout] O2 Sat by Pulse 92 Oximetry - Lab 12/03/21 22:34 12/05/21 05:33 Most recent lab results Calcium 9.7 mg/dL (8.4-10.2) 12/05/21 05:33 Phosphorus 5.50 mg/dL (2.5-4.5) H 12/05/21 05:33 Medications & Allergies - Medications Allergies/Adverse Reactions: Allergies No Known Allergies Allergy (Verified 03/21/18 23:55) Home Medications: Home Medications Medication Instructions Recorded Confirmed Last Taken Type Atorvastatin [Lipitor] 40 mg PO QHS 09/23/13 03/22/18 02/24/18 History 40 mg Magnesium Oxide 400 mg PO DAILY 09/23/13 03/22/18 02/24/18 History 400 mg Levothyroxine [Synthroid] 50 mcg PO DAILY@0600 #30 tablet 03/23/16 03/22/18 02/24/18 Rx 50 mcg Bumetanide [Bumetanide 2 mg tab] 2 mg PO BID 05/15/17 03/22/18 02/24/18 History 2 mg Oxycodone HCl/Acetaminophen 1 each PO Q6HR PRN #15 tablet 05/20/17 03/22/18 02/24/18 Rx [Percocet 10/325 mg] 1 Acetaminophen [Acetaminophen TAB] 650 mg PO Q4H PRN #30 tablet 03/26/18 Unknown Rx Acyclovir [Zovirax Tab] 500 mg PO Q24HR 6 Days #6 tab 03/26/18 Unknown Rx Arformoterol Nebu [Brovana Nebu] 15 mcg IH Q12HRT #30 ml 03/26/18 Unknown Rx Budesonide [Pulmicort Respules] 0.25 mg IH Q12HR #30 03/26/18 03/22/18 02/24/18 Rx 0.25mg Capsaicin 0.075% [Zostrix Hp 1 applic TP TID 7 Days tube 03/26/18 Unknown Rx 0.075%] Cinacalcet [Sensipar] 30 mg PO HS #30 03/26/18 03/22/18 02/24/18 Rx 30 mg Famotidine [Pepcid] 10 mg PO QPM #30 tablet 03/26/18 Unknown Rx Insulin Regular, Human [HumuLIN R] 1 dose SUB-Q ACHS PRN #100 units 03/26/18 Unknown Rx Metoprolol [Lopressor TAB] 25 mg PO BID PRN #60 03/26/18 03/22/18 02/24/18 Rx 25 mg Sevelamer Carbonate [Renvela] 800 mg PO TID #90 03/26/18 03/22/18 02/24/18 Rx 800 mg hydrOXYzine HCL [Hydroxyzine HCl] 25 mg PO Q8H #30 03/26/18 03/22/18 02/24/18 Rx 25 mg methylPREDNISolone [Medrol Dose 1 dose PO DAILY #1 pack 03/26/18 Unknown Rx [place]] valACYclovir [Valtrex] 500 mg PO QPM #10 tablet 03/26/18 Unknown Rx Active Medications: Generic Name Dose Route Start Last Admin Trade Name Freq PRN Reason Stop Dose Admin Acetaminophen 650 mg 12/04/21 00:55 Acetaminophen 325 Mg Tab PO Q4H PRN Pain MILD(1-3)/Fever >100.5/HO Albuterol 2.5 mg 12/04/21 00:55 Albuterol 2.5 Mg/3 Ml Nebu IH Q3HRT PRN Shortness Of Breath Albuterol/Ipratropium 1 ampul 12/04/21 02:00 12/05/21 07:36 Ipratropium/Albuterol Sulfate 3 Ml Ampul.Neb IH 1 ampul Q6HRT PRATIK Administration Arformoterol Tartrate 15 mcg 12/04/21 08:00 12/05/21 07:36 Arformoterol 15 Mcg/2 Ml Nebu IH 15 mcg Q12HRT PRATIK Administration Atorvastatin Calcium 40 mg 12/04/21 22:00 12/04/21 22:35 Atorvastatin 40 Mg Tab PO 40 mg QHS [facility]ATIK Administration Budesonide 0.25 mg 12/04/21 08:00 12/05/21 07:37 Budesonide 0.25 Mg/2 Ml Nebu IH Not Given Q12HRT PRATIK Bumetanide 2 mg 12/04/21 10:00 12/04/21 22:36 Bumetanide 1 Mg Tab PO 2 mg BID PRATIK Administration Cinacalcet 30 mg 12/04/21 22:00 12/04/21 22:36 Cinacalcet 30 Mg Tab PO 30 mg HS PRATIK Administration Dextrose 50 ml 12/04/21 00:55 Dextrose 50% In Water (25gm) 50 Ml Syringe IV Q30MIN PRN Hypoglycemia Protocol Famotidine 10 mg 12/04/21 10:00 12/04/21 22:36 Famotidine 10 Mg Tab PO 10 mg BID [facility] Administration Heparin Sodium (Porcine) 7,500 unit 12/04/21 14:00 12/05/21 07:43 Heparin 5,000 Unit/1 Ml Vial SUB-Q 7,500 unit Q8HR PRATIK Administration Hydroxyzine HCl 25 mg 12/04/21 06:00 12/05/21 06:45 Hydroxyzine Hcl 25 Mg Tab PO 25 mg Q8HR [facility] Administration Sodium Chloride 100 mls @ 999 mls/hr 12/04/21 07:08 Nacl 0.9% IV LINDA PRN Hypotension Insulin Human Lispro 0 unit 12/04/21 07:30 12/05/21 07:59 Insulin Lispro 100 Unit/Ml SUB-Q Not Given ACHS [facility] Protocol Levothyroxine Sodium 50 mcg 12/04/21 06:00 12/05/21 07:43 Levothyroxine 50 Mcg Tab PO 50 mcg DAILY@0600 PR[facility] Administration Metoprolol Tartrate 25 mg 12/04/21 00:58 Metoprolol Tartrate 25 Mg Tab PO BID PRN Hypertension Morphine Sulfate 2 mg 12/04/21 00:55 Morphine 2 Mg/1 Ml Inj IV Q4H PRN Pain, Moderate (4-6) Morphine Sulfate 4 mg 12/04/21 00:55 Morphine 4 Mg/1 Ml Inj IV Q4H PRN Pain , Severe (7-10) Ondansetron HCl 4 mg 12/04/21 00:55 Ondansetron 4 Mg/2 Ml Inj IV Q8H PRN Nausea And Vomiting Sevelamer Carbonate 800 mg 12/04/21 08:00 12/04/21 16:57 Sevelamer Carbonate 800 Mg Tab PO Not Given TIDWM PRATIK Sodium Chloride 10 ml 12/04/21 10:00 12/04/21 22:36 Sodium Chloride 0.9% 10 Ml Flush Syringe IV 10 ml BID [facility] Administration Sodium Chloride 10 ml 12/04/21 00:55 Sodium Chloride 0.9% 10 Ml Flush Syringe IV PRN PRN LINE FLUSH Tramadol HCl 50 mg 12/04/21 12:11 12/04/21 22:36 Tramadol 50 Mg Tab PO 50 mg Q6H PRN Administration Pain, Moderate (4-6)
[2021-12-05] MEDS ORDERED: INSULIN REGULAR, HUMAN 100 UNITS/1 ML IV NR (08:42)
[2021-12-05] MEDS ORDERED: ALTEPLASE 2 MG INJ ONE (08:43)
[2021-12-05] MEDS ORDERED: DEXTROSE 50% IN WATER (25GM) 50 ML SYRINGE IV SCH (09:00)
[2021-12-05] MEDS: SEVELAMER CARBONATE 800 MG TAB PO SCH ×3 (09:50→18:08)
[2021-12-05] MEDS: FAMOTIDINE 10 MG TAB PO SCH ×2 (09:51→21:43)
[2021-12-05] MEDS: BUMETANIDE 1 MG TAB PO SCH ×2 (09:51→21:43)
[2021-12-05] MEDS ORDERED: CALCIUM GLUCONATE 1,000 MG in SODIUM CHLORIDE 0.9% 100 ML IV ONE (10:00)
--- NOTE | 2021-12-05 10:28 | Progress Note ---
Assessment and Plan Assessment and plan: #End stage renal disease on dialysis #malfunctioning permacath -patient with R femoral permacath that has malfunctioned during HD this week -HD terminated early yesterday -Vascular consulted for replacement of vascular access today -Nephrology consulted, assistance appreciated #Cor pulmonale #hx of diastolic heart failure -TTE ordered: shows normal EF with severe pulmonary HTN -will manage fluid overload with HD -patient will require R heart cath and Pulmonary follow up outpatient #Hyperkalemia -Kayexalate 30 g p.o. x1 dose -will be addressed with HD following permacath replacement #Hypertension -continue Metoprolol 25 mg p.o. twice daily #history of paroxysmal atrial fibrillation -Stable, no need for treatment at this time -continue metoprolol at home dose #Type 2 diabetes mellitus with chronic kidney disease -continue Accu-Chek w/ SSI #Obstructive sleep apnea on CPAP #Chronic respiratory failure -baseline O2 requirement: 3LPM -will continue supplemental O2 -CPAP at bedtime and with naps #Morbid obesity #Weight loss counseling #Exercise counseling - Counseled patient on the importance of weight loss, incorporating exercise, and dietary changes (lean meats, fresh fruits and vegetables, and water intake). Patient expresses understanding. - Time: +15 min #Advanced care planning -Disease education conducted, care plan discussed, diagnoses discussed, prognosis discussed, and patient acknowledges understanding with care plan -Time: +30 min History Interval history: No acute events overnight. Patient reports feeling better since admission. We will continue with current care plan and patient updated about Vascular consult. She has no complaints at this time. Hospitalist Physical - Physical exam Narrative exam: GENERAL: Obese. In no acute distress. HEENT: Nasal cannula in place at 3 L/min. NECK: Supple. CHEST/LUNGS: CTAB on room air HEART/CARDIOVASCULAR: RRR. No murmur, rubs or gallops appreciated. ABDOMEN: +BS. NT/ND. SKIN: No rashes noted. NEURO: No focal motor deficit. Follows all commands. MUSCULOSKELETAL: No joint effusion EXTREMITIES: No cyanosis, clubbing. R femoral permacath. Mild lower extremity edema. PSYCH: Cooperative. - Constitutional Vitals: Temp Pulse Resp BP Pulse Ox 97.9 F 90 18 115/47 92 12/04/21 19:30 12/05/21 07:36 12/05/21 07:36 07/18/22 19:30 12/05/21 07:36 General appearance: Present: no acute distress, well-nourished Results - Labs CBC & Chem 7: 12/03/21 22:34 12/05/21 05:33 Labs: Laboratory Last Values WBC 5.9 K/mm3 (4.5-11.0) 12/03/21 22:34 RBC 3.70 M/mm3 (3.65-5.03) 12/03/21 22:34 Hgb 11.0 gm/dl (10.1-14.3) 12/03/21 22:34 Hct 34.3 % (30.3-42.9) 12/03/21 22:34 MCV 93 fl (79-97) 12/03/21 22:34 MCH 30 pg (28-32) 12/03/21 22:34 MCHC 32 % (30-34) 12/03/21 22:34 RDW 15.0 % (13.2-15.2) 12/03/21 22:34 Plt Count 156 K/mm3 (140-440) 12/03/21 22:34 Baso % (Auto) [place] Insulator 12/03/21 22:34 Add Manual Diff Complete 12/03/21 22:34 Total Counted 100 12/03/21 22:34 Seg Neuts % (Manual) 77.0 % (40.0-70.0) H 12/03/21 22:34 Band Neutrophils % 0 % 12/03/21 22:34 Lymphocytes % (Manual) 15.0 % (13.4-35.0) 12/03/21 22:34 Reactive Lymphs % (Man) 0 % 12/03/21 22:34 Monocytes % (Manual) 4.0 % (0.0-7.3) 12/03/21 22:34 Eosinophils % (Manual) 4.0 % (0.0-4.3) 12/03/21 22:34 Basophils % (Manual) 0 % (0.0-1.8) 12/03/21 22:34 Metamyelocytes % 0 % 12/03/21 22:34 Myelocytes % 0 % 12/03/21 22:34 Promyelocytes % 0 % 12/03/21 22:34 Blast Cells % 0 % 12/03/21 22:34 Nucleated RBC % Not Reportable 12/03/21 22:34 Seg Neutrophils # Man 4.5 K/mm3 (1.8-7.7) 12/03/21 22:34 Band Neutrophils # 0.0 K/mm3 12/03/21 22:34 Lymphocytes # (Manual) 0.9 K/mm3 (1.2-5.4) L 12/03/21 22:34 Abs React Lymphs (Man) 0.0 K/mm3 12/03/21 22:34 Monocytes # (Manual) 0.2 K/mm3 (0.0-0.8) 12/03/21 22:34 Eosinophils # (Manual) 0.2 K/mm3 (0.0-0.4) 12/03/21 22:34 Basophils # (Manual) 0.0 K/mm3 (0.0-0.1) 12/03/21 22:34 Metamyelocytes # 0.0 K/mm3 12/03/21 22:34 Myelocytes # 0.0 K/mm3 12/03/21 22:34 Promyelocytes # 0.0 K/mm3 12/03/21 22:34 Blast Cells # 0.0 K/mm3 12/03/21 22:34 WBC Morphology Not Reportable 12/03/21 22:34 Hypersegmented Neuts Not Reportable 12/03/21 22:34 Hyposegmented Neuts Not Reportable 12/03/21 22:34 Hypogranular Neuts Not Reportable 12/03/21 22:34 Smudge Cells Not Reportable 12/03/21 22:34 Toxic Granulation Not Reportable 12/03/21 22:34 Toxic Vacuolation Not Reportable 12/03/21 22:34 Dohle Bodies Not Reportable 12/03/21 22:34 Pelger-Huet Anomaly Not Reportable 12/03/21 22:34 Hugh Rods Not Reportable 12/03/21 22:34 Platelet Estimate Consistent w auto 12/03/21 22:34 Clumped Platelets Not Reportable 12/03/21 22:34 Plt Clumps, EDTA Not Reportable 12/03/21 22:34 Large Platelets Not Reportable 12/03/21 22:34 Giant Platelets Not Reportable 12/03/21 22:34 Platelet Satelliting Not Reportable 12/03/21 22:34 Plt Morphology Comment Not Reportable 12/03/21 22:34 RBC Morphology Not Reportable 12/03/21 22:34 Dimorphic RBCs Not Reportable 12/03/21 22:34 Polychromasia Not Reportable 12/03/21 22:34 Hypochromasia Not Reportable 12/03/21 22:34 Poikilocytosis Not Reportable 12/03/21 22:34 Anisocytosis 1+ 12/03/21 22:34 Microcytosis Not Reportable 12/03/21 22:34 Macrocytosis Not Reportable 12/03/21 22:34 Spherocytes Not Reportable 12/03/21 22:34 Pappenheimer Bodies Not Reportable 12/03/21 22:34 Sickle Cells Not Reportable 12/03/21 22:34 Target Cells Not Reportable 12/03/21 22:34 Tear Drop Cells Not Reportable 12/03/21 22:34 Ovalocytes Not Reportable 12/03/21 22:34 Helmet Cells Not Reportable 12/03/21 22:34 [place] Bodies Not Reportable 12/03/21 22:34 [place] Rings Not Reportable 12/03/21 22:34 Adny Cells Not Reportable 12/03/21 22:34 Bite Cells Not Reportable 12/03/21 22:34 Crenated Cell Not Reportable 12/03/21 22:34 Elliptocytes Not Reportable 12/03/21 22:34 Acanthocytes (Spur) Not Reportable 12/03/21 22:34 Rouleaux Not Reportable 12/03/21 22:34 Hemoglobin C Crystals Not Reportable 12/03/21 22:34 Schistocytes Not Reportable 12/03/21 22:34 Malaria parasites Not Reportable 12/03/21 22:34 [place] Bodies Not Reportable 12/03/21 22:34 Hem Pathologist Commnt No 12/03/21 22:34 Sodium 141 mmol/L (137-145) 12/05/21 05:33 Potassium 5.8 mmol/L (3.6-5.0) H 12/05/21 05:33 Chloride 99.4 mmol/L (98-107) 12/05/21 05:33 Carbon Dioxide 24 mmol/L (22-30) 12/05/21 05:33 Anion Gap 23 mmol/L 12/05/21 05:33 BUN 41 mg/dL (7-17) H 12/05/21 05:33 Creatinine 10.6 mg/dL (0.6-1.2) H 12/05/21 05:33 Estimated GFR 4 ml/min 12/05/21 05:33 BUN/Creatinine Ratio 4 % 12/05/21 05:33 Glucose 96 mg/dL (65-100) 12/05/21 05:33 POC Glucose 93 mg/dL (70-105) 12/05/21 07:25 Calcium 9.7 mg/dL (8.4-10.2) 12/05/21 05:33 Phosphorus 5.50 mg/dL (2.5-4.5) H 12/05/21 05:33 Total Bilirubin 0.60 mg/dL (0.1-1.2) 12/05/21 05:33 AST 24 units/L (5-40) 12/05/21 05:33 ALT 17 units/L (7-56) 12/05/21 05:33 Alkaline Phosphatase 224 units/L (35-129) H 12/05/21 05:33 NT-Pro-B Natriuret Pep 5495 pg/mL (0-900) H 12/03/21 22:34 Total Protein 7.5 g/dL (6.3-8.2) 12/05/21 05:33 Albumin 3.5 g/dL (3.9-5) L 12/05/21 05:33 Albumin/Globulin Ratio 0.9 % 12/05/21 05:33 Hepatitis A IgM Ab Non-reactive (NonReactive) 12/04/21 08:44 Hep Bs Antigen Non-reactive (Negative) 12/04/21 08:44 Hep B Core IgM Ab Non-reactive (NonReactive) 12/04/21 08:44 Hepatitis C Antibody Non-reactive (NonReactive) 12/04/21 08:44 Active Medications - Current Medications Current Medications: Generic Name Dose Route Start Last Admin Trade Name Freq PRN Reason Stop Dose Admin Acetaminophen 650 mg 12/04/21 00:55 Acetaminophen 325 Mg Tab PO Q4H PRN Pain MILD(1-3)/Fever >100.5/HO Albuterol 2.5 mg 12/04/21 00:55 Albuterol 2.5 Mg/3 Ml Nebu IH Q3HRT PRN Shortness Of Breath Albuterol/Ipratropium 1 ampul 12/04/21 02:00 12/05/21 07:36 Ipratropium/Albuterol Sulfate 3 Ml Ampul.Neb IH 1 ampul Q6HRT [facility] Administration Arformoterol Tartrate 15 mcg 12/04/21 08:00 12/05/21 07:36 Arformoterol 15 Mcg/2 Ml Nebu IH 15 mcg Q12HRT [facility] Administration Atorvastatin Calcium 40 mg 12/04/21 22:00 12/04/21 22:35 Atorvastatin 40 Mg Tab PO 40 mg QHS [facility] Administration Budesonide 0.25 mg 12/04/21 08:00 12/05/21 07:37 Budesonide 0.25 Mg/2 Ml Nebu IH Not Given Q12HRT [facility] Bumetanide 2 mg 12/04/21 10:00 12/05/21 09:51 Bumetanide 1 Mg Tab PO 2 mg BID [facility] Administration Cinacalcet 30 mg 12/04/21 22:00 12/04/21 22:36 Cinacalcet 30 Mg Tab PO 30 mg HS [facility] Administration Dextrose 25 ml 12/05/21 09:00 12/05/21 10:04 Dextrose 50% In Water (25gm) 50 Ml Syringe IV 12/06/21 09:01 25 ml Q30MIN [facility] Administration Protocol Famotidine 10 mg 12/04/21 10:00 12/05/21 09:51 Famotidine 10 Mg Tab PO 10 mg BID [facility] Administration Heparin Sodium (Porcine) 7,500 unit 12/04/21 14:00 12/05/21 07:43 Heparin 5,000 Unit/1 Ml Vial SUB-Q 7,500 unit Q8HR [facility] Administration Hydroxyzine HCl 25 mg 12/04/21 06:00 12/05/21 06:45 Hydroxyzine Hcl 25 Mg Tab PO 25 mg Q8HR [facility] Administration Sodium Chloride 100 mls @ 999 mls/hr 12/04/21 07:08 Nacl 0.9% IV LINDA PRN Hypotension Insulin Human Lispro 0 unit 12/04/21 07:30 12/05/21 07:59 Insulin Lispro 100 Unit/Ml SUB-Q Not Given ACHS [facility] Protocol Levothyroxine Sodium 50 mcg 12/04/21 06:00 12/05/21 07:43 Levothyroxine 50 Mcg Tab PO 50 mcg DAILY@0600 [facility] Administration Metoprolol Tartrate 25 mg 12/04/21 00:58 Metoprolol Tartrate 25 Mg Tab PO BID PRN Hypertension Morphine Sulfate 2 mg 12/04/21 00:55 Morphine 2 Mg/1 Ml Inj IV Q4H PRN Pain, Moderate (4-6) Morphine Sulfate 4 mg 12/04/21 00:55 Morphine 4 Mg/1 Ml Inj IV Q4H PRN Pain , Severe (7-10) Ondansetron HCl 4 mg 12/04/21 00:55 Ondansetron 4 Mg/2 Ml Inj IV Q8H PRN Nausea And Vomiting Sevelamer Carbonate 800 mg 12/04/21 08:00 12/05/21 09:50 Sevelamer Carbonate 800 Mg Tab PO 800 mg TIDWM [facility] Administration Sodium Chloride 10 ml 12/04/21 10:00 12/05/21 09:51 Sodium Chloride 0.9% 10 Ml Flush Syringe IV 10 ml BID [facility] Administration Sodium Chloride 10 ml 12/04/21 00:55 Sodium Chloride 0.9% 10 Ml Flush Syringe IV PRN PRN LINE FLUSH Tramadol HCl 50 mg 12/04/21 12:11 12/04/21 22:36 Tramadol 50 Mg Tab PO 50 mg Q6H PRN Administration Pain, Moderate (4-6) Nutrition/Malnutrition Assess - Dietary Evaluation Nutrition/Malnutrition Findings: Nutrition Notes Start: 12/04/21 10:39 Freq: Status: Active Protocol: Document 12/04/21 10:39 [facility] (Rec: 12/04/21 10:54 [facility] [id number]) Nutrition Notes Need for Assessment generated from: MD Order,Education Initial or Follow up Brief Note Current Diagnosis CKD (stage V CKD),COPD, Diabetes,Hypertension,Heart Failure,Hyperlipidemia Other Pertinent Diagnosis Dyspnea Current Diet Renal Height 5 ft Weight 127.006 kg Walker Body Weight (kg) 45.45 BMI 54.6 Weight Status Morbidly Obese Subjective/Other Information RD consulted for diet education. MD wants pt on a 1L fluid restriction per day. PMHx includes arthritis, anxiety, afib, NURIS (on CPAP at night). Pt consumed 100% of breakfast this am. Pt receives HD three times a week . Burn Absent Trauma Absent Minimum of two criteria No Is patient on ventilator? No Is Patient Ambulatory and/or Out of Bed No REE-([facility]-confined to bed) 2106.300 Kcal/Kg value to use for calculation 13 Approximate Energy Requirements Using 1651 kcal/Kg Calculation Used for Recommendations Kcal/kg Additional Notes Pro >1.2g/kg adjBW: >103g/day Fluid needs 1L/day Nutrition Intervention Follow-Up By: 12/08/21 Additional Comments F/U: diet education needs
[2021-12-05] MEDS ORDERED: LIDOCAINE 2%/EPINEPHRINE 1:200,000 VIAL (20 ML) INFILTRATI ONE (13:31)
[2021-12-05] MEDS ORDERED: HEPARIN 10,000 UNITS/10 ML VIAL ONE (13:43)
[2021-12-05] MEDS ORDERED: HEPARIN/NS 5000 UNIT/500ML 500 ML IR ONE (13:43)
[2021-12-05] MEDS ORDERED: SODIUM CHLORIDE 0.9% 250ML 250 ML ONE (13:44)
[2021-12-05] MEDS: MIDAZOLAM 2 MG/2 ML INJ ONE ×2 (14:04→14:15)
[2021-12-05] MEDS: fentaNYL 100 MCG/2 ML INJ ONE ×2 (14:04→14:15)
[2021-12-05] MEDS ORDERED: SODIUM CHLORIDE 0.9% 100 ML IV PRN (14:18)
--- NOTE | 2021-12-05 14:49 | Consultation ---
History of Present Illness - Reason for Consult Consult date: 12/05/21 dialysis catheter malfunction Requesting physician: LASHAY TREJO - History of Present Illness 61-year-old female with history of end-stage renal disease on dialysis, diabetes, CHF was brought to the emergency room because of shortness of breath. She has chronic kidney disease and is on dialysis Saturday and Saturday. Patient only had partial dialysis on Saturday. EMS arrived to find patient in respiratory distress satting in the 80s on her home oxygen at 3 L/min. She was subsequently placed on nonrebreather at 15 L/min with increase of saturations to 98%. On arrival patient has no complaints. In the emergency room patient is found to have BUN of 45 creatinine of 11.2, proBNP of 5495 and potassium 5.3 chest x-ray shows right pleural effusion Vascular consulted for right femoral catheter malfunction. Patient cannot tell me much of her prior history, and cannot explain why she has a femoral catheter. She does not seem very involved in her care and discussion is complicated. Discussed with patient that she needs to have a vascular physician for long-term care. Provided card. Discussed changing catheter site from groin to jugular. Past History Past Medical History: arthritis, COPD, diabetes, ESRD, hypertension, renal failure, other (Anxietymorbid obesity. atrial fibrillation. hypothyroidism. Edema. Obstructive Sleep Apnea with BiPAP used at night. chronic pain. chronic kidney disease. hyperlipidemia. anemia) Past Surgical History: Other (graft to left arm, peg tube when intubated, partial hysterectomy, C-sections) Social history: no significant social history Family history: diabetes, hypertension Medications and Allergies Allergies Allergy/AdvReac Type Severity Reaction Status Date / Time No Known Allergies Allergy Verified 03/21/18 23:55 Home Medications Medication Instructions Recorded Confirmed Last Taken Type Atorvastatin [Lipitor] 40 mg PO QHS 09/23/13 03/22/18 02/24/18 History 40 mg Magnesium Oxide 400 mg PO DAILY 09/23/13 03/22/18 02/24/18 History 400 mg Levothyroxine [Synthroid] 50 mcg PO DAILY@0600 #30 tablet 03/23/16 03/22/18 02/24/18 Rx 50 mcg Bumetanide [Bumetanide 2 mg tab] 2 mg PO BID 05/15/17 03/22/18 02/24/18 History 2 mg Oxycodone HCl/Acetaminophen 1 each PO Q6HR PRN #15 tablet 05/20/17 03/22/18 02/24/18 Rx [Percocet 10/325 mg] 1 Acetaminophen [Acetaminophen TAB] 650 mg PO Q4H PRN #30 tablet 03/26/18 Unknown Rx Acyclovir [Zovirax Tab] 500 mg PO Q24HR 6 Days #6 tab 03/26/18 Unknown Rx Arformoterol Nebu [Brovana Nebu] 15 mcg IH Q12HRT #30 ml 03/26/18 Unknown Rx Budesonide [Pulmicort Respules] 0.25 mg IH Q12HR #30 03/26/18 03/22/18 02/24/18 Rx 0.25mg Capsaicin 0.075% [Zostrix Hp 1 applic TP TID 7 Days tube 03/26/18 Unknown Rx 0.075%] Cinacalcet [Sensipar] 30 mg PO HS #30 03/26/18 03/22/18 02/24/18 Rx 30 mg Famotidine [Pepcid] 10 mg PO QPM #30 tablet 03/26/18 Unknown Rx Insulin Regular, Human [HumuLIN R] 1 dose SUB-Q ACHS PRN #100 units 03/26/18 Unknown Rx Metoprolol [Lopressor TAB] 25 mg PO BID PRN #60 03/26/18 03/22/18 02/24/18 Rx 25 mg Sevelamer Carbonate [Renvela] 800 mg PO TID #90 03/26/18 03/22/18 02/24/18 Rx 800 mg hydrOXYzine HCL [Hydroxyzine HCl] 25 mg PO Q8H #30 03/26/18 03/22/18 02/24/18 Rx 25 mg methylPREDNISolone [Medrol Dose 1 dose PO DAILY #1 pack 03/26/18 Unknown Rx Jamison] valACYclovir [Valtrex] 500 mg PO QPM #10 tablet 03/26/18 Unknown Rx Active Meds: Active Medications Acetaminophen (Acetaminophen 325 Mg Tab) 650 mg PO Q4H PRN PRN Reason: Pain MILD(1-3)/Fever >100.5/HO Albuterol (Albuterol 2.5 Mg/3 Ml Nebu) 2.5 mg IH Q3HRT PRN PRN Reason: Shortness Of Breath Albuterol/Ipratropium (Ipratropium/Albuterol Sulfate 3 Ml Ampul.Neb) 1 ampul IH Q6HRT [facility] Last Admin: 12/05/21 13:24 Dose: Not Given Arformoterol Tartrate (Arformoterol 15 Mcg/2 Ml Nebu) 15 mcg IH Q12HRT [facility] Last Admin: 12/05/21 07:36 Dose: 15 mcg Atorvastatin Calcium (Atorvastatin 40 Mg Tab) 40 mg PO QHS [facility] Last Admin: 12/04/21 22:35 Dose: 40 mg Budesonide (Budesonide 0.25 Mg/2 Ml Nebu) 0.25 mg IH Q12HRT [facility] Last Admin: 12/05/21 07:37 Dose: Not Given Bumetanide (Bumetanide 1 Mg Tab) 2 mg PO BID [facility] Last Admin: 12/05/21 09:51 Dose: 2 mg Cinacalcet (Cinacalcet 30 Mg Tab) 30 mg PO HS [facility] Last Admin: 12/04/21 22:36 Dose: 30 mg Dextrose (Dextrose 50% In Water (25gm) 50 Ml Syringe) 25 ml IV Q30MIN [facility]; Protocol Stop: 12/06/21 09:01 Last Admin: 12/05/21 10:04 Dose: 25 ml Famotidine (Famotidine 10 Mg Tab) 10 mg PO BID [facility] Last Admin: 12/05/21 09:51 Dose: 10 mg Heparin Sodium (Porcine) (Heparin 5,000 Unit/1 Ml Vial) 7,500 unit SUB-Q Q8HR [facility] Last Admin: 12/05/21 13:24 Dose: Not Given Hydroxyzine HCl (Hydroxyzine Hcl 25 Mg Tab) 25 mg PO Q8HR [facility] Last Admin: 12/05/21 13:24 Dose: Not Given Sodium Chloride (Nacl 0.9%) 100 mls @ 999 mls/hr IV LINDA PRN PRN Reason: Hypotension Sodium Chloride (Nacl 0.9%) 100 mls @ 999 mls/hr IV LINDA PRN PRN Reason: Hypotension Insulin Human Lispro (Insulin Lispro 100 Unit/Ml) 0 unit SUB-Q ACHS [facility]; Protocol Last Admin: 12/05/21 11:30 Dose: Not Given Levothyroxine Sodium (Levothyroxine 50 Mcg Tab) 50 mcg PO DAILY@0600 [facility] Last Admin: 12/05/21 07:43 Dose: 50 mcg Metoprolol Tartrate (Metoprolol Tartrate 25 Mg Tab) 25 mg PO BID PRN PRN Reason: Hypertension Morphine Sulfate (Morphine 2 Mg/1 Ml Inj) 2 mg IV Q4H PRN PRN Reason: Pain, Moderate (4-6) Morphine Sulfate (Morphine 4 Mg/1 Ml Inj) 4 mg IV Q4H PRN PRN Reason: Pain , Severe (7-10) Ondansetron HCl (Ondansetron 4 Mg/2 Ml Inj) 4 mg IV Q8H PRN PRN Reason: Nausea And Vomiting Sevelamer Carbonate (Sevelamer Carbonate 800 Mg Tab) 800 mg PO TIDWM [facility] Last Admin: 12/05/21 11:42 Dose: Not Given Sodium Chloride (Sodium Chloride 0.9% 10 Ml Flush Syringe) 10 ml IV BID [facility] Last Admin: 12/05/21 09:51 Dose: 10 ml Sodium Chloride (Sodium Chloride 0.9% 10 Ml Flush Syringe) 10 ml IV PRN PRN PRN Reason: LINE FLUSH Tramadol HCl (Tramadol 50 Mg Tab) 50 mg PO Q6H PRN PRN Reason: Pain, Moderate (4-6) Last Admin: 12/04/21 22:36 Dose: 50 mg Review of Systems All systems: negative (see HPI) Exam - Constitutional Vitals: Temp Pulse Resp BP Pulse Ox 98.3 F 97 H 18 115/70 94 12/05/21 12:16 12/05/21 12:16 12/05/21 07:36 12/05/21 12:16 12/05/21 12:16 General appearance: Present: no acute distress, obese - EENT Eyes: Present: EOM intact ENT: hearing intact - Neck Neck: Present: supple - Respiratory Respiratory effort: normal - Extremities Extremities: normal temperature, normal color - Abdominal General gastrointestinal: Present: soft, non-tender - Psychiatric Psychiatric: appropriate mood/affect, cooperative Results - Labs CBC & Chem 7: 12/03/21 22:34 12/05/21 05:33 Labs: Abnormal lab results 12/05/21 Range/Units 05:33 Potassium 5.8 H (3.6-5.0) mmol/L BUN 41 H (7-17) mg/dL Creatinine 10.6 H (0.6-1.2) mg/dL Phosphorus 5.50 H (2.5-4.5) mg/dL Alkaline Phosphatase 224 H (35-129) units/L Albumin 3.5 L (3.9-5) g/dL Assessment and Plan 61-year-old female with end-stage renal disease and femoral PermCath which is malfunctioning. Discussed changing femoral line to a jugular line. Risk, benefits, alternatives discussed. Patient agrees with plan. Follow-up with vascular surgery afterwards. Card provided. Recommend follow- up.
--- NOTE | 2021-12-05 14:56 | Post Operative Note ---
Date of procedure: 12/05/21 Pre-op diagnosis: PermCath malfunction Post-op diagnosis: same Procedure: 1. Ultrasound-guided access of the right internal jugular vein with venography. 2. Ultrasound-guided access of the right external jugular vein with venography. 3. Venography of the SVC, right innominate vein, and right subclavian vein. 4. Fluoroscopic guided placement of a 27 cm tip to cuff dual-lumen hemodialysis catheter in the right external jugular vein 5. Fluoroscopic guided removal of a right femoral vein 50 cm tip to cuff dual lumen hemodialysis catheter Anesthesia: local (With conscious sedation) Surgeon: BLAYNE RODARTE Estimated blood loss: minimal Condition: stable Disposition: floor
--- NOTE | 2021-12-05 14:56 | Operative Report ---
Operative Report Operative Report: EXAM: 1. Ultrasound-guided access of the right internal jugular vein with venography. 2. Ultrasound-guided access of the right external jugular vein with venography. 3. Venography of the SVC, right innominate vein, and right subclavian vein. 4. Fluoroscopic guided placement of a 27 cm tip to cuff dual-lumen hemodialysis catheter in the right external jugular vein 5. Fluoroscopic guided removal of a tunneled cuffed right femoral vein 50 cm tip to cuff dual lumen hemodialysis catheter DATE: 12/05/2021 INDICATIONS: PermCath malfunction with femoral PermCath. MEDICATIONS: Please see nursing report for full details. DEVICES: 27 cm tip to cuff 15 Fr dual lumen hemodialysis catheter MERCHANDISE PICKUP/RECEIVING ASSOCIATE: BLAYNE RODARTE MD CONTRAST: None PROCEDURE: The risks, benefits, and alternatives were discussed and informed consent was obtained. The patient was transported to the angiography suite in satisfac tory/stable condition and was transported onto the angiography table. The patient's right internal jugular vein was assessed with ultrasound and determined to be partially patent prior to procedure. The patient was prepped and draped in a sterile fashion. The puncture site was anesthetized. Under sonographic guidance, the right internal jugular vein was punctured with a 21-gauge micropuncture needle and a 0.018 inch wire was advanced into the right internal jugular vein. The inner portion of the transitional dilator was advanced over the wire and digital subtraction angiography was performed demonstrating patency of the upper portion of the right internal jugular vein, partial chronic occlusion of the midportion, and chronic occlusion of the lower portion of the internal jugular vein. 0.018 inch Halberd wire was then attempted to be passed through the chronic internal jugular vein occlusion, but this was unsuccessful. The wire and inner portion of the transitional dilator were removed and pressure was held until hemostasis was achieved. Ultrasound was used then to identify the right external jugular vein. The area was anesthetized. Under sonographic guidance, the right external jugular vein was punctured with a 21-gauge micropuncture needle and a 0.018 inch wire was advanced into the IVC. There is some narrowing at the right innominate vein. The micropuncture needle was exchanged for a transitional dilator and the wire was retracted into the right atrium to saman intravascular distance. The wire and inner dilator were removed. Digital subtraction angiography was performed to the transitional dilator demonstrating patency of the superior vena cava, and right subclavian vein, with a 50 to 60% stenosis of the right innominate vein. Stiff 0.035 inch wire was advanced through the transitional dilator into the inferior vena cava. A suitable exit site was identified on the patient's chest inferior and lateral to the venotomy. The site was anesthetized with local anesthetic and the track was anesthetized. Dermatotomy was made. The PermCath was attached to the tunneling device and tunneled between the dermatotomy to the venotomy. Over the 0.035 inch wire, serial dilatation was performed with ultimate placement of a peel-away sheath. The catheter was advanced through the peel- away sheath after the wire was removed and positioned centrally under fl uoroscopic guidance. The peel-away sheath was removed. 4-0 Vicryl suture was used to close the venotomy and Dermabond was then applied. 2-0 Ethilon suture was used to secure the catheter at the dermatotomy. The catheter was charged with heparin 1000 units/mL of space. Sterile dressing and Biopatch applied. Attention was then turned towards the right femoral PermCath. The area was pre pped and draped in a sterile fashion. The catheter was then removed under fluoroscopic guidance with extraction of the cuff. After the cuff was extracted, pressure was held at the venotomy and the catheter was removed. Pressure was held until hemostasis was achieved. The area at the femoral catheter exit site was evaluated and there was multiple sutures in this location. The sutures were then removed. The area was again cleaned with sterile dressing and pressure dressing was then applied. The patient tolerated the procedure well. No immediate postprocedural complications. The patient was transferred from angiography in stable condition. FINDINGS: 1. Excellent flow was obtained through the right external jugular dialysis catheter with 20 mL syringes. 2. The newly placed catheter tip is in the right atrium. 3. Successful fluoroscopic guided removal of the right tunneled femoral dual lumen hemodialysis catheter. IMPRESSION: 1. Successful ultrasound and fluoroscopically guided placement of a right external jugular tunneled cuffed hemodialysis catheter. 2. Venography of the SVC, innominate vein, subclavian vein, and right internal jugular vein 3. Successful ultrasound-guided access of the right internal jugular vein. 4. Successful fluoroscopic guided removal of the right femoral tunneled cuffed hemodialysis catheter.
[2021-12-05] MEDS: traMADol 50 MG TAB PO PRN (19:58)
[2021-12-05] MEDS: CINACALCET 30 MG TAB PO SCH (21:43)
[2021-12-06] MEDS: BUDESONIDE 0.5 MG/2 ML NEBU IH SCH ×3 (02:10→20:41)
[2021-12-06] MEDS: BUDESONIDE 0.25 MG/2 ML NEBU IH SCH (02:12)
[2021-12-06] MEDS: IPRATROPIUM/ALBUTEROL SULFATE 3 ML AMPUL.NEB IH SCH ×4 (02:20→20:41)
[2021-12-06] MEDS: LEVOTHYROXINE 50 MCG TAB PO SCH (05:48)
[2021-12-06] MEDS: hydrOXYzine HCL 25 MG TAB PO SCH ×3 (05:48→21:52)
[2021-12-06] MEDS: HEPARIN 5,000 UNIT/1 ML VIAL SUB-Q SCH ×3 (05:49→21:41)
[2021-12-06 06:12] LABS: Calcium 9.7 mg/dL (8.4-10.2)
[2021-12-06] MEDS: INSULIN LISPRO 100 UNIT/ML SUB-Q SCH ×3 (07:30→21:55)
[2021-12-06] MEDS: ARFORMOTEROL 15 MCG/2 ML NEBU IH SCH ×2 (07:46→20:42)
--- NOTE | 2021-12-06 10:26 | Electrocardiograph Report ---
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
--- NOTE | 2021-12-06 10:35 | Progress Note ---
Assessment and Plan Assessment and Plan End Stage Renal Disease on HD Right Pleural Effusion HFpEF Afib Diabetes Mellitus type 2 Obesity Hyperkalemia Hypotension Plan: -S/p HD yesterday for UF and clearance, UF removed 3L -HD again today for UF and clearance -Assess need for HD on daily basis -S/p perm catheter exchange on 12/05/[address] Diaz -Fluid restriction of 1 liter per day -On renvela 800 mg po TID w/ meals for hyperphosphatemia -On sensipar 30 mg po nightly -Renally dose medications -This pt undergoes OP HD at [facility] -Renal plan reviewed by Dr Cedeno Subjective Date of service: 12/06/21 Principal diagnosis: ESRD Interval history: Pt seen in HD unit, c/o shortness of breath and Right groin pain from pressure dressing from prior femoral perm cath. I placed nursing communication order placed to check with vascular surgery if ok to remove right femoral pressure dressing. No acute distress Objective - Vital Signs Vital signs: Vital Signs - 12hr 12/05/21 12/06/21 12/06/21 23:37 00:00 02:20 Temperature 97.4 F L Pulse Rate 95 H 96 H Pulse Rate [ 103 H Bilateral Throughout] Respiratory 20 Rate Respiratory 20 Rate [Bilateral Throughout] Blood Pressure 95/67 O2 Sat by Pulse 98 Oximetry 12/06/21 12/06/21 12/06/21 03:39 07:46 07:47 Temperature 97.9 F Pulse Rate 95 H Pulse Rate [ 95 H Bilateral Throughout] Respiratory 19 Rate Respiratory 18 Rate [Bilateral Throughout] Blood Pressure 109/56 O2 Sat by Pulse 99 94 Oximetry - General Appearance General appearance: well-developed EENT: ATNC Neck: no JVD Respiratory: Present: Decreased Breath Sounds Cardiology: S1S2, other (ACCESS: Right IJ Perm Catheter intact) Gastrointestinal: normoactive bowel sounds Integumentary: warm and dry Neurologic: alert and oriented x3 Musculoskeletal: other (1+ edema to BLE, right groin with pressure dressing in place ) Psychiatric: cooperative - Lab 12/03/21 22:34 12/06/21 04:59 Most recent lab results Calcium 9.7 mg/dL (8.4-10.2) 12/06/21 04:59 Phosphorus 5.50 mg/dL (2.5-4.5) H 12/05/21 05:33 Medications & Allergies - Medications Allergies/Adverse Reactions: Allergies No Known Allergies Allergy (Verified 03/21/18 23:55) Home Medications: Home Medications Medication Instructions Recorded Confirmed Last Taken Type Atorvastatin [Lipitor] 40 mg PO QHS 09/23/13 03/22/18 02/24/18 History 40 mg Magnesium Oxide 400 mg PO DAILY 09/23/13 03/22/18 02/24/18 History 400 mg Levothyroxine [Synthroid] 50 mcg PO DAILY@0600 #30 tablet 03/23/16 03/22/18 Rx 50 mcg Bumetanide [Bumetanide 2 mg tab] 2 mg PO BID 05/15/17 03/22/18 02/24/18 History 2 mg Oxycodone HCl/Acetaminophen 1 each PO Q6HR PRN #15 tablet 05/20/17 03/22/18 02/24/18 Rx [Percocet 10/325 mg] 1 Acetaminophen [Acetaminophen TAB] 650 mg PO Q4H PRN #30 tablet 03/26/18 Unknown Rx Acyclovir [Zovirax Tab] 500 mg PO Q24HR 6 Days #6 tab 03/26/18 Unknown Rx Arformoterol Nebu [Brovana Nebu] 15 mcg IH Q12HRT #30 ml 03/26/18 Unknown Rx Budesonide [Pulmicort Respules] 0.25 mg IH Q12HR #30 03/26/18 03/22/18 02/24/18 Rx 0.25mg Capsaicin 0.075% [Zostrix Hp 1 applic TP TID 7 Days tube 03/26/18 Unknown Rx 0.075%] Cinacalcet [Sensipar] 30 mg PO HS #30 03/26/18 03/22/18 02/24/18 Rx 30 mg Famotidine [Pepcid] 10 mg PO QPM #30 tablet 03/26/18 Unknown Rx Insulin Regular, Human [HumuLIN R] 1 dose SUB-Q ACHS PRN #100 units 03/26/18 U nknown Rx Metoprolol [Lopressor TAB] 25 mg PO BID PRN #60 03/26/18 03/22/18 02/24/18 Rx 25 mg Sevelamer Carbonate [Renvela] 800 mg PO TID #90 03/26/18 03/22/18 02/24/18 Rx 800 mg hydrOXYzine HCL [Hydroxyzine HCl] 25 mg PO Q8H #30 03/26/18 03/22/18 02/24/18 Rx 25 mg methylPREDNISolone [Medrol Dose 1 dose PO DAILY #1 pack 03/26/18 Unknown Rx Jamison] valACYclovir [Valtrex] 500 mg PO QPM #10 tablet 03/26/18 Unknown Rx Active Medications: Generic Name Dose Route Start Last Admin Trade Name Freq PRN Reason Stop Dose Admin Acetaminophen 650 mg 12/04/21 00:55 Acetaminophen 325 Mg Tab PO Q4H PRN Pain MILD(1-3)/Fever >100.5/HO Albuterol 2.5 mg 12/04/21 00:55 Albuterol 2.5 Mg/3 Ml Nebu IH Q3HRT PRN Shortness Of Breath Albuterol/Ipratropium 1 ampul 12/04/21 02:00 12/06/21 07:46 Ipratropium/Albuterol Sulfate 3 Ml Ampul.Neb IH 1 ampul Q6HRT [facility] Administration Arformoterol Tartrate 15 mcg 12/04/21 08:00 12/06/21 07:46 Arformoterol 15 Mcg/2 Ml Nebu IH 15 mcg Q12HRT [facility] Administration Atorvastatin Calcium 40 mg 12/04/21 22:00 12/05/21 21:42 Atorvastatin 40 Mg Tab PO 40 mg QHS [facility] Administration Budesonide 0.5 mg 12/05/21 22:00 12/06/21 07:46 Budesonide 0.5 Mg/2 Ml Nebu IH 0.5 mg Q12HRT [facility] Administration Bumetanide 2 mg 12/04/21 10:00 12/05/21 21:43 Bumetanide 1 Mg Tab PO 2 mg BID [facility] Administration Cinacalcet 30 mg 12/04/21 22:00 12/05/21 21:43 Cinacalcet 30 Mg Tab PO 30 mg HS [facility] Administration Famotidine 10 mg 12/04/21 10:00 12/05/21 21:43 Famotidine 10 Mg Tab PO 10 mg BID [facility] Administration Heparin Sodium (Porcine) 7,500 unit 12/04/21 14:00 12/06/21 05:49 Heparin 5,000 Unit/1 Ml Vial SUB-Q 7,500 unit Q8HR [facility] Administration Hydroxyzine HCl 25 mg 12/04/21 06:00 12/06/21 05:48 Hydroxyzine Hcl 25 Mg Tab PO 25 mg Q8HR [facility] Administration Sodium Chloride 100 mls @ 999 mls/hr 12/04/21 07:08 Nacl 0.9% IV LINDA PRN Hypotension Sodium Chloride 100 mls @ 999 mls/hr 12/05/21 14:18 Nacl 0.9% IV LINDA PRN Hypotension Insulin Human Lispro 0 unit 12/04/21 07:30 12/05/21 22:00 Insulin Lispro 100 Unit/Ml SUB-Q Not Given ACHS [facility] Protocol Levothyroxine Sodium 50 mcg 12/04/21 06:00 12/06/21 05:48 Levothyroxine 50 Mcg Tab PO 50 mcg DAILY@0600 [facility] Administration Metoprolol Tartrate 25 mg 12/04/21 00:58 Metoprolol Tartrate 25 Mg Tab PO BID PRN Hypertension Morphine Sulfate 2 mg 12/04/21 00:55 Morphine 2 Mg/1 Ml Inj IV Q4H PRN Pain, Moderate (4-6) Morphine Sulfate 4 mg 12/04/21 00:55 Morphine 4 Mg/1 Ml Inj IV Q4H PRN Pain , Severe (7-10) Ondansetron HCl 4 mg 12/04/21 00:55 Ondansetron 4 Mg/2 Ml Inj IV Q8H PRN Nausea And Vomiting Sevelamer Carbonate 800 mg 12/04/21 08:00 12/05/21 18:08 Sevelamer Carbonate 800 Mg Tab PO Not Given TIDWM [facility] Sodium Chloride 10 ml 12/04/21 10:00 12/05/21 21:43 Sodium Chloride 0.9% 10 Ml Flush Syringe IV 10 ml BID [facility] Administration Sodium Chloride 10 ml 12/04/21 00:55 Sodium Chloride 0.9% 10 Ml Flush Syringe IV PRN PRN LINE FLUSH Tramadol HCl 50 mg 12/04/21 12:11 12/05/21 19:58 Tramadol 50 Mg Tab PO 50 mg Q6H PRN Administration Pain, Moderate (4-6)
--- NOTE | 2021-12-06 12:21 | Progress Note ---
Assessment and Plan Assessment and plan: #End stage renal disease on dialysis #malfunctioning permacath -patient with R femoral permacath replaced 12/05 with REJ catheter -HD yesterday w/ 3L removed -will continue HD per Nephrology -Nephrology consulted, assistance appreciated #Cor pulmonale #hx of diastolic heart failure #Severe pulmonary hypertension -TTE ordered: shows normal EF with severe pulmonary HTN -will manage fluid overload with HD -patient will require R heart cath and Pulmonary follow up outpatient #Hyperkalemia -Kayexalate 30 g p.o. x1 dose -will be addressed during dialysis with K path #Hypertension -continue Metoprolol 25 mg p.o. twice daily #history of paroxysmal atrial fibrillation -Stable, no need for treatment at this time -continue metoprolol at home dose #Type 2 diabetes mellitus with chronic kidney disease -continue Accu-Chek w/ SSI #Obstructive sleep apnea on CPAP #Chronic respiratory failure -baseline O2 requirement: 3LPM -will continue supplemental O2 -CPAP at bedtime and with naps #Morbid obesity #Weight loss counseling #Exercise counseling - Counseled patient on the importance of weight loss, incorporating exercise, and dietary changes (lean meats, fresh fruits and vegetables, and water intake). Patient expresses understanding. - Time: +15 min #Advanced care planning -Disease education conducted, care plan discussed, diagnoses discussed, prognosis discussed, and patient acknowledges understanding with care plan -Time: +30 min History Interval history: No acute events overnight. Patient reports pain at the site of the new dialysis catheter. She has no other complaints at this time. Hospitalist Physical - Physical exam Narrative exam: GENERAL: Obese. In no acute distress. HEENT: Nasal cannula in place at 3 L/min. NECK: REJ HD catheter in place. CHEST/LUNGS: CTAB on room air HEART/CARDIOVASCULAR: RRR. No murmur, rubs or gallops appreciated. ABDOMEN: +BS. NT/ND. NEURO: No focal motor deficit. Follows all commands. MUSCULOSKELETAL: No joint effusion EXTREMITIES: No cyanosis, clubbing. RLE pressure dressing. Mild lower extremity edema. PSYCH: Cooperative. - Constitutional Vitals: Temp Pulse Resp BP Pulse Ox 97.9 F 96 H 16 104/41 96 12/06/21 10:00 12/06/21 11:30 12/06/21 10:12/06/21 11:30 12/06/21 10:00 General appearance: Present: no acute distress, obese Results - Labs CBC & Chem 7: 12/03/21 22:34 12/06/21 04:59 Labs: Laboratory Last Values WBC 5.9 K/mm3 (4.5-11.0) 12/03/21 22:34 RBC 3.70 M/mm3 (3.65-5.03) 12/03/21 22:34 Hgb 11.0 gm/dl (10.1-14.3) 12/03/21 22:34 Hct 34.3 % (30.3-42.9) 12/03/21 22:34 MCV 93 fl (79-97) 12/03/21 22:34 MCH 30 pg (28-32) 12/03/21 22:34 MCHC 32 % (30-34) 12/03/21 22:34 RDW 15.0 % (13.2-15.2) 12/03/21 22:34 Plt Count 156 K/mm3 (140-440) 12/03/21 22:34 Baso % (Auto) Remelter 12/03/21 22:34 Add Manual Diff Complete 12/03/21 22:34 Total Counted 100 12/03/21 22:34 Seg Neuts % (Manual) 77.0 % (40.0-70.0) H 12/03/21 22:34 Band Neutrophils % 0 % 12/03/21 22:34 Lymphocytes % (Manual) 15.0 % (13.4-35.0) 12/03/21 22:34 Reactive Lymphs % (Man) 0 % 12/03/21 22:34 Monocytes % (Manual) 4.0 % (0.0-7.3) 12/03/21 22:34 Eosinophils % (Manual) 4.0 % (0.0-4.3) 12/03/21 22:34 Basophils % (Manual) 0 % (0.0-1.8) 12/03/21 22:34 Metamyelocytes % 0 % 12/03/21 22:34 Myelocytes % 0 % 12/03/21 22:34 Promyelocytes % 0 % 12/03/21 22:34 Blast Cells % 0 % 12/03/21 22:34 Nucleated RBC % Not Reportable 12/03/21 22:34 Seg Neutrophils # Man 4.5 K/mm3 (1.8-7.7) 12/03/21 22:34 Band Neutrophils # 0.0 K/mm3 12/03/21 22:34 Lymphocytes # (Manual) 0.9 K/mm3 (1.2-5.4) L 12/03/21 22:34 Abs React Lymphs (Man) 0.0 K/mm3 12/03/21 22:34 Monocytes # (Manual) 0.2 K/mm3 (0.0-0.8) 12/03/21 22:34 Eosinophils # (Manual) 0.2 K/mm3 (0.0-0.4) 12/03/21 22:34 Basophils # (Manual) 0.0 K/mm3 (0.0-0.1) 12/03/21 22:34 Metamyelocytes # 0.0 K/mm3 12/03/21 22:34 Myelocytes # 0.0 K/mm3 12/03/21 22:34 Promyelocytes # 0.0 K/mm3 12/03/21 22:34 Blast Cells # 0.0 K/mm3 12/03/21 22:34 WBC Morphology Not Reportable 12/03/21 22:34 Hypersegmented Neuts Not Reportable 12/03/21 22:34 Hyposegmented Neuts Not Reportable 12/03/21 22:34 Hypogranular Neuts Not Reportable 12/03/21 22:34 Smudge Cells Not Reportable 12/03/21 22:34 Toxic Granulation Not Reportable 12/03/21 22:34 Toxic Vacuolation Not Reportable 12/03/21 22:34 Dohle Bodies Not Reportable 12/03/21 22:34 Pelger-Huet Anomaly Not Reportable 12/03/21 22:34 Hugh Rods Not Reportable 12/03/21 22:34 Platelet Estimate Consistent w auto 12/03/21 22:34 Clumped Platelets Not Reportable 12/03/21 22:34 Plt Clumps, EDTA Not Reportable 12/03/21 22:34 Large Platelets Not Reportable 12/03/21 22:34 Giant Platelets Not Reportable 12/03/21 22:34 Platelet Satelliting Not Reportable 12/03/21 22:34 Plt Morphology Comment Not Reportable 12/03/21 22:34 RBC Morphology Not Reportable 12/03/21 22:34 Dimorphic RBCs Not Reportable 12/03/21 22:34 Polychromasia Not Reportable 12/03/21 22:34 Hypochromasia Not Reportable 12/03/21 22:34 Poikilocytosis Not Reportable 12/03/21 22:34 Anisocytosis 1+ 12/03/21 22:34 Microcytosis Not Reportable 12/03/21 22:34 Macrocytosis Not Reportable 12/03/21 22:34 Spherocytes Not Reportable 12/03/21 22:34 Pappenheimer Bodies Not Reportable 12/03/21 22:34 Sickle Cells Not Reportable 12/03/21 22:34 Target Cells Not Reportable 12/03/21 22:34 Tear Drop Cells Not Reportable 12/03/21 22:34 Ovalocytes Not Reportable 12/03/21 22:34 Helmet Cells Not Reportable 12/03/21 22:34 Wu-[place] Bodies Not Reportable 12/03/21 22:34 [place] Rings Not Reportable 12/03/21 22:34 Dany Cells Not Reportable 12/03/21 22:34 Bite Cells Not Reportable 12/03/21 22:34 Crenated Cell Not Reportable 12/03/21 22:34 Elliptocytes Not Reportable 12/03/21 22:34 Acanthocytes (Spur) Not Reportable 12/03/21 22:34 Rouleaux Not Reportable 12/03/21 22:34 Hemoglobin C Crystals Not Reportable 12/03/21 22:34 Schistocytes Not Reportable 12/03/21 22:34 Malaria parasites Not Reportable 12/03/21 22:34 [place] Bodies Not Reportable 12/03/21 22:34 Hem Pathologist Commnt No 12/03/21 22:34 Sodium 139 mmol/L (137-145) 12/06/21 04:59 Potassium 5.2 mmol/L (3.6-5.0) H 12/06/21 04:59 Chloride 96.1 mmol/L (98-107) L 12/06/21 04:59 Carbon Dioxide 29 mmol/L (22-30) 12/06/21 04:59 Anion Gap 19 mmol/L 12/06/21 04:59 BUN 32 mg/dL (7-17) H 12/06/21 04:59 Creatinine 8.6 mg/dL (0.6-1.2) H 12/06/21 04:59 Estimated GFR 6 ml/min 12/06/21 04:59 BUN/Creatinine Ratio 4 % 12/06/21 04:59 Glucose 96 mg/dL (65-100) 12/06/21 04:59 POC Glucose 105 mg/dL (70-105) 12/06/21 08:06 Calcium 9.7 mg/dL (8.4-10.2) 12/06/21 04:59 Phosphorus 5.50 mg/dL (2.5-4.5) H 12/05/21 05:33 Total Bilirubin 0.60 mg/dL (0.1-1.2) 12/05/21 05:33 AST 24 units/L (5-40) 12/05/21 05:33 ALT 17 units/L (7-56) 12/05/21 05:33 Alkaline Phosphatase 224 units/L (35-129) H 12/05/21 05:33 NT-Pro-B Natriuret Pep 5495 pg/mL (0-900) H 12/03/21 22:34 Total Protein 7.5 g/dL (6.3-8.2) 12/05/21 05:33 Albumin 3.5 g/dL (3.9-5) L 12/05/21 05:33 Albumin/Globulin Ratio 0.9 % 12/05/21 05:33 Hepatitis A IgM Ab Non-reactive (NonReactive) 12/04/21 08:44 Hep Bs Antigen Non-reactive (Negative) 12/04/21 08:44 Hep B Core IgM Ab Non-reactive (NonReactive) 12/04/21 08:44 Hepatitis C Antibody Non-reactive (NonReactive) 12/04/21 08:44 Active Medications - Current Medications Current Medications: Generic Name Dose Route Start Last Admin Trade Name Freq PRN Reason Stop Dose Admin Acetaminophen 650 mg 12/04/21 00:55 Acetaminophen 325 Mg Tab PO Q4H PRN Pain MILD(1-3)/Fever >100.5/HO Albuterol 2.5 mg 12/04/21 00:55 Albuterol 2.5 Mg/3 Ml Nebu IH Q3HRT PRN Shortness Of Breath Albuterol/Ipratropium 1 ampul 07/18/22 02:00 12/06/21 07:46 Ipratropium/Albuterol Sulfate 3 Ml Ampul.Neb IH 1 ampul Q6HRT PRATIK Administration Arformoterol Tartrate 15 mcg 12/04/21 08:00 12/06/21 07:46 Arformoterol 15 Mcg/2 Ml Nebu IH 15 mcg Q12HRT PRATKI Administration Atorvastatin Calcium 40 mg 12/04/21 22:00 12/05/21 21:42 Atorvastatin 40 Mg Tab PO 40 mg QHS PRATIK Administration Budesonide 0.5 mg 12/05/21 22:00 12/06/21 07:46 Budesonide 0.5 Mg/2 Ml Nebu IH 0.5 mg Q12HRT PRATIK Administration Bumetanide 2 mg 12/04/21 10:00 12/05/21 21:43 Bumetanide 1 Mg Tab PO 2 mg BID PRATIK Administration Cinacalcet 30 mg 12/04/21 22:00 12/05/21 21:43 Cinacalcet 30 Mg Tab PO 30 mg HS PRATIK Administration Famotidine 10 mg 12/04/21 10:00 12/05/21 21:43 Famotidine 10 Mg Tab PO 10 mg BID PRATIK Administration Heparin Sodium (Porcine) 7,500 unit 12/04/21 14:00 12/06/21 05:49 Heparin 5,000 Unit/1 Ml Vial SUB-Q 7,500 unit Q8HR PRATIK Administration Hydroxyzine HCl 25 mg 12/04/21 06:00 12/06/21 05:48 Hydroxyzine Hcl 25 Mg Tab PO 25 mg Q8HR [facility] Administration Sodium Chloride 100 mls @ 999 mls/hr 12/05/21 14:18 Nacl 0.9% IV LINDA PRN Hypotension Insulin Human Lispro 0 unit 12/04/21 07:30 12/05/21 22:00 Insulin Lispro 100 Unit/Ml SUB-Q Not Given ACHS [facility] Protocol Levothyroxine Sodium 50 mcg 12/04/21 06:00 12/06/21 05:48 Levothyroxine 50 Mcg Tab PO 50 mcg DAILY@0600 PRATIK Administration Metoprolol Tartrate 25 mg 12/04/21 00:58 Metoprolol Tartrate 25 Mg Tab PO BID PRN Hypertension Morphine Sulfate 2 mg 12/04/21 00:55 Morphine 2 Mg/1 Ml Inj IV Q4H PRN Pain, Moderate (4-6) Morphine Sulfate 4 mg 12/04/21 00:55 Morphine 4 Mg/1 Ml Inj IV Q4H PRN Pain , Severe (7-10) Ondansetron HCl 4 mg 12/04/21 00:55 Ondansetron 4 Mg/2 Ml Inj IV Q8H PRN Nausea And Vomiting Sevelamer Carbonate 800 mg 12/04/21 08:00 12/05/21 18:08 Sevelamer Carbonate 800 Mg Tab PO Not Given TIDWM PRATIK Sodium Chloride 10 ml 12/04/21 10:00 12/05/21 21:43 Sodium Chloride 0.9% 10 Ml Flush Syringe IV 10 ml BID PRATIK Administration Sodium Chloride 10 ml 12/04/21 00:55 Sodium Chloride 0.9% 10 Ml Flush Syringe IV PRN PRN LINE FLUSH Tramadol HCl 50 mg 12/04/21 12:11 12/05/21 19:58 Tramadol 50 Mg Tab PO 50 mg Q6H PRN Administration Pain, Moderate (4-6) Nutrition/Malnutrition Assess - Dietary Evaluation Nutrition/Malnutrition Findings: Nutrition Notes Start: 12/04/21 10:39 Freq: Status: Active Protocol: Document 12/04/21 10:39 HILL (Rec: 12/04/21 10:54 [email or web address] [id number]) Nutrition Notes Need for Assessment generated from: MD Order,Education Initial or Follow up Brief Note Current Diagnosis CKD (stage V CKD),COPD, Diabetes,Hypertension,Heart Failure,Hyperlipidemia Other Pertinent Diagnosis Dyspnea Current Diet Renal Height 5 ft Weight 127.006 kg [place] Body Weight (kg) 45.45 BMI 54.6 Weight Status Morbidly Obese Subjective/Other Information RD consulted for diet education. MD wants pt on a 1L fluid restriction per day. PMHx includes arthritis, anxiety, afib, NURIS (on CPAP at night). Pt consumed 100% of breakfast this am. Pt receives HD three times a week . Burn Absent Trauma Absent Minimum of two criteria No Is patient on ventilator? No Is Patient Ambulatory and/or Out of Bed No REE-([facility]-confined to bed) 2106.300 Kcal/Kg value to use for calculation 13 Approximate Energy Requirements Using 1651 kcal/Kg Calculation Used for Recommendations Kcal/kg Additional Notes Pro >1.2g/kg adjBW: >103g/day Fluid needs 1L/day Nutrition Intervention Follow-Up By: 12/08/21 Additional Comments F/U: diet education needs
[2021-12-06] MEDS: BUMETANIDE 1 MG TAB PO SCH ×2 (13:14→21:54)
[2021-12-06] MEDS: traMADol 50 MG TAB PO PRN ×2 (13:15→23:48)
[2021-12-06] MEDS: SEVELAMER CARBONATE 800 MG TAB PO SCH ×3 (13:15→16:57)
[2021-12-06] MEDS: FAMOTIDINE 10 MG TAB PO SCH ×2 (16:57→21:53)
[2021-12-06] MEDS: CINACALCET 30 MG TAB PO SCH (21:40)
[2021-12-07] MEDS: IPRATROPIUM/ALBUTEROL SULFATE 3 ML AMPUL.NEB IH SCH ×2 (05:32→08:54)
[2021-12-07] MEDS: HEPARIN 5,000 UNIT/1 ML VIAL SUB-Q SCH ×2 (06:10→13:00)
[2021-12-07] MEDS: hydrOXYzine HCL 25 MG TAB PO SCH ×2 (06:12→13:00)
[2021-12-07] MEDS: LEVOTHYROXINE 50 MCG TAB PO SCH (06:12)
[2021-12-07] MEDS: INSULIN LISPRO 100 UNIT/ML SUB-Q SCH ×4 (07:56→17:30)
[2021-12-07 08:11] LABS: Calcium 9.3 mg/dL (8.4-10.2)
[2021-12-07] MEDS: ARFORMOTEROL 15 MCG/2 ML NEBU IH SCH (09:02)
[2021-12-07] MEDS: BUDESONIDE 0.5 MG/2 ML NEBU IH SCH (09:02)
[2021-12-07] MEDS: FAMOTIDINE 10 MG TAB PO SCH (09:08)
[2021-12-07] MEDS: SEVELAMER CARBONATE 800 MG TAB PO SCH ×2 (09:08→12:50)
--- NOTE | 2021-12-07 09:26 | Progress Note ---
Assessment and Plan End Stage Renal Disease Right Pleural Effusion CHF Afib Diabetes Mellitus Obesity Hyperkalemia Hypotension Plan: no indication for HD today Fluid restriction of 1 liter per day Renally dose medications Obtain daily weights Monitor I/O's daily Assess dialysis needs daily Goes to [facility] outpatiently Subjective Date of service: 12/07/21 Principal diagnosis: ESRD Interval history: tolerated HD well yesterday Objective - Vital Signs Vital signs: Vital Signs - 12hr 12/06/21 12/06/21 12/06/21 22:32 23:35 23:41 Temperature 97.5 F L Pulse Rate 100 H 96 H Pulse Rate [ Bilateral Throughout] Respiratory 20 20 18 Rate Respiratory Rate [Bilateral Throughout] Blood Pressure 111/65 Blood Pressure 111/65 [Right] O2 Sat by Pulse 96 96 Oximetry 12/07/21 12/07/21 12/07/21 04:27 07:24 08:45 Temperature 97.4 F L 97.8 F Pulse Rate 83 81 Pulse Rate [ 87 Bilateral Throughout] Respiratory 18 18 Rate Respiratory 18 Rate [Bilateral Throughout] Blood Pressure 81/56 Blood Pressure 80/53 [Right] O2 Sat by Pulse 98 96 Oximetry - General Appearance General appearance: well-developed, well-nourished, obese EENT: ATNC, PERRL, mucous membranes moist Neck: no JVD, no carotid bruit Respiratory: Present: Decreased Breath Sounds. Absent: Rales, Ronchi, Wheezes Cardiology: regular, S1S2 Gastrointestinal: normoactive bowel sounds, no tenderness, no distended, no masses, obese Integumentary: no rash, warm and dry Neurologic: no focal deficit, no asterixis, alert and oriented x3 Musculoskeletal: other (trace pitting edema in BLE) Psychiatric: mood/affect appropriate, cooperative - Lab 12/03/21 22:34 12/07/21 07:11 Most recent lab results Calcium 9.3 mg/dL (8.4-10.2) 12/07/21 07:11 Phosphorus 5.50 mg/dL (2.5-4.5) H 12/05/21 05:33 Medications & Allergies - Medications Allergies/Adverse Reactions: Allergies No Known Allergies Allergy (Verified 03/21/18 23:55) Home Medications: Home Medications Medication Instructions Recorded Confirmed Last Taken Type Atorvastatin [Lipitor] 40 mg PO QHS 09/23/13 03/22/1802/24/18 History 40 mg Magnesium Oxide 400 mg PO DAILY 09/23/13 03/22/18 02/24/18 History 400 mg Levothyroxine [Synthroid] 50 mcg PO DAILY@0600 #30 tablet 03/23/16 03/22/18 02/24/18 Rx 50 mcg Bumetanide [Bumetanide 2 mg tab] 2 mg PO BID 05/15/17 03/22/18 02/24/18 History 2 mg Oxycodone HCl/Acetaminophen 1 each PO Q6HR PRN #15 tablet 05/20/17 03/22/18 02/24/18 Rx [Percocet 10/325 mg] 1 Acetaminophen [Acetaminophen TAB] 650 mg PO Q4H PRN #30 tablet 03/26/18 Unknown Rx Acyclovir [Zovirax Tab] 500 mg PO Q24HR 6 Days #6 tab 03/26/18 Unknown Rx Arformoterol Nebu [Brovana Nebu] 15 mcg IH Q12HRT #30 ml 03/26/18 Unknown Rx Budesonide [Pulmicort Respules] 0.25 mg IH Q12HR #30 03/26/18 03/22/18 02/24/18 Rx 0.25mg Capsaicin 0.075% [Zostrix Hp 1 applic TP TID 7 Days tube 03/26/18 Unknown Rx 0.075%] Cinacalcet [Sensipar] 30 mg PO HS #30 03/26/18 03/22/18 02/24/18 Rx 30 mg Famotidine [Pepcid] 10 mg PO QPM #30 tablet 03/26/18 Unknown Rx Insulin Regular, Human [HumuLIN R] 1 dose SUB-Q ACHS PRN #100 units 03/26/18 Unknown Rx Metoprolol [Lopressor TAB] 25 mg PO BID PRN #60 03/26/18 03/22/18 02/24/18 Rx 25 mg Sevelamer Carbonate [Renvela] 800 mg PO TID #90 03/26/18 03/22/18 02/24/18 Rx 800 mg hydrOXYzine HCL [Hydroxyzine HCl] 25 mg PO Q8H #30 03/26/18 03/22/18 02/24/18 Rx 25 mg methylPREDNISolone [Medrol Dose 1 dose PO DAILY #1 pack 03/26/18 Unknown Rx [place]] valACYclovir [Valtrex] 500 mg PO QPM #10 tablet 03/26/18 Unknown Rx Active Medications: Generic Name Dose Route Start Last Admin Trade Name Freq PRN Reason Stop Dose Admin Acetaminophen 650 mg 12/04/21 00:55 Acetaminophen 325 Mg Tab PO Q4H PRN Pain MILD(1-3)/Fever >100.5/HO Albuterol 2.5 mg 12/04/21 00:55 Albuterol 2.5 Mg/3 Ml Nebu IH Q3HRT PRN Shortness Of Breath Albuterol/Ipratropium 1 ampul 12/04/21 02:00 12/07/21 08:54 Ipratropium/Albuterol Sulfate 3 Ml Ampul.Neb IH 1 ampul Q6HRT PRATIK Administration Arformoterol Tartrate 15 mcg 12/04/21 08:00 12/07/21 09:02 Arformoterol 15 Mcg/2 Ml Nebu IH 15 mcg Q12HRT PRATIK Administration Atorvastatin Calcium 40 mg 12/04/21 22:00 12/06/21 21:40 Atorvastatin 40 Mg Tab PO 40 mg QHS PRATIK Administration Budesonide 0.5 mg 12/05/21 22:00 12/07/21 09:02 Budesonide 0.5 Mg/2 Ml Nebu IH 0.5 mg Q12HRT PRATIK Administration Cinacalcet 30 mg 12/04/21 22:00 12/06/21 21:40 Cinacalcet 30 Mg Tab PO 30 mg HS PRATIK Administration Famotidine 10 mg 12/04/21 10:00 12/07/21 09:08 Famotidine 10 Mg Tab PO 10 mg BID PRATIK Administration Heparin Sodium (Porcine) 7,500 unit 12/04/21 14:00 12/07/21 06:10 Heparin 5,000 Unit/1 Ml Vial SUB-Q 7,500 unit Q8HR PRATIK Administration Hydroxyzine HCl 25 mg 12/04/21 06:00 12/07/21 06:12 Hydroxyzine Hcl 25 Mg Tab PO 25 mg Q8HR PRATIK Administration Sodium Chloride 100 mls @ 999 mls/hr 12/05/21 14:18 Nacl 0.9% IV LINDA PRN Hypotension Insulin Human Lispro 0 unit 12/04/21 07:30 12/07/21 08:30 Insulin Lispro 100 Unit/Ml SUB-Q Not Given ACHS [facility] Protocol Levothyroxine Sodium 50 mcg 12/04/21 06:00 12/07/21 06:12 Levothyroxine 50 Mcg Tab PO 50 mcg DAILY@0600 PRATIK Administration Metoprolol Tartrate 25 mg 12/04/21 00:58 Metoprolol Tartrate 25 Mg Tab PO BID PRN Hypertension Morphine Sulfate 2 mg 12/04/21 00:55 Morphine 2 Mg/1 Ml Inj IV Q4H PRN Pain, Moderate (4-6) Morphine Sulfate 4 mg 12/04/21 00:55 Morphine 4 Mg/1 Ml Inj IV Q4H PRN Pain , Severe (7-10) Ondansetron HCl 4 mg 12/04/21 00:55 Ondansetron 4 Mg/2 Ml Inj IV Q8H PRN Nausea And Vomiting Sevelamer Carbonate 800 mg 12/04/21 08:00 12/07/21 09:08 Sevelamer Carbonate 800 Mg Tab PO 800 mg TIDWM PRATIK Administration Sodium Chloride 10 ml 12/04/21 10:00 12/07/21 09:08 Sodium Chloride 0.9% 10 Ml Flush Syringe IV 10 ml BID PRATIK Administration Sodium Chloride 10 ml 12/04/21 00:55 Sodium Chloride 0.9% 10 Ml Flush Syringe IV PRN PRN LINE FLUSH Tramadol HCl 50 mg 12/04/21 12:11 12/06/21 23:48 Tramadol 50 Mg Tab PO 50 mg Q6H PRN Administration Pain, Moderate (4-6)
[2021-12-07] MEDS: SODIUM CHLORIDE 0.9% 500 ML 500 ML IV ONE ×2 (10:36→17:54)
[2021-12-07] MEDS ORDERED: MIDODRINE 5 MG TAB PO SCH (11:00)
--- NOTE | 2021-12-07 12:01 | Discharge Summary ---
Providers - Providers Date of Admission: 12/04/21 00:55 Date of discharge: 12/07/21 Attending physician: JOVANNY HOWELL MD 12/04/21 00:55 Consult to Physician [CONS] Routine Comment: Consulting Provider: ANALI GAUTHIER Physician Instructions: Reason For Exam: esrd 12/04/21 00:56 Consult to Dietitian/Nutrition [CONS] Routine Physician Instructions: Reason For Exam: Reason for Consult: Diet education 12/05/21 08:36 Consult to Physician [CONS] Routine Comment: Consulting Provider: BLAYNE RODARTE Physician Instructions: Reason For Exam: malfunctioned permcath Primary care physician: ANALI GAUTHIER Hospitalization Reason for admission: respiratory distress Condition: Stable Hospital course: Patient is a 61-year-old female with history of ESRD requiring HD, diabetes and CHF who presented with shortness of breath. She was unable to have full dialysis sessions due to malfunctioning of her catheter. She was admitted for management of CHF exacerbation. Echocardiogram revealed ejection fraction of 60 to 65%, moderate to severely dilated right ventricle and severe pulmonary hypertension. Her permacath was replaced and she was dialyzed to treat her volume overload. Once stable, she was discharged back to [place]. Disposition: 30 STILL A PATIENT Final Discharge Diagnosis (Prints w/discharge instructions): End-stage renal disease on hemodialysis. Cor pulmonale. History of diastolic heart failure. Severe pulmonary hypertension. Hyperkalemia. Hypertension. History of paroxysmal atrial fibrillation. Type 2 diabetes mellitus with CKD. Obstructive sleep apnea chronic CPAP. Chronic respiratory failure. Morbid obesity Time spent for discharge: 40 minutes Core Measure Documentation - Palliative Care Palliative Care/ Comfort Measures: Not Applicable - Core Measures Any of the following diagnoses?: heart failure - Heart Failure Discharge Requirements YUDI/ARB for LVSD if EF <40%: Not Applicable Beta fidel at discharge: No Reason for no beta fidel on DC: Hypotension Exam - Physical Exam Narrative exam: GENERAL: Obese. In no acute distress. HEENT: Nasal cannula in place at 3 L/min. NECK: REJ HD catheter in place. CHEST/LUNGS: CTAB on room air HEART/CARDIOVASCULAR: RRR. No murmur, rubs or gallops appreciated. ABDOMEN: +BS. NT/ND. NEURO: No focal motor deficit. Follows all commands. MUSCULOSKELETAL: No joint effusion EXTREMITIES: No cyanosis, clubbing. RLE pressure dressing. Mild lower extremity improved. PSYCH: Cooperative. - Constitutional Vitals: Temp Pulse Resp BP Pulse Ox 97.8 F 87 18 91/43 96 12/07/21 07:24 12/07/21 08:45 12/07/21 09:53 12/07/21 09:53 12/07/21 07:24 Plan Care Plan Goals: Please have your primary care provider to schedule an appointment with a pastor to address the findings of pulmonary hypertension. Continue dialysis at your outpatient center in [place]. Follow up with: PRIMARY MD ANDREW [Referring] - 3-5 Days
[2021-12-07 12:44] VITALS: BP 109/63
== END 2021-12-07 18:02 | DRG 314 ==
LOC: ED 20:32 → 4A 12-04 00:55
PROVIDERS: ADMIT Hospitalist; ATTEND Student in an Organized Health Care Education/Training Program
PROC: 5A1D70Z Performance of Urinary Filtration, Intermittent, Less than 6 Hours Per Day (ICD-10-PCS; 2021-12-04)
PROC: 5A09457 Assistance with Respiratory Ventilation, 24-96 Consecutive Hours, Continuous Positive Airway Pressure (ICD-10-PCS; 2021-12-04)
PROC: 0JH63XZ Insertion of Tunneled Vascular Access Device into Chest Subcutaneous Tissue and Fascia, Percutaneous Approach (ICD-10-PCS; principal; 2021-12-05)
PROC: 02H633Z Insertion of Infusion Device into Right Atrium, Percutaneous Approach (ICD-10-PCS; 2021-12-05)
PROC: B5181ZA Fluoroscopy of Superior Vena Cava using Low Osmolar Contrast, Guidance (ICD-10-PCS; 2021-12-05)
PROC: B548ZZA Ultrasonography of Superior Vena Cava, Guidance (ICD-10-PCS; 2021-12-05)
PROC: 0JPW3XZ Removal of Tunneled Vascular Access Device from Lower Extremity Subcutaneous Tissue and Fascia, Percutaneous Approach (ICD-10-PCS; 2021-12-05)
PROC: 06PYX3Z Removal of Infusion Device from Lower Vein, External Approach (ICD-10-PCS; 2021-12-05)
PROC: B5161ZZ Fluoroscopy of Right Subclavian Vein using Low Osmolar Contrast (ICD-10-PCS; 2021-12-05)
PROC: B51V1ZZ Fluoroscopy of Other Veins using Low Osmolar Contrast (ICD-10-PCS; 2021-12-05)
PROC: B5181ZZ Fluoroscopy of Superior Vena Cava using Low Osmolar Contrast (ICD-10-PCS; 2021-12-05)
PROC: 5A1D70Z Performance of Urinary Filtration, Intermittent, Less than 6 Hours Per Day (ICD-10-PCS; 2021-12-05)
PROC: 5A1D70Z Performance of Urinary Filtration, Intermittent, Less than 6 Hours Per Day (ICD-10-PCS; 2021-12-06)
DX: T82.41XA Breakdown (mechanical) of vascular dialysis catheter, initial encounter (principal); N18.6 End stage renal disease; E87.5 Hyperkalemia; E66.01 Morbid (severe) obesity due to excess calories; I48.0 Paroxysmal atrial fibrillation; E11.22 Type 2 diabetes mellitus with diabetic chronic kidney disease; Z68.43 Body mass index [BMI] 50.0-59.9, adult; Z20.822 Contact with and (suspected) exposure to COVID-19; I13.2 Hypertensive heart and chronic kidney disease with heart failure and with stage 5 chronic kidney disease, or end stage renal disease; Z99.2 Dependence on renal dialysis; K21.9 Gastro-esophageal reflux disease without esophagitis; M19.90 Unspecified osteoarthritis, unspecified site; F41.9 Anxiety disorder, unspecified; J44.9 Chronic obstructive pulmonary disease, unspecified; I48.91 Unspecified atrial fibrillation; E03.9 Hypothyroidism, unspecified; G47.33 Obstructive sleep apnea (adult) (pediatric); I95.9 Hypotension, unspecified; J91.8 Pleural effusion in other conditions classified elsewhere; I27.81 Cor pulmonale (chronic); Y83.8 Other surgical procedures as the cause of abnormal reaction of the patient, or of later complication, without mention of misadventure at the time of the procedure; Y92.89 Other specified places as the place of occurrence of the external cause; I50.30 Unspecified diastolic (congestive) heart failure; J96.10 Chronic respiratory failure, unspecified whether with hypoxia or hypercapnia; I27.20 Pulmonary hypertension, unspecified; Z90.711 Acquired absence of uterus with remaining cervical stump; Z83.3 Family history of diabetes mellitus; Z82.49 Family history of ischemic heart disease and other diseases of the circulatory system; Z79.4 Long term (current) use of insulin
CPT/HCPCS: 36415; 36558; 36589; 71045; 77001; 80048; 80053; 80074; 82962; 83880; 84100; 85007; 85025; 93005; 93306; 94640; 94644; 94660; 94760; G0378; J3490; Q0177; Q9967; C1750; C1769; C8929; J0610; J1644; J1815; J2250; J2997; J3010; J7040; J7050; U0003